=== PATIENT | male | born 1945 | race Caucasian/White ===

== ENCOUNTER → 2018-11-10 08:26 | Outpatient (CLI) | payer MEDICARE, OTHER, SELFPAY ==
--- NOTE | 2018-11-10 08:35 | XR_ITS ---
PROCEDURE: XR KNEE LT 4V CLINICAL INDICATION: left knee pain COMPARISON: No exams were available for comparison FINDINGS: Moderate osteoarthritic changes are present at the medial compartment and patellofemoral joint. There is a suprapatellar effusion. Prominent osteophytes are present at the patellofemoral joint. Mild osteoarthritic changes are present at the lateral compartment. No fracture or dislocation. No lytic or blastic change. IMPRESSION: Moderate osteoarthritic changes with knee joint effusion Dictated by: Adam Winchester MD 11/10/2018 15:27 Signed by: <Electronically signed by Adam Winchester MD in [place]> 11/10/2018 15:27
== END ==
PROVIDERS: PCP Internal Medicine; Visit Provider Orthopaedic Surgery
DX: M25.562 Pain in left knee (principal)
CPT/HCPCS: 73564

== ENCOUNTER → 2018-11-30 08:29 | Outpatient (CLI) | payer MEDICARE, OTHER, SELFPAY ==
[2018-11-30 08:36] LABS: Microscopic, Urine URINE MICROSCOPIC (MICROSCOPIC)
--- NOTE | 2018-11-30 08:47 | XR_ITS ---
PROCEDURE: XR CHEST 2V CLINICAL HISTORY: HTN, PRE OP Previous smoker COMPARISON: CXR1 CHEST-PORTABLE from 09/14/2015 FINDINGS: Prior CABG. COPD. The lungs are clear without infiltrates, suspicious nodules, or pleural effusions. No acute bony abnormalities. IMPRESSION: COPD. No acute finding Dictated by: Adam Winchester MD 11/30/2018 10:46 Electronically signed by Adam Winchester MD in [place] 11/30/2018 10:46
[2018-11-30 08:52] LABS: Basophils # 0.1 K/mm3 (0-0.2); Basophils % 1.2 % (0.1-2.0); Eosinophils # 0.3 K/mm3 (0.0-0.4); Eosinophils % 3.6 % (0.1-12.0); Hematocrit 42.9 % (42.0-52.0); Hemoglobin 14.2 g/dL (14.1-18.0); Lymphocytes # 1.9 K/mm3 (0.7-4.5); Lymphocytes % 26.9 % (10-50); Mean Corpuscular HGB Conc 33.1 g/dL (31.8-35.4); Mean Corpuscular Hemoglobin 31.1 pg (27.0-31.2); Mean Corpuscular Volume 93.9 fl (80-94); Mean Platelet Volume 6.6 fl (7.4-10.4); Monocytes # 0.5 K/mm3 (0.1-1.0); Monocytes % 6.3 % (1.7-9.3); Neutrophils # 4.5 K/mm3 (1.8-7.8); Platelet Count 311 K/mm3 (142-424); Red Blood Count 4.57 M/mm3 (4.60-6.20); White Blood Count 7.2 K/mm3 (4.8-10.8)
[2018-11-30 09:25] LABS: Alanine Aminotransferase 18 U/L (12-78); Albumin Level 4.1 gm/dL (3.4-5.0); Albumin/Globulin Ratio 1.4 (1.1-1.8); Alkaline Phosphatase 59 U/L (46-116); Anion Gap 13.2 mEq/L (5-15); Aspartate Amino Transferase 13 U/L (15-37); Bilirubin,Total 0.5 mg/dL (0.2-1.0); Blood Urea Nitrogen 15 mg/dL (7-18); Calcium 9.3 mg/dL (8.5-10.1); Carbon Dioxide 30 mmol/L (21.0-32.0); Chloride 102 mmol/L (98-107); Creatinine,Serum 1.06 mg/dL (0.70-1.30); Estimated Glomerular Filt Rate 68 ml/min (>60); GFR (African American) 82 ML/MIN (>60); Glucose 136 mg/dL (74-106); Potassium 4.2 mmoL/L (3.5-5.1); Sodium 141 mmol/L (136-145); Total Protein,Serum 7.1 gm/dL (6.4-8.2)
[2018-11-30 09:34] LABS: Appearance,Urine CLEAR (Clear); Bilirubin,Urine Negative (Negative); Blood, Urine TRACE-I (Negative); Color,Urine YELLOW (Yellow); Glucose,Urine (UA) Negative (Negative); Ketones,Urine Negative (Negative); Leukocyte Esterase,Urine Negative (Negative); Nitrate,Urine Negative (Negative); Protein,Urine Negative (Negative); Urobilinogen,Urine 0.2 EU/dl (0.2)
[2018-11-30 10:02] LABS: Bacteria,Urine Trace /lpf; RBC,Urine Occasional #/hpf (0-3); Squamous Epithelial Cell,Urine Occasional #/hpf (0-5)
== END ==
PROVIDERS: PCP Internal Medicine; Visit Provider Orthopaedic Surgery
DX: Z01.818 Encounter for other preprocedural examination (principal); M17.12 Unilateral primary osteoarthritis, left knee
CPT/HCPCS: 36415; 71046; 80053; 81001; 85025

== ENCOUNTER → 2018-12-05 12:05 | Outpatient (CLI) | payer MEDICARE, OTHER, SELFPAY | PROVIDERS: Visit Provider Orthopaedic Surgery | DX: Z01.818 Encounter for other preprocedural examination (principal) | CPT/HCPCS: 36415; 86850 ==

== ENCOUNTER 2018-12-07 06:11 | Inpatient (IN) ==
--- NOTE | 2018-12-07 12:07 | Progress Note ---
[facility] Anesthesia Checklist - Structural Data Admitted From: Home Planned Operative Procedure/s: l total knee Consent for Planned Operative Procedure(s) Verified: Yes - Additional verifications Anesthesia Reactions: No Hx Blood Transfusions: No Blood Transfusion Reaction: No - Airway Assessment C-Spine Mobility Assessed: Yes TMJ Mobility Assessed: Yes Dentition: Poor Dentition - Neurological Assessment Level of Consciousness: Awake, Alert, Appropriate - Anesthesia Plan Anesthesia Risk discussed: Yes Anesthesia Plan: Verified ASA Class: III Anesthesia Type: General [facility] History I have reviewed the patient's past medical history: Yes Medical History: Reports:: Coronary Artery Disease, Diabetes Mellitus Type 2, Hyperlipidemia, Hypertension Denies:: Cancer, Diabetes Mellitus Type 1, Internal Pacemaker, MRSA, Seizures *Have you ever received a pneumonia vaccine?: Yes *Have you received a flu vaccine this season?: No Other Medical History: Reports: Arthritis. Denies: Blood Transfusion Reaction Anesthesia experience/problems:: none Laterality Cases: Other Surgeries: Yes: Cardiac Catheterization, Colonoscopy, Hernia Repair. No: Pacemaker Amputation: No Fractures: No - *Social History Smoking Status: Never smoker Alcohol Intake: never Substance Use Type: denies use *Occupational Status:: retired Housing: house Household Members: spouse *Travel in the last 8 weeks: Inside the [facility] Family Hx:: No significant family history
--- NOTE | 2018-12-07 12:08 | Progress Note ---
[facility] Anesthesia Record Part I Intake, IV Amount: 200 Estimated blood loss (mL): 50 Urine output (mL): 1,100 Blood Pressure: 154/78 SaO2: 98 Pulse Rate: 89 Respiratory Rate: 12 Temperature: 97.5 F Patient is:: Awake, Stable Stable to PACU at:: 12:05
--- NOTE | 2018-12-07 12:09 | Progress Note ---
[place] Anesthesia Record Part II Discharge Time: 12:45 Destination: floor PACU nurse assessment reviewed?: Yes Patient Condition:: Good Anesthesia Complications:: None Swallowing reflex intact?: Yes Cyanosis?: No
--- NOTE | 2018-12-07 12:30 | Operative Note ---
Date of procedure: 12/07/18 Pre-op Diagnosis:: Advanced degenerative arthritis, left knee Post-op Diagnosis:: Same Procedure performed:: Cemented total knee arthroplasty, left Surgeon:: Deion Sherman MD Casino Floor Runner(s):: Carlyn Dejesus WEB CONTENT COORDINATOR:: Cesar Danielle Anesthesia: GETA, regional (Femoral and sciatic nerve blocks) Estimated blood loss (mL): 50 Clinical Note:: Patient is a 73-year-old male with end-stage [id number] tricompartmental osteoarthritis of the left knee with a progressive varus deformity and flexion contracture presented with unremitting severe pain not relieved by conservative management. The pain is advanced to the point that it is becoming a hazard for him with risk of falling and injuring himself. A Total Knee Arthroplasty is indicated to relieve the pain, improve function, reduce the risk of falls and improve quality of life. Please refer to my office note for full details. Operative findings:: As noted on the preoperative evaluation, the knee joint had 15 degrees of fixed flexion and 10 degrees fixed varus deformity. Preoperative knee range of flexion under anesthesia was 15-100 of flexion only. As seen on the x-rays, there are advanced degenerative changes over all 3 compartments with [id number] appearance; the medial and patellofemoral compartments are the most severely involved of the 3 compartments. The menisci and cruciate ligaments are significantly degenerated. There is extensive osteophyte formation over all 3 compartments. The intercondylar notch was almost obliterated and filled with osteophytes. There were also significant osteophytes over the posterior aspect of the femoral condyles. Overall bone quality is good. Operative note:: On the day of the surgery the patient and his family were seen in the preoperative area. I have reviewed the clinical and x-ray findings with the patient. I again discussed the diagnosis, natural history and management options in detail including both nonsurgical and surgical. He has end-stage degenerative arthritis of his left knee and has failed to respond satisfactorily to conservative management so far and has opted for a left total knee arthroplasty. His left knee joint is stiff and painful, and is limiting his mobility, ADLs and quality of life. Also his left knee gives out and he is at risk of falls resulting in fractures. He mobilizes with a cane as needed. We again discussed the details of the procedure, risks and benefits and alternatives in detail. The complications discussed include but are not limited to infection, injury to nerves and blood vessels including injury to popliteal artery, injury to tendons and ligaments, DVT and PE, fat embolism, intraoperative fracture, limb length inequality, patella fracture, patellofemoral instability, patellar clunk syndrome, quadriceps and patellar tendon rupture, implant failure, component loosening, periprosthetic femur and tibia fractures, stiffness(arthrofibrosis), limp, incomplete relief of pain, incomplete functional recovery, likely need for further surgery in future including revision and anesthetic complications including heart attack, stroke and even . We discussed how any of these events can be devastating. We have discussed nonsurgical alternatives as well. Patient understands and wishes to proceed with a left total knee arthroplasty and I believe that patient is fully informed as to the risks, benefits, and alternatives including nonsurgical alternatives. We also discussed the postoperative course including the rehab and physical therapy required. A physical examination was performed and documented. Patient understood the risks, agreed to proceed with surgery, signed the consent form and no guarantees or assurances were given or implied. The limb was appropriately marked and initialed by me. The patient was then brought to the operating room and a general anesthesia was administered by the awning erector. Prior to that he had femoral and sciatic nerve blocks in the pre-anesthetic area. The patient was then positioned supine on the operating table. All the bony prominences were appropriately padded. A well-padded tourniquet cuff was placed high over the upper thigh. The left knee was then prepped with isopropyl alcohol followed by chlorhexidine and draped in the usual sterile fashion. Prior to this, patient had used Hibiclens for a total of 5 days prior to the surgery and also used topical intranasal Bactroban. The entire operative team wore isolation suits and the Operating Room traffic was controlled. The skin incision was marked for a medial parapatellar approach to the knee joint. The entire operative site was sealed off with Ioban drape. A preprocedure timeout was performed as per hospital protocol. At the start of the procedure administration of prophylactic antibiotics (Ancef and vancomycin) was confirmed with the awning erector. Another dose of 1 g of Ancef was given at about 2 hours surgical time. Also patient received 1 g of IV tranexamic acid before starting the procedure and 1 g at the time of wound closure to reduce the postoperative blood loss. A preprocedure timeout was performed as per hospital protocol. The limb was exsanguinated with Esmarch bandage, the knee joint flexed beyond 90 and the tourniquet cuff was inflated to 325 mm Hg. Please see the nursing records for a total tourniquet time. I then made a midline incision utilizing a #10 scalpel blade. Electrocautery was used to seal off subcutaneous vessels. The extensor mechanism was exposed, marked and a curvilinear incision made for a medial parapatellar approach using the scalpel blade. The patella was everted carefully and the fat pad resected to allow sufficient visualization of the proximal tibia. Extensive osteophyte formation was noted over all 3 compartments. The osteophytes were removed with rongeurs. The intercondylar notch was filled with osteophytes and the anterior cruciate ligament noted to be degenerate. The menisci were also degenerate and the anterior aspects of both menisci were resected. An appropriate medial release was performed with the knife and Rickey elevator. A step drill was used to open the intramedullary canal and the distal cutting guide was placed. The jig was pinned into position and the intramedullary guide vernon removed. The distal cut was made at 5 degrees of valgus and then the posterior referencing sizing jig was placed. The femur sized best at a size 10 femur for the Hansa persona system. Drill holes were made for the 4-in-1 cutting block in 3 degrees of external rotation. We then placed the 4-in-1 cutting block in position and the cross pins were added stabilizing the block. The jarvis wing was utilized to ensure notching of the anterior cortex would not occur. The anterior cut was made followed by the posterior cut then the posterior chamfer and finally the anterior chamfer cuts in that order. Soft tissue was protected throughout with careful retraction using the Z retractors. We checked for trueness of the cuts and then moved on to the tibia. The extra medullary guide was placed and aligned from the medial one third of the tibial tubercle down to the second metatarsal base. We pinned cutting block in position for minimal resection of the tibia from the medial side which was mo re severely involved with arthritis, checked the alignment, protected the soft tissues with appropriate retractors and resected with the Faustina saw. The resected tibial plateau articular surface was removed and sized it at a size H. We ensured correctness of the cut and correct posterior slope (5 degrees) and carefully preserved the posterior cruciate ligament. Using the laminar military communications specialist to distract the bones, we carefully resected the remaining portions of the medial and lateral menisci, removed the osteophytes from the posterior femoral condyles and the medial tibial plateau. We then checked the flexion and extension gaps and found them to be equal and well balanced. We trialed the femur and the tibia with a polyethylene insert and ranged the knee to ensure full flexion and extension and checked for ligamentous stability. We then everted the patella and measured the thickness with calipers. The patella was sized at 38 mm and measured 29 mm thick. A minimal resection (9.5mm) of the patella was carried out using the appropriate cutting guide. I then made the holes for a 3 pegged patellar button using the patella peg drill guide. We had lateralized the femur and medialized the patella intentionally for a better patellar tracking. We placed trial components and noted that a 11 mm thick polyethylene to fit best. This gave us appropriate range of motion with proper ligamentous stability. We allowed this to be free-floating and then checked it and made sure it was in appropriate position in relation to the tibial tubercle. We also used tibial alignment vernon to check for satisfactory position of the base plate and markings were made with electrocautery on the proximal tibia. We then completed the femoral preparation by making lug holes for the femoral component and removed the trial components leaving the tibial base plate in position. I then pinned the tibial base plate to the top of the tibia in correct alignment and completed the drilling and broaching of the proximal tibia. I then placed an appropriately prepared bone plug into the hole in the distal femur. I then copiously irrigated the knee with pulse lavage and then dried the cut surfaces. We then cemented the tibial tray, the femoral component, and placed a 11 mm trial polyethylene insert and brought the knee into full extension. We then cemented the 3 pegged patellar button and held it with a clamp. We allowed the cement to set and then inspected the knee joint and removed excess cement with an osteotome. We then placed the 11 mm definitive polyethylene tibial insert ensuring that the dovetails fit appropriately and that the polyethylene was down and seated into the tibial tray properly. The knee joint was put through range of motion and noted to be stable in both AP and ML direction; the patella was noted to be tracking appropriately with no thumb technique. The knee joint was then soaked with dilute Betadine (0.35 percent) solution for 3 minutes followed by suctioning of the solution and pulsatile lavage with the 1 L of normal saline. The tourniquet was deflated and hemostasis obtained with diathermy cautery. Another gram of tranexamic acid was given intravenously by the awning erector at the time of wound closure. The knee joint was again thoroughly irrigated with the pulse lavage and good hemostasis was confirmed before proceeding with wound closure. The capsule/extensor mechanism was closed with #1 Vicryl [id number] sutures ensuring a watertight closure. Next the subcutaneous tissue was closed with 2-0 Vicryl interrupted sutures. The skin was closed with subcuticular 4-0 Monocryl sutures, Dermabond and Steri-Strips. Sterile dressings were applied consisting of Xeroform, 4 x 4, ABDs, soft roll and secured in place with Parviz wrap. No drains were placed. The patient was then transferred from the operating table onto the bed. The tibialis posterior and dorsalis pedis pulses were noted 2+ with good capillary refill in the foot. The patient was then reversed from the anesthetic and transported to the postoperative recovery area in a stable condition. Patient tolerated the procedure well and there were no immediate complications. The swab, needle and instrument counts were correct, according to the scrub team, at the end of the procedure. Portable x-rays of the left knee were obtained in the recovery area which showed the components were well fixed in a satisfactory position without any complications. The knee was placed in a knee immobilizer which should be continued when standing and walking, until he regains full quadriceps control. Postoperatively, institute and continue standard precautions and physical therapy for a standard total knee arthroplasty starting on postoperative day 1. Patient can be mobilized full weightbearing as tolerated. Implants: Hansa Persona, 5 degrees stemmed left tibial base plate- size H Hansa Persona all poly-patellar component-38 mm/9.5 mm Hansa Persona cruciate-retaining standard femoral component, size 10, left Hansa Persona Vivacit-E highly cross-linked polyethylene medial Congruent articular surface, left size G-H/CR x 11 mm Biomet Refobacin bone cement R x2. Industry call center support representative: Ubaldo Danielson ([employer]) Condition: stable Disposition: PACU Specimens:: None Complications:: None
--- NOTE | 2018-12-07 15:55 | Pharmacy Consult Notes ---
[facility] Pharmacy VTE Monitoring - Patient Demographics Admission date: 12/07/18 Report Date: 12/07/18 Time: 15:55 Allergies/Adverse Reactions: Patient Allergies latex [LATEX] Allergy (Intermediate, Verified 12/07/18 06:41) Height: 1.85 m Weight: 95.765 kg - VTE Risk VTE Score: 6 VTE Risk Level: Moderate Risk - Prophylaxis Pharmacologic Type: Other (XARELTO ORDERED)
--- NOTE | 2018-12-07 17:31 | Consult Report ---
*Admission Date: 12/07/18 *Reason for consult:: Medical management postoperatively *History of present illness: 73-year-old white male with severe osteoarthritis, admitted for total knee replacement. Surgery was accomplished today without incident. Patient has pertinent history of coronary disease, status post CABG in the remote past, follows with Dr. Gilmore, staking engineer in [facility]. He denies recent problems with chest pain, shortness of air, and postoperatively he has felt well and denies any symptoms as noted above. [facility] History I have reviewed the patient's past medical history: Yes Medical History: Reports:: Cancer (skin cancer), Coronary Artery Disease, Diabetes Mellitus Type 2, Hyperlipidemia, Hypertension Denies:: Diabetes Mellitus Type 1, Internal Pacemaker, MRSA, Seizures *Have you ever received a pneumonia vaccine?: Yes *Have you received a flu vaccine this season?: No Other Medical History: Reports: Arthritis. Denies: Blood Transfusion Reaction Anesthesia experience/problems:: none Laterality Cases: Left: Arthroscopy Knee, Cataract, Total Knee Replacement Other Surgeries: Yes: CABG, Cardiac Catheterization, Colonoscopy, EGD, Hernia Repair, Open Heart Surgery, Skin Cancer Excision. No: Pacemaker Amputation: No Fractures: No - *Social History Educational Level: Completed High School Smoking Status: Former smoker Tobacco Type: pipe Alcohol Intake: never Substance Use Type: denies use *Occupational Status:: retired Housing: house Household Members: spouse *Travel in the last 8 weeks: None Family Hx:: Cancer, Coronary Artery Disease, Diabetes, Heart Attack, Hyperlipidemia, Hypertension Review of Systems - Review of Systems Review of systems:: pertinent systems reviewed and negative unless documented below Meds Home Medications Medication Instructions Recorded Confirmed Type aspirin 81 mg tablet,delayed 81 mg PO DAILY 11/10/18 12/07/18 History release lisinopril 5 mg tablet 5 mg PO DAILY 11/10/18 12/07/18 History metformin 1,000 mg tablet 1,000 mg PO BID 11/10/18 12/07/18 History pantoprazole 20 mg tablet,delayed 20 mg PO DAILY 11/10/18 12/07/18 History release Atorvastatin Calcium [Atorvastatin 10 mg PO DAILY 12/07/18 12/07/18 History 10mg Tab] Tamsulosin HCl 0.4 mg PO HS 12/07/18 12/07/18 History Tramadol HCl [Tramadol 50mg 50 mg PO Q6HP PRN 12/07/18 12/07/18 History Tab] Allergies Allergy/AdvReac Type Severity Reaction Status Date / Time latex [LATEX] Allergy Intermediate Verified 12/07/18 06:41 Exam Vital signs and Labs for Last 24 Hours: Temp Pulse Resp BP Pulse Ox 97.9 F 92 H 18 139/62 97 12/07/18 16:00 12/07/18 16:00 12/07/18 16:00 12/07/18 16:00 12/07/18 16:00 Laboratory Results - last 24 hr 12/07/18 06:58: POC Glucose 124 H 12/07/18 08:15: Urine Color Yellow, Urine Appearance Clear, Urine pH 6.0, Ur Specific [place] 1.020, Urine Protein Negative, Urine Glucose (UA) Negative, Urine Ketones Negative, Urine Blood Negative, Urine Nitrate Negative, Urine Bilirubin Negative, Urine Urobilinogen 0.2, Ur Leukocyte Esterase Negative, Urine RBC Occasional, Urine WBC 3-5, Ur Squamous Epith Cells None, Urine Bacteria 1+ I & O for Last 24 hours: Intake & Output 12/05/18 12/06/18 12/07/18 12/08/18 11:59 11:59 11:59 11:59 Intake Total 200 / 200 Output Total 300 / 300 Balance -100 / -100 Weight 200 lb 211 lb 2 oz Narrative: Patient is awake, alert, oriented x3, resting comfortably in bed. Bansal catheter in place draining clear yellow urine, splint and dressing appropriately on left knee and lower leg. Distal perfusion however is intact. Heart rate regular without murmurs, lungs are clear in the anterior rivas, oropharynx clear, no JVD. Neurologically patient is intact. Abdomen soft and nontender. Internal Medicine - CN: Reslt - Labs Labs: Urine 12/07/18 Range/Units 08:15 Urine Color Yellow (Yellow) Urine Appearance Clear (Clear) Urine pH 6.0 (5.0-8.5) Ur Specific [place] 1.020 (1.005-1.030) Urine Protein Negative (Negative) Urine Glucose (UA) Negative (Negative) Assessment and Plan (1) Status post left knee replacement Current visit: Yes Status: Acute Category: Surgical Code(s): Z96.652 - Presence of left artificial knee joint Patient seems to be doing well in the immediate postoperative period. On anticoagulation therapy. Respiratory status excellent. We will continue to monitor (2) Diabetes type 2, controlled Current visit: Yes Status: Acute Category: Medical Code(s): E11.9 - Type 2 diabetes mellitus without complications Restart patient's metformin. (3) Coronary atherosclerosis Current visit: Yes Status: Acute Category: Medical Code(s): I25.10 - Atherosclerotic heart disease of [place] coronary artery without angina pectoris Asymptomatic, no changes in plan.
[2018-12-08 07:19] LABS: Basophils % 0.2 % (0.1-2.0); Eosinophils % 0.2 % (0.1-12.0); Hemoglobin 11.1 g/dL (14.1-18.0); Lymphocytes # 1.6 K/mm3 (0.7-4.5); Lymphocytes % 14.8 % (10-50); Mean Corpuscular HGB Conc 32.6 g/dL (31.8-35.4); Mean Corpuscular Volume 91.9 fl (80-94); Mean Platelet Volume 6.7 fl (7.4-10.4); Monocytes % 9.4 % (1.7-9.3); Neutrophils # 8.3 K/mm3 (1.8-7.8); Neutrophils % 75.3 % (37.0-80.0); Platelet Count 249 K/mm3 (142-424); Red Cell Distribution Width 13.2 % (11.5-17.5)
[2018-12-08 07:22] LABS: Anion Gap 12.8 mEq/L (5-15); Calcium 8.3 mg/dL (8.5-10.1)
--- NOTE | 2018-12-08 09:00 | Progress Note ---
Internal Medicine - PN: Subj *Date: 12/08/18 *Time: 08:57 Interval history: Did well overnight. No bowel movement since yesterday. Bansal still in place. Pleasant on interview this morning. No acute complaints. States he has improved feeling in his left foot. Getting up to bedside chair with nursing on interview. No shortness of breath, chest pain, confusion, nausea or vomiting Exam Vital signs and Labs for Last 24 Hours: Temp Pulse Resp BP Pulse Ox 98.8 F 99 H 18 135/52 L 92 L 12/08/18 08:00 12/08/18 08:00 12/08/18 08:00 12/08/18 08:00 12/08/18 08:00 Laboratory Results - last 24 hr 12/07/18 08:15: Urine Color Yellow, Urine Appearance Clear, Urine pH 6.0, Ur Specific [place] 1.020, Urine Protein Negative, Urine Glucose (UA) Negative, Urine Ketones Negative, Urine Blood Negative, Urine Nitrate Negative, Urine Bilirubin Negative, Urine Urobilinogen 0.2, Ur Leukocyte Esterase Negative, Urine RBC Occasional, Urine WBC 3-5, Ur Squamous Epith Cells None, Urine Bacteria 1+ 12/08/18 06:27: WBC 11.0 H, RBC 3.70 L, Hgb 11.1 L, Hct 34.0 L, MCV 91.9, MCH 29.9, MCHC 32.6, RDW 13.2, Plt Count 249, MPV 6.7 L, Neut % (Auto) 75.3, Lymph % (Auto) 14.8, Heard % (Auto) 9.4 H, Eos % (Auto) 0.2, Baso % (Auto) 0.2, Neut # (Auto) 8.3 H, Lymph # (Auto) 1.6, Heard # (Auto) 1.0, Eos # (Auto) 0.0, Baso # (Auto) 0.0 12/08/18 06:27: Sodium 141, Potassium 3.8, Chloride 106, Carbon Dioxide 26, Anion Gap 12.8, BUN 16, Creatinine 1.13, Estimated Creat Clear 77, Estimated GFR 63, Est GFR ( Amer) 77, Glucose 147 H, Calcium 8.3 L I & O for Last 24 hours: Intake & Output 12/05/18 12/06/18 12/07/18 12/08/18 23:59 23:59 23:59 23:59 Intake Total 440 / 440 1461 / 1461 Output Total 300 / 300 1950 / 1950 Balance 140 / 140 -489 / -489 Weight 95.765 kg 95.765 kg Narrative: Patient is awake, alert, oriented x3, resting comfortably in bed. Bansal catheter in place draining clear yellow urine, splint and dressing appropriately on left knee and lower leg. Neurovascularly intact in left distal extremity. Wiggles toes on command. Sensation normal bilaterally in feet Heart rate regular without murmurs, lungs are clear in the anterior rivas, oropharynx clear, no JVD. Neurologically patient is intact. Abdomen soft and nontender. Assessment and Plan (1) Status post left knee replacement Current visit: Yes Status: Acute Category: Surgical Code(s): Z96.652 - Presence of left artificial knee joint (2) Diabetes type 2, controlled Current visit: Yes Status: Acute Category: Medical Code(s): E11.9 - Type 2 diabetes mellitus without complications (3) Coronary atherosclerosis Current visit: Yes Status: Acute Category: Medical Code(s): I25.10 - Atherosclerotic heart disease of [place] coronary artery without angina pectoris - Assessment and plan all Dx Assessment and Plan for all problems:: Stable today. No change to medical management. Continue anticoagulation with Xarelto. Will need 6 weeks of anticoagulation therapy for DVT prophylaxis. Awaiting physical therapy assessment for further disposition recommendations.
--- NOTE | 2018-12-08 13:24 | Progress Note ---
Subjective Date: 12/08/18 Time: 12:30 Principal diagnosis: Status post left total knee arthroplasty Interval history: Patient is status post left total knee arthroplasty, postoperative day 1. Patient is lying down on the bed. Patient says he is doing well and his pain is well controlled with medication. He says the nerve blocks for off this morning and he is having some pain in the knee. No history of any nausea or vomiting. No history of any cough, chest pain, shortness of breath or palpitations. Patient says he is eating and drinking well. He has been up this morning with the physical therapy and says it went well. PN: Obj Ex Vital signs: Temp Pulse Resp BP Pulse Ox 98.3 F 84 20 158/69 H 95 12/08/18 12:17 12/08/18 12:17 12/08/18 12:17 12/08/18 12:12/08/18 12:17 Narrative: Laboratory Results - last 24 hr 12/08/18 06:27: WBC 11.0 H, RBC 3.70 L, Hgb 11.1 L, Hct 34.0 L, MCV 91.9, MCH 29.9, MCHC 32.6, RDW 13.2, Plt Count 249, MPV 6.7 L, Neut % (Auto) 75.3, Lymph % (Auto) 14.8, Placer % (Auto) 9.4 H, Eos % (Auto) 0.2, Baso % (Auto) 0.2, Neut # (Auto) 8.3 H, Lymph # (Auto) 1.6, Placer # (Auto) 1.0, Eos # (Auto) 0.0, Baso # (Auto) 0.0 12/08/18 06:27: Sodium 141, Potassium 3.8, Chloride 106, Carbon Dioxide 26, Anion Gap 12.8, BUN 16, Creatinine 1.13, Estimated Creat Clear 77, Estimated GFR 63, Est GFR ( Amer) 77, Glucose 147 H, Calcium 8.3 L Intake & Output 12/06/18 12/07/18 12/08/18 12/09/18 11:59 11:59 11:59 11:59 Intake Total 2141 / 2141 Output Total 2400 / 2400 Balance -259 / -259 Weight 211 lb 2.011 oz Exam: General appearance: alert, active, awake Cardiovascular: regular rate & rhythm, normal peripheral pulses Respiratory: No respiratory distress noted, speaks in full sentences ABD: soft and non tender Neuro: alert, awake, oriented x 3 On examination of the lower extremities the limb lengths are equal. On examination of the left knee the dressings are clean, dry and intact. Calf is soft and nontender. Distal pulses are 2+. Capillary refill is brisk. Sensation is intact to light touch throughout. He is actively moving the ankle, foot and the toes. Diagnostic imaging: Postoperative check x-rays satisfactory with good alignment and fixation of the implants. No complications noted on the x-rays. - Urinary Catheter Management Coude Cath placed during this visit: yes Urethral indwelling: Yes Reason for continuing: Surgical procedure Insertion date: 12/07/18 Insertion time: 08:15 Progress Note: A&P (1) Status post left knee replacement Status: Acute Current Visit: Yes (2) Diabetes type 2, controlled Status: Acute Current Visit: Yes (3) Coronary atherosclerosis Status: Acute Current Visit: Yes Assessment and Plan for All Diagnoses:: I have reviewed the operative findings and procedure performed with the patient. On first postoperative day after surgery, he is doing well without any major problems. He does have some pain as to be expected and it is well controlled with medication. Advised him to avoid placing pillow behind the knee; use knee immobilizer when weightbearing and walking until he regains full quadriceps control and is able to actively straight leg raise. Patient was seen by PT today and started physical therapy and mobilization; continue standard protocol for a primary knee replacement. Discontinue IV fluids as patient is eating and drinking well. Continue DVT prophylaxis and as needed pain medication. The catheter was removed this morning and he passed urine since. Care management consult regarding discharge planning. Continue medical management as per Dr. Hardwick.
--- NOTE | 2018-12-09 08:04 | Progress Note ---
Internal Medicine - PN: Subj *Date: 12/09/18 *Time: 08:03 Interval history: Medicine consult follow-up: Patient feels well except for "this leg." No chest pain, shortness of air or GI distress. Exam Vital signs and Labs for Last 24 Hours: Temp Pulse Resp BP Pulse Ox 97.9 F 105 H 18 139/69 93 L 12/09/18 04:00 12/09/18 04:00 12/09/18 04:00 12/09/18 04:00 12/09/18 04:00 I & O for Last 24 hours: Intake & Output 12/06/18 12/07/18 12/08/18 12/09/18 11:59 11:59 11:59 11:59 Intake Total 2141 / 2141 970 / 970 Output Total 2400 / 2400 1050 / 1050 Balance -259 / -259 -80 / -80 Weight 211 lb 2.011 oz 206 lb 7 oz Narrative: Patient is alert. Somewhat grumpy about his leg pain. Lungs are clear, heart rate regular. Abdomen soft. No peripheral edema. Assessment and Plan (1) Status post left knee replacement Current visit: Yes Status: Acute Category: Surgical Code(s): Z96.652 - Presence of left artificial knee joint (2) Diabetes type 2, controlled Current visit: Yes Status: Acute Category: Medical Code(s): E11.9 - Type 2 diabetes mellitus without complications (3) Coronary atherosclerosis Current visit: Yes Status: Acute Category: Medical Code(s): I25.10 - Atherosclerotic heart disease of [place] coronary artery without angina pectoris - Assessment and plan all Dx Assessment and Plan for all problems:: Overall patient improving, stable from a medicine perspective. Stable for discharge from my perspective. He takes Eliquis at home for anticoagulation therapy and this should be adequate for postoperative prophylaxis for DVT issues.
--- NOTE | 2018-12-09 13:18 | Progress Note ---
Subjective Date: 12/09/18 Time: 11:45 Principal diagnosis: Status post left total knee arthroplasty Interval history: Patient is status post right left knee arthroplasty, postoperative day 2. Patient is lying down on the bed. Patient says he is doing fairly well and pain is well controlled with medication. He says he is mobilizing well with the physical therapy and walked up and down the hallway today. No history of any nausea or vomiting. No history of any cough, chest pain, shortness of breath or palpitations. Patient says he is eating and drinking well. PN: Obj Ex Vital signs: Temp Pulse Resp BP Pulse Ox 98.1 F 99 H 17 137/71 95 12/09/18 11:28 12/09/18 11:28 12/09/18 11:28 12/09/18 11:28 12/09/18 11:28 Narrative: Intake & Output 12/07/18 12/08/18 12/09/18 12/10/18 11:59 11:59 11:59 11:59 Intake Total 2141 / 2141 1330 / 1330 360 / 360 Output Total 2400 / 2400 1300 / 1300 150 / 150 Balance -259 / -259 30 / 30 210 / 210 Weight 211 lb 2.011 oz 206 lb 7 oz Exam: General appearance: alert, active, awake Cardiovascular: regular rate & rhythm, normal peripheral pulses Respiratory: No respiratory distress noted, speaks in full sentences ABD: soft and non tender Neuro: alert, awake, oriented x 3 On examination of the lower extremities the limb lengths are equal. On examination of the left knee the dressings are clean, dry and intact. I have changed the dressings today. The incision looks clean, dry and healthy. No discharge, bleeding or soakage of the dressings noted. He has a small blister over the medial aspect of the incision at the level of the patella. Calf is soft and nontender. Distal pulses are 2+. Capillary refill is brisk. Sensation is intact to light touch throughout. He is actively moving the ankle, foot and the toes. He is just about able to actively straight leg raise. - Urinary Catheter Management Coude Cath placed during this visit: yes Urethral indwelling: Yes Reason for continuing: Surgical procedure Insertion date: 12/07/18 Insertion time: 08:15 Progress Note: A&P (1) Status post left knee replacement Status: Acute Current Visit: Yes (2) Diabetes type 2, controlled Status: Acute Current Visit: Yes (3) Coronary atherosclerosis Status: Acute Current Visit: Yes Assessment and Plan for All Diagnoses:: I have reviewed the findings and progress with the patient. He is doing fairly well and reports better pain control today. I have again advised him to avoid placing pillow behind the knee; use knee immobilizer when weightbearing and walking until he regains full quadriceps control and is able to actively straight leg raise. Advised him to continue PT, OT and mobilization; continue standard protocol for a primary total knee replacement. Continue DVT prophylaxis and as needed pain medication. Care management looking into discharge planning. Continue medical management as per Dr. Hardwick.
--- NOTE | 2018-12-10 10:45 | Discharge Summary ---
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 He has not responded well to conservative management including NSAID, Tylenol, and intra-articular injections in the past. He is using assistive walking devices. A total knee arthroplasty is indicated to reduce the risk of falls, decrease the pain and improve the mobility and quality of life. The surgical and nonsurgical alternatives were discussed in detail with the patient as well as the risks and benefits of the surgery. He has a history of hypertension, diabetes and osteoarthritis. Hospital Course Hospital Course: Patient underwent an uncomplicated straightforward primary left total knee arthroplasty on 12/07/2018. Following surgery patient progressed well without any complications. His postoperative check x-ray was satisfactory with good alignment and fixation of the components. He progressed rapidly with physical therapy and was able to mobilize using a walker. At the time of discharge he still has not regained good quadriceps control and was advised to mobilize with the knee immobilizer until he fully regains quadriceps control and is able to actively straight leg raise. His pain is well controlled with as needed oral hydrocodone/Tylenol. The dressings were reduced on the second postoperative day and the wound is healthy and healing well. No signs of any erythema, induration or discharge. He has developed couple of blisters possibly from allergy to the Steri-Strips; therefore I have removed the Steri-Strips on the day of discharge and applied sterile nonadhesive dressing. Patient was started on Xarelto 10 mg daily for DVT prophylaxis after surgery. His neurovascular status in both lower extremities is intact. Pedal pulses 2+ bilaterally and fully sensate distally. No clinical evidence of DVT noted. Patient was cleared for discharge by physical therapy. On the day of discharge, the patient has been stable. Patient's vital signs have been stable throughout and he is afebrile at the time of discharge. He is being discharged home with home health. During his admission to the hospital he was also seen by Dr. Hardwick for management of medical problems. Dr. Hardwick also cleared him for discharge from a medical standpoint. Condition at discharge: improved and stable. Treatments and Procedures: Total knee arthroplasty, LEFT knee; date of surgery 12/07/2018. Objective Vital signs: Temp Pulse Resp BP Pulse Ox 98.5 F 94 H 18 137/72 93 L 12/10/18 08:00 12/10/18 08:00 12/10/18 08:00 12/10/18 08:00 12/10/18 08:00 no acute distress, cooperative - *Routine HEENT Exam Head: Present: normocephalic, atraumatic Eye: Present: EOMI ENT: Present: mucous membranes moist - *Routine Neck Exam Present: supple, full ROM, trachea midline - *Routine Respiratory Exam Present: CTA bilaterally - *Routine Cardiovascular Exam Present: RRR, Normal S1, Normal S2 - *Routine Abdominal Exam Present: soft, normoactive bowel sounds. Absent: tenderness - *Routine Extremities Exam Comments: On examination of the [left]knee, the dressing is in place and is clean, dry and intact. There is no erythema or discharge. There is diffuse swelling and some tenderness over the knee joint as to be expected at this stage. He has developed a couple of blisters possibly from allergy to the Steri-Strips /Mastisol. Therefore I have removed the Steri-Strips and applied a sterile nonadhesive dressing. Knee range of motion is [5-70] of flexion. Distal pulses are 2+. Capillary refill is brisk. Sensation is intact to light touch throughout. Thigh and calf are soft and there is mild tenderness over the distal thigh. There is also 1+ edema of the [left] leg, ankle and foot. Patient demonstrates good range of foot and ankle movements. The quadriceps muscle is actively abi. Patient is barely able to actively straight leg raise. - Routine Back/Spine/Pelvis Exam Back/Spine: Absent: paraspinal tenderness, vertebral tenderness - *Routine Skin Exam Present: intact, warm, normal turgor - *Routine Neurological Exam Present: alert, oriented X3, moving all extremities - Routine Psychiatric Exam Present: normal affect, cooperative DS: Diagnosis - Discharge Diagnosis (1) Status post left knee replacement Start date: 12/07/18 Status: Acute (2) Diabetes type 2, controlled Status: Acute (3) Coronary atherosclerosis Status: Acute Discharge Plan - Patient Discharge Instructions ACTIVITY: Continue current activity, Ambulate as tolerated DIET: advance to your usual diet Patient Instructions: Knee Replacement, DI for Knee Replacement, DI for Surgical Site Infection, Surgical Site Infection - Follow up Plan Follow up with: Deion Sherman MD [Staff Physician] - 12/23/18 10:00 am Disposition: Home Health Service Home Medications: Home Medications Medication Instructions Recorded Confirmed Type aspirin 81 mg tablet,delayed 81 mg PO DAILY 11/10/18 12/07/18 History release lisinopril 5 mg tablet 5 mg PO DAILY 11/10/18 12/07/18 History metformin 1,000 mg tablet 1,000 mg PO BID 11/10/18 12/07/18 History pantoprazole 20 mg tablet,delayed 20 mg PO DAILY 11/10/18 12/07/18 History release Atorvastatin Calcium [Atorvastatin 10 mg PO DAILY 12/07/18 12/07/18 History 10mg Tab] Tamsulosin HCl 0.4 mg PO HS 12/07/18 12/07/18 History Docusate Sodium [Docusate Sodium 100 mg PO BIDP PRN #30 cap 12/10/18 Rx 100mg Cap] Ferrous Sulfate [Ferrous Sulfate 325 mg PO BID #120 tab 12/10/18 Rx 325mg Tablet] Hydrocod/Acet 5/325 mg [[place] 1 - 2 tab PO Q4HP PRN #60 tab 12/10/18 Rx 5/325mg tablet] Rivaroxaban [Xarelto 10mg tablet] 10 mg PO QPMWM 14 Days #14 tab 12/10/18 Rx Prescriptions/Medication Reconciliation: New Ferrous Sulfate [Ferrous Sulfate 325mg Tablet] 325 mg PO BID #120 tab Rivaroxaban [Xarelto 10mg tablet] 10 mg PO QPMWM 14 Days #14 tab Hydrocod/Acet 5/325 mg [[place] 5/325mg tablet] 1 - 2 tab PO Q4HP PRN #60 tab PRN Reason: Moderate To Severe Pain Docusate Sodium [Docusate Sodium 100mg Cap] 100 mg PO BIDP PRN #30 cap PRN Reason: Constipation Continued metformin 1,000 mg tablet 1,000 mg PO BID pantoprazole 20 mg tablet,delayed release 20 mg PO DAILY lisinopril 5 mg tablet 5 mg PO DAILY Atorvastatin Calcium [Atorvastatin 10mg Tab] 10 mg PO DAILY Tamsulosin HCl 0.4 mg PO HS Held aspirin 81 mg tablet,delayed release 81 mg PO DAILY Discontinued Tramadol HCl [Tramadol 50mg Tab] 50 mg PO Q6HP PRN PRN Reason: Moderate Pain - Problem Reconciliation Problems Reviewed?: Yes - Additional Information Additional Information: Our recommendations on discharge include physical therapy with weightbearing as tolerated and range of motion exercises of the left knee with emphasis on full extension and regaining flexion gradually. Patient will have home health and physical therapy at home. Note is made that the patient easily extends the knee to 0 degrees and flexes to 120 degrees while he was under anesthesia for the total knee arthroplasty with the wound closed. I have strongly advised him not to place any pillow behind the knee. But he can place a pillow under the ankle thus allowing gravity/weight of the leg help the knee into full extension. Patient was also advised to keep the leg elevated and ice the knee/use Polar pack on a regular basis. At this stage it is permissible to take a shower and allow the incision to get wet with shower water. After padding the area dry, the wound can be left open. If needed the dressings can be changed as clinically indicated. Patient will follow up with me in the office in approximately 12-14 days for wound check and to cut the suture ends. Recommend 10 mg of Xarelto p.o. daily for 10 days for DVT prophylaxis. Please feel free to call our office at [phone] or via the hospital blanket cutting machine operator [phone] for any orthopaedic questions or concerns.
== END 2018-12-10 12:00 | disposition home health service (06) | DRG 470 ==
LOC: OR 06:11 → 2ND 06:11 → OBSVTOIN 06:23 → 2ND 13:30
PROVIDERS: ADMIT Orthopaedic Surgery; ATTEND Orthopaedic Surgery
CPT/HCPCS: 36415; 73560; 80048; 81001; 82962; 85025; 86850; 96374; 97110; 97116; 97161; 97165; C1713; C1776; J2405; J3370

== ENCOUNTER → 2019-01-20 11:22 | Outpatient (CLI) | payer MEDICARE, OTHER, SELFPAY ==
--- NOTE | 2019-01-20 11:29 | XR_ITS ---
PROCEDURE: XR KNEE LT 2V CLINICAL INDICATION: sp lt knee total arthroplasty Follow-up knee arthroplasty. COMPARISON: XR KNEE LT 4V from 11/10/2018 XR KNEE LT 2V from 12/07/2018 FINDINGS: Status post total knee replacement with good alignment. No fracture or dislocation. No evidence of orthopedic complication. No lytic or blastic change. Other findings:None. IMPRESSION: No acute findings. Status post total knee replacement with good alignment and no acute finding Dictated by: Adam Winchester MD 01/20/2019 12:54 Electronically signed by Adam Winchester MD in [facility] 01/20/2019 12:54
== END ==
PROVIDERS: PCP Internal Medicine; Visit Provider Orthopaedic Surgery
DX: Z96.652 Presence of left artificial knee joint (principal); M25.562 Pain in left knee
CPT/HCPCS: 73560

== ENCOUNTER → 2019-06-02 09:30 | Outpatient (CLI) | payer MEDICARE, OTHER, SELFPAY ==
--- NOTE | 2019-06-02 09:37 | XR_ITS ---
PROCEDURE: XR KNEE LT 2V CLINICAL INDICATION: sp LT TKA, dos 12/07/2018 Follow-up surgery, follow-up knee replacement COMPARISON: XR KNEE LT 4V from 11/10/2018 XR KNEE LT 2V from 12/07/2018 XR KNEE LT 2V from 01/20/2019 FINDINGS: Status post total knee replacement with good alignment. No complications apparent. IMPRESSION: Good alignment status post total knee replacement Dictated by: Adam Winchester MD 06/02/2019 10:19 Electronically signed by Adam Winchester MD in [facility] 06/02/2019 10:19
== END ==
PROVIDERS: PCP Internal Medicine; Visit Provider Orthopaedic Surgery
DX: Z96.652 Presence of left artificial knee joint (principal); M25.562 Pain in left knee
CPT/HCPCS: 73560

== ENCOUNTER → 2019-12-14 09:54 | Outpatient (CLI) | payer MEDICARE, OTHER, SELFPAY ==
--- NOTE | 2019-12-14 10:05 | XR_ITS ---
PROCEDURE: XR KNEE LT 2V CLINICAL INDICATION: sp LT TKA, dos 12/07/2018 COMPARISON: CR XR KNEE LT 4V from 11/10/2018 CR XR KNEE LT 2V from 12/07/2018 CR XR KNEE LT 2V from 01/20/2019 CR XR KNEE LT 2V from 06/02/2019 FINDINGS: Status post total knee replacement with good alignment. No fracture or dislocation. No evidence of orthopedic complication. No lytic or blastic change. Other findings:None. IMPRESSION: No acute findings. Status post total knee replacement with good alignment and no acute finding Dictated by: Adam Winchester MD 12/14/2019 18:56 Adam Winchester MD in [facility] 12/14/2019 18:56
== END ==
PROVIDERS: PCP Internal Medicine; Visit Provider Orthopaedic Surgery
DX: Z96.652 Presence of left artificial knee joint (principal); M25.562 Pain in left knee
CPT/HCPCS: 73560

== ENCOUNTER → 2020-08-04 14:07 | Outpatient (CLI) | payer MEDICARE, OTHER, SELFPAY ==
--- NOTE | 2020-08-04 14:11 | MR_ITS ---
PROCEDURE: MR LUMBAR SPINE WO CON CLINICAL INDICATION: LEFT LEG SCIATICA COMPARISON: No exams were available for comparison TECHNIQUE: Standard multiplanar multiecho sequences are performed without contrast. 3-D MIP and myelographic images are also rendered and reviewed FINDINGS: There is normal lumbar lordosis. Vertebral body heights and alignment are maintained. Multilevel disc desiccation with disc bulges are noted. Bone marrow signal intensity is within normal limits without evidence of marrow infiltrative process. The conus terminates at L1 level. There is focal T2 hyperintensity noted in the prevertebral soft tissues posterior to the aorta measuring 1.4 times 2.1 centimeters, demonstrates T1 hypointensity. This more likely represents prominent lymphatics. T2 hyperintense focal lesions noted in the left kidney measuring 1.7 centimeters, likely represent cysts. Further details as described below T12-L1: No canal or foraminal narrowing L1-2: Broad-based disc bulge causes minor thecal sac indentation. No significant canal or foraminal narrowing. L2-3: Broad-based disc bulge, bilateral facet joint and ligamentum flavum hypertrophy causes mild to moderate canal narrowing. There is mild bilateral foraminal narrowing. L3-4: Broad-based disc bulge, bilateral facet joint and ligamentum flavum hypertrophy causes mild to moderate canal and moderate bilateral foraminal narrowing. L4-5: Broad-based disc bulge, bilateral facet joint and ligamentum flavum hypertrophy, worse on the left causes moderate to severe left foraminal narrowing. Moderate canal and right foraminal narrowing is noted. L5-S1: Broad-based disc bulge, worse in the left paracentral location, bilateral facet joint and ligamentum flavum hypertrophy noted. There is effacement of the left lateral recess with the possible impingement on the traversing nerve roots. There is moderate to severe left and mild right foraminal narrowing. IMPRESSION: Multilevel degenerative changes, worse at L4-5 and L5-S1 with moderate to severe foraminal narrowing as described above. There is effacement of the lateral recess at L5-S1 with possible impingement on the traversing nerve roots. Other findings as described above. Dictated by: Shelby Sherman 08/04/2020 15:27 Shelby Sherman in [facility] 08/04/2020 15:27
== END ==
PROVIDERS: PCP Internal Medicine; Visit Provider Internal Medicine
DX: M54.42 Lumbago with sciatica, left side (principal)
CPT/HCPCS: 72148; 76376

== ENCOUNTER → 2020-08-10 08:49 | Outpatient (POV) | payer MEDICARE, OTHER, SELFPAY ==
[2020-08-10 08:57] VITALS: BP 151/63; PULSE 74; RESP 18; O2SAT 98; BMI 25.4
--- NOTE | 2020-08-10 15:34 | HMH.PMCON ---
Assessment and Plan (1) Degenerative joint disease (DJD) of lumbar spine Status: Acute Category: Medical Code(s): M47.816 - Spondylosis without myelopathy or radiculopathy, lumbar region (2) Lumbar radiculopathy Status: Acute Category: Medical Code(s): M54.16 - Radiculopathy, lumbar region - Assessment and plan all Dx Assessment and Plan for all problems:: We will plan L4-L5 lumbar epidural steroid injection for the patient. Patient's been instructed to call the office if he has any issues prior to his next appointment. He is not on any anticoagulation therapy. We will follow up with him after his injection reassess his symptoms at that time. Dr. White has reviewed this note and agrees with this plan of care. This note was dictated using voice recognition software and may contain errors or omissions HPI - Data of Consult Requesting Physician: Oxana Gutierrez APRN Primary Care Provider: Stefan Luu - Consult Narrative Reason for consult: Back pain, left leg pain History of present illness: Mr. Jauregui is a 74 year old male who presents today for consultation in regard to his left leg pain and back pain. Patient rates his pain a 4 out of 10. He has difficulty with standing or walking. Patient has numbness and tingling in his left lower extremity. Increased activity increases pain while rest and pain medication decreases pain. Patient tries to stay as active as possible however it is difficult due to the pain. Patient has had a hip injection with minimal relief. He is on Olin. This does help him. Patient is interested in injective therapy. CC: Oxana Gutierrez APRN [facility] History I have reviewed the patient's past medical history: Yes Medical History: Reports:: Coronary Artery Disease, Hyperlipidemia, Hypertension Denies:: Cancer, Diabetes Mellitus Type 1, Diabetes Mellitus Type 2, Internal Pacemaker, MRSA, Seizures *Have you ever received a pneumonia vaccine?: No *Have you received a flu vaccine this season?: No Other Medical History: Reports: Arthritis. Denies: Blood Transfusion Reaction Laterality Cases: Left: Arthroscopy Knee Other Surgeries: Yes: CABG, Cardiac Catheterization, Colonoscopy, EGD, Hernia Repair, Open Heart Surgery, Skin Cancer Excision. No: Pacemaker Amputation: No Fractures: No - *Social History Smoking Status: Never smoker Tobacco Type: pipe Alcohol Intake: never Substance Use Type: denies use *Occupational Status:: retired Housing: house Household Members: spouse, other *Travel in the last 8 weeks: None Family Hx:: Unable to obtain Review of Systems - Review of Systems ROS General: no recent weight change, no fever, no sleep disturbances Respiratory: no cough, no shortness of air, no recurring pulmonary infections Cardiovascular/Peripheral Vascular: No chest pain, No palpitations, no edema, no shortness of breath. Gastrointestinal: no new onset incontinence, normal bowel movements reported Genitourinary: no new onset incontinence Musculoskeletal: Back pain, leg pain Psychiatric: normal mood/ affect Neurological: [denies new onset weakness in extremities], [denies new onset balance issues] Meds Home Medications Medication Instructions Recorded Confirmed Type aspirin 81 mg tablet,delayed 81 mg PO DAILY 11/10/18 12/14/19 History release metformin 1,000 mg tablet 1,000 mg PO BID 11/10/18 12/14/19 History pantoprazole 20 mg tablet,delayed 20 mg PO DAILY 11/10/18 12/14/19 History release Atorvastatin Calcium [Lipitor 10mg 10 mg PO DAILY 12/07/18 12/14/19 History Tab] Docusate Sodium [Docusate Sodium 100 mg PO BIDP PRN #30 cap 12/10/18 12/14/19 Rx 100mg Cap] Allergies Allergy/AdvReac Type Severity Reaction Status Date / Time latex [LATEX] Allergy Intermediate Verified 12/14/19 10:42 Objective Vital signs: Pulse Resp BP Pulse Ox 74 18 151/63 H 98 08/10/20 08:57 08/10/20 08:57 08/10/20 08:57
== END ==
PROVIDERS: PCP Internal Medicine; Visit Provider Clinical Nurse Specialist Family Health
DX: M47.896 Other spondylosis, lumbar region (principal); M54.16 Radiculopathy, lumbar region
CPT/HCPCS: 99202; G0463

== ENCOUNTER 2020-08-25 09:27 | Day surgery (SDC) | payer MEDICARE, OTHER, SELFPAY ==
[2020-08-25 09:38] VITALS: BP 154/73; PULSE 95; RESP 20; TEMP 36.7; O2SAT 97; BMI 25.4
[2020-08-25 10:06] VITALS: BP 131/86; PULSE 86; RESP 18; O2SAT 95
[2020-08-25 10:07] VITALS: BP 131/86; PULSE 88; RESP 18; O2SAT 96
--- NOTE | 2020-08-25 10:19 | HMH.PMPROC ---
- Procedure Date: 08/25/20 Time: 10:19 Anesthesiologist:: Tom White MD Complications:: None Pre-procedure Diagnosis:: Degenerative disc disease of lumbar spine with lumbar radiculopathy symptoms Post-procedure Diagnosis:: Same Indications for Procedure:: Patient is a pleasant 75-year-old white male who we are treating for low back pain with lumbar radiculopathy symptoms. He has increasing pain in his back radiating down his left leg. He has difficulty standing and walking. He also has numbness and tingling in his left lower extremity. We will do a lumbar pleural steroid injection today to see if this helps with his pain symptoms. Procedure Details:: Informed consent was obtained and the risk and benefits of the procedure was explained to the patient. The patient was taken to the procedure room. The patient was placed prone on the procedure table. The patient was prepped and draped in sterile fashion. C-arm fluoroscopy was used to view the lumbar spine. Skin and subcutaneous tissues were anesthetized using lidocaine. I placed an 18-gauge epidural needle and advanced into the L4-L5 interspace using fluoroscopic guidance and [id number] to air. After confirmation of needle placement in the epidural space with dye I injected 2 mL of lidocaine 1.5% with Depo-Medrol 80 mg. Patient tolerated the procedure well with no complications. Plan and Disposition:: We will follow-up with him in 2 weeks. Will reevaluate symptoms at that time.
[2020-08-25 10:20] VITALS: BP 148/71; PULSE 95; RESP 20; O2SAT 97
== END 2020-08-25 10:20 | disposition home or self-care (01) ==
LOC: SC.PAINP 09:29
PROVIDERS: PCP Internal Medicine; Visit Provider Anesthesiology
DX: M51.16 Intervertebral disc disorders with radiculopathy, lumbar region (principal); I10 Essential (primary) hypertension; E78.5 Hyperlipidemia, unspecified; Z95.1 Presence of aortocoronary bypass graft; Z82.49 Family history of ischemic heart disease and other diseases of the circulatory system; Z83.438 Family history of other disorder of lipoprotein metabolism and other lipidemia; Z91.040 Latex allergy status
CPT/HCPCS: 62323; J1040; Q9966

== ENCOUNTER → 2020-09-18 09:22 | Outpatient (POV) | payer MEDICARE, OTHER, SELFPAY ==
[2020-09-18 09:32] VITALS: BP 131/53; PULSE 105; RESP 18; O2SAT 95; BMI 25.4
--- NOTE | 2020-09-18 10:41 | P.CONS_ITS ---
[facility] Pain Management SOAP Note Subjective:: Patient is a 75-year-old white male who presents today for follow-up after lumbar epidural steroid injection. This is the patient's first lumbar epidural steroid injection. He has been treated for degenerative disc disease lumbar spine with lumbar radiculopathy symptoms. Patient was having difficulty with standing and walking and numbness and tingling in his lower extremity on the left side. He says his pain is a 0 out of 10 today. He has gotten 100% relief with the injection and is continuing to have relief. He says he is much more functional since his injection. Review of Systems General: No recent weight changes, no fever, no sleep disturbances Respiratory: No cough, no shortness of air, no recurring pulmonary infections Cardiovascular/peripheral vascular: No chest pain, no palpitations, no edema, no shortness of breath Gastrointestinal: No new onset incontinence, normal bowel movements reported Genitourinary: No new onset incontinence Musculoskeletal: Denies pain Psychiatric: Normal mood/affect Neurological: [Denies weakness in extremities], [denies balance issues] Objective:: Physical exam General: Alert and oriented x3, no acute distress, pleasant and cooperative, [on room air] Lungs: Respirations even and unlabored, symmetrical chest expansion Eyes: PERRL Musculoskeletal: Flexion and extension of [] spine somewhat nonguarded, deep tendon reflexes normal, strength in upper and lower extremities [5/5], normal gait noted Neurological: Speech clear, physical geographer equal, no gross sensory deficit Assessment:: Degenerative disc disease lumbar spine with lumbar radiculopathy symptoms Plan:: Patient is doing well since his injection. He is not having any pain today. We will plan to follow-up with him in 3 months for reevaluation of symptoms. Patient has been instructed to contact clinic if he has any concerns for his next appointment. Patient has been instructed to contact the clinic with any concerns before the next appointment. Dr. White has reviewed this note and agrees with this plan of care. This note was dictated using voice recognition software and make contain errors or omissions. [facility] History I have reviewed the patient's past medical history: Yes Medical History: Reports:: Coronary Artery Disease, Diabetes Mellitus Type 2, Hyperlipidemia, Hypertension Denies:: Cancer, Diabetes Mellitus Type 1, Internal Pacemaker, MRSA, Seizures *Have you ever received a pneumonia vaccine?: Yes *Have you received a flu vaccine this season?: Yes Other Medical History: Reports: Arthritis. Denies: Blood Transfusion Reaction Laterality Cases: Left: Arthroscopy Knee Other Surgeries: Yes: CABG, Cardiac Catheterization, Colonoscopy, EGD, Hernia Repair, Open Heart Surgery, Skin Cancer Excision. No: Pacemaker Amputation: No Fractures: No - *Social History Smoking Status: Never smoker Tobacco Type: cigarettes Alcohol Intake: never Substance Use Type: denies use *Occupational Status:: retired Housing: house Household Members: spouse *Travel in the last 8 weeks: None Family Hx:: Unable to obtain
== END ==
PROVIDERS: PCP Internal Medicine; Visit Provider Clinical Nurse Specialist Family Health
DX: M51.16 Intervertebral disc disorders with radiculopathy, lumbar region (principal)
CPT/HCPCS: 99212; G0463

== ENCOUNTER → 2020-10-23 11:22 | Outpatient (POV) | payer MEDICARE, OTHER, SELFPAY ==
[2020-10-23 11:28] VITALS: BP 134/62; PULSE 78; RESP 18; O2SAT 97; BMI 25.4
--- NOTE | 2020-10-23 11:35 | P.CONS_ITS ---
[facility] Pain Management SOAP Note Subjective:: Patient is a pleasant 75-year-old white male who presents today for follow-up. He is presenting today with increasing low back pain. He rates his pain today a 5 out of 10. He is also having radiating pains in the left leg. The patient has had lumbar epidural steroid injection in the past that provided significant relief in his symptoms. He reports 100% relief following his injection, this lasted for approximately 4 to 5 months. He is interested in a repeat lumbar epidural steroid injection today. He has tried conservative therapies in the past such as physical therapy, chiropractic adjustments, at home stretches and exercises for greater than 6 weeks and oral medications without any lasting relief in his symptoms. He is not currently prescribed controlled substances from our office. Review of Systems General: No recent weight changes, no fever, no sleep disturbances Respiratory: No cough, no shortness of air, no recurring pulmonary infections Cardiovascular/peripheral vascular: No chest pain, no palpitations, no edema, no shortness of breath Gastrointestinal: No new onset incontinence, normal bowel movements reported Genitourinary: No new onset incontinence Musculoskeletal: Low back pain Psychiatric: [Normal mood/affect] Neurological: [Denies weakness in extremities], [denies balance issues] Objective:: Physical exam General: Alert and oriented x3 no acute distress, pleasant and cooperative, [on room air] Lungs: Respirations even and unlabored, symmetrical chest expansion Eyes: PERRL Musculoskeletal: Flexion and extension of the lumbar spine nonguarded, deep tendon reflexes normal, strength in upper and lower extremities 5 out of 5 normal gait noted Neurological: Speech clear, media production support manager equal, no gross sensory deficit Assessment:: Degenerative disc disease of the lumbar spine, lumbar radiculopathy Plan:: Patient has gotten adequate relief with lumbar pleural steroid injections in the past. He reports 90 to 100% relief in symptoms. We will schedule him for re peat lumbar epidural steroid injection at L4-L5 with discomfort. Prior to his injection he has any questions or concerns. He is not currently on any anticoagulation therapy at this time. Dr. White has reviewed this note and agrees with this plan of care. This note was dictated using voice recognition software and make contain errors or omissions. [facility] History Medical History: Reports:: Coronary Artery Disease, Diabetes Mellitus Type 2, Hyperlipidemia, Hypertension Denies:: Cancer, Diabetes Mellitus Type 1, Internal Pacemaker, MRSA, Seizures *Have you ever received a pneumonia vaccine?: Yes *Have you received a flu vaccine this season?: Yes Other Medical History: Reports: Arthritis. Denies: Blood Transfusion Reaction Laterality Cases: Left: Arthroscopy Knee Other Surgeries: Yes: CABG, Cardiac Catheterization, Colonoscopy, EGD, Hernia Repair, Open Heart Surgery, Skin Cancer Excision. No: Pacemaker Amputation: No Fractures: No - *Social History Smoking Status: Never smoker Tobacco Type: cigarettes Alcohol Intake: never Substance Use Type: denies use *Occupational Status:: employed Housing: house Household Members: spouse *Travel in the last 8 weeks: None Family Hx:: Unable to obtain
== END ==
PROVIDERS: PCP Internal Medicine; Visit Provider Family Medicine
DX: M51.16 Intervertebral disc disorders with radiculopathy, lumbar region (principal)
CPT/HCPCS: 99212; G0463

== ENCOUNTER → 2020-11-03 14:19 | Day surgery (SDC) | payer MEDICARE, OTHER, SELFPAY ==
[2020-11-03 14:29] VITALS: BP 149/58; PULSE 84; RESP 18; TEMP 36.6; O2SAT 98; BMI 25.4
[2020-11-03 15:11] VITALS: BP 152/67; PULSE 87; RESP 18; O2SAT 97
[2020-11-03 15:14] VITALS: PULSE 80; RESP 18; O2SAT 97
--- NOTE | 2020-11-03 15:23 | HMH.PMPROC ---
- Procedure Date: 11/03/20 Time: 15:23 Anesthesiologist:: Tom White MD Complications:: None Pre-procedure Diagnosis:: Degenerative disc disease of lumbar spine with lumbar radiculopathy symptoms Post-procedure Diagnosis:: Same Indications for Procedure:: Patient is a pleasant 75-year-old white male who we are treating for low back pain with lumbar radiculopathy symptoms. He did very well last year his last injection he was 100% pain-free for several months. His pain is now starting to return. We will do a repeat lumbar epidural steroid injection to help him with his pain symptoms. Procedure Details:: Informed consent was obtained and the risk and benefits of the procedure was explained to the patient. The patient was taken to the procedure room. The patient was placed prone on the procedure table. The patient was prepped and draped in sterile fashion. C-arm fluoroscopy was used to view the lumbar spine. Skin and subcutaneous tissues were anesthetized using lidocaine. I placed an 18-gauge epidural needle and advanced into the L4-L5 interspace using fluoroscopic guidance and [id number] to air. After confirmation of needle placement in the epidural space with dye I injected 2 mL of lidocaine 1.5% with Depo-Medrol 80 mg. Patient tolerated the procedure well with no complications. Plan and Disposition:: We will follow-up with him in 2 weeks. Will reevaluate symptoms at that time.
== END ==
PROVIDERS: PCP Internal Medicine; Visit Provider Anesthesiology
DX: M51.16 Intervertebral disc disorders with radiculopathy, lumbar region (principal); E78.5 Hyperlipidemia, unspecified; I10 Essential (primary) hypertension; M19.90 Unspecified osteoarthritis, unspecified site; E11.9 Type 2 diabetes mellitus without complications; I25.10 Atherosclerotic heart disease of native coronary artery without angina pectoris; K21.9 Gastro-esophageal reflux disease without esophagitis; Z95.1 Presence of aortocoronary bypass graft; Z91.040 Latex allergy status
CPT/HCPCS: 62323; J1040; Q9966

== ENCOUNTER → 2020-11-09 08:24 | Outpatient (POV) | payer MEDICARE, OTHER, SELFPAY ==
[2020-11-09 08:40] VITALS: BP 122/78; PULSE 86; RESP 18; TEMP 36.5; O2SAT 98; BMI 25.4
--- NOTE | 2020-11-09 08:57 | HMH.PAINSOAP ---
[facility] Pain Management SOAP Note Subjective:: Patient is a 75-year-old white male who presents today for follow-up. The patient did undergo a lumbar epidural steroid injection on 11/03/2020. He is being treated for degenerative disc disease lumbar spine with lumbar radiculopathy symptoms. Patient says that he got 100% relief initially with the injection. He says he is doing well at this time since the injection. It was his number 2 injection. He does have pain to his posterior thigh area. He says that it is just below his left buttock. This is the only area that he is currently having pain. He does say that the injection did help with the pain in that area, however. The patient's did contact the clinic this week and did report to the nurse that we are not treating the patient properly and that he continues to have excruciating pain at home and that it is unacceptable, the care that he is receiving in the clinic. Today, the patient does not have any concerns or complaints. He says he is doing well overall and will like to follow-up in 1 month for possible repeat injection. I did discuss with the patient that he if he does get relief with oral medications he can continue with oral pain management through his primary care provider who has given him medication in the past. We also discussed injective therapy and spinal cord stimulation. He says that he is doing well at this time. His pain is a 4 out of 10. Patient and I did discuss the phone call by his . The patient did not have any complaints, once again. Review of Systems General: No recent weight changes, no fever, no sleep disturbances Respiratory: No cough, no shortness of air, no recurring pulmonary infections Cardiovascular/peripheral vascular: No chest pain, no palpitations, no edema, no shortness of breath Gastrointestinal: No new onset incontinence, normal bowel movements reported Genitourinary: No new onset incontinence Musculoskeletal: Left posterior thigh pain Psychiatric: [Normal mood/affect] Neurological: [Denies weakness in extremities], [denies balance issues] Objective:: Physical exam General: Alert and oriented x3, no acute distress, pleasant and cooperative, [on room air] Lungs: Respirations even and unlabored, symmetrical chest expansion Eyes: PERRL Musculoskeletal: Flexion and extension of left lower extremity somewhat guarded secondary to pain, strength in upper and lower extremities [5/5], slightly antalgic gait noted Neurological: Speech clear, [casting associate equal], no gross sensory deficit Assessment:: Degenerative disc disease lumbar spine with lumbar radiculopathy symptoms Plan:: Patient is doing well overall. We will plan to follow-up with him in 1 month for reevaluation of symptoms. He has been instructed to contact clinic if he has any concerns before his next appointment. Patient has been instructed to contact the clinic with any concerns before the next appointment. Dr. White has reviewed this note and agrees with this plan of care. This note was dictated using voice recognition software and make contain errors or omissions. [facility] History I have reviewed the patient's past medical history: Yes Medical History: Reports:: Coronary Artery Disease, Diabetes Mellitus Type 2, Hyperlipidemia, Hypertension Denies:: Cancer, Diabetes Mellitus Type 1, Internal Pacemaker, MRSA, Seizures *Have you ever received a pneumonia vaccine?: Yes *Have you received a flu vaccine this season?: No Other Medical History: Reports: Arthritis. Denies: Blood Transfusion Reaction Laterality Cases: Left: Arthroscopy Knee Other Surgeries: Yes: CABG, Cardiac Catheterization, Colonoscopy, EGD, Hernia Repair, Open Heart Surgery, Skin Cancer Excision. No: Pacemaker Amputation: No Fractures: No - *Social History Smoking Status: Never smoker Tobacco Type: cigarettes Alcohol Intake: never Substance Use Type: denies use *Occupational Status:: retired Housing: house
== END ==
PROVIDERS: PCP Internal Medicine; Visit Provider Clinical Nurse Specialist Family Health
DX: M51.16 Intervertebral disc disorders with radiculopathy, lumbar region (principal)
CPT/HCPCS: 99212; G0463

== ENCOUNTER → 2020-12-12 10:01 | Outpatient (CLI) | payer MEDICARE, OTHER, SELFPAY ==
--- NOTE | 2020-12-12 10:06 | XR_ITS ---
PROCEDURE: XR KNEE LT 2V CLINICAL INDICATION: sp LT TKA, sx 12/07/18 COMPARISON: CR XR KNEE LT 2V from 12/07/2018 CR XR KNEE LT 2V from 01/20/2019 CR XR KNEE LT 2V from 06/02/2019 CR XR KNEE LT 2V from 12/14/2019 FINDINGS: No fracture or dislocation. No lytic or blastic change. There is normal mineralization. Good alignment status post total knee replacement. No evidence of orthopedic complication. No acute fracture or dislocation. No lytic or blastic change. The Other findings:Vascular calcifications. IMPRESSION: Good alignment status post total knee replacement Dictated by: Adam Winchester MD 12/12/2020 15:04 Adam Winchester MD in [place] 12/12/2020 15:04
== END ==
PROVIDERS: PCP Internal Medicine; Visit Provider Orthopaedic Surgery
DX: Z96.652 Presence of left artificial knee joint (principal); M25.562 Pain in left knee
CPT/HCPCS: 73560

== ENCOUNTER 2022-02-22 09:00 | Inpatient (IN) | payer MEDICARE, SELFPAY ==
[2022-02-22] VITALS (14 sets, daily range): BP systolic 130–170; BP diastolic 55–106; PULSE 51–121; RESP 16–22; TEMP 36.8–38.1; O2SAT 94–99; BMI 23.1; BMI 23.8
--- NOTE | 2022-02-22 09:17 | HMH.EDGENADL ---
Discharge Plan Disposition Patient Disposition: Admitted as Observation Condition: Fair Chief Complaint: Altered Mental Status Prescriptions Prescriptions: No Action metformin 1,000 mg tablet 1,000 mg PO BID pantoprazole 20 mg tablet,delayed release (DR/EC) 40 mg PO DAILY aspirin [Adult Low Dose Aspirin] 81 mg tablet,delayed release (DR/EC) 81 mg PO DAILY Hold Instructions: Resume on 12/24/18. Hold for a couple of weeks while taking Xarelto lisinopril 5 mg tablet 5 mg PO DAILY atorvastatin 10 MG tablet 20 mg PO DAILY Clinical Impressions Clinical Impression: Delirium, Fever Instructions Patient Instructions: DI for Altered Mental Status Discharge ED Provider: Boy Shields General Adult HPI General Chief complaint: Altered Mental Status Stated complaint: confusion Time Seen by Provider: 02/22/22 09:10 Mode of Arrival: Ambulatory Source of Information: Patient Limitations: No Limitations Description of Symptoms (Recalled from ER Triage Doc. by RN): pt to ed c/o ams. states he woke up in the midde of the night confused and urinated in the floor thinking he was in the restroom. pt not oriented on arrival to ed and unable to answer any questions. ems denies recent falls. History of Present Illness HPI narrative: Patient is brought in by ambulance. He is not able to give any information as he arrives confused. EMS reportedly called out for confusion and possible diabetic emergency. Patient tells me that he does not feel good, but he cannot voice any specific complaints. He endorses pain, but cannot tell me where he hurts. Blood sugar was checked by EMS and was normal. Related Data Home Medications Medication Instructions Recorded Confirmed aspirin 81 mg tablet,delayed 81 mg PO DAILY HEART HEALTH 11/10/18 02/22/22 release (Adult Low Dose Aspirin) metformin 1,000 mg tablet 1,000 mg PO BID Diabetes 11/10/18 02/22/22 pantoprazole 20 mg tablet,delayed 40 mg PO DAILY GERD 11/10/18 02/22/22 release atorvastatin 10 mg tablet 20 mg PO DAILY Cholesterol 12/07/18 02/22/22 lisinopril 5 mg tablet 5 mg PO DAILY High blood pressure 02/22/22 02/22/22 Allergies Allergy/AdvReac Type Severity Reaction Status Date / Time latex [LATEX] Allergy Intermediate Verified 11/03/20 14:48 [facility] Disclaimer: The information contained in this section may have been updated after the patient was seen, as this information can be updated by other users. Medical History (Updated 02/22/22 @ 15:55 by Boy Shields MD) Diabetes GERD (gastroesophageal reflux disease) Hyperlipemia Hypertension Social History Smoking Status: Never smoker alcohol intake: never substance use type: denies use current occupational status: retired Travel in the last 8 weeks: None household members: spouse housing: house current occupational exposures/hazards: No caffeine: Yes ROS Obtained: Yes unobtainable due to mental status Physical Exam General General appearance: other (Appears to be sleeping when I arrived. When stimulated he awakens but appears drowsy and has slurred speech. He is not able to tell me his name, states I do not know . He does follow commands.) Head Head exam: atraumatic and normocephalic Eye Eye exam: Present PERRL and EOMI; Absent jaundice ENT ENT exam: Present mucous membranes dry Neck Neck exam: Present normal inspection and full ROM; Absent meningismus or lymphadenopathy Chest Chest inspection: Present normal inspection and symmetric chest wall rise Respiratory Respiratory exam: Present normal lung sounds bilaterally; Absent respiratory distress Cardiovascular Cardiovascular exam: Present regular rate, normal rhythm and normal heart sounds Abdominal Exam Abdominal exam: Present soft and normal bowel sounds; Absent distention, tenderness, guarding, rebound or rigidity Extremities Exam Extremities exam: Present normal inspection; Absent ed
--- NOTE | 2022-02-22 09:22 | XR_ITS ---
FINAL REPORT CLINICAL HISTORY: Fever, AMS, confusion. COMPARISON: November 2018 FINDINGS: There is mild cardiomegaly. There are multiple sternotomy wires. There are surgical clips projecting over the left superior mediastinum. The mediastinum is normal. There are chronic changes in both lungs. There is no focal infiltrate or edema. There are no pleural effusions. There is no pneumothorax. There is no osseous abnormality. IMPRESSION: No acute cardiopulmonary process Reviewed, Interpreted and Dictated by Maxime Chapa MD Transcribed by Dusty Woods Authenticated and [facility]
--- NOTE | 2022-02-22 09:22 | CT_ITS ---
FINAL REPORT TECHNIQUE: Axial CT images were performed through the head. Coronal reformatted images were submitted. This study was performed with techniques to keep radiation doses as low as reasonably achievable (ALARA). Individualized dose reduction techniques using automated exposure control or adjustment of mA and/or kV according to the patient's size were employed. CLINICAL HISTORY: Fever with AMS FINDINGS: The head is asymmetrically positioned in the gantry. There is moderate age-appropriate atrophy and proportional ventriculomegaly. There is no evidence of hemorrhage. There is no mass or edema identified. There is no abnormal extra-axial fluid seen. There is mild mucoperiosteal thickening in the frontal sinuses and ethmoid air cells. IMPRESSION: Atrophy without acute intracranial abnormality. Reviewed, Interpreted and Dictated by Mxaime Chapa MD Transcribed by Lucia Leonard Authenticated and [facility]
[2022-02-22 09:49] LABS: Microscopic, Urine URINE MICROSCOPIC (MICROSCOPIC)
[2022-02-22 09:49] LABS: Coronavirus 19, PCR Not Detected (NotDetected); Influenza A, PCR Not Detected (NotDetected); Influenza B, PCR Not Detected (NotDetected)
[2022-02-22 09:53] LABS: Appearance,Urine CLEAR (Clear); Bilirubin,Urine Negative (Negative); Blood, Urine 1+ (Negative); Color,Urine YELLOW (Yellow); Glucose,Urine (UA) TRACE (Negative); Ketones,Urine 2+ (Negative); Leukocyte Esterase,Urine Negative (Negative); Nitrate,Urine Negative (Negative); PH,Urine 6.5 (5.0-8.5); Protein,Urine 1+ (Negative); Specific Gravity, Urine 1.025 (1.005-1.030); Urobilinogen,Urine 0.2 EU/dl (0.2)
[2022-02-22 09:56] LABS: Chloride 97 mmol/L (98-107)
[2022-02-22 09:57] LABS: Sodium 135 mmol/L (136-145)
[2022-02-22 09:59] LABS: Alanine Aminotransferase 19 U/L (12-78); Alkaline Phosphatase 67 U/L (38-126); Aspartate Amino Transferase 26 U/L (17-59); Bilirubin,Total 0.7 mg/dl (0.2-1.3); Blood Urea Nitrogen 18 mg/dl (9-20); Creatinine Clearance Estimated 70 mL/min (50-200); Estimated Glomerular Filt Rate 82 ml/min (>60); GFR (African American) 99 ML/MIN (>60)
--- NOTE | 2022-02-22 09:59 | ECG_ITS ---
APPROVED REPORT Exam: Resting ECG HR:78 bpm ECG Measurements Heart Rate 78 AXES KS 108 P 53 QRSd 96 QRS -7 QT 368 T 50 QTc 401 Conclusion SINUS RHYTHM WITH SHORT KS INTERVAL WITH OCCASIONAL SUPRAVENTRICULAR PREMATURE COMPLEXES BORDERLINE ECG UNCONFIRMED REPORT Electronically signed by : Mino Hardwick MD 02/23/2022 12:14:36
[2022-02-22 10:00] LABS: Albumin Level 4.3 g/dl (3.5-5.0); Albumin/Globulin Ratio 1.5 (1.1-1.8); Calcium 9.5 mg/dl (8.4-10.2); Carbon Dioxide 29 mmol/L (22.0-30.0); Globulin 2.8 g/dL (1.3-3.2); Glucose 188 mg/dl (74-100); Lactic Acid 1.1 mmol/L (0.7-2.1); Total Protein,Serum 7.1 g/dl (6.3-8.2)
--- NOTE | 2022-02-22 10:02 | PC.NURSE ---
pt unable to swallow tylenol. verbal order for rectal tylenol given by
[2022-02-22 10:17] LABS: Troponin I < 0.01 ng/ml (0.00-0.034)
--- NOTE | 2022-02-22 10:23 | PC.NURSE ---
family to the bedside
[2022-02-22 10:25] LABS: Basophils # 0.1 K/mm3 (0-0.2); Basophils % 0.6 % (0.1-2.0); Eosinophils % 0.2 % (0.1-12.0); Hemoglobin 13.3 g/dL (14.1-18.0); Lymphocytes # 1.2 K/mm3 (0.7-4.5); Lymphocytes % 13.3 % (10-50); Mean Corpuscular HGB Conc 33.3 g/dL (31.8-35.4); Mean Corpuscular Hemoglobin 31.3 pg (27.0-31.2); Mean Platelet Volume 8.5 fl (7.4-10.4); Monocytes # 0.6 K/mm3 (0.1-1.0); Monocytes % 6.4 % (1.7-9.3); Neutrophils # 7.2 K/mm3 (1.8-7.8); Neutrophils % 79.7 % (37.0-80.0); Platelet Count 279 K/mm3 (142-424); Red Blood Count 4.25 M/mm3 (4.60-6.20); Red Cell Distribution Width 13.6 % (11.5-17.5)
--- NOTE | 2022-02-22 10:29 | PC.NURSE ---
rounded on pt and updated family on POC. no needs voiced
[2022-02-22 10:35] LABS: Bacteria,Urine Trace /lpf; RBC,Urine Occasional #/hpf (0-3); Squamous Epithelial Cell,Urine Occasional #/hpf (0-5); WBC,Urine Occasional #/hpf (0-3)
--- NOTE | 2022-02-22 10:35 | PC.NURSE ---
rounded on pt, family at bs, pt sleeping
[2022-02-22 11:13] LABS: Adenovirus,PCR Not Detected (NotDetected); Bordetella Pertussis Not Detected (NotDetected); Chlamydophila Pneumoniae, PCR Not Detected (NotDetected); Coronavirus 19, PCR Not Detected (NotDetected); Coronavirus 229E Not Detected (NotDetected); Coronavirus NL63 Not Detected (NotDetected); Coronavirus OC43 Not Detected (NotDetected); Coronovirus HKU1,PCR Not Detected (NotDetected); Human Metapneumovirus Not Detected (NotDetected); Influenza A, PCR Not Detected (NotDetected); Influenza AH1, 2009 Not Detected (NotDetected); Influenza AH1, PCR Not Detected (NotDetected); Influenza AH3,PCR Not Detected (NotDetected); Influenza B, PCR Not Detected (NotDetected); Mycoplasma Pneumoniae, PCR Not Detected (NotDetected); Parainfluenza 1, PCR Not Detected (NotDetected); Parainfluenza 2, PCR Not Detected (NotDetected); Parainfluenza 3, PCR Not Detected (NotDetected); Parainfluenza 4, PCR Not Detected (NotDetected); Respiratory Syncytial Virus Not Detected (NotDetected); Rhinovirus/Enterovirus Not Detected (NotDetected)
--- NOTE | 2022-02-22 11:45 | PC.NURSE ---
Lumbar puncture explained to and daughter by myself and Dr. Shields. signed consent for procedure at this time. and JOSE Ghosh at bedside and /daughter stepped out to the WR. I let them know we would let them back as soon as procedure was completed.
--- NOTE | 2022-02-22 11:59 | PC.NURSE ---
Spinal fluid taken to lab by marilynn Walls
--- NOTE | 2022-02-22 12:05 | CT_ITS ---
FINAL REPORT TECHNIQUE: After the administration of intravenous contrast, axial images were obtained through the abdomen and pelvis by computed tomography. The study was performed with techniques to keep radiation dose as low as reasonably achievable, (ALARA). Individual dose reduction techniques using automated exposure control or adjustment of mA and/or kV according to the patient's size were employed. CLINICAL HISTORY: Fever, vomiting, AMS FINDINGS: Abdomen: Dependent edema. The liver parenchyma is homogeneous. The gallbladder is present. The spleen, pancreas, and adrenal appear unremarkable. There is a 7 mm stone in the lower pole the left kidney. There is a benign-appearing 2 cm cyst in the lower pole the left kidney. The aorta is normal in caliber. There is no free fluid or adenopathy. Pelvis: The appendix is normal. The urinary bladder is decompressed around a Bansal catheter. There is no free fluid or adenopathy. There are surgical clips in the right inguinal region from possible prior hernia repair. There is diverticulosis of the sigmoid colon. IMPRESSION: No acute intra-abdominal process. Nonobstructing left renal stone. Diverticulosis without evidence of diverticulitis. Reviewed, Interpreted and Dictated by Maxime Chapa MD Transcribed by Dusty Woods Authenticated and [facility]
--- NOTE | 2022-02-22 12:11 | PC.NURSE ---
rad called and notified of CT
[2022-02-22 12:20] LABS: Appearance,CSF Clear (Clear)
[2022-02-22 12:21] LABS: Volume,CSF 6.5 mL
[2022-02-22 12:39] LABS: Glucose,CSF 92 mg/dl (40-70)
[2022-02-22 12:40] LABS: Red Blood Cell,CSF 9 cells/uL (0); White Blood Cell,CSF 2 cells/uL (0-5)
--- NOTE | 2022-02-22 13:21 | PC.NURSE ---
pt repositioned in bed. No new needs
[2022-02-22 13:23] LABS: Mononuclear WBCs,CSF 0 %; Polynuclear WBCs,CSF 0 %
--- NOTE | 2022-02-22 13:37 | PC.NURSE ---
pt returned from CT
--- NOTE | 2022-02-22 15:27 | PC.NURSE ---
called care management iwth admission. Updated on POC
--- NOTE | 2022-02-22 16:55 | PC.NURSE ---
Spoke with daughter and updated her on POC. set up password: cori daughter is Moriah and cell number is [phone]
--- NOTE | 2022-02-22 18:10 | PC.NURSE ---
called report to alice fernandez
--- NOTE | 2022-02-22 18:18 | PC.NURSE ---
patient arrived from ED by stretcher
[2022-02-22 19:38] LABS: Ammonia < 9 umol/L (9-30)
[2022-02-22 20:40] LABS: POC Glucose,Bedside 145 (70-110)
--- NOTE | 2022-02-22 22:00 | EXP.HP ---
History of Present Illness *Admission Date: 02/22/22 *Reason for visit:: Confusion, Fevers *History of present illness: Mr. Stacy is a 76-year-old male with a past medical history of DM, HTN, Hyperlipidemia and DDD of the Lumbar Spine. He presents to [facility] due to an acute episode of confusion associated with fevers that occurred prior to presentation. The information from the history and physical is obtained from the patient's chart due to the patient's confusion. Per Chart review, on presentation the was stating that the patient had high fevers and woke up during the night and urinated in the floor. He was brought into the ER. The patient had an extensive work-up in the ER that included: CBC and CMP that was unremarkable, Troponin that was normal. CT of the head, Abdominal and Chest that showed no acute findings. He underwent an LP that showed no acute significant findings. Urinalysis showed trace bacteria and occassional WBC and was negative for nitrates. He is not on any SSRI's, Amonia level was within normal range and there is no prior history of cirrhosis. The patient was admitted with initial impression: Acute Encephalopathy and fevers. He was placed empirically on Rocephin. [facility] Disclaimer: The information contained in this section may have been updated after the patient was seen, as this information can be updated by other users. Medical History (Updated 02/22/22 @ 22:59 by Nissa Davis RN) Diabetes Diabetes mellitus, type 2 GERD (gastroesophageal reflux disease) History of gastroesophageal reflux (GERD) Hyperlipemia Hypertension Surgical History (Updated 02/22/22 @ 22:59 by Nissa Davis RN) History of knee replacement S/P total knee arthroplasty Family History (Updated 02/22/22 @ 22:59 by Nissa Davis RN) No significant family history Social History (Updated 02/22/22 @ 22:59 by Nissa Davis RN) Smoking Status: Never smoker alcohol intake: never substance use type: denies use current occupational status: retired Travel in the last 8 weeks: None household members: spouse housing: house current occupational exposures/hazards: No caffeine: Yes Review of Systems Review of Systems Review of systems:: unable to obtain Review of systems (narrative): Unable to obtain secondary to cognitive status Meds Home Medications and Allergies Home Medications Medication Instructions Recorded Confirmed Type metformin 1,000 mg tablet 1,000 mg PO BID Diabetes 11/10/18 02/22/22 History lisinopril 5 mg tablet 5 mg PO DAILY Hypertension 02/22/22 02/22/22 History aspirin 81 mg tablet,delayed 81 mg PO DAILY HEART HEALTH 02/23/22 02/23/22 History release atorvastatin 20 mg tablet 20 mg PO DAILY Cholesterol 02/23/22 02/23/22 History hydrocodone 5 mg-acetaminophen 325 1 tab PO BIDP PRN Moderate Pain 02/23/22 02/23/22 History mg tablet (Scale Score 5-6) pantoprazole 40 mg tablet,delayed 40 mg PO DAILY GERD 02/23/22 02/23/22 History release New Prescriptions to Start Prescriptions: Allergies Allergy/AdvReac Type Severity Reaction Status Date / Time latex [LATEX] Allergy Intermediate Verified 11/03/20 14:48 Exam Data for Last 24 hours Vital signs and Labs for Last 24 Hours: Temp Pulse Resp BP Pulse Ox 98.7 F 76 16 138/55 L 95 02/22/22 20:00 02/22/22 20:00 02/22/22 20:00 02/22/22 20:00 02/22/22 20:00 Laboratory Results - last 24 hr 02/22/22 09:30: Urine Color Yellow, Urine Appearance Clear, Urine pH 6.5, Ur Specific [place] 1.025, Urine Protein 1+, Urine Glucose (UA) Trace, Urine Ketones 2+, Urine Blood 1+, Urine Nitrate Negative, Urine Bilirubin Negative, Urine Urobilinogen 0.2, Ur Leukocyte Esterase Negative, Urine RBC Occasional, Urine WBC Occasional, Ur Squamous Epith Cells Occasional, Urine Bacteria Trace 02/22/22 09:30: WBC 9.0, RBC 4.25 L, Hgb 13.3 L, Hct 40.0 L, MCV 94.0, MCH 31.3 H, MCHC 33.3, RDW 13.6
[2022-02-22 22:18] LABS: Amphetamine/Metha Screen,Urine Negative ng/ml (<1000)
[2022-02-22 22:19] LABS: Barbiturates Screen,Urine Negative ng/ml (<200); Benzodiazepines Screen,Urine Negative ng/ml (<200)
[2022-02-22 22:20] LABS: Cannabinoid Screen,Urine Negative ng/ml (<50)
[2022-02-22 22:21] LABS: Cocaine Screen,Urine Negative ng/ml (<300); Methadone Screen,Urine Negative ng/ml (<300)
[2022-02-22 22:22] LABS: Opiate Screen,Urine Negative ng/ml (<300)
[2022-02-22 22:23] LABS: Phencyclidine Screen,Urine Negative ng/ml (<25)
--- NOTE | 2022-02-22 22:59 | PC.NURSE ---
PT PAST MEDICAL HISTORY DONE PER MEDICAL RECORD. PT IS CONFUSED AND UNABLE TO ASNER QUESTIONS AND FAMILY IS NOT PRESENT.
[2022-02-22 23:01] LABS: Ethyl Alcohol < 10 mg/dl (0-10)
[2022-02-23] VITALS (16 sets, daily range): BP systolic 122–187; BP diastolic 57–96; PULSE 77–108; RESP 19–24; TEMP 36.1–37.7; O2SAT 93–97
--- NOTE | 2022-02-23 05:24 | PC.NURSE ---
NO ACUTE CHANGES SINCE PREVIOUS ASSESSMENT. PT HAS RESTED INTERMITTENTLY. PT REMAINS CONFUSED THIS SHIFT AND HAS BEEN PULLING AT IV TUBING AND CATHETER TUBING. MITTENS AND BED ALARM IN PLACE FOR PT SAFETY. ATTEMPTED TO GIVE PT PO FLUIDS AND PT COUGHED LIKE HE COULD NOT SWALLOW IT. VSS.
[2022-02-23 06:07] LABS: POC Glucose,Bedside 145 (70-110)
--- NOTE | 2022-02-23 07:32 | EXP.ACUTE.PN ---
Subjective *Date: 02/23/22 *Time: 14:54 Interval history: This morning Mr. Jauregui had an apneic event requiring suction and initiation of nasal cannula oxygen. Promptly improved his oxygenation simply with suction of mucus from oropharynx. Has been made NPO. Blood pressure more elevated today as he has not taken any oral medications. Repeat labs this morning still fairly unremarkable. White cell count marginally increased, otherwise stable CBC. Stable CMP. After morning rounds he proceeded to have a second similar event with apnea and hypoxemia. Given apneic events, will obtain x-ray, ABG, lactate. Extensive discussion with . States that Mr. Jauregui has been more confused the past few days. Went to a recently were more than half the attendants came down with COVID. This preceded his onset of confusion. She also states that he takes hydrocodone 1-2 times a day for back pain and Doans pain medication (salicylate) for his back. She is not sure how much of this he takes. States she was recently admitted to the hospital for gallbladder disease and he was home by himself. She also reports that for the past year or so he has been more forgetful. Misplacing his keys in his wallet. Needing redirecting. She thought it was just old age. She even reports times where he will head to town and forget why he went there. He will have to call and ask what the purpose of his trip was and where he was. Medical Exam Vital signs and Labs for Last 24 Hours: Vital Signs Temp Pulse Pulse Resp BP BP Pulse Ox 02/23/22 04:00 98.1 F 77 19 146/57 H 93 L 02/22/22 20:00 98.7 F 76 16 138/55 L 95 02/22/22 18:19 99.0 F 54 L 18 170/68 H 95 02/22/22 18:17 98.2 F 72 20 168/80 H 02/22/22 16:03 107 H 22 170/83 H 96 02/22/22 15:02 94 H 137/106 H 94 L 02/22/22 14:31 74 163/72 H 95 02/22/22 12:31 83 18 170/84 H 96 02/22/22 12:01 81 18 163/99 H 98 02/22/22 11:30 74 18 138/72 96 02/22/22 11:00 77 18 167/71 H 96 02/22/22 10:30 78 18 162/82 H 99 02/22/22 10:01 121 H 22 157/77 H 97 02/22/22 09:32 82 20 130/106 H 97 02/22/22 09:02 100.5 F H 51 L 20 162/69 H 94 L Intake and Output 02/22/22 02/22/22 02/23/22 15:59 23:59 07:59 Intake Total 533 / 533 Output Total 0 / 0 Balance 0 / 0 533 / 533 Intake: Intake, Total IV Amount 533 / 533 Ringers Solution,Lactated 1,000 533 / 533 ml @ 50 mls/hr IV .Q20H [facility] Rx #:[id number] Output: Output, Urine Amount 0 / 0 Other: Number of Unmeasured Voids 0 Weight 81.647 kg 84.085 kg Laboratory Results - last 24 hr 02/22/22 09:30: Urine Color Yellow, Urine Appearance Clear, Urine pH 6.5, Ur Specific [place] 1.025, Urine Protein 1+, Urine Glucose (UA) Trace, Urine Ketones 2+, Urine Blood 1+, Urine Nitrate Negative, Urine Bilirubin Negative, Urine Urobilinogen 0.2, Ur Leukocyte Esterase Negative, Urine RBC Occasional, Urine WBC Occasional, Ur Squamous Epith Cells Occasional, Urine Bacteria Trace 02/22/22 09:30: WBC 9.0, RBC 4.25 L, Hgb 13.3 L, Hct 40.0 L, MCV 94.0, MCH 31.3 H, MCHC 33.3, RDW 13.6, Plt Count 279, MPV 8.5, Neut % (Auto) 79.7, Lymph % (Auto) 13.3, Terry % (Auto) 6.4, Eos % (Auto) 0.2, Baso % (Auto) 0.6, Neut # (Auto) 7.2, Lymph # (Auto) 1.2, Terry # (Auto) 0.6, Eos # (Auto) 0.0, Baso # (Auto) 0.1 02/22/22 09:30: Sodium 135 L, Potassium 4.0, Chloride 97 L, Carbon Dioxide 29, Anion Gap 13.0, BUN 18, Creatinine 0.90, Estimated Creat Clear 70, Estimated GFR 82, Est GFR ( Amer) 99, Glucose 188 H, Calcium 9.5, Total Bilirubin 0.7, AST 26, ALT 19, Alkaline Phosphatase 67, Troponin I < 0.01, Total Protein 7.1, Albumin 4.3, Globulin 2.8, Albumin/Globulin Ratio 1.5 02/22/22 09:30: Lactate 1.1 02/22/22 09:30: Chlamy pneumoniae PCR Not detected, Adenovirus (PCR) Not detected, B. pertussis DNA (PCR) Not detected, Coronavirus OC43 (PCR) Not detected, Coronavirus HKU1
--- NOTE | 2022-02-23 07:45 | PC.NURSE ---
nursing in room to check on pt this am. pt is struggling to cough and is not alert @ this time. diaphoretic. I instructed tech to set up suction while i turned pt on his side to assist with coughing. pt is unable to clear his throat independently. 0750 I called rapid response due to pt becoming cyanotic and less responsive. suction now set up and i was able to take a yonker and get the majority of the obstruction out of the pts throat. 0800 pt is more alert and able to respond although it is not appropriate to the questions asked. o2 saturation is 94% on RA. Respiratory @ bedside was able to NT suction pt with more relief. pt is hypertensive but stable. Will continue to monitor. pt npo @ this time until speech is able to evaluate him. oral care will be provided at least every hour
[2022-02-23 08:30] LABS: POC Glucose,Bedside 187 (70-110)
[2022-02-23 08:49] LABS: Chloride 96 mmol/L (98-107); Potassium 3.9 mmoL/L (3.5-5.1); Sodium 134 mmol/L (136-145)
[2022-02-23 08:51] LABS: Blood Urea Nitrogen 19 mg/dl (9-20); Creatinine Clearance Estimated 72 mL/min (50-200); Estimated Glomerular Filt Rate 109 ml/min (>60); GFR (African American) 132 ML/MIN (>60)
[2022-02-23 08:52] LABS: Alanine Aminotransferase 26 U/L (12-78); Albumin Level 4.6 g/dl (3.5-5.0); Albumin/Globulin Ratio 1.5 (1.1-1.8); Alkaline Phosphatase 62 U/L (38-126); Anion Gap 14.9 mEq/L (5-15); Aspartate Amino Transferase 47 U/L (17-59); Calcium 9.8 mg/dl (8.4-10.2); Carbon Dioxide 27 mmol/L (22.0-30.0); Glucose 150 mg/dl (74-100); Magnesium 1.6 mg/dl (1.6-2.3); Total Protein,Serum 7.6 g/dl (6.3-8.2)
[2022-02-23 09:28] LABS: Basophils # 0.1 K/mm3 (0-0.2); Basophils % 0.5 % (0.1-2.0); Eosinophils % 0.2 % (0.1-12.0); Hematocrit 39.9 % (42.0-52.0); Hemoglobin 13.4 g/dL (14.1-18.0); Lymphocytes % 17.7 % (10-50); Mean Corpuscular HGB Conc 33.6 g/dL (31.8-35.4); Mean Corpuscular Hemoglobin 31.4 pg (27.0-31.2); Mean Corpuscular Volume 93.3 fl (80-94); Mean Platelet Volume 8.1 fl (7.4-10.4); Monocytes # 0.9 K/mm3 (0.1-1.0); Monocytes % 7.7 % (1.7-9.3); Neutrophils # 8.3 K/mm3 (1.8-7.8); Platelet Count 304 K/mm3 (142-424); Red Blood Count 4.27 M/mm3 (4.60-6.20); Red Cell Distribution Width 13.5 % (11.5-17.5); White Blood Count 11.3 K/mm3 (4.8-10.8)
[2022-02-23 12:47] LABS: POC Glucose,Bedside 162 (70-110)
--- NOTE | 2022-02-23 14:17 | XR_ITS ---
PROCEDURE INFORMATION: Exam: XR Chest Exam date and time: 02/23/2022 2:24 PM Age: 76 years old Clinical indication: Shortness of breath; Additional info: Shortness of breath, new o2 requirement TECHNIQUE: Imaging protocol: Radiologic exam of the chest. Views: 1 view. COMPARISON: CR XR CHEST PORTABLE 02/22/2022 9:59 AM FINDINGS: Lungs: No dense pulmonary consolidation. Bibasilar atelectasis. Pleural spaces: No pleural effusion or pneumothorax. Heart/Mediastinum: Post cardiac surgery changes. Sternotomy wires appear intact. Mild cardiomegaly. Vasculature: Aortic atherosclerosis. Bones/joints: Moderate to severe bilateral glenohumeral and acromioclavicular degenerative joint disease. IMPRESSION: No acute cardiopulmonary abnormality.
--- NOTE | 2022-02-23 14:26 | HMH.PHAINT1 ---
Pharmacy Intervention Comments: MEDICATION RECONCILIATION COMPLETED ON PATIENT USING EXTERNAL FILL HISTORY FROM PHARMACY. -WILFRED HICKS, SAMYD
[2022-02-23 14:46] LABS: ABG Base Excess -2.2 mmol/L (-2.4-2.3); ABG HCO3 22.8 mmhg (22.0-26.0); ABG Oxygen Saturation 95 % (90-100); ABG PH 7.39 mmol/L (7.35-7.45); ABG PO2 82.3 mmhg (80-100)
[2022-02-23 14:47] LABS: Allen's Test Patient Unable; Source Right Radial
[2022-02-23 15:22] LABS: Salicylate < 1.0 mg/dL (2.0-20.0)
[2022-02-23 16:47] LABS: Coronavirus 19, PCR Not Detected (NotDetected); Influenza A, PCR Not Detected (NotDetected); Influenza B, PCR Not Detected (NotDetected)
[2022-02-23 17:29] LABS: POC Glucose,Bedside 140 (70-110)
--- NOTE | 2022-02-23 18:40 | PC.NURSE ---
pt continues to be unable to respond or follow commands. sats are stable on 4lnc. He is unable to effectively cough and has had to be suctioned numerous times. frequent oral care has been done through out the shift.
--- NOTE | 2022-02-23 19:33 | HMH.SLDYSPHA ---
Speech & Language Evaluation Speech/Language Dysphagia Evaluation Start: 02/23/22 19:17 Freq: ONCE Status: Active Protocol: Document 02/23/22 19:17 ADINAM (Rec: 02/23/22 19:33 ADINAM [id number]) Dysphagia Assess/Goals/Plan Assessment Date of Evaluation: 02/23/22 Evaluation Type Initial Certification Assessment/Problems CSE attempted to be completed per MD order. Does Patient Qualify for Service Yes Qualify/Failure Comment Unable to complete CSE 2' cognitive status, [employer] will continue to f/u for full clinical bedside swallow evaluation as pt becomes more appropriate. Recommendations PHYSICIAN CERTIFICATION: The specified therapy services are required, authorized, and reviewed every 30 days. Diet Recommendations NPO SL Swallow Guidelines High aspiration risk Comment Was unable to complete evaluation 2' status, it is recommended that pt stay NPO at this time per difficulty with independently coughing, inability to clear throat, and being unable to follow directions. Plan Pt/Guardian verbally ack understanding Yes of dx/prognosis/goals G -code Required No STG-Other Comment/Non-Specific Pt will complete full swallow evaluation once cognitive status changes. Education Instructions provided Discussed inability to fully complete swallow evaluation with nursing who expressed understanding, pt needs to remain NPO until [employer]ER is able to f/u on Friday. Pt/Caregiver able to recall information Able to recall/restate Reinforcement needed No Speech & Language HPI History Present Illness Description of Patient Problem Per ER report: Mr. Stacy is a 76-year-old male with a past medical history of DM, HTN, Hyperlipidemia and DDD of the Lumbar Spine. He presented to [facility] due to an acute episode of confusion associated with fevers that occurred prior to presentation. The information from the history and physical
[2022-02-23 19:41] LABS: Thyroid Stimulating Hormone 0.23 uIU/mL (0.465-4.68)
[2022-02-23 20:02] LABS: POC Glucose,Bedside 129 (70-110)
[2022-02-23 20:39] LABS: Free T4 (Free Thyroxine) 1.13 ng/dl (0.78-2.19)
[2022-02-24] VITALS (12 sets, daily range): BP systolic 131–166; BP diastolic 62–79; PULSE 67–94; RESP 17–22; TEMP 36.4–37.4; O2SAT 94–97; BMI 23.6
--- NOTE | 2022-02-24 05:24 | PC.NURSE ---
NO ACUTE CHANGES SINCE PREVIOUS ASSESSMENT. PT HAS RESTED INTERMITTENTLY THIS SHIFT. LUNG SOUNDS ARE DIMINISHED. O2 SATURATION HAS MAINTAINED 95-97% ON 4L. BLOOD PRESSURES HAVE MAINTAINED 130-150'S OVER 60-80'S. PT HAS BEEN MORE ALERT THIS SHIFT. PT WAS NOT ABLE TO TELL ME HIS NAME BUT WAS ANSWERING SIMPLE QUESTIONS SUCH IF HE WAS COLD OR IN PAIN. ORAL CARE HAS BEEN PROVIDED Q2HRS AND NEEDED. PT TOLERATED WELL. CALL CALVO IN REACH. BED ALARM AND MITTENS IN PLACE FOR PT SAFETY.
[2022-02-24 05:29] LABS: POC Glucose,Bedside 123 (70-110)
[2022-02-24 09:18] LABS: Basophils # 0.1 K/mm3 (0-0.2); Basophils % 0.6 % (0.1-2.0); Eosinophils # 0.1 K/mm3 (0.0-0.4); Eosinophils % 1.3 % (0.1-12.0); Hematocrit 39.8 % (42.0-52.0); Hemoglobin 13.2 g/dL (14.1-18.0); Lymphocytes # 1.7 K/mm3 (0.7-4.5); Lymphocytes % 18.5 % (10-50); Mean Corpuscular HGB Conc 33.3 g/dL (31.8-35.4); Mean Corpuscular Hemoglobin 30.7 pg (27.0-31.2); Mean Corpuscular Volume 92.3 fl (80-94); Mean Platelet Volume 8.6 fl (7.4-10.4); Monocytes # 0.8 K/mm3 (0.1-1.0); Neutrophils # 6.8 K/mm3 (1.8-7.8); Neutrophils % 71.6 % (37.0-80.0); Platelet Count 293 K/mm3 (142-424); Red Blood Count 4.31 M/mm3 (4.60-6.20); Red Cell Distribution Width 13.3 % (11.5-17.5); White Blood Count 9.4 K/mm3 (4.8-10.8)
[2022-02-24 09:20] LABS: Chloride 97 mmol/L (98-107); Potassium 3.6 mmoL/L (3.5-5.1); Sodium 130 mmol/L (136-145)
[2022-02-24 09:23] LABS: Alanine Aminotransferase 20 U/L (12-78); Albumin/Globulin Ratio 1.5 (1.1-1.8); Alkaline Phosphatase 56 U/L (38-126); Anion Gap 9.6 mEq/L (5-15); Aspartate Amino Transferase 36 U/L (17-59); Blood Urea Nitrogen 22 mg/dl (9-20); Calcium 9.1 mg/dl (8.4-10.2); Carbon Dioxide 27 mmol/L (22.0-30.0); Creatinine Clearance Estimated 72 mL/min (50-200); Estimated Glomerular Filt Rate 93 ml/min (>60); GFR (African American) 113 ML/MIN (>60); Globulin 2.7 g/dL (1.3-3.2); Glucose 132 mg/dl (74-100); Magnesium 1.8 mg/dl (1.6-2.3); Total Protein,Serum 6.7 g/dl (6.3-8.2)
[2022-02-24 12:13] LABS: POC Glucose,Bedside 130 (70-110)
--- NOTE | 2022-02-24 12:57 | CT_ITS ---
PROCEDURE INFORMATION: Exam: CT Chest Without Contrast; Diagnostic Exam date and time: 02/24/2022 1:15 PM Age: 76 years old Clinical indication: Dyspnea; Additional info: New onset o2 requirement, eval mediastinum TECHNIQUE: Imaging protocol: Diagnostic computed tomography of the chest without contrast. Radiation optimization: All CT scans at this facility use at least one of these dose optimization techniques: automated exposure control; mA and/or kV adjustment per patient size (includes targeted exams where dose is matched to clinical indication); or iterative reconstruction. COMPARISON: CR XR CHEST PORTABLE 02/23/2022 2:24 PM FINDINGS: Thyroid: Lobulated, irregular thyroid, with a 2.5 x 2.5 x 2.5 cm mass along the inferior aspect of the thyroid (series 3, image 90; series 601, image 23). Trachea: The central airways are patent. Lungs: Bibasilar atelectasis. Pleural spaces: No pleural effusion or pneumothorax. Heart: Post cardiac surgery changes. Sternotomy wires appear intact. Coronary artery and aortic atherosclerosis. Lymph nodes: Multiple subcentimeter mediastinal lymph nodes, too small to be considered pathologic by CT size criteria, but increased in number. The main pulmonary artery is normal in caliber. Vasculature: Aortic atherosclerosis. No aneurysm. Bones/joints: No acute fracture. Soft tissues: Unremarkable. IMPRESSION: Lobulated, irregular thyroid, with a 2.5 x 2.5 x 2.5 cm mass along the inferior aspect of the thyroid. Dedicated thyroid ultrasound is recommended. COMMENTS: Consistent with the [employer]'s Incidental Findings Committee white paper (J Am Amor Radiol 2015): In patients aged 35 years and older with an incidental thyroid nodule equal to or greater than 1.[address], MRI or extrathyroidal US, further evaluation with dedicated thyroid US is recommended for patients with normal life expectancy and without comorbidities. For smaller nodules without suspicious features, no further evaluation or follow up is recommended.
--- NOTE | 2022-02-24 13:47 | EXP.ACUTE.PN ---
Subjective *Date: 02/24/22 *Time: 17:21 Interval history: Patient had remained stable on oxygen since event yesterday. No further apneic spells or hypoxic events in the past 24 hours. Able to wean to room air this morning. Daughter at bedside this afternoon, extensive discussion about patient's condition, work-up so far, unremarkable findings. 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 Additionally he appears marginally more alert. Answering questions with yes or trying to answer with short words/2-3 word answers. Follows commands with squeezing hands. Moves legs though is globally weak. Denies any pain on exam this morning with a head shake. Still intolerant of p.o. intake. Further discussion with daughter, episode of confusion that led to presentation to the hospital was preceded by patient saying he did not feel well, having vomiting and upset stomach. He appeared to recognize he was not feeling well prior to coming in. Preceding onset of his symptoms at home, his had been in the hospital for several days at [facility]. Patient's is on approximately 15 medications. They both use the same color pill boxes and are not very good about keeping their medications . Potential concern for patient having taken his 's medications. Several of her medications are high-dose and have side effects consistent with his presentation symptoms. These may include sertraline 100 mg daily, ropinirole 4 mg daily, meclizine 25 mg daily. In addition to other differential diagnoses, potential inadvertent medication administration is of concern. Remains afebrile and hemodynamically stable Medical Exam Vital signs and Labs for Last 24 Hours: Vital Signs Temp Pulse Pulse Resp BP Pulse Ox 02/24/22 12:52 94 H 18 139/65 02/24/22 11:58 87 18 150/76 H 02/24/22 11:22 98.6 F 76 18 138/64 94 L 02/24/22 07:41 97.6 F 67 17 131/69 97 02/24/22 05:18 90 141/65 H 02/24/22 04:00 98.6 F 87 20 144/69 H 97 02/24/22 00:00 99.3 F 89 20 151/76 H 94 L 02/23/22 23:15 102 H 155/70 H 02/23/22 20:00 99.3 F 98 H 22 131/61 97 02/23/22 16:00 99.8 F H 100 H 24 149/79 H 95 02/23/22 18:15 96 H 122/80 02/23/22 17:55 99 H 156/87 H 02/23/22 17:50 94 H 187/78 H 02/23/22 15:00 91 H 161/82 H 02/23/22 14:00 93 H 146/79 H 02/23/22 17:45 102 H 177/79 H 02/23/22 16:00 80 Intake and Output 02/23/22 02/24/22 02/24/22 23:59 07:59 15:59 Intake Total 1045 / 1045 Output Total 150 / 1350 500 / 500 0 / 500 Balance -150 / -817 545 / 545 0 / 545 Intake: Intake, Oral Amount 0 / 0 Intake, Total IV Amount 1045 / 1045 Ringers Solution,Lactated 1,000 1045 / 1045 ml @ 50 mls/hr IV .Q20H [facility] Rx #:[id number] Output: Output, Urine Amount 150 / 1050 0 / 0 0 / 0 Output, Urine Amount (Catheter) 500 / 500 Bansal 500 / 500 Other: Number of Unmeasured Voids 0 0 0 Weight 83.546 kg Patient Weight 02/24/22 23:59 Weight 83.546 kg Laboratory Results - last 24 hr 02/23/22 07:51: Free T4 1.13 02/23/22 09:30: Salicylates < 1.0 L 02/23/22 09:30: TSH 0.23 L 02/23/22 14:20: Specimen Source Right radial, O2 % 3.5 lpm nc, ABG pH 7.39, ABG pCO2 39.0, ABG pO2 82.3, ABG HCO3 22.8, ABG Total CO2 24.0, ABG O2 Saturation 95, ABG Base Excess -2.2, Adam Test Patient unable 02/23/22 14:31: ABG Lactate 2.0 02/23/22 16:26: SARS-CoV-2 (PCR) Not detected, Influenza A Untype (PCR) Not detected, Influenza Type B (PCR) Not detected 02/23/22 17:13: POC Glucose 140 H 02/23/22 19:53: POC Glucose 129 H 02/24/22 05:17: POC Glucose 123 H 02/24/22 08:46: WBC 9.4, RBC 4.31 L, Hgb 13.2 L, Hct 39.8 L, MCV 92.3, MCH 30.7, MCHC 33.3, RDW 13.3, Plt Count 293, MPV 8.6, Neut % (Auto) 71.6, Lymph % (Auto) 18.5, Jones % (Auto) 8.0, Eos % (Auto) 1.3, Baso % (Auto) 0.
[2022-02-24 17:20] LABS: POC Glucose,Bedside 98 (70-110)
--- NOTE | 2022-02-24 18:48 | PC.NURSE ---
pt is more alert and able to follow simple commands. he is able to respond minimally verbally but is extremely hard to understand and is having issues finding words. he is moving his lips but no sound is coming out.
[2022-02-24 20:12] LABS: POC Glucose,Bedside 113 (70-110)
[2022-02-25] VITALS: BP 152/73; PULSE 83; RESP 20; TEMP 37; O2SAT 94
[2022-02-25 04:48] VITALS: BP 136/64; PULSE 89; RESP 16; TEMP 37.3; O2SAT 93
[2022-02-25 05:00] VITALS: BMI 23.8
[2022-02-25 05:17] LABS: POC Glucose,Bedside 162 (70-110)
--- NOTE | 2022-02-25 05:27 | PC.NURSE ---
NO ACUTE CHANGES SINCE PREVIOUS ASSESSMENT. REMAINS ON ROOM AIR. TOLERATING WELL. ORAL CARE IS BEING COMPLETED Q1HR AND NEEDED. HE HAS RESTED WELL THIS SHIFT. THIS AM HE GOT AGITATED WITH ORAL CARE BUT RELAXED AFTER. FSBS HAVE BEEN STABLE. CALL CALVO WITHIN REACH. BED ALARM AND MITTENS IN PLACE FOR PT SAFETY.
--- NOTE | 2022-02-25 05:49 | PC.NURSE ---
RENAE ROSE-THONG NOTIFIED OF PT'S FSBS OF 162. AGREED TO HOLD SSI DUE TO PT HAVING NO PO INTAKE.
--- NOTE | 2022-02-25 07:20 | US_ITS ---
FINAL REPORT CLINICAL HISTORY: thyroid mass eval, FINDINGS: THYROID ULTRASOUND Sonographic images of the thyroid was obtained. The right lobe of the thyroid measures 4.6 x 1.7 x 1.1 cm. There is an 11 x 9 x 7 mm solid hypoechoic nodule, TI-RADS 4. There is also a 23 x 23 x 18 mm lower lobe solid isoechoic nodule, TI-RADS 3. The left lobe of the thyroid measures 5.5 x 2.1 x 1.7 cm. There is a 3 x 2 x 1 mm cystic nodule, TI-RADS 1. There is also a 20 x 19 x 17 mm solid isoechoic nodule, TI-RADS 3. The isthmus measures 6 mm. IMPRESSION: Thyroid is somewhat enlarged with heterogeneous echotexture. Bilateral thyroid nodules as above. Recommend follow-up in 6-12 months. Reviewed, Interpreted and Dictated by Bran Castañeda III, MD Transcribed by Azul Nava Authenticated and [facility]
[2022-02-25 07:26] LABS: Hematocrit 37.2 % (42.0-52.0); Hemoglobin 12.2 g/dL (14.1-18.0)
[2022-02-25 07:32] LABS: Chloride 101 mmol/L (98-107); Potassium 3.3 mmoL/L (3.5-5.1); Sodium 131 mmol/L (136-145)
[2022-02-25 07:35] LABS: Anion Gap 6.3 mEq/L (5-15); Blood Urea Nitrogen 21 mg/dl (9-20); Calcium 8.4 mg/dl (8.4-10.2); Carbon Dioxide 27 mmol/L (22.0-30.0); Creatinine Clearance Estimated 73 mL/min (50-200); Estimated Glomerular Filt Rate 109 ml/min (>60); GFR (African American) 132 ML/MIN (>60); Glucose 175 mg/dl (74-100)
[2022-02-25 08:00] VITALS: BP 130/55; PULSE 65; RESP 16; TEMP 37.2; O2SAT 97
--- NOTE | 2022-02-25 08:41 | MR_ITS ---
FINAL REPORT CLINICAL HISTORY: AMS. 18ML PROHANCE GIVEN. COMPARISON: 02/22/2022 FINDINGS: Multiplanar MR imaging of the brain was performed without and with contrast. There is motion artifact on many sequences. There is mild age-appropriate atrophy. Scattered foci of increased T2 signal are seen in the cerebral white matter that have a nonspecific appearance but likely represent moderate chronic ischemic/gliotic changes. There is no evidence of intracranial hemorrhage or mass. Ventricles are normal in size for degree of atrophy. There is no evidence of shift of the midline structures. No abnormal extra-axial fluid collection is seen. No area of abnormal restricted diffusion is identified. The posterior fossa and brainstem have an unremarkable appearance. No abnormal contrast enhancement is seen. Normal major vessel vascular flow voids are seen. IMPRESSION: Mild atrophy and chronic ischemic/gliotic changes. No acute intracranial abnormality. Reviewed, Interpreted and Dictated by Bran Castañeda III, MD Transcribed by Hilary Carver Authenticated and [facility]
--- NOTE | 2022-02-25 08:52 | EXP.PHA.PN ---
Subjective *Date: 02/25/22 *Time: 08:52 Medical Exam Vital signs and Labs for Last 24 Hours: Vital Signs Temp Pulse Resp BP Pulse Ox 02/25/22 04:48 99.2 F 89 16 136/64 93 L 02/25/22 00:00 98.6 F 83 20 152/73 H 94 L 02/24/22 23:08 156/78 H 02/24/22 20:00 98.6 F 85 20 166/79 H 94 L 02/24/22 18:43 80 150/77 H 02/24/22 18:39 97.6 F 77 22 162/62 H 02/24/22 15:12 98.4 F 84 20 133/71 96 02/24/22 12:52 94 H 18 139/65 02/24/22 11:58 87 18 150/76 H 02/24/22 11:22 98.6 F 76 18 138/64 94 L Intake and Output 02/24/22 02/25/22 02/25/22 23:59 07:59 15:59 Intake Total 2191 Output Total 0 / 725 Balance 0 / 320 2191 Intake: Intake, Total IV Amount 2191 Dextrose 5 % and 0.9 % NaCl , 2191 000 ml @ 100 mls/hr IV .Q10H [facility] Rx#:[id number] Output: Output, Urine Amount 0 / 0 Other: Number of Unmeasured Voids 0 1 Number of Urine Attends/Diapers 1 Weight 84.198 kg Patient Weight 02/25/22 23:59 Weight 84.198 kg Laboratory Results - last 24 hr 02/24/22 08:46: WBC 9.4, RBC 4.31 L, Hgb 13.2 L, Hct 39.8 L, MCV 92.3, MCH 30.7, MCHC 33.3, RDW 13.3, Plt Count 293, MPV 8.6, Neut % (Auto) 71.6, Lymph % (Auto) 18.5, Blount % (Auto) 8.0, Eos % (Auto) 1.3, Baso % (Auto) 0.6, Neut # (Auto) 6.8, Lymph # (Auto) 1.7, Blount # (Auto) 0.8, Eos # (Auto) 0.1, Baso # (Auto) 0.1 12/04/22 08:46: Sodium 130 L, Potassium 3.6, Chloride 97 L, Carbon Dioxide 27, Anion Gap 9.6, BUN 22 H, Creatinine 0.80, Estimated Creat Clear 72, Estimated GFR 93, Est GFR ( Amer) 113, Glucose 132 H, Calcium 9.1, Magnesium 1.8 D, Total Bilirubin 1.0, AST 36, ALT 20, Alkaline Phosphatase 56, Total Protein 6.7, Albumin 4.0 D, Globulin 2.7, Albumin/Globulin Ratio 1.5 02/24/22 11:54: POC Glucose 130 H 02/24/22 16:51: POC Glucose 98 02/24/22 20:04: POC Glucose 113 H 02/25/22 05:08: POC Glucose 162 H 02/25/22 06:54: Hgb 12.2 L, Hct 37.2 L 02/25/22 06:54: Sodium 131 L, Potassium 3.3 L, Chloride 101, Carbon Dioxide 27, Anion Gap 6.3, BUN 21 H, Creatinine 0.70, Estimated Creat Clear 73, Estimated GFR 109, Est GFR ( Amer) 132, Glucose 175 H D, Calcium 8.4 I & O for Labs for Last 24 Hours: Intake & Output 02/22/22 02/23/22 02/24/22 02/25/22 23:59 23:59 23:59 23:59 Intake Total 533 / 533 1045 / 1045 2191 / 2191 Output Total 0 / 0 1050 / 1350 725 / 725 Balance 0 / 0 -517 / -817 320 / 320 2191 / 2191 Weight 84.085 kg 83.546 kg 84.198 kg Microbiology Reports for the Last 24 Hours: Microbiology 02/22/22 11:55 Cerebral Spinal Fluid Gram Stain - Final 02/22/22 11:55 Cerebral Spinal Fluid CSF Culture - Preliminary NO GROWTH AFTER 48 HOURS 02/22/22 09:33 Blood Blood Culture - Preliminary NO GROWTH AFTER 48 HOURS 02/22/22 09:33 Blood Blood Culture - Preliminary NO GROWTH AFTER 48 HOURS The patient's infection will respond to the chosen ABx?: Yes Is the patient receiving the right drug, dose, and route?: Yes Could a more targeted ABx be ordered?: No
--- NOTE | 2022-02-25 09:55 | HMH.PTEV ---
Physical Therapy Evaluation Rehab PT IP Evaluation Start: 02/24/22 17:37 Freq: ONCE Status: Active Protocol: Document 02/25/22 09:49 PHORNE (Rec: 02/25/22 09:54 PHORNE [id number]) Subjective/History History History 76 yowm adm to [facility] with AMS and encephalopathy of unknown etiology. He is currently only able to answer yes/no to ~50% of questions. All hx obtained from prior reports, it would seem pt was independent with all mobility prior to adm, but no family present at this time. Subjective Subjective Pt with no current c/o. Mouth remains open throughout treatment session. Rehab PT IP Eval Objective Appearance Patient Behavior Confused Patient Orientation Person Difficulty following instructions moderate Speech Pattern Poor Articulation Ambulation Patient Able to Ambulate No Balance Ability to Arise Unable Sitting Balance Leans or slides in chair Standing Balance Unsteady Dynamic Sitting Balance Ability Fair Dynamic Standing Balance Ability Poor Transfers Bed Transfer Ability Maximum x 1 (75% assist) Chair Transfer Ability Maximum x 1 (75% assist) Sit to Stand Bed Transfer Ability Maximum x 1 (75% assist) Sit to Stand Chair Transfer Ability Maximum x 1 (75% assist) Rehab PT IP prob,goals,plan Problems Date of Evaluation: 02/25/22 PT IP Problems Bed Mobility,Transfers,Gait, Balance,Self care,Safety Rehab Potential Rehab Potential Fair Plan PT Intervention Plan Bed Mobility,Transfers,Gait, Balance,Self care,Safety, Therapeutic Exercise PT Plan Frequency BID Duration LOS Discharge Goals Bed Transfer Ability Moderate x 2 (50% assist) Sit to Stand Chair Transfer Ability Moderate x 2 (50% assist) Ambulation Assistive Device Rolling Walker Ambulation Distance (feet) 3 Discharge Plan PT Discharge Plan Pt is currently most appropriate for rehab placement once medically stable. G -code Required No Eval Complexity Eval Charge Codes 17267 - High Complexity PHYSICIAN CERTIFICATION: I certify the specified therapy services for Hayes Jauregui are required,
--- NOTE | 2022-02-25 10:15 | EXP.ACUTE.PN ---
Subjective *Date: 02/25/22 *Time: 10:15 Interval history: Patient had remained stable on oxygen since event yesterday. No further apneic spells or hypoxic events in the past 24 hours. Able to wean to room air this morning. Daughter at bedside this afternoon, extensive discussion about patient's condition, work-up so far, unremarkable findings. 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 Additionally he appears marginally more alert. Answering questions with yes or trying to answer with short words/2-3 word answers. Follows commands with squeezing hands. Moves legs though is globally weak. Denies any pain on exam this morning with a head shake. Still intolerant of p.o. intake. Further discussion with daughter, episode of confusion that led to presentation to the hospital was preceded by patient saying he did not feel well, having vomiting and upset stomach. He appeared to recognize he was not feeling well prior to coming in. Preceding onset of his symptoms at home, his had been in the hospital for several days at [facility]. Patient's is on approximately 15 medications. They both use the same color pill boxes and are not very good about keeping their medications . Potential concern for patient having taken his 's medications. Several of her medications are high-dose and have side effects consistent with his presentation symptoms. These may include sertraline 100 mg daily, ropinirole 4 mg daily, meclizine 25 mg daily. In addition to other differential diagnoses, potential inadvertent medication administration is of concern. Remains afebrile and hemodynamically stable Medical Exam Vital signs and Labs for Last 24 Hours: Vital Signs Temp Pulse Resp BP Pulse Ox 02/25/22 08:00 99.0 F 65 16 130/55 L 97 02/25/22 04:48 99.2 F 89 16 136/64 93 L 02/25/22 00:00 98.6 F 83 20 152/73 H 94 L 02/24/22 23:08 156/78 H 02/24/22 20:00 98.6 F 85 20 166/79 H 94 L 02/24/22 18:43 80 150/77 H 02/24/22 18:39 97.6 F 77 22 162/62 H 02/24/22 15:12 98.4 F 84 20 133/71 96 12/04/22 12:52 94 H 18 139/65 02/24/22 11:58 87 18 150/76 H 02/24/22 11:22 98.6 F 76 18 138/64 94 L Intake and Output 02/24/22 02/25/22 02/25/22 23:59 07:59 15:59 Intake Total 2191 Output Total 0 / 725 Balance 0 / 320 2191 Intake: Intake, Total IV Amount 2191 Dextrose 5 % and 0.9 % NaCl 1, 2191 000 ml @ 100 mls/hr IV .Q10H [facility] Rx#:[id number] Output: Output, Urine Amount 0 / 0 Other: Number of Unmeasured Voids 0 1 Number of Urine Attends/Diapers 1 Weight 84.198 kg Patient Weight 02/25/22 23:59 Weight 84.198 kg Laboratory Results - last 24 hr 02/24/22 11:54: POC Glucose 130 H 02/24/22 16:51: POC Glucose 98 02/24/22 20:04: POC Glucose 113 H 02/25/22 05:08: POC Glucose 162 H 02/25/22 06:54: Hgb 12.2 L, Hct 37.2 L 02/25/22 06:54: Sodium 131 L, Potassium 3.3 L, Chloride 101, Carbon Dioxide 27, Anion Gap 6.3, BUN 21 H, Creatinine 0.70, Estimated Creat Clear 73, Estimated GFR 109, Est GFR ( Amer) 132, Glucose 175 H D, Calcium 8.4 I & O for Labs for Last 24 Hours: Intake & Output 02/22/22 02/23/22 02/24/22 02/25/22 23:59 23:59 23:59 23:59 Intake Total 533 / 533 1045 / 1045 2191 Output Total 0 / 0 1050 / 1350 725 / 725 Balance 0 / 0 -517 / -817 320 / 320 2191 Weight 84.085 kg 83.546 kg 84.198 kg Microbiology Reports for the Last 24 Hours: Microbiology 02/22/22 11:55 Cerebral Spinal Fluid Gram Stain - Final 02/22/22 11:55 Cerebral Spinal Fluid CSF Culture - Preliminary NO GROWTH AFTER 48 HOURS 02/22/22 09:33 Blood Blood Culture - Preliminary NO GROWTH AFTER 48 HOURS 02/22/22 09:33 Blood Blood Culture - Preliminary
--- NOTE | 2022-02-25 10:23 | HMH.OTEV ---
OT Inpatient Evaluation Rehab OT IP Evaluation Start: 02/24/22 17:37 Freq: ONCE Status: Complete Protocol: Document 02/25/22 10:[facility] (Rec: 02/25/22 10:[address] [facility] [id number]) Rehab OT IP Assessment Subjective History Pt unable to provide any orientation questions. Pt was only able to answer yes or no questions intermittently ~50% of the time. He could not provide any previous level of function and there was no family present. Pt was admitted via ED on 02/22/22 due to AMS, confusion, and fever. According to chart reviews he lived at home with his and was independent with all ADLS and functional transfers. Pt has a past medical history of: Diabetes Diabetes mellitus, type 2 GERD (gastroesophageal reflux disease) History of gastroesophageal reflux (GERD) Hyperlipemia Hypertension Subjective Pt kept mouth open the entire evaluation. Objective Bed Mobility bed mobility-scooting,bed mobility - supine/sit,bed mobility - rolling Assist Level Maximum x 2 (75% assist) Rehab OT IP prob,goals,plan Problems Date of Evaluation: 02/25/22 OT IP Problems Bed Mobility,Transfers,Balance ,Self care,Safety Rehab Potential Rehab Potential Good Equipment Needs Assistive Devices Rolling / Wheeled Walker Plan OT intervention Plan Bed Mobility,Transfers,Balance ,Self care,Safety,Therapeutic Exercise OT Plan Frequency BID Duration LOS Discharge Goals Bed Mobility Ability Assistance x1 Sit to Stand Chair Transfer Ability Moderate x 1 (50% assist) Chair Transfer Ability Moderate x 1 (50% assist) Chair Transfer Technique Sit to/from Ambulatory Chair Transfer Assistive Devices Rolling Walker Feeding Ability Assist with Tray Set Up Lower Body Dressing Ability Assistance X1 Upper Body Dressing Ability Assistance X1 Bathing Yanelis
[2022-02-25 11:41] VITALS: BMI 23.8
[2022-02-25 11:45] LABS: POC Glucose,Bedside 146 (70-110)
--- NOTE | 2022-02-25 11:54 | DIET.NUTRFU ---
Addendum entered by India Yeager RD, LD 02/25/22 14:17: Nursing has made multiple attempts to place NG tube, but have been unsuccessful Original Note: Patient failed swallow study, he is still unable to close mouth all the way and follow directions. This RD consulted to recommend TF, nurse to drop NG tube. Patient has hx of DM, therefore will use diabetic formula. He is receiving dextrose currently. Labs unremarkable, BS elevated 113-175. No insulin given at this time. Start glucerna 1.0 at 20ml/hr and increase as tolerated to 80ml/hr= 1920ml/1920kcal/80gm protein/1637ml formula water. will start with minimal flush until IVF discontinued. flush with 50ml D4F=917ml/day
[2022-02-25 12:00] VITALS: BP 133/64; PULSE 67; RESP 18; TEMP 36.9; O2SAT 97
[2022-02-25 13:51] LABS: Triiodothyronine (T3) Free 2.1 pg/mL (2.0-4.4); Triiodothyronine (T3) Total 75 ng/dL (71-180)
--- NOTE | 2022-02-25 15:29 | XR_ITS ---
FINAL REPORT CLINICAL HISTORY: NG Placement FINDINGS: SINGLE VIEW ABDOMEN A single view of the abdomen was obtained. There is an NG tube coiled in the upper esophagus. There is a nonobstructive bowel gas pattern. There are no abnormally dilated loops of small bowel. No abnormal calcifications are identified. IMPRESSION: Nonobstructive bowel gas pattern. In NG-tube coiled in the upper esophagus. The patient's nurse, Kelly was notified of these findings at 4:35 pm. Reviewed, Interpreted and Dictated by Bran Castañeda III, MD Transcribed by Hilary Carver Authenticated and [facility]
[2022-02-25 16:00] VITALS: BP 159/60; PULSE 91; RESP 18; TEMP 37.2; O2SAT 98
[2022-02-25 16:47] LABS: POC Glucose,Bedside 178 (70-110)
--- NOTE | 2022-02-25 16:51 | PC.NURSE ---
PT IS RESTING IN BED. PT HAS BEEN ALERT T/O THE SHIFT BUT NOT ORIENTED. PT WILL GIVE EYE CONTACT WHEN YOU SAY HIS NAME BUT WILL NOT VERBALLY ANSWER QUESTIONS CORRECTLY. LUNG SOUNDS DIMINISHED. ABDOEMN SOFT/NON TENDER WITH ACTIVE BOWEL SOUNDS. ORAL CARE PROVIDED FREQUENTLY. MULTIPLE ATTEMPTS HAVE BEEN MADE TO INSERT AN NG TUBE FOR FEEDINGS HOWEVER EVERY TIME WE WERE ABLE TO PASS THROUGH THE SEPTUM NG TUBE WOULD CURL UP AT THE ESOPHAGUS. PHYSICIAN AT BEDSIDE AND STATED TO HOLD ON NG TUBE FOR NOW. WILL CONTINUE TO MONITOR.
[2022-02-25 20:00] VITALS: BP 159/63; PULSE 78; RESP 18; TEMP 37.1; O2SAT 98
[2022-02-25 22:23] LABS: POC Glucose,Bedside 120 (70-110)
[2022-02-26] VITALS (7 sets, daily range): BP systolic 114–202; BP diastolic 67–95; PULSE 77–90; RESP 16–20; TEMP 37.1–37.4; O2SAT 90–98
--- NOTE | 2022-02-26 02:08 | PC.NURSE ---
IV fluids restarted at this time
--- NOTE | 2022-02-26 05:25 | PC.NURSE ---
[facility] called at this time and were given an update on pt condition. Still no bed available at this time.
[2022-02-26 06:11] LABS: POC Glucose,Bedside 163 (70-110)
--- NOTE | 2022-02-26 06:29 | PC.NURSE ---
No acute changes since I took over pt care at 0100. Pt remains resistive to care making oral care difficult. Pts IV fluids restarted at 0415.
--- NOTE | 2022-02-26 09:28 | PC.NURSE ---
Pt NT suctioned, specimen walked to lab.
--- NOTE | 2022-02-26 10:35 | XR_ITS ---
FINAL REPORT CLINICAL HISTORY: Confirm PICC line placement COMPARISON: February 23, 2022 FINDINGS: A new left-sided PICC line terminates in the mid SVC. Postoperative changes are seen from sternotomy. The heart size is normal. The mediastinum is within normal limits. Mild bibasilar opacities could represent atelectasis or pneumonia. There is no pleural effusion. There is no pneumothorax. There is degenerative change of the right shoulder. IMPRESSION: Left-sided PICC line terminates in the mid SVC. Mild bibasilar opacity could represent atelectasis or pneumonia. Reviewed, Interpreted and Dictated by Bran Castañeda III, MD Transcribed by Dusty Woods Authenticated and [facility]
--- NOTE | 2022-02-26 10:53 | PC.NURSE ---
[facility] called with update for this pt. Stated there is still on beds available and will let us know when one becomes available.
--- NOTE | 2022-02-26 11:29 | DIET.NUTRFU ---
Patient continues to be unable to close mouth. During rounds patient sounded very wet and had to be suctioned. They took sample to lab. Continues to be unable to place NG tube, dextrose is running. Pharmacy consulted for TPN. Nutritional needs are 1850-2100kcal, 80-90gm protein and 2200ml/day to meet non active needs. He does not appear malnourished was living at home with SIMONA. No new labs today, BS elevated possibly d/t dextrose. Currently planning to use PPN instead of central line which means dextrose has to run at 10%, pharmacy ordered detrose 10%, lipids at 20% to provide 1674kcal, 102gm protein. That 20kcal/kg based bedridden needs, should be able to maintain for short term use. Labs ordered weekly based on policy. Will monitor weights closely. If swallowing becomes a moth exterminator problem, PEG placement is recommended. RD will continue to follow overall condition.
--- NOTE | 2022-02-26 11:29 | PC.NURSE ---
Addendum entered by Chance Mcdermott RN 02/26/22 11:39: DR LOPEZ CALLED BACK AND SAID TO GO AHEAD AND GIVE ENALAPRIL DOSE SINCE PT HAS BEEN HYPERTENSIVE HISTORICALLY Original Note: HELD VLAD ENALAPRIL DOSE R/T PT BP DR Rachid LOPEZ AWARE
--- NOTE | 2022-02-26 11:32 | EXP.ACUTE.PN ---
Subjective *Date: 02/26/22 *Time: 15:55 Interval history: No history able to be obtained due to acute encephalopathy. Patient becomes aggravated with painful stimulation. Medical Exam Vital signs and Labs for Last 24 Hours: Vital Signs Temp Pulse Resp BP Pulse Ox 02/26/22 08:00 99.0 F 86 16 165/67 H 97 02/26/22 04:00 98.8 F 88 18 167/87 H 92 L 02/26/22 00:00 98.7 F 77 20 167/73 H 98 02/25/22 20:00 98.8 F 78 18 159/63 H 98 02/25/22 16:00 98.9 F 91 H 18 159/60 H 98 02/25/22 12:00 98.5 F 67 18 133/64 97 Intake and Output 02/25/22 02/26/22 02/26/22 23:59 07:59 15:59 Intake Total 465 / 465 Output Total 0 / 0 0 / 0 Balance 0 2 465 / 465 Intake: Intake, Total IV Amount 465 / 465 Dextrose 5 % and 0.9 % NaCl 1, 465 / 465 000 ml @ 100 mls/hr IV .Q10H [facility] Rx#:[id number] Output: Output, Urine Amount 0 / 0 0 / 0 Other: Number of Unmeasured Voids 1 1 Laboratory Results - last 24 hr 02/23/22 07:51: Cortisol 26.6 02/23/22 07:51: Free T3 2.1, Total T3 75 02/25/22 11:30: POC Glucose 146 H 02/25/22 16:34: POC Glucose 178 H 02/25/22 22:09: POC Glucose 120 H 02/26/22 05:56: POC Glucose 163 H I & O for Labs for Last 24 Hours: Intake & Output 02/23/22 02/24/22 02/25/22 02/26/22 23:59 23:59 23:59 23:59 Intake Total 533 / 533 1045 / 1045 2192 / 2192 465 / 465 Output Total 1050 / 1350 725 / 725 0 / 0 0 / 0 Balance -517 / -817 320 / 320 2192 / 2192 465 / 465 Weight 83.546 kg 84.19 kg Microbiology Reports for the Last 24 Hours: Microbiology 02/22/22 11:55 Cerebral Spinal Fluid Gram Stain - Final 02/22/22 11:55 Cerebral Spinal Fluid CSF Culture - Preliminary NO GROWTH AFTER 72 HOURS Head: Present normocephalic and normal inspection Respiratory: Present accessory muscle use and CTA bilaterally Cardiac: Present Reg Rate and Rhythm and S1/S2 GI: Present soft; Absent distention Rectal (male): Present deferred (male): Present deferred Extremities: Present normal inspection Skin: Present intact Assessment and Plan *Assessment and plan (1) Acute encephalopathy: Status: Acute Category: Medical Code(s): G93.40 - Encephalopathy, unspecified (2) Dysphagia: Status: Acute Category: Medical Code(s): R13.10 - Dysphagia, unspecified (3) Delirium: Status: Acute Category: Medical Code(s): R41.0 - Disorientation, unspecified (4) Diabetes: Status: Acute Category: Medical Code(s): E11.9 - Type 2 diabetes mellitus without complications (5) Hypertension: Status: Acute Category: Medical Code(s): I10 - Essential (primary) hypertension (6) Hyperlipidemia: Status: Acute Category: Medical Code(s): E78.5 - Hyperlipidemia, unspecified Plan 76-year-old male with a past medical history of DM, HTN, Hyperlipidemia, DDD of the spine presents with acute episode of confusion and fevers.? History from suggests Mr. Jauregui has been developing mild dementia symptoms for well over a year now.? Medications that could impact memory include his hydrocodone and salicylates.? Recent exposure to COVID which has been shown to cause confusion in elderly patients (though currently negative).? Apneic spells could lead to hypercapnia.? Etiology still unclear.?Givin IV nutrition due to poor nutritional status and inability to tolerate PO, if no improvement will need PEG. Problems addressed as follows: Acute Toxic Metabolic Encephalopathy - Extensive work-up performed in the ER that consisted of CT of head, chest, abdomen, LP and labs with no acute findings.? Reviewed results again this morning to verify no subtle abnormalities. -UDS negative for opiates or toxins; serum negative for salicylate -ABG obtained 02/23 essentially normal.? No hypercarbia -Chest x-rays with no acute airspace disease or focal findings. -CT of chest ob
[2022-02-26 11:48] LABS: Basophils # 0.1 K/mm3 (0-0.2); Basophils % 0.9 % (0.1-2.0); Chloride 101 mmol/L (98-107); Eosinophils # 0.2 K/mm3 (0.0-0.4); Eosinophils % 2.6 % (0.1-12.0); Hematocrit 38.6 % (42.0-52.0); Hemoglobin 12.8 g/dL (14.1-18.0); Lymphocytes # 1.4 K/mm3 (0.7-4.5); Lymphocytes % 16.4 % (10-50); Mean Corpuscular HGB Conc 33.2 g/dL (31.8-35.4); Mean Corpuscular Volume 93.3 fl (80-94); Mean Platelet Volume 7.7 fl (7.4-10.4); Monocytes # 0.5 K/mm3 (0.1-1.0); Monocytes % 6.1 % (1.7-9.3); Neutrophils # 6.5 K/mm3 (1.8-7.8); Neutrophils % 74.1 % (37.0-80.0); Platelet Count 296 K/mm3 (142-424); Red Blood Count 4.14 M/mm3 (4.60-6.20); Red Cell Distribution Width 13.1 % (11.5-17.5); Sodium 133 mmol/L (136-145); White Blood Count 8.8 K/mm3 (4.8-10.8)
[2022-02-26 11:49] LABS: Potassium 3.4 mmoL/L (3.5-5.1)
[2022-02-26 11:51] LABS: Alanine Aminotransferase 19 U/L (12-78); Albumin Level 3.6 g/dl (3.5-5.0); Albumin/Globulin Ratio 1.2 (1.1-1.8); Alkaline Phosphatase 61 U/L (38-126); Anion Gap 9.4 mEq/L (5-15); Aspartate Amino Transferase 29 U/L (17-59); Bilirubin,Total 0.9 mg/dl (0.2-1.3); Blood Urea Nitrogen 14 mg/dl (9-20); Calcium 8.7 mg/dl (8.4-10.2); Carbon Dioxide 26 mmol/L (22.0-30.0); Cholesterol 145 mg/dl (140-200); Creatinine Clearance Estimated 72 mL/min (50-200); Estimated Glomerular Filt Rate 130 ml/min (>60); GFR (African American) 158 ML/MIN (>60); Globulin 2.9 g/dL (1.3-3.2); Glucose 151 mg/dl (74-100); Magnesium 1.9 mg/dl (1.6-2.3); Phosphorous 3.4 mg/dl (2.5-4.5); Total Protein,Serum 6.5 g/dl (6.3-8.2); Triglycerides 88 mg/dl (30-150)
[2022-02-26 12:10] LABS: POC Glucose,Bedside 160 (70-110)
--- NOTE | 2022-02-26 16:53 | EXP.EVENT.NO ---
Chest x-ray for PICC line placement suggestive of by the basilar pneumonia. Unasyn started for aspiration pneumonia given high risk of aspiration secondary to encephalopathy.
--- NOTE | 2022-02-26 17:44 | PC.NURSE ---
[facility] called, still no beds available.
[2022-02-26 19:55] LABS: POC Glucose,Bedside 142 (70-110)
[2022-02-27] VITALS (8 sets, daily range): BP systolic 133–231; BP diastolic 64–85; PULSE 54–98; RESP 18–20; TEMP 36.5–37.1; O2SAT 92–99; BMI 23.5
[2022-02-27 03:34] LABS: POC Glucose,Bedside 180 (70-110)
--- NOTE | 2022-02-27 04:36 | PC.NURSE ---
pt has been turned q2hrs this shift, oral care has been done q1hr, pt has been restless and resistive to care this shift. TPN is currently infusing at 75 ml/hr, maintenance fluids are currently infusing at 25 ml/hr. fsbs at 0425 was 187.
[2022-02-27 06:54] LABS: Basophils # 0.1 K/mm3 (0-0.2); Basophils % 1.1 % (0.1-2.0); Eosinophils # 0.4 K/mm3 (0.0-0.4); Eosinophils % 4.4 % (0.1-12.0); Hematocrit 39.3 % (42.0-52.0); Hemoglobin 12.9 g/dL (14.1-18.0); Lymphocytes # 1.6 K/mm3 (0.7-4.5); Lymphocytes % 18.9 % (10-50); Mean Corpuscular HGB Conc 32.9 g/dL (31.8-35.4); Mean Corpuscular Hemoglobin 30.1 pg (27.0-31.2); Mean Corpuscular Volume 91.5 fl (80-94); Mean Platelet Volume 7.6 fl (7.4-10.4); Monocytes # 0.4 K/mm3 (0.1-1.0); Monocytes % 5.1 % (1.7-9.3); Neutrophils # 5.8 K/mm3 (1.8-7.8); Neutrophils % 70.6 % (37.0-80.0); Platelet Count 312 K/mm3 (142-424); Red Blood Count 4.29 M/mm3 (4.60-6.20); Red Cell Distribution Width 13.1 % (11.5-17.5); White Blood Count 8.3 K/mm3 (4.8-10.8)
[2022-02-27 07:13] LABS: Chloride 101 mmol/L (98-107); Potassium 3.6 mmoL/L (3.5-5.1); Sodium 137 mmol/L (136-145)
[2022-02-27 07:15] LABS: Alanine Aminotransferase 21 U/L (12-78); Aspartate Amino Transferase 29 U/L (17-59); Blood Urea Nitrogen 13 mg/dl (9-20); Creatinine Clearance Estimated 72 mL/min (50-200); Estimated Glomerular Filt Rate 130 ml/min (>60); GFR (African American) 158 ML/MIN (>60); Magnesium 1.9 mg/dl (1.6-2.3); Phosphorous 3.3 mg/dl (2.5-4.5)
[2022-02-27 07:16] LABS: Albumin Level 3.7 g/dl (3.5-5.0); Albumin/Globulin Ratio 1.4 (1.1-1.8); Alkaline Phosphatase 72 U/L (38-126); Anion Gap 10.6 mEq/L (5-15); Bilirubin,Total 0.7 mg/dl (0.2-1.3); Calcium 8.9 mg/dl (8.4-10.2); Carbon Dioxide 29 mmol/L (22.0-30.0); Globulin 2.7 g/dL (1.3-3.2); Glucose 213 mg/dl (74-100); Total Protein,Serum 6.4 g/dl (6.3-8.2)
--- NOTE | 2022-02-27 08:26 | CT_ITS ---
FINAL REPORT TECHNIQUE: Axial CT images of the face were obtained without contrast. Coronal reformatted images were also obtained. This study was performed with techniques to keep radiation doses as low as reasonably achievable, (ALARA). Individualized dose reduction techniques using automated exposure control or adjustment of mA and/or kV according to the patient''s size were employed. CLINICAL HISTORY: TMJ FINDINGS: There is anterior dislocation of the bilateral mandibular condyles at the TMJs. There are postoperative changes in the left maxillary sinuses and left nasal cavity. There are areas of moderate mucosal thickening in the sinuses. No fracture is identified. IMPRESSION: Anterior dislocation of the bilateral mandibular condyles at the TMJs. Reviewed, Interpreted and Dictated by Bran Castañeda III, MD Transcribed by Lucia Leonard Authenticated and [facility]
--- NOTE | 2022-02-27 08:45 | XR_ITS ---
FINAL REPORT CLINICAL HISTORY: OG tube placement FINDINGS: A single portable view of the chest was obtained. An OG tube is present with the tip in the fundus of the stomach. There are postoperative changes from median sternotomy. The heart size and pulmonary vascularity are within normal limits. The mediastinum is within normal limits. No acute pulmonary abnormality is identified. There is a nonobstructive bowel gas pattern. The bony thorax is intact. IMPRESSION: OG tube tip in the fundus of the stomach. Reviewed, Interpreted and Dictated by Bran Castañeda III, MD Transcribed by Azul Nava Authenticated and [facility]
--- NOTE | 2022-02-27 09:09 | DIET.NUTRFU ---
Addendum entered by India Yeager RD, MONIK 02/27/22 09:49: Based on improved cognition, [employer] CURATOR to re-eval tomorrow if continues to improve Addendum entered by India Yeager RD, MONIK 02/27/22 09:47: placement verified in stomach, pharmacy aware to discontinue TPN. Will order to start TF Original Note: Rounded with provider, provider was able to place OG tube to provide nutrition. Received TPN yesterday, will need to wean off once placement of OG confirmed. Bansal was also placed to monitor output, yesterday he was noted to have 4 unmeasured voids he was wearing a brief yesterday. Patient was much more alert today, able to say his name and answer some yes and no questions. His mouth was still hard to close, appeared in pain with pushed on. CT of face ordered. When placed the OG he was able to close moth around tube. He is very MILLE LACS. Once placement confirm with start TF to provide nutrition. Labs reviewed, were unremarkable on 02/27. Patient has hx of DM, therefore will use diabetic formula. BS elevated 160-213. Insulin given PRN at this time. Start glucerna 1.0 at 20ml/hr and increase as tolerated to 80ml/hr= 1920ml/1920kcal/80gm protein/1637ml formula water. will start with minimal flush until IVF discontinued. flush with 50ml [id number]/day
[2022-02-27 09:11] LABS: Microscopic, Urine URINE MICROSCOPIC (MICROSCOPIC)
[2022-02-27 09:13] LABS: Appearance,Urine CLEAR (Clear); Bilirubin,Urine Negative (Negative); Blood, Urine 2+ (Negative); Color,Urine YELLOW (Yellow); Glucose,Urine (UA) 1+ (Negative); Ketones,Urine 1+ (Negative); Leukocyte Esterase,Urine Negative (Negative); Nitrate,Urine Negative (Negative); Protein,Urine TRACE (Negative); Specific Gravity, Urine 1.015 (1.005-1.030)
[2022-02-27 09:25] LABS: Bacteria,Urine Trace /lpf; Squamous Epithelial Cell,Urine Occasional #/hpf (0-5)
[2022-02-27 12:24] LABS: POC Glucose,Bedside 221 (70-110)
--- NOTE | 2022-02-27 14:43 | EXP.PN ---
Subjective *Date: 02/27/22 *Time: 14:43 Interval history: Date of service February 27, 2022 I am accompanied by multiple members of the multidisciplinary rounds staff including pharmacy, nursing and case management. The patient is able to identify his name, that he is in the hospital that he is and his 's name. He reports that he is thirsty. He is able to follow commands. 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 She reports that he is normally ambulatory. His daughter Moriah was due to visit. He is tolerating his therapy with no adverse events. We have reviewed and discussed his morning labs. He is currently receiving TPN and we discussed transitioning to OG nutrition. Exam Data for Last 24 hours Vital signs and Labs for Last 24 Hours: Temp Pulse Resp BP Pulse Ox 97.9 F 89 18 177/85 H 99 02/27/22 11:08 02/27/22 11:08 02/27/22 11:08 02/27/22 11:08 02/27/22 11:08 Laboratory Results - last 24 hr 02/26/22 18:03: POC Glucose 142 H 02/26/22 22:22: POC Glucose 180 H 02/27/22 06:36: WBC 8.3, RBC 4.29 L, Hgb 12.9 L, Hct 39.3 L, MCV 91.5, MCH 30.1, MCHC 32.9, RDW 13.1, Plt Count 312, MPV 7.6, Neut % (Auto) 70.6, Lymph % (Auto) 18.9, [place] % (Auto) 5.1, Eos % (Auto) 4.4, Baso % (Auto) 1.1, Neut # (Auto) 5.8, Lymph # (Auto) 1.6, [place] # (Auto) 0.4, Eos # (Auto) 0.4, Baso # (Auto) 0.1 02/27/22 06:36: Sodium 137, Potassium 3.6, Chloride 101, Carbon Dioxide 29, Anion Gap 10.6, BUN 13, Creatinine 0.60 L, Estimated Creat Clear 72, Estimated GFR 130, Est GFR ( Amer) 158, Glucose 213 H D, Calcium 8.9, Total Bilirubin 0.7, AST 29, ALT 21, Alkaline Phosphatase 72, Total Protein 6.4, Albumin 3.7, Globulin 2.7, Albumin/Globulin Ratio 1.4 02/27/22 06:36: Phosphorus 3.3, Magnesium 1.9 02/27/22 08:00: Urine Color Yellow, Urine Appearance Clear, Urine pH 7.0, Ur Specific [place] 1.015, Urine Protein Trace, Urine Glucose (UA) 1+, Urine Ketones 1+, Urine Blood 2+, Urine Nitrate Negative, Urine Bilirubin Negative, Urine Urobilinogen 2.0, Ur Leukocyte Esterase Negative, Urine RBC 3-5, Urine WBC None, Ur Squamous Epith Cells Occasional, Urine Bacteria Trace 02/27/22 12:15: POC Glucose 221 H I & O for Last 24 hours: Intake & Output 02/24/22 02/25/22 02/26/22 02/27/22 23:59 23:59 23:59 23:59 Intake Total 1045 / 1045 2192 / 2192 465 / 465 1571 / 1571 Output Total 725 / 725 0 / 0 0 / 0 0 / 0 Balance 320 / 320 2192 / 2192 465 / 465 1571 / 1571 Weight 83.546 kg 84.19 kg 83.178 kg Microbiology Reports for the Last 24 Hours: Microbiology 02/22/22 11:55 Cerebral Spinal Fluid Gram Stain - Final 02/22/22 11:55 Cerebral Spinal Fluid CSF Culture - Final NO GROWTH AFTER 5 DAYS 02/22/22 09:33 Blood Blood Culture - Final NO GROWTH AFTER 5 DAYS 02/22/22 09:33 Blood Blood Culture - Final NO GROWTH AFTER 5 DAYS 02/26/22 09:20 Sputum - Expectorated Sputum Gram Stain - Final Constitutional Constitutional: no acute distress and chronically ill appearing Comments: Alert and interactive and follows commands *Routine HEENT Exam Head: Present normocephalic Eye: Present EOMI, PERRL and conjunctivae pink ENT: Present mucous membranes dry; Absent dentition normal Comments: Diminished hearing capacity, sclera white, patient unable to close mouth completely, abnormality of TMJ noted *Routine Neck Exam Neck: Present supple and trachea midline; Absent JVD, lymphadenopathy or thyromegaly *Routine Respiratory Exam Respiratory: Present CTA bilaterally; Absent respiratory distress *Routine Cardiovascular Exam Cardiovascular: Present RRR; Absent murmur *Routine Abdominal Exam Abdominal: Present soft and normoactive bowel sounds; Absent tenderness Comments: Bansal catheter noted *Routine Extremities Exam Extremities: Absent cyanosis, clubbing or edema *Routine Skin Ex
--- NOTE | 2022-02-27 16:07 | HMH.SLDYSPHA ---
Speech & Language Evaluation Speech/Language Dysphagia Evaluation Start: 02/23/22 19:17 Freq: ONCE Status: Active Protocol: Document 02/23/22 19:17 ADINAM (Rec: 02/23/22 19:33 ADINAM [id number]) Dysphagia Assess/Goals/Plan Assessment Date of Evaluation: 02/23/22 Evaluation Type Initial Certification Assessment/Problems CSE attempted to be completed per MD order. Does Patient Qualify for Service Yes Qualify/Failure Comment Unable to complete CSE 2' cognitive status, CARD FILER will continue to f/u for full clinical bedside swallow evaluation as pt becomes more appropriate. Recommendations PHYSICIAN CERTIFICATION: The specified therapy services are required, authorized, and reviewed every 30 days. Diet Recommendations NPO SL Swallow Guidelines High aspiration risk Comment Was unable to complete evaluation 2' status, it is recommended that pt stay NPO at this time per difficulty with independently coughing, inability to clear throat, and being unable to follow directions. Plan Pt/Guardian verbally ack understanding Yes of dx/prognosis/goals G -code Required No STG-Other Comment/Non-Specific Pt will complete full swallow evaluation once cognitive status changes. Education Instructions provided Discussed inability to fully complete swallow evaluation with nursing who expressed understanding, pt needs to remain NPO until CARD FILER is able to f/u on Friday. Pt/Caregiver able to recall information Able to recall/restate Reinforcement needed No Speech & Language HPI History Present Illness Description of Patient Problem Per ER report: Mr. Stacy is a 76-year-old male with a past medical history of DM, HTN, Hyperlipidemia and DDD of the Lumbar Spine. He presented to [facility] due to an acute episode of confusion associated with fevers that occurred prior to presentation. The information from the history and physical
[2022-02-27 17:52] LABS: POC Glucose,Bedside 224 (70-110)
--- NOTE | 2022-02-27 21:36 | PC.NURSE ---
Pt this morning was A/Ox3. He was able to tell me his name, [facility], and [facility]. Dr. Ramirez placed OG tube at bedside for patient. He had a de dios placed today. He has been very combative with treatment today. He has been trying to get out of the bed and trying to pull OG out. He has mitts on entire shift. They were taken off and checked skin Q hour. He has Q2 turn, and oral care.
[2022-02-27 21:39] LABS: POC Glucose,Bedside 134 (70-110)
--- NOTE | 2022-02-27 22:37 | PC.NURSE ---
SPOKE WITH BEAN SMITH NP ABOUT PT'S TUBE FEEDING AND CONCERN FOR HIM PULLING OUT HIS OG. SHE STATED SHE WAS OK WITH BOLUSING PT Q2HRS WITH 40ML TO NOT OVERLOAD HIM. STATED THEY WOULD RE EVALUATE IN THE AM.
[2022-02-28] VITALS: BP 155/85; PULSE 101; RESP 20; TEMP 37.2; O2SAT 95
[2022-02-28 04:00] VITALS: BP 152/74; PULSE 86; RESP 20; TEMP 37.4; O2SAT 94
[2022-02-28 04:56] VITALS: BMI 23.6
[2022-02-28 05:14] LABS: POC Glucose,Bedside 180 (70-110)
--- NOTE | 2022-02-28 05:41 | PC.NURSE ---
NO ACUTE CHANGES SINCE PREVIOUS ASSESSMENT. PT REMAINS ALERT TO SELF ONLY. REMAINS ON ROOM AIR AND IS TOLERATING WELL. DOES HAVE PERIODS OF APNEA WHILE ASLEEP. PT WAS AGITATED AND COMBATIVE AT THE BEGINNING OF THE SHIFT BUT HAS SINCE CALMED DOWN AND HAS SLEPT MOST OF SHIFT. FSBS HAVE BEEN STABLE. VSS. TUBE FEEDS HAVE BEEN DONE PER NURSING STAFF BOLUSES Q2HRS PER BEAN SMITH NP FOR THE SHIFT DUE TO HIGH RISK OF PT PULLING OUT HIS OROGASTRIC TUBE. OG REMAINS AT 60 AT THE LIP. PT HAS TOLERATING BOLUS FEEDS WELL WITH NO GASTRIC RESIDUALS AND NO GI UPSET. MITTENS REMAIN IN PLACE FOR PT SAFETY. BED ALARM ALSO IN PLACE. HEAD OF BED REMAINS ELEVATED ABOVE 30 DEGREES.
[2022-02-28 07:06] LABS: POC Glucose,Bedside 187 (70-110)
[2022-02-28 07:06] LABS: POC Glucose,Bedside 206 (70-110)
[2022-02-28 07:38] LABS: Basophils # 0.1 K/mm3 (0-0.2); Eosinophils # 0.4 K/mm3 (0.0-0.4); Eosinophils % 5.1 % (0.1-12.0); Hematocrit 37.6 % (42.0-52.0); Hemoglobin 12.3 g/dL (14.1-18.0); Lymphocytes # 1.4 K/mm3 (0.7-4.5); Lymphocytes % 17.4 % (10-50); Mean Corpuscular HGB Conc 32.7 g/dL (31.8-35.4); Mean Corpuscular Hemoglobin 30.4 pg (27.0-31.2); Mean Corpuscular Volume 92.8 fl (80-94); Monocytes # 0.5 K/mm3 (0.1-1.0); Monocytes % 6.7 % (1.7-9.3); Neutrophils # 5.6 K/mm3 (1.8-7.8); Neutrophils % 69.8 % (37.0-80.0); Platelet Count 302 K/mm3 (142-424); Red Blood Count 4.05 M/mm3 (4.60-6.20); Red Cell Distribution Width 13.3 % (11.5-17.5)
[2022-02-28 07:43] LABS: Chloride 102 mmol/L (98-107); Potassium 3.3 mmoL/L (3.5-5.1); Sodium 137 mmol/L (136-145)
[2022-02-28 07:46] LABS: Alanine Aminotransferase 25 U/L (12-78); Albumin Level 3.3 g/dl (3.5-5.0); Albumin/Globulin Ratio 1.3 (1.1-1.8); Alkaline Phosphatase 67 U/L (38-126); Anion Gap 8.3 mEq/L (5-15); Aspartate Amino Transferase 33 U/L (17-59); Bilirubin,Total 0.6 mg/dl (0.2-1.3); Blood Urea Nitrogen 14 mg/dl (9-20); Calcium 8.5 mg/dl (8.4-10.2); Carbon Dioxide 30 mmol/L (22.0-30.0); Creatinine Clearance Estimated 72 mL/min (50-200); Estimated Glomerular Filt Rate 109 ml/min (>60); GFR (African American) 132 ML/MIN (>60); Globulin 2.6 g/dL (1.3-3.2); Glucose 203 mg/dl (74-100); Total Protein,Serum 5.9 g/dl (6.3-8.2)
[2022-02-28 07:56] LABS: Magnesium 1.9 mg/dl (1.6-2.3); Phosphorous 3.7 mg/dl (2.5-4.5)
[2022-02-28 08:00] VITALS: BP 152/72; PULSE 87; RESP 18; TEMP 37.2; O2SAT 97
--- NOTE | 2022-02-28 09:46 | DIET.NUTRFU ---
Addendum entered by India Yeager RD, 03/01/22 13:50: saw patient today at lunch, ate 50% of chicken and couple bites of mashed potatoes. Glucerna unopened. Told patient he needs to drink to catch up for days missed. He tried and seemed to enjoyed, has it ordered for lunch and dinner daily Addendum entered by India Yeager RD, 02/28/22 15:44: OG tube pulled and mittens were removed. Patient was able to review menu with this RD and decide on dinner meal and breakfast. He was aware he is diabetic and likes splenda for his tea and coffee. Will change diabetic diet. He seemed very happy about having his mittens removed. Will continue to follow with meal intake. Addendum entered by India Yeager RD, 02/28/22 14:18: ORGANIZATIONAL EFFECTIVENESS CONSULTANT saw patient and was able to complete a bedside swallow and was able to tolerate a regular thin liquids, RD spoke to nursing and put TF on hold with plans to discontinue. He did receive a bolus feeding of 40ml around lunch. Will monitor dinner meal intake to determine is additional supplements are needed. Addendum entered by India Yeager RD, 02/28/22 13:35: Spoke to nursing, she was going to provide 40ml bolus now and then try to get continuous feedings started. When this RD was with patient today he seemed calm and was not pulling at anything. He did still have mittens on. He was also more alert, family was in earlier. Requested to ORGANIZATIONAL EFFECTIVENESS CONSULTANT to try swallow eval again. She is available to work with patient later this afternoon. Unless passes swallow eval he will need PEG placement for LT nutrition Original Note: During rounding today, dentist was able to fix the locked jaw. The dentist was familiar with the patient and this happen previously and will continue to happen when he opens his mouth too wide. Daughter was here last night and according to provider she reports he at his cognitive baseline he has episodes of dementia. ORGANIZATIONAL EFFECTIVENESS CONSULTANT re-eval today, patient was trialed with ice chips and would not swallow it. She also tried with straw and he would not demonstrate being able to suck through straw for hydration. ORGANIZATIONAL EFFECTIVENESS CONSULTANT feels he is unsafe for oral intake and next step would be PEG placement to provide/meet nutritional needs. TPN was discontinued yesterday and TF started, but nursing felt patient would be less anxious on a bolus feeding. Therefore he only received 40ml of formula yesterday, already noted for 160ml today, currently scheduled Q2H. This would only provide 480ml/day this would meet needs. Will review with nursing and follow-up with family and surgeon consult. He is also receiving dextrose IVF for hydration and additional calories. Urine output was 900mnl yesterday, LBM 12/. Wt is stable at 83kg. He also continues on ABT tx, protonix and B1.
[2022-02-28 11:42] VITALS: BP 134/63; PULSE 72; RESP 18; TEMP 37.1; O2SAT 93
[2022-02-28 13:36] LABS: POC Glucose,Bedside 193 (70-110)
--- NOTE | 2022-02-28 14:35 | SW/DCPLANNER ---
Addendum entered by Hortensia Astorga 03/01/22 13:22: Val w/ [facility] in [place] stated that she can accept this patient. is agreeable with placement at [facility] in [place]. Val stated that precert will be started today. Addendum entered by Hortensia Astorga 03/01/22 10:34: Patient information has been faxed to [facility] and [facility]. Addendum entered by Hortensia Astorga 03/01/22 09:45: Patient's has called back and expressed an interest in [facility] or [facility] of [place] for SNF level of care. I will follow up with facilities and fax information is beds are available. Original Note: I spoke with this patient's regarding plans once medically stable for discharge. PT/OT evaluated this patient and recommended SNF level of care a time of discharge. I did explain this to and discussed placement at discharge and facilities in network with patient's insurance. stated that she would need to speak with patient's daughter prior to making any decisions. is suppose to call me back this afternoon regarding discharge plans after speaking with daughter.
--- NOTE | 2022-02-28 15:09 | EXP.PN ---
Subjective *Date: 02/28/22 *Time: 15:09 Interval history: Date of service February 28, 2022 I am accompanied by members of the multiple disciplinary rounds team. The patient interacts and is alert. Nursing staff report that he remains afebrile with stable vital signs and saturating appropriately on room air. His personal dentist came in last night and reduced his TMJ dislocation. He is able to masticate without difficulty. Speech is due to see him today. His morning labs identify a stable CBC and a normal BMP with the exception of a potassium 3.3 that is being replaced. He is inquiring about discharge. Exam Data for Last 24 hours Vital signs and Labs for Last 24 Hours: Temp Pulse Resp BP Pulse Ox 98.8 F 72 18 134/63 93 L 02/28/22 11:42 02/28/22 11:42 02/28/22 11:42 02/28/22 11:42 02/28/22 11:42 Laboratory Results - last 24 hr 02/27/22 04:18: POC Glucose 187 H 02/27/22 06:03: POC Glucose 206 H 02/27/22 17:36: POC Glucose 224 H 02/27/22 21:04: POC Glucose 134 H 02/28/22 05:06: POC Glucose 180 H 02/28/22 06:55: WBC 8.0, RBC 4.05 L, Hgb 12.3 L, Hct 37.6 L, MCV 92.8, MCH 30.4, MCHC 32.7, RDW 13.3, Plt Count 302, MPV 8.0, Neut % (Auto) 69.8, Lymph % (Auto) 17.4, [place] % (Auto) 6.7, Eos % (Auto) 5.1, Baso % (Auto) 1.0, Neut # (Auto) 5.6, Lymph # (Auto) 1.4, [place] # (Auto) 0.5, Eos # (Auto) 0.4, Baso # (Auto) 0.1 02/28/22 06:55: Sodium 137, Potassium 3.3 L, Chloride 102, Carbon Dioxide 30, Anion Gap 8.3, BUN 14, Creatinine 0.70, Estimated Creat Clear 72, Estimated GFR 109, Est GFR ( Amer) 132, Glucose 203 H, Calcium 8.5, Total Bilirubin 0.6, AST 33, ALT 25, Alkaline Phosphatase 67, Total Protein 5.9 L, Albumin 3.3 L D, Globulin 2.6, Albumin/Globulin Ratio 1.3 02/28/22 06:55: Phosphorus 3.7, Magnesium 1.9 02/28/22 12:06: POC Glucose 193 H I & O for Last 24 hours: Intake & Output 02/25/22 02/26/22 02/27/22 02/28/22 23:59 23:59 23:59 23:59 Intake Total 2192 / 2192 465 / 465 3867 / 3867 958 / 958 Output Total 0 / 0 0 / 0 1300 / 1600 800 / 800 Balance 2192 / 2192 465 / 465 2567 / 2267 158 / 158 Weight 84.19 kg 83.178 kg 83.546 kg Microbiology Reports for the Last 24 Hours: Microbiology 02/26/22 09:20 Sputum - Expectorated Sputum Gram Stain - Final 02/26/22 09:20 Sputum - Expectorated Sputum Sputum Culture - Preliminary 02/22/22 11:55 Cerebral Spinal Fluid Gram Stain - Final 02/22/22 11:55 Cerebral Spinal Fluid CSF Culture - Final NO GROWTH AFTER 5 DAYS Constitutional Constitutional: no acute distress and chronically ill appearing Comments: Alert and interactive and follows commands *Routine HEENT Exam Head: Present normocephalic Eye: Present EOMI, PERRL and conjunctivae pink ENT: Present mucous membranes dry; Absent dentition normal Comments: Diminished hearing capacity, sclera white, patient able to close mouth, OG in place *Routine Neck Exam Neck: Present supple and trachea midline; Absent JVD, lymphadenopathy or thyromegaly *Routine Respiratory Exam Respiratory: Present CTA bilaterally; Absent respiratory distress *Routine Cardiovascular Exam Cardiovascular: Present RRR; Absent murmur *Routine Abdominal Exam Abdominal: Present soft and normoactive bowel sounds; Absent tenderness Comments: Bansal catheter noted *Routine Extremities Exam Extremities: Absent cyanosis, clubbing or edema *Routine Skin Exam Skin: Present warm; Absent rash *Routine Neurological Exam Neurological: Present alert, oriented X3 and moving all extremities; Absent sensory deficit or motor deficit Comments: Speech impaired by inability to close mouth Routine Psychiatric Exam Psychiatric: Present normal thought process, good insight and anxious Assessment and Plan *Assessment and plan (1) Acute encephalopathy: Status: Acute Category: Medical Code(s): G93.40 - Encephalopathy, unspecified (2) Dysphagia: Status: Acute Category: Medical C
[2022-02-28 15:21] VITALS: BP 119/59; PULSE 95; RESP 17; TEMP 36.3; O2SAT 100
[2022-02-28 16:46] LABS: POC Glucose,Bedside 175 (70-110)
--- NOTE | 2022-02-28 19:22 | PC.NURSE ---
OG pulled at approx 1600. Pt alert to self and place. VSS. CB in reach and bed safety on.
[2022-02-28 20:00] VITALS: BP 162/88; PULSE 84; RESP 18; TEMP 36.4; O2SAT 95
--- NOTE | 2022-02-28 22:56 | PC.NURSE ---
pt had accident in bed, pt tried to use urinal without success bed soiled, SRNA's got pt up to bathroom, cleaned pt up, and changed bed
[2022-03-01] VITALS: BP 161/82; PULSE 76; RESP 18; TEMP 36.7; O2SAT 98
--- NOTE | 2022-03-01 01:43 | PC.NURSE ---
pt had another incontinent episode in the bed, cleaned pt up and placed male purewick on pt
[2022-03-01 04:00] VITALS: BP 148/68; PULSE 70; RESP 16; TEMP 36.9; O2SAT 97
--- NOTE | 2022-03-01 04:53 | PC.NURSE ---
Assumed nursing care at 0100. No acute changes. He is confused and tries to get out of bed. Safety set.
[2022-03-01 05:00] VITALS: BMI 23.8
[2022-03-01 05:52] LABS: Basophils # 0.1 K/mm3 (0-0.2); Basophils % 1.1 % (0.1-2.0); Eosinophils # 0.6 K/mm3 (0.0-0.4); Eosinophils % 6.5 % (0.1-12.0); Hematocrit 35.1 % (42.0-52.0); Hemoglobin 11.6 g/dL (14.1-18.0); Lymphocytes % 23.4 % (10-50); Mean Corpuscular HGB Conc 33.1 g/dL (31.8-35.4); Mean Corpuscular Hemoglobin 31.4 pg (27.0-31.2); Mean Corpuscular Volume 94.7 fl (80-94); Mean Platelet Volume 7.8 fl (7.4-10.4); Monocytes # 0.4 K/mm3 (0.1-1.0); Monocytes % 4.9 % (1.7-9.3); Neutrophils # 5.4 K/mm3 (1.8-7.8); Neutrophils % 64.1 % (37.0-80.0); Platelet Count 220 K/mm3 (142-424); Red Cell Distribution Width 13.2 % (11.5-17.5); White Blood Count 8.4 K/mm3 (4.8-10.8)
[2022-03-01 05:57] LABS: Chloride 105 mmol/L (98-107)
[2022-03-01 05:58] LABS: Potassium 3.7 mmoL/L (3.5-5.1); Sodium 138 mmol/L (136-145)
[2022-03-01 06:00] LABS: Alanine Aminotransferase 30 U/L (12-78); Alkaline Phosphatase 62 U/L (38-126); Aspartate Amino Transferase 31 U/L (17-59); Bilirubin,Total 0.7 mg/dl (0.2-1.3); Blood Urea Nitrogen 16 mg/dl (9-20); Creatinine Clearance Estimated 72 mL/min (50-200); Estimated Glomerular Filt Rate 109 ml/min (>60); GFR (African American) 132 ML/MIN (>60)
[2022-03-01 06:01] LABS: Albumin Level 3.1 g/dl (3.5-5.0); Albumin/Globulin Ratio 1.3 (1.1-1.8); Anion Gap 7.7 mEq/L (5-15); Calcium 8.4 mg/dl (8.4-10.2); Carbon Dioxide 29 mmol/L (22.0-30.0); Globulin 2.4 g/dL (1.3-3.2); Glucose 152 mg/dl (74-100); Total Protein,Serum 5.5 g/dl (6.3-8.2)
[2022-03-01 06:03] LABS: Magnesium 1.8 mg/dl (1.6-2.3); Phosphorous 3.1 mg/dl (2.5-4.5)
[2022-03-01 06:05] LABS: POC Glucose,Bedside 156 (70-110)
[2022-03-01 08:00] VITALS: BP 159/86; PULSE 92; RESP 16; TEMP 36.9; O2SAT 98
--- NOTE | 2022-03-01 10:56 | EXP.PN ---
Subjective *Date: 03/01/22 *Time: 10:56 Interval history: Date of service March 01, 2022 The patient reports no acute events overnight. I am accompanied by several staff from multidisciplinary rounds team including pharmacy, nursing and case management. Speech therapy is in the room evaluating the patient. He is tolerating p.o. intake with no choking or cough. Speech therapy has cleared him for regular textures with thin liquids. Nursing staff report that he remains afebrile with stable vital signs and saturating appropriately on room air. We have discussed and reviewed his morning labs that are normal and stable. PT and OT mannyal's identified to max assist and case management is assisting with transition to snf facility. He is tolerating his antibiotic therapy with no adverse events. Exam Data for Last 24 hours Vital signs and Labs for Last 24 Hours: Temp Pulse Resp BP Pulse Ox 98.4 F 92 H 16 159/86 H 98 03/01/22 08:00 03/01/22 08:00 03/01/22 08:00 03/01/22 08:00 03/01/22 08:00 Laboratory Results - last 24 hr 02/28/22 12:06: POC Glucose 193 H 02/28/22 15:34: POC Glucose 175 H 03/01/22 05:35: POC Glucose 156 H 03/01/22 05:41: WBC 8.4, RBC 3.70 L, Hgb 11.6 L, Hct 35.1 L, MCV 94.7 H, MCH 31.4 H, MCHC 33.1, RDW 13.2, Plt Count 220 D, MPV 7.8, Neut % (Auto) 64.1, Lymph % (Auto) 23.4, [place] % (Auto) 4.9, Eos % (Auto) 6.5, Baso % (Auto) 1.1, Neut # (Auto) 5.4, Lymph # (Auto) 2.0, [place] # (Auto) 0.4, Eos # (Auto) 0.6 H, Baso # (Auto) 0.1 03/01/22 05:41: Sodium 138, Potassium 3.7, Chloride 105, Carbon Dioxide 29, Anion Gap 7.7, BUN 16, Creatinine 0.70, Estimated Creat Clear 72, Estimated GFR 109, Est GFR ( Amer) 132, Glucose 152 H D, Calcium 8.4, Total Bilirubin 0.7, AST 31, ALT 30, Alkaline Phosphatase 62, Total Protein 5.5 L, Albumin 3.1 L, Globulin 2.4, Albumin/Globulin Ratio 1.3 03/01/22 05:41: Phosphorus 3.1, Magnesium 1.8 I & O for Last 24 hours: Intake & Output 02/26/22 02/27/22 02/28/22 03/01/22 23:59 23:59 23:59 23:59 Intake Total 465 / 465 3867 / 3867 2017 1479 / 1479 Output Total 0 / 0 1300 / 1600 1100 / 1100 150 / 150 Balance 465 / 465 2567 / 2267 918 / 918 1329 / 1329 Weight 83.178 kg 83.546 kg 84.3 kg Microbiology Reports for the Last 24 Hours: Microbiology 02/26/22 09:20 Sputum - Expectorated Sputum Gram Stain - Final 02/26/22 09:20 Sputum - Expectorated Sputum Sputum Culture - Final Normal Respiratory [place] Constitutional Constitutional: no acute distress and chronically ill appearing Comments: Alert and interactive and follows commands *Routine HEENT Exam Head: Present normocephalic Eye: Present EOMI, PERRL and conjunctivae pink ENT: Present mucous membranes dry; Absent dentition normal Comments: Diminished hearing capacity, sclera whitee *Routine Neck Exam Neck: Present supple and trachea midline; Absent JVD, lymphadenopathy or thyromegaly *Routine Respiratory Exam Respiratory: Present CTA bilaterally, normal respiratory effort and symmetric chest movement; Absent respiratory distress *Routine Cardiovascular Exam Cardiovascular: Present RRR; Absent murmur *Routine Abdominal Exam Abdominal: Present soft and normoactive bowel sounds; Absent tenderness Comments: Bansal catheter noted *Routine Extremities Exam Extremities: Present full ROM; Absent cyanosis, clubbing or edema *Routine Skin Exam Skin: Present warm; Absent wounds or rash *Routine Neurological Exam Neurological: Present alert, oriented X3, moving all extremities and vision grossly intact; Absent sensory deficit, motor deficit or hearing grossly intact Routine Psychiatric Exam Psychiatric: Present normal thought process, cooperative and anxious Comments: Memory impaired Assessment and Plan *Assessment and plan (1) Acute encephalopathy: Status: Acute Category: Medical Code(s): G93.40 - Encephalopathy, unspecified (2) Dysphagia: Sta
[2022-03-01 12:00] VITALS: BP 130/66; PULSE 80; RESP 18; TEMP 36.7; O2SAT 98
--- NOTE | 2022-03-01 15:34 | PC.NURSE ---
PT IS SITTING UP IN THE CHAIR. ALERT AND ORIENTED X2. PT STILL HAS PERIODS OF CONFUSION. PT HAS A RED RASH NOTED TO THE UPPER BACK. OCCASIONAL PERIODS OF INCONTINENCE OF BOWEL AND BLADDER. LUNG SOUNDS CLEAR. ABDOMEN SOFT/NON TENDER WITH ACTIVE BOWEL SOUNDS. PT IS A 1 ASSIST TO AMBULATE IN THE ROOM. WILL CONTINUE TO MONITOR.
[2022-03-01 16:00] VITALS: BP 138/66; PULSE 62; RESP 20; TEMP 36.7; O2SAT 100
[2022-03-01 20:00] VITALS: BP 141/71; PULSE 85; RESP 18; TEMP 37.1; O2SAT 98
--- NOTE | 2022-03-02 03:59 | PC.NURSE ---
pt alert to person, at times he is alert to person and place. Very confused this shift. He has voided multiple times this shift per urinal. Each time he voids around 150-200 ml. Tolerating RA, O2 sat >90%. bed alarm on and functioning for safety. Red rash noted to back.
[2022-03-02 04:00] VITALS: BP 143/66; PULSE 76; RESP 18; TEMP 36.6; O2SAT 96
[2022-03-02 05:00] VITALS: BMI 23.3
[2022-03-02 06:35] LABS: Chloride 103 mmol/L (98-107); Potassium 3.8 mmoL/L (3.5-5.1); Sodium 138 mmol/L (136-145)
[2022-03-02 06:38] LABS: Anion Gap 7.8 mEq/L (5-15); Blood Urea Nitrogen 11 mg/dl (9-20); Calcium 8.9 mg/dl (8.4-10.2); Carbon Dioxide 31 mmol/L (22.0-30.0); Creatinine Clearance Estimated 71 mL/min (50-200); Estimated Glomerular Filt Rate 109 ml/min (>60); GFR (African American) 132 ML/MIN (>60); Glucose 155 mg/dl (74-100)
[2022-03-02 06:39] LABS: Magnesium 1.8 mg/dl (1.6-2.3)
--- NOTE | 2022-03-02 07:05 | EXP.DC.SUM ---
General Admission date:: 02/22/22 Discharge date: 03/02/22 HPI HPI HPI: Mr. Stacy is a 76-year-old male with a past medical history of DM, HTN, Hyperlipidemia and DDD of the Lumbar Spine. He presents to [facility] due to an acute episode of confusion associated with fevers that occurred prior to presentation. The information from the history and physical is obtained from the patient's chart due to the patient's confusion. Per Chart review, on presentation the was stating that the patient had high fevers and woke up during the night and urinated in the floor. He was brought into the ER. The patient had an extensive work-up in the ER that included: CBC and CMP that was unremarkable, Troponin that was normal. CT of the head, Abdominal and Chest that showed no acute findings. He underwent an LP that showed no acute significant findings. Urinalysis showed trace bacteria and occassional WBC and was negative for nitrates. He is not on any SSRI's, Amonia level was within normal range and there is no prior history of cirrhosis. The patient was admitted with initial impression: Acute Encephalopathy and fevers. He was placed empirically on Rocephin. Hospital Course Hospital Course Hospital Course: The patient was admitted to the medical floor with blood, CSF and sputum cultures. He was maintained on broad IV antibiotic therapy. He was started on TPN and transition to OG tube feedings secondary to his bilateral dislocated TMJs identified on CT scan. His mental status slowly improved. The patient has diminished hearing capacity. His local dentist came to the hospital and reduced his TMJ successfully and speech therapy evaluated the patient. He tolerated regular textures and thin's and his OG tube was discontinued. His laboratory studies and inflammatory markers were trended and remained normal. His respiratory PCR panel was negative. A review and reconciliation of his home medications identified chronic narcotic prescription but the patient identified no evidence of withdrawal. His urine drug screen was negative. He was maintained on vitamin supplementation including thiamine. Nursing staff reported that he remained afebrile throughout his stay with stable vital signs and saturated appropriately on room air for several days prior to discharge. PT and OT evaluated the patient and recommended transition to fpc facility. Case management assisted with transition of care to [facility] [place] [facility] in [facility]. The patient and family understand the importance of follow-up with her PCP and specialist routinely. I spent 35 minutes in [id number] time with the patient and nursing staff concerning the discharge process. We discussed the admitting diagnoses and hospital course. We discussed identified improvement and the patient's desire to be discharged. We reviewed inpatient studies and imaging. The patient voiced understanding on the importance of follow-up with his primary care provider and specialist (CARMELINA). The patient plans to be compliant with the medication regimen prescribed and follow-up appointments. He understands that he can return to the emergency department with any sudden changes or concerns. Exam Data for Last 24 hours Vital signs and Labs for Last 24 Hours: Temp Pulse Resp BP Pulse Ox 97.8 F 76 18 143/66 H 96 03/02/22 04:00 03/02/22 04:00 03/02/22 04:00 03/02/22 04:00 03/02/22 04:00 Laboratory Results - last 24 hr 03/02/22 06:22: Sodium 138, Potassium 3.8, Chloride 103, Carbon Dioxide 31 H, Anion Gap 7.8, BUN 11 D, Creatinine 0.70, Estimated Creat Clear 71, Estimated GFR 109, Est GFR ( Amer) 132, Glucose 155 H, Calcium 8.9, Phosphorus 3.0, Magnesium 1.8 I & O for Last 24 hours: Intake & Output 02/27/22 02/28/22 03/01/22 03/02/22 23:59 23:59 23:59 23:59 Intake Total 7517 / 3867 2017 1839 / 1839 Output Total 1300 / 1600 1100 / 1100 800 / 800 1150 /
[2022-03-02 08:00] VITALS: BP 146/62; PULSE 89; RESP 20; TEMP 36.9; O2SAT 97
--- NOTE | 2022-03-02 09:45 | PC.NURSE ---
REPORT CALLED TO NURSING NOATAK. PT IS ALERT TO SELF ONLY THIS MORNING BUT WILL FOLLOW COMMANDS. TOLERATED BREAKFAST WELL. TOOK ALL MORNING MEDICATIONS. 43 CM OF PICC REMOVED FROM SAM. DRESSING TO THE SAM C/D/I. NOTIFIED PT'S ABOUT DISCHARGE.
[2022-03-02 17:09] LABS: POC Glucose,Bedside 191 (70-110)
[2022-03-02 17:09] LABS: POC Glucose,Bedside 179 (70-110)
[2022-03-02 17:09] LABS: POC Glucose,Bedside 217 (70-110)
[2022-03-02 17:09] LABS: POC Glucose,Bedside 192 (70-110)
[2022-03-02 17:09] LABS: POC Glucose,Bedside 143 (70-110)
--- NOTE | 2022-03-04 14:14 | CARE MANAGER ---
Called and spoke with Benigno at [facility] in [place]. He stated that patient is doing well and had no known needs at this time.
[2022-03-09 22:26] LABS: AChR Binding Abs <0.03
[2022-03-09 22:27] LABS: AChR Blocking Abs 25; AChR Modulating Ab 5; MuSK Antibodies <1.0
== END 2022-03-02 09:49 | DRG 91 ==
LOC: ER 15:55 → 2ND 16:17
PROVIDERS: Nurse Practitioner Family; Student in an Organized Health Care Education/Training Program; Admitting Provider Internal Medicine Adolescent Medicine; Emergency Provider Emergency Medicine; PCP Internal Medicine; Visit Provider Family Medicine
DX: G92.8 Other toxic encephalopathy (principal); J18.9 Pneumonia, unspecified organism; E11.8 Type 2 diabetes mellitus with unspecified complications; I10 Essential (primary) hypertension; M51.36 Other intervertebral disc degeneration, lumbar region; K21.9 Gastro-esophageal reflux disease without esophagitis; E78.5 Hyperlipidemia, unspecified; E07.9 Disorder of thyroid, unspecified; R13.10 Dysphagia, unspecified; S03.03XA Dislocation of jaw, bilateral, initial encounter
CPT/HCPCS: 36569; 36415; 51702; 70450; 70486; 70553; 71045; 71250; 74018; 74177; 76536; 80048; 80053; 80305; 80329; 81001; 82140; 82465; 82533; 82803; 82945; 82962; 83519; 83605; 83735; 84100; 84155; 84439; 84443; 84478; 84480; 84481; 84484; 85014; 85018; 85025; 86255; 87040; 87070; 87205; 87581; 87632; 87798; 89051; 92507; 92526; 92610; 93005; 97110; 97116; 97163; 97166; 97530; 99285; A9576; C1751; C9803; G0378; J0696; Q9967; U0003; U0005

== ENCOUNTER 2022-03-10 17:47 | Observation (INO) | payer MEDICARE, SELFPAY ==
[2022-03-10 17:46] VITALS: BP 140/76; PULSE 91; RESP 18; TEMP 36.6; O2SAT 97; BMI 24.1
--- NOTE | 2022-03-10 17:54 | XR_ITS ---
PROCEDURE INFORMATION: Exam: XR Lumbosacral Spine Exam date and time: 03/10/2022 6:17 PM Age: 76 years old Clinical indication: Injury or trauma; Fall; Blunt trauma (contusions or hematomas) TECHNIQUE: Imaging protocol: Radiologic exam of the lumbosacral spine. Views: 2 or 3 views. COMPARISON: CT ABDOMEN PELVIS W CON 02/22/2022 1:30 PM FINDINGS: Bones/joints: There is a moderate wedge-shaped compression fracture involving T11 partially visualized that has developed from previous examination. There are mild-moderate degenerative changes of the lumbar spine with varying degrees of disc space narrowing, endplate sclerosis and facet arthrosis that is most pronounced at L5-S1. Soft tissues: Unremarkable. IMPRESSION: Acute compression fracture T11 vertebral body.
[2022-03-10 18:00] VITALS: BP 124/66; PULSE 94; O2SAT 95
--- NOTE | 2022-03-10 18:15 | PC.NURSE ---
1815 PT TO XR
--- NOTE | 2022-03-10 18:30 | PC.NURSE ---
PT RETURNED FROM XR
--- NOTE | 2022-03-10 19:02 | PC.NURSE ---
DR. LEGGETT AT BEDSIDE FOR EVALUATION
--- NOTE | 2022-03-10 19:13 | CT_ITS ---
PROCEDURE INFORMATION: Exam: CT Lumbar Spine Without Contrast Exam date and time: 03/10/2022 7:49 PM Age: 76 years old Clinical indication: Injury or trauma; Blunt trauma (contusions or hematomas); Patient HX: Fall. Back pain. ; Additional info: T11 comp FX TECHNIQUE: Imaging protocol: Computed tomography of the lumbar spine without contrast. Radiation optimization: All CT scans at this facility use at least one of these dose optimization techniques: automated exposure control; mA and/or kV adjustment per patient size (includes targeted exams where dose is matched to clinical indication); or iterative reconstruction. COMPARISON: MR LUMBAR SPINE WO CON 08/04/2020 2:40 PM FINDINGS: Bones/joints: There is a new acute compression fracture involving T11 since 02/24/2022. Linear lucencies extend through the entirety of the vertebral body involving the inferior aspect predominantly. There is very mild posterior retropulsion of the posteroinferior vertebral body extending into the intervertebral canal by approximately 6 mm. This results in mild ventral effacement upon the thecal sac. Lucencies consistent with air are present within the vertebral body aswell as the adjacent T11-12 disc space and adjacent soft tissues. There is mild diffuse osteopenia. Moderate to marked stable compressive changes involve T2. Mild stable compressive changes involve the superior aspect of T1. These findings are stable since 02/24/2022. The remainder of the lumbar spine demonstrates moderate discogenic and spondylitic degenerative changes at multiple levels. This is manifest as endplate discogenic degenerative changes and marginal osteophytes. There is also mild intervertebral disc space narrowing at the L1-L2, at L4-L5 and L5-S1 levels. Vacuum disc phenomena involves L1-L2 and L4-L5 intervertebral disc spaces. There are mild degenerative changes of the visualized portions of the sacroiliac joints. Spinal epidural space: There is mild diffuse annular bulge at the L1-L2 level. There is mild to moderate diffuse annular bulge at the L2-L3 level resulting in minor ventral effacement upon the thecal sac and minor inferior bilateral neural foraminal narrowing. There is mild to moderate diffuse annular bulge at the L3-L4 level resulting in mild to moderate ventral effacement upon the thecal sac and mild bilateral inferior neural foraminal narrowing. Moderate diffuse annular bulge at the L4-L5 level is present with moderate ventral effacement upon the thecal sac and moderate to marked bilateral neural foraminal narrowing. A small amount of air is present just above the intervertebral disc space in the left neural foramen consistent with small amount of vacuum disc phenomenon. Marginal osteophytes in the left neural foramen contribute to the neural foraminal narrowing. Mild hypertrophic facet degenerative arthropathy is also present. There is mild posterior bar/disc at the L5-S1 level which results in mild to moderate bilateral inferior neural foraminal narrowing. Kidneys and ureters: Focus of calcification in the inferior left kidney consistent with nephrolith measuring approximately 7 mm is stable. There is mild nonspecific bilateral inflammatory perinephric stranding. Vasculature: The visualized portions of the aorta and iliac arteries demonstrate mild atherosclerotic calcification. Soft tissues: There is a paravertebral hazy fat stranding adjacent to the T11 compression fracture consistent with edema/hematoma. No large focal hematomas. There is a small amount of gas in the adjacent paravertebral soft tissues. Other findings: There is mild diffuse annular bu
--- NOTE | 2022-03-10 19:13 | CT_ITS ---
PROCEDURE INFORMATION: Exam: CT Thoracic Spine Without Contrast Exam date and time: 03/10/2022 7:46 PM Age: 76 years old Clinical indication: Injury or trauma; Blunt trauma (contusions or hematomas); Patient HX: Fall. Back pain. ; Additional info: T11 comp FX TECHNIQUE: Imaging protocol: Computed tomography of the thoracic spine without contrast. Radiation optimization: All CT scans at this facility use at least one of these dose optimization techniques: automated exposure control; mA and/or kV adjustment per patient size (includes targeted exams where dose is matched to clinical indication); or iterative reconstruction. COMPARISON: CT CHEST WO CON 02/24/2022 1:15 PM FINDINGS: Findings within the lumbar spine are described in the associated CT of the lumbar spine report from the same date and time. Please reference that report for additional information. Bones/joints: There is a new acute compression fracture involving T11 since 02/24/2022. Linear lucencies extend through the entirety of the vertebral body involving the inferior aspect predominantly. There is very mild posterior retropulsion of the posteroinferior vertebral body extending into the intervertebral canal by approximately 6 mm. No involvement of the posterior elements. This results in mild ventral effacement upon the thecal sac. Lucencies consistent with air are present within the vertebral body aswell as the adjacent T11-12 disc space and adjacent soft tissues. There is mild diffuse osteopenia. Moderate to marked stable compressive changes involve T2. Mild stable compressive changes involve the superior aspect of T1. These findings are stable since 02/24/2022. The thoracic spine demonstrates moderate discogenic and spondylitic degenerative degenerative changes at multiple levels. The visualized lower cervical spine demonstrates moderate degenerative changes levels. No additional acute fractures are seen. Soft tissues: There is a paravertebral hazy fat stranding adjacent to the T11 compression fracture consistent with edema/hematoma. No large focal hematomas. There is a small amount of gas in the adjacent paravertebral soft tissues. Vasculature: The aorta demonstrates mild atherosclerotic calcification. Lungs: Nonspecific bibasilar opacities are consistent with atelectasis, edema, or pneumonia. No evidence of pneumothorax involving the visualized portions of the lungs. Pleural spaces: There is a trace right pleural fluid collection present. Heart: Post cardiac surgery changes are incompletely visualized. Coronary arteries: There is moderate atherosclerotic calcification of the coronary arteries. Thyroid: Previously described lobulated thyroid lobe, greater on the left, involving the inferior aspect of the left thyroid lobe is stable. Stomach and bowel: Postsurgical changes are seen in the GE junction region. IMPRESSION: 1. New acute compression fracture involving T11 with very mild posterior retropulsion of the posteroinferior vertebral body as described. There is mild hazy paravertebral fat stranding consistent with edema/hematoma. 2. Stable compressive changes involving T1 and T2. 3. Trace right pleural effusion. 4. Nonspecific bibasilar opacities are most consistent with atelectasis, edema, or pneumonia.
--- NOTE | 2022-03-10 19:13 | PC.NURSE ---
took pt a urinal
--- NOTE | 2022-03-10 19:32 | HMH.EDGENADL ---
Discharge Plan Disposition Patient Disposition: Admitted as Observation Condition: Fair Prescriptions Prescriptions: No Action metformin 1,000 mg tablet 1,000 mg PO BID lisinopril 5 mg tablet 5 mg PO DAILY atorvastatin 20 mg tablet 20 mg PO DAILY aspirin 81 mg Tablet,Delayed Release (Dr/Ec) 81 mg PO DAILY pantoprazole 40 mg tablet,delayed release (DR/EC) 40 mg PO DAILY amoxicillin-pot clavulanate 500-125 mg Tablet 1 ea PO TID Qty: 14 0RF thiamine mononitrate (vit B1) 100 mg Tablet 100 mg PO DAILY Qty: 30 0RF Referrals Follow up/Referrals: Stefan Luu MD [Primary Care Provider] - See instructions Clinical Impressions Clinical Impression: Closed compression fracture of thoracic vertebra Discharge ED Provider: Boy Shields General Adult HPI <Boy Shields MD - Last Filed: 03/10/22 20:16> General Chief complaint: Back Pain/Injury Stated complaint: BACK PAIN Time Seen by Provider: 03/10/22 19:05 Mode of Arrival: EMS Source of Information: Patient and EMS Limitations: No Limitations Description of Symptoms (Recalled from ER Triage Doc. by RN): PT BROUGHT IN VIA EMS FOR LOW BACK PAIN. FALL AT [facility] ON FRIDAY, DISCHARGED HOME ON FRIDAY. CONTINUES TO C/O LOW BACK PAIN History of Present Illness HPI narrative: History obtained from patient and daughter. He complains of injury to his back. He was in a assisted in [place] after hospital discharge and fell while trying to go to the bathroom on Friday 4 days ago. His daughter reports that she was told that x-rays were performed but she could not obtain any sort of reading or verification that an x-ray had indeed been performed. The patient has been discharged home and is having trouble getting up out of bed to do anything. Complains of pain in his mid back. Denies any numbness or weakness of the legs. His daughter states that he has been incontinent of urine and stool since before his injury and has had to wear adult diapers since he arrived at the assisted. No reported head injury, denies headache or neck pain. Related Data Home Medications Medication Instructions Recorded Confirmed metformin 1,000 mg tablet 1,000 mg PO BID Diabetes 11/10/18 02/22/22 lisinopril 5 mg tablet 5 mg PO DAILY Hypertension 02/22/22 02/22/22 aspirin 81 mg tablet,delayed 81 mg PO DAILY HEART HEALTH 02/23/22 02/23/22 release atorvastatin 20 mg tablet 20 mg PO DAILY Cholesterol 02/23/22 02/23/22 pantoprazole 40 mg tablet,delayed 40 mg PO DAILY GERD 02/23/22 02/23/22 release Previous Rx's Medication Instructions Recorded amoxicillin 500 mg-potassium 1 ea PO TID #14 tabs 03/02/22 clavulanate 125 mg tablet thiamine mononitrate (vit B1) 100 100 mg PO DAILY #30 tabs 03/02/22 mg tablet Allergies Allergy/AdvReac Type Severity Reaction Status Date / Time latex [LATEX] Allergy Intermediate Verified 11/03/20 14:48 [facility] <Boy Shields MD - Last Filed: 03/10/22 20:16> [facility] Disclaimer: The information contained in this section may have been updated after the patient was seen, as this information can be updated by other users. Medical History (Updated 03/10/22 @ 20:13 by Boy Shields MD) Diabetes Diabetes mellitus, type 2 GERD (gastroesophageal reflux disease) History of gastroesophageal reflux (GERD) Hyperlipemia Hypertension Surgical History (Updated 02/22/22 @ 22:59 by Nissa Davis RN) History of knee replacement S/P total knee arthroplasty Family History (Updated 02/22/22 @ 22:59 by Nissa Davis RN) No significant family history Social History (Updated 02/22/22 @ 22:59 by Nissa Davis RN) Smoking Status: Never smoker alcohol intake: never substance use type: denies use current occupational status: retired Travel in the last 8 weeks: None household members: spouse housing: house current occupational exposures/hazards: No caffeine: Yes <Triston
[2022-03-10 20:41] LABS: Coronavirus 19, PCR Not Detected (NotDetected); Influenza A, PCR Not Detected (NotDetected); Influenza B, PCR Not Detected (NotDetected)
[2022-03-10 20:54] LABS: Chloride 98 mmol/L (98-107); Potassium 4.3 mmoL/L (3.5-5.1)
[2022-03-10 20:57] LABS: Blood Urea Nitrogen 24 mg/dl (9-20); Creatinine Clearance Estimated 73 mL/min (50-200); Estimated Glomerular Filt Rate 82 ml/min (>60); GFR (African American) 99 ML/MIN (>60)
[2022-03-10 20:58] LABS: Calcium 8.9 mg/dl (8.4-10.2); Carbon Dioxide 31 mmol/L (22.0-30.0); Glucose 168 mg/dl (74-100)
[2022-03-10 21:03] LABS: Anion Gap 9.3 mEq/L (5-15); Sodium 134 mmol/L (136-145)
[2022-03-10 21:15] LABS: Basophils # 0.1 K/mm3 (0-0.2); Basophils % 0.7 % (0.1-2.0); Eosinophils # 0.3 K/mm3 (0.0-0.4); Eosinophils % 2.1 % (0.1-12.0); Hematocrit 36.6 % (42.0-52.0); Hemoglobin 12.4 g/dL (14.1-18.0); Lymphocytes # 1.8 K/mm3 (0.7-4.5); Mean Corpuscular Hemoglobin 31.1 pg (27.0-31.2); Mean Corpuscular Volume 91.3 fl (80-94); Mean Platelet Volume 8.2 fl (7.4-10.4); Monocytes # 0.5 K/mm3 (0.1-1.0); Monocytes % 4.7 % (1.7-9.3); Neutrophils % 77.4 % (37.0-80.0); Platelet Count 444 K/mm3 (142-424); Red Blood Count 4.01 M/mm3 (4.60-6.20); Red Cell Distribution Width 12.9 % (11.5-17.5); White Blood Count 11.6 K/mm3 (4.8-10.8)
--- NOTE | 2022-03-10 21:50 | PC.NURSE ---
and Cisco Bautista RN at bedside.
--- NOTE | 2022-03-10 22:39 | PC.NURSE ---
Assisted MD with patient assessment. Patient was able to sit up in bed with assistance and was able to ambulate in the room with assist x 1.
--- NOTE | 2022-03-10 22:58 | PC.NURSE ---
Loni Butler assisted pt with urinal, pt voided without difficulty
--- NOTE | 2022-03-10 22:59 | PC.NURSE ---
s/w [place], [facility] Hospitalist, she will be down to evaluate pt
--- NOTE | 2022-03-10 23:21 | PC.NURSE ---
Patient is being admitted as observation to hospitalist.
--- NOTE | 2022-03-10 23:23 | EXP.HP ---
History of Present Illness *Admission Date: 03/10/22 *Reason for visit:: Back Pain, Fall *History of present illness: Mr. Jauregui is a 76-year-old male with a past medical history that is positive for DM, GERD, HL, HTN. He presents to [facility] due to back pain that has persisted for the last 4 days and worsened resulting in difficulty ambulating and urinating on himself due to not being able to get to the bathroom in time. The patient was seen in the ER on admission, daughter was at bedside and provided the information for the history and physical. The patient was recently seen at this facility and treated for Acute Encephalopathy which resolved, he was transferred to a local [place] to undergo PT. Per Daughter the patient fell at the NH 4 days ago, she is unsure whether imaging was obtained, but he was discharged to home. Since at home, the patient has had difficulty walking and has been having to wear a brief. In the ER he was able to void per urinal and rectal tone was checked by ER physician with no abnormalities noted. The daughter states that he has been wearing the brief because he cannot make it to the restroom in time. In the ER, the patient underwent a CBC and CMP that were unremarkable. CT of the Thoracic and Lumbar Spine showed an acute compression fracture of T11 spine with hazy fat stranding adjacent to the T11 compression fracture consistent with edema/hematoma. The patient will be admitted with initial impression: T11 Compression Fracture. PT will be consulted to see the patient, analgesics will be given, TLSO bracing will be placed. The plan of care was discussed with the patient and daughter at bedside prior to admission. Both verbalized understanding and agreement with the plan of care. [facility] Disclaimer: The information contained in this section may have been updated after the patient was seen, as this information can be updated by other users. Medical History Diabetes Diabetes mellitus, type 2 GERD (gastroesophageal reflux disease) History of gastroesophageal reflux (GERD) Hyperlipemia Hypertension Surgical History History of knee replacement S/P total knee arthroplasty Family History Other No significant family history Social History (Updated 03/11/22 @ 01:21 by Nissa Davis RN) Smoking Status: Never smoker alcohol intake: never substance use type: denies use current occupational status: retired Travel in the last 8 weeks: None household members: spouse housing: house current occupational exposures/hazards: No caffeine: Yes Review of Systems Review of Systems Review of systems:: pertinent systems reviewed and negative unless documented below Constitutional Constitutional: Reports weakness Eyes Eyes: Reports system reviewed and no additional complaints, except as documented ENT Ears, Nose, Mouth, and Throat: Reports system reviewed and no additional complaints, except as documented *Cardiovascular Cardiovascular: Reports system reviewed and no additional complaints, except as documented *Respiratory Respiratory: Reports system reviewed and no additional complaints, except as documented *Gastrointestinal Gastrointestinal: Reports system reviewed and no additional complaints, except as documented *Genitourinary Genitourinary: Reports system reviewed and no additional complaints, except as documented *Musculoskeletal Musculoskeletal: Reports back pain and Reports muscle weakness Integumentary/Breasts Skin/Breast: Reports system reviewed and no additional complaints, except as documented *Neurologic Neurologic: Reports system reviewed and no additional complaints, except as documented and Reports weakness Psychiatric Psychiatric: Reports system reviewed and no additional complaints, except as documented En
[2022-03-11] VITALS: BP 143/68; PULSE 70; RESP 16; TEMP 36.7; O2SAT 95
--- NOTE | 2022-03-11 00:02 | PC.NURSE ---
gave report to Nissa Davis RN
[2022-03-11 00:16] VITALS: BP 125/65; PULSE 91; RESP 18; TEMP 36.6; O2SAT 99
--- NOTE | 2022-03-11 00:25 | PC.NURSE ---
PT ARRIVED TO FLOOR VIA WHEEL CHAIR AT THIS TIME
[2022-03-11 03:44] VITALS: BP 120/59; PULSE 89; RESP 16; TEMP 36.6; O2SAT 93
[2022-03-11 03:45] VITALS: BMI 22.1
--- NOTE | 2022-03-11 04:50 | PC.NURSE ---
NO ACUTE CHANGES SINCE ARRIVING TO THE FLOOR. LUNG SOUNDS CLEAR. VSS. PT HAS RESTED WELL. NO C/O PAIN SINCE ARRIVING TO THE FLOOR. BED ALARM IN PLACE FOR PT SAFETY. PT IS AMBULATING WELL WITH X1 ASSIST. VOIDING PER URINAL. CALL [facility] WITHIN REACH.
[2022-03-11 05:20] LABS: POC Glucose,Bedside 157 (70-110)
[2022-03-11 08:00] VITALS: BP 134/54; PULSE 103; RESP 18; TEMP 36.2; O2SAT 92
[2022-03-11 08:05] LABS: Chloride 97 mmol/L (98-107)
[2022-03-11 08:06] LABS: Potassium 4.2 mmoL/L (3.5-5.1); Sodium 137 mmol/L (136-145)
[2022-03-11 08:08] LABS: Blood Urea Nitrogen 21 mg/dl (9-20); Creatinine Clearance Estimated 67 mL/min (50-200); Estimated Glomerular Filt Rate 72 ml/min (>60); GFR (African American) 87 ML/MIN (>60)
[2022-03-11 08:09] LABS: Anion Gap 11.2 mEq/L (5-15); Calcium 9.7 mg/dl (8.4-10.2); Carbon Dioxide 33 mmol/L (22.0-30.0); Glucose 138 mg/dl (74-100)
[2022-03-11 08:10] LABS: Basophils # 0.1 K/mm3 (0-0.2); Basophils % 1.1 % (0.1-2.0); Eosinophils # 0.4 K/mm3 (0.0-0.4); Eosinophils % 3.9 % (0.1-12.0); Hematocrit 40.8 % (42.0-52.0); Hemoglobin 13.5 g/dL (14.1-18.0); Lymphocytes # 2.3 K/mm3 (0.7-4.5); Lymphocytes % 22.8 % (10-50); Mean Corpuscular Hemoglobin 30.2 pg (27.0-31.2); Mean Corpuscular Volume 91.5 fl (80-94); Mean Platelet Volume 8.5 fl (7.4-10.4); Monocytes # 0.5 K/mm3 (0.1-1.0); Neutrophils # 6.8 K/mm3 (1.8-7.8); Neutrophils % 67.3 % (37.0-80.0); Platelet Count 507 K/mm3 (142-424); Red Blood Count 4.46 M/mm3 (4.60-6.20); Red Cell Distribution Width 12.8 % (11.5-17.5); White Blood Count 10.2 K/mm3 (4.8-10.8)
--- NOTE | 2022-03-11 08:28 | SW/DCPLANNER ---
Addendum entered by Hortensia Astorga 03/12/22 10:11: Nathalie chase/ [facility] stated that patient has been approved and can admit today. I have updated patient and his family. Patient will discharge to [facility] SNF level of care today. COVID swab will be collected prior to discharge. Addendum entered by Hortensia Astorga 03/11/22 13:12: Nathalie chase/ [facility] stated that they will start a precert on this patient today. I will call and update patient's family. Addendum entered by Hortensia Astorga 03/11/22 09:38: Family expressed that they were not happy with the care patient was receiving at [facility] in [facility] and have requested that patient information be faxed to [facility] or [facility]. PT/OT have evaluated this patient this AM and stated that patient will need SNF level of care at time of discharge. I will fax patient information to [facility] today. Amaya chase/ [facility] stated that she does not have any beds available. I will keep family updated. Original Note: Patient recently discharged from [facility] to [facility] for SNF level of care. Chanel has since discharged home with family after completing stay SNF stay. PT/OT has been ordered for this AM: once completed I will follow up with patient and family regarding discharge plans. Discharge date is unknown at this time.
--- NOTE | 2022-03-11 09:10 | HMH.OTEV ---
OT Inpatient Evaluation Rehab OT IP Evaluation Start: 03/11/22 08:13 Freq: ONCE Status: Active Protocol: Document 03/11/22 09:02 MARYURI (Rec: 03/11/22 09:10 MARYURI [id number]) Rehab OT IP Assessment Subjective History Mr. Jauregui is a 76-year-old male with a past medical history that is positive for DM, GERD, HL, HTN. He presents to [facility] due to back pain that has persisted for the last 4 days and worsened resulting in difficulty ambulating and urinating on himself due to not being able to get to the bathroom in time . The patient was seen in the ER on admission, daughter was at bedside and provided the information for the history and physical. The patient was recently seen at this facility and treated for Acute Encephalopathy which resolved , he was transferred to a local CT to undergo PT. Per Daughter the patient fell at the NH 4 days ago, she is unsure whether imaging was obtained, but he was discharged to home. Since at home, the patient has had difficulty walking and has been having to wear a brief. In the ER he was able to void per urinal and rectal tone was checked by ER physician with no abnormalities noted. The daughter states that he has been wearing the brief because he cannot make it to the restroom in time. In the ER, the patient underwent a CBC and CMP that were unremarkable. CT of the Thoracic and Lumbar Spine showed an acute compression fracture of T11 spine with hazy fat stranding adjacent to the T11
--- NOTE | 2022-03-11 09:20 | HMH.PTEV ---
Physical Therapy Evaluation Rehab PT IP Evaluation Start: 03/10/22 23:19 Freq: ONCE Status: Active Protocol: Document 03/11/22 08:00 PHORNE (Rec: 03/11/22 09:20 PHORNE [id number]) Subjective/History History History 76 yowm adm to [facility] with back pain after fall at [facility] [place] [place] home, but was discharged to home and was brought to ED by family. No presents with acute T11 comp fx. He reports he lives with spouse and daughter and uses a walker for all mobility at home. Subjective Subjective Currenly he reports back pain, did not rate when asked, asppears alert, but mildly confused at times. Rehab PT IP Eval Objective Appearance Patient Behavior Appropriate Patient Orientation Person,Place,Time Difficulty following instructions none Speech Pattern Clear Ambulation Patient Able to Ambulate Yes Ambulation Observation IP General Gait Pattern Observation Wide Based Gait Ambulation Distance (feet) 20 Ambulation Assistive Device None Ambulation Ability Minimal x 1 (25% assist) Balance Ability to Arise Able, uses arms to help Sitting Balance Steady, safe Standing Balance Unsteady Dynamic Sitting Balance Ability Good Dynamic Standing Balance Ability Poor Transfers Bed Transfer Ability Minimal x 1 (25% assist) Chair Transfer Ability Minimal x 1 (25% assist) Sit to Stand Bed Transfer Ability Minimal x 1 (25% assist) Sit to Stand Chair Transfer Ability Minimal x 1 (25% assist) ROM All Extremities PT ROM Status WFL MMT All Extremities PT MMT WFL Rehab PT IP prob,goals,plan Problems Date of Evaluation: 03/11/22 PT IP Problems Bed Mobility,Transfers,Gait Rehab Potential Rehab Potential Good Plan PT Intervention Plan Bed Mobility,Transfers,Gait, Balance,Therapeutic Exercise PT Plan Frequency BID Duration LOS Discharge Goals Bed Transfer Ability Contact Guard/Hand Hold Sit to Stand Chair Transfer Ability Contact Guard/Hand Hold Ambulation Assistive Device Rolling Walker Ambulation Distance (feet) 30 Discharge Plan PT Discharge Plan Pt is currently most appropriate for rehab placement once medically stable. G -code Required
[2022-03-11 09:22] VITALS: BMI 22.0
--- NOTE | 2022-03-11 09:51 | EXP.PAIN.SOA ---
[facility] Pain Management SOAP Note Subjective:: Patient is a pleasant 76-year-old male who we are seeing inpatient. We were consulted to see this patient today. Last Friday, patient fell while using the bathroom. He is a prison patient. He continued to have increasing pain since the fall. He presented to the ED yesterday. CT thoracic/Lumbar showed acute compression fracture at T11. He does have chronic stable compression fracture at T1 and T2. Rates his pain today as 8/10. Pain is worse with any movement. He was given [place] in the ED that helped some of his pain. Review of Systems: General: No recent weight changes, no fever, no sleep disturbances Respiratory: No cough, no shortness of air, no recurring pulmonary infections Cardiovascular/peripheral vascular: No chest pain, no palpitations, no edema, no shortness of breath Gastrointestinal: No new onset incontinence, normal bowel movements reported Genitourinary: No new onset incontinence Musculoskeletal: Low back pain Psychiatric: [Normal mood/affect] Neurological: [Denies weakness in extremities], [denies balance issues] Objective:: Physical Exam: General: Alert and oriented x3, no acute distress, pleasant and cooperative Lungs: Respirations even and unlabored, symmetrical chest expansion Eyes: PERRL Musculoskeletal: Flexion and extension of thoracic and lumbar [spine] somewhat guarded secondary to pain, [antalgic gait noted]; midline tenderness around T11-T12 Neurological: Speech clear, no gross sensory deficit Assessment:: Acute back pain 2/2 compression fracture at T11 Plan:: We would like the see the patient in our clinic next week. Patient has a hx of encephalopathy a few months ago. He was AOx3 today. We will ask his family member to accompany him to see if they have any questions. After reviewing the CT Thoracic, I do think the patient is a good candidate for Kyphoplasty. I discussed this procedure in detail with the patient. He is wanting to proceed. We will schedule the patient for a kyphoplasty. For pain control, I recommend starting the patient tramadol 50mg BID until his kyphoplasty appt. Patient has been instructed to contact the clinic with any concerns before the next appointment. Dr. White has reviewed this note and agrees with this plan of care. This note was dictated using voice recognition software and make contain errors or omissions. [facility] Disclaimer: The information contained in this section may have been updated after the patient was seen, as this information can be updated by other users. Medical History Diabetes Diabetes mellitus, type 2 GERD (gastroesophageal reflux disease) History of gastroesophageal reflux (GERD) Hyperlipemia Hypertension Surgical History History of knee replacement S/P total knee arthroplasty Family History Other No significant family history Social History (Updated 03/11/22 @ 01:21 by Nissa Davis RN) Smoking Status: Never smoker alcohol intake: never substance use type: denies use current occupational status: retired Travel in the last 8 weeks: None household members: spouse housing: house current occupational exposures/hazards: No caffeine: Yes
[2022-03-11 11:44] LABS: POC Glucose,Bedside 178 (70-110)
--- NOTE | 2022-03-11 11:47 | CARE MANAGER ---
Patient admitted with compression fracture and needs placement. Will remain in OBS status
--- NOTE | 2022-03-11 14:14 | HMH.PHAINT1 ---
Pharmacy Intervention Comments: MEDICATION RECONCILIATION COMPLETE USING LIST FROM RECENT HOSPITAL DISCHARGE (03/02/22) AND EXTERNAL PHARMACY FILL HISTORY.
[2022-03-11 16:00] VITALS: BP 111/61; PULSE 96; RESP 18; TEMP 37.2; O2SAT 96
[2022-03-11 17:01] LABS: POC Glucose,Bedside 174 (70-110)
--- NOTE | 2022-03-11 18:31 | PC.NURSE ---
Pt a/o, no c/o's at this time. CB in reach and clip alarm in use for safety. VSS. No acute changes.
--- NOTE | 2022-03-11 19:56 | EXP.ACUTE.PN ---
Subjective *Date: 03/11/22 *Time: 19:59 Interval history: Pleasant on interview, no acute distress. Complains of back pain. No other complaints today. Denies shortness of breath, chest pain, nausea or vomiting. Ambulating with assistance to the bathroom. Pain well controlled on current opiate regimen. Medical Exam Vital signs and Labs for Last 24 Hours: Vital Signs Temp Pulse Pulse Resp BP BP Pulse Ox 03/11/22 16:00 98.9 F 96 H 18 111/61 96 03/11/22 08:00 97.2 F L 103 H 18 134/54 L 92 L 03/11/22 03:44 97.8 F 89 16 120/59 L 93 L 03/11/22 00:00 98.0 F 70 16 143/68 H 95 03/11/22 00:16 98 F 91 H 18 125/65 Intake and Output 03/11/22 03/11/22 03/11/22 07:59 15:59 23:59 Intake Total 600 / 840 240 / 840 Output Total 0 / 0 0 / 0 Balance 0 / 840 600 / 840 240 / 840 Intake: Intake, Oral Amount 600 / 840 240 / 840 Output: Output, Urine Amount 0 / 0 0 / 0 Other: Number of Unmeasured Voids 1 1 Weight 78.131 kg 78 kg Patient Weight 03/11/22 23:59 Weight 78 kg Laboratory Results - last 24 hr 03/10/22 20:35: SARS-CoV-2 (PCR) Not detected, Influenza A Untype (PCR) Not detected, Influenza Type B (PCR) Not detected 03/10/22 20:40: WBC 11.6 H, RBC 4.01 L, Hgb 12.4 L, Hct 36.6 L, MCV 91.3, MCH 31.1, MCHC 34.0, RDW 12.9, Plt Count 444 H, MPV 8.2, Neut % (Auto) 77.4, Lymph % (Auto) 15.0, Bracken % (Auto) 4.7, Eos % (Auto) 2.1, Baso % (Auto) 0.7, Neut # (Auto) 9.0 H, Lymph # (Auto) 1.8, Bracken # (Auto) 0.5, Eos # (Auto) 0.3, Baso # (Auto) 0.1 03/10/22 20:40: Sodium 134 L, Potassium 4.3, Chloride 98, Carbon Dioxide 31 H, Anion Gap 9.3, BUN 24 H, Creatinine 0.90, Estimated Creat Clear 73, Estimated GFR 82, Est GFR ( Amer) 99, Glucose 168 H, Calcium 8.9 03/11/22 05:13: POC Glucose 157 H 03/11/22 06:45: WBC 10.2, RBC 4.46 L, Hgb 13.5 L, Hct 40.8 L, MCV 91.5, MCH 30.2, MCHC 33.0, RDW 12.8, Plt Count 507 H, MPV 8.5, Neut % (Auto) 67.3, Lymph % (Auto) 22.8, Bracken % (Auto) 5.0, Eos % (Auto) 3.9, Baso % (Auto) 1.1, Neut # (Auto) 6.8, Lymph # (Auto) 2.3, Bracken # (Auto) 0.5, Eos # (Auto) 0.4, Baso # (Auto) 0.1 03/11/22 06:45: Sodium 137, Potassium 4.2, Chloride 97 L, Carbon Dioxide 33 H, Anion Gap 11.2, BUN 21 H, Creatinine 1.00, Estimated Creat Clear 67, Estimated GFR 72, Est GFR ( Amer) 87, Glucose 138 H, Calcium 9.7 03/11/22 11:36: POC Glucose 178 H 03/11/22 16:50: POC Glucose 174 H I & O for Labs for Last 24 Hours: Intake & Output 03/08/22 03/09/22 03/10/22 03/11/22 23:59 23:59 23:59 23:59 Intake Total 840 / 840 Output Total 0 / 0 Balance 840 / 840 Weight 85.275 kg 78 kg Constitutional: Present no acute distress Head: Present atraumatic and normocephalic Neck: Present normal inspection Respiratory: Present normal respiratory effort Cardiac: Present Reg Rate and Rhythm GI: Present normal bowel sounds; Absent tenderness Extremities: Present normal inspection and full ROM Skin: Present intact; Absent erythema Neuro: Present Grossly Intact, alert, awake and moves all extremities Additional Findings:: mixing machine tender over lower thoracic spine, no focal neurologic deficits, moving lower extremities equally. Assessment and Plan *Assessment and plan (1) Fracture, thoracic vertebra, compression: Status: Acute Category: Medical Code(s): S22.000A - Wedge compression fracture of unspecified thoracic vertebra, initial encounter for closed fracture (2) Diabetes: Status: Acute Category: Medical Code(s): E11.9 - Type 2 diabetes mellitus without complications (3) HTN (hypertension): Status: Acute Category: Medical Code(s): I10 - Essential (primary) hypertension (4) GERD (gastroesophageal reflux disease): Status: Acute Category: Medical Code(s): K21.9 - Gastro-esophageal reflux disease without esophagitis (5) Hyperlipidemia: Status: Acute Category: Medical Code(s): E78.5 - H
[2022-03-11 20:00] VITALS: BP 132/68; PULSE 78; RESP 18; TEMP 36.6; O2SAT 96
[2022-03-11 20:53] LABS: POC Glucose,Bedside 200 (70-110)
[2022-03-12] VITALS: BP 128/64; PULSE 78; RESP 18; TEMP 36.7; O2SAT 96
[2022-03-12 04:00] VITALS: BP 126/64; PULSE 77; RESP 16; TEMP 36.6; O2SAT 95; BMI 23.2
[2022-03-12 05:06] LABS: POC Glucose,Bedside 151 (70-110)
[2022-03-12 07:03] LABS: Chloride 99 mmol/L (98-107)
[2022-03-12 07:04] LABS: Sodium 135 mmol/L (136-145)
[2022-03-12 07:05] LABS: Basophils # 0.1 K/mm3 (0-0.2); Basophils % 1.3 % (0.1-2.0); Eosinophils # 0.3 K/mm3 (0.0-0.4); Eosinophils % 3.5 % (0.1-12.0); Hematocrit 35.5 % (42.0-52.0); Lymphocytes # 1.9 K/mm3 (0.7-4.5); Lymphocytes % 21.9 % (10-50); Mean Corpuscular HGB Conc 33.6 g/dL (31.8-35.4); Mean Corpuscular Hemoglobin 30.1 pg (27.0-31.2); Mean Corpuscular Volume 89.7 fl (80-94); Mean Platelet Volume 8.7 fl (7.4-10.4); Monocytes # 0.5 K/mm3 (0.1-1.0); Monocytes % 5.9 % (1.7-9.3); Neutrophils # 5.8 K/mm3 (1.8-7.8); Neutrophils % 67.5 % (37.0-80.0); Platelet Count 450 K/mm3 (142-424); Red Blood Count 3.96 M/mm3 (4.60-6.20); Red Cell Distribution Width 12.5 % (11.5-17.5); White Blood Count 8.5 K/mm3 (4.8-10.8)
[2022-03-12 07:06] LABS: Alanine Aminotransferase 26 U/L (12-78); Aspartate Amino Transferase 30 U/L (17-59); Blood Urea Nitrogen 20 mg/dl (9-20); Creatinine Clearance Estimated 71 mL/min (50-200); Estimated Glomerular Filt Rate 82 ml/min (>60); GFR (African American) 99 ML/MIN (>60); Hemoglobin 11.9 g/dL (14.1-18.0)
[2022-03-12 07:07] LABS: Albumin Level 3.4 g/dl (3.5-5.0); Albumin/Globulin Ratio 1.1 (1.1-1.8); Alkaline Phosphatase 78 U/L (38-126); Bilirubin,Total 0.7 mg/dl (0.2-1.3); Calcium 9.2 mg/dl (8.4-10.2); Carbon Dioxide 29 mmol/L (22.0-30.0); Glucose 143 mg/dl (74-100); Magnesium 1.9 mg/dl (1.6-2.3); Total Protein,Serum 6.4 g/dl (6.3-8.2)
[2022-03-12 08:00] VITALS: BP 129/71; PULSE 108; RESP 18; TEMP 37.2; O2SAT 94; O2SAT 96
[2022-03-12 09:22] LABS: Coronavirus 19, PCR Not Detected (NotDetected); Influenza A, PCR Not Detected (NotDetected); Influenza B, PCR Not Detected (NotDetected)
--- NOTE | 2022-03-12 10:24 | EXP.DC.SUM ---
General Admission date:: 03/11/22 Discharge date: 03/12/22 HPI HPI HPI: Mr. Jauregui is a 76-year-old male with a past medical history that is positive for DM, GERD, HL, HTN. He presents to [facility] due to back pain that has persisted for the last 4 days and worsened resulting in difficulty ambulating and urinating on himself due to not being able to get to the bathroom in time. The patient was seen in the ER on admission, daughter was at bedside and provided the information for the history and physical. The patient was recently seen at this facility and treated for Acute Encephalopathy which resolved, he was transferred to a local [place] to undergo PT. Per Daughter the patient fell at the NH 4 days ago, she is unsure whether imaging was obtained, but he was discharged to home. Since at home, the patient has had difficulty walking and has been having to wear a brief. In the ER he was able to void per urinal and rectal tone was checked by ER physician with no abnormalities noted. The daughter states that he has been wearing the brief because he cannot make it to the restroom in time. In the ER, the patient underwent a CBC and CMP that were unremarkable. CT of the Thoracic and Lumbar Spine showed an acute compression fracture of T11 spine with hazy fat stranding adjacent to the T11 compression fracture consistent with edema/hematoma. The patient will be admitted with initial impression: T11 Compression Fracture. PT will be consulted to see the patient, analgesics will be given, TLSO bracing will be placed. The plan of care was discussed with the patient and daughter at bedside prior to admission. Both verbalized understanding and agreement with the plan of care. Hospital Course Hospital Course Hospital Course: Pt is a 76 y/o male w/ a PMHx of dementia, DM 2, HLD, and HTN who is was recently admitted here from 02/22 -03/02 for AMS and discharged to a SNF for rehab, and then was re-admitted here on 03/10 for back pain found to be 2/2 acute T11 compression fracture. Pain management was consulted and they recommend to he f/u with them next week in clinic and that he a good candidate for kyphoplasty. Until then he needs to use a TSLO brace, do PT/OT, and pain control with tramadol 50 mg PO BID. Exam Data for Last 24 hours Vital signs and Labs for Last 24 Hours: Temp Pulse Resp BP Pulse Ox 98.9 F 108 H 18 129/71 94 L 03/12/22 08:00 03/12/22 08:00 03/12/22 08:00 03/12/22 08:00 03/12/22 08:00 Laboratory Results - last 24 hr 03/11/22 11:36: POC Glucose 178 H 03/11/22 16:50: POC Glucose 174 H 03/11/22 20:39: POC Glucose 200 H 03/12/22 04:58: POC Glucose 151 H 03/12/22 06:11: WBC 8.5, RBC 3.96 L, Hgb 11.9 L D, Hct 35.5 L, MCV 89.7, MCH 30.1, MCHC 33.6, RDW 12.5, Plt Count 450 H, MPV 8.7, Neut % (Auto) 67.5, Lymph % (Auto) 21.9, [place] % (Auto) 5.9, Eos % (Auto) 3.5, Baso % (Auto) 1.3, Neut # (Auto) 5.8, Lymph # (Auto) 1.9, [place] # (Auto) 0.5, Eos # (Auto) 0.3, Baso # (Auto) 0.1 03/12/22 06:11: Sodium 135 L, Potassium 4.0, Chloride 99, Carbon Dioxide 29, Anion Gap 11.0, BUN 20, Creatinine 0.90, Estimated Creat Clear 71, Estimated GFR 82, Est GFR ( Amer) 99, Glucose 143 H, Calcium 9.2, Magnesium 1.9, Total Bilirubin 0.7, AST 30, ALT 26, Alkaline Phosphatase 78, Total Protein 6.4, Albumin 3.4 L, Globulin 3.0, Albumin/Globulin Ratio 1.1 03/12/22 09:05: SARS-CoV-2 (PCR) Not detected, Influenza A Untype (PCR) Not detected, Influenza Type B (PCR) Not detected I & O for Last 24 hours: Intake & Output 03/09/22 03/10/22 03/11/22 03/12/22 23:59 23:59 23:59 23:59 Intake Total 840 / 840 240 / 240 Output Total 0 / 0 300 / 300 Balance 840 / 840 -60 / -60 Weight 85.275 kg 78 kg 82.191 kg Constitutional Constitutional: no acute distress, chronically ill appearing and cooperative Comments: Alert and interactive and follows commands, lounging diagonally across hospital bed, uncomfortable appearing but he does no
--- NOTE | 2022-03-12 11:35 | PC.NURSE ---
have attempted to call report x3 times to [facility]. have no been able to get ahold of nursing staff.
--- NOTE | 2022-03-13 04:55 | PC.NURSE ---
[facility] called at this time and requested to have prescriptions sent to [facility] that pt was d/c'd with. I contacted the hospitalist Nissa Singletary and informed her and she said she would relay the message to .
--- NOTE | 2022-03-13 13:46 | CARE MANAGER ---
Spoke with patient nurse for post-discharge phone interview, no needs at this time.
== END 2022-03-12 12:58 ==
LOC: ER 23:21 → 2ND 23:32
PROVIDERS: Admitting Provider Internal Medicine Adolescent Medicine; Emergency Provider Emergency Medicine; PCP Internal Medicine; Visit Provider Emergency Medicine
DX: S22.000A Wedge compression fracture of unspecified thoracic vertebra, initial encounter for closed fracture (principal); I10 Essential (primary) hypertension; E11.9 Type 2 diabetes mellitus without complications; K21.9 Gastro-esophageal reflux disease without esophagitis; W19.XXXA Unspecified fall, initial encounter; Y92.129 Unspecified place in nursing home as the place of occurrence of the external cause; Z79.84 Long term (current) use of oral hypoglycemic drugs; E78.5 Hyperlipidemia, unspecified; Z79.899 Other long term (current) drug therapy
CPT/HCPCS: G0463; 36415; 72100; 72128; 72131; 80048; 80053; 82962; 83735; 85025; 97116; 97162; 97165; 97535; 99202; 99285; C9803; G0378; J2405; U0003; U0005

== ENCOUNTER → 2022-03-22 11:33 | Outpatient (POV) | payer MEDICARE, SELFPAY ==
[2022-03-22 11:49] VITALS: BP 118/56; PULSE 48; RESP 20; O2SAT 99; BMI 22.4
--- NOTE | 2022-03-22 12:05 | EXP.PAIN.SOA ---
[facility] Pain Management SOAP Note Subjective:: Patient is a pleasant 76-year-old male who presents today as a follow-up. We are currently treating the patient for an acute compression fracture at T11. Patient does also have chronic stable compression fractures at T1 and T2. Today he rates his pain a 10 out of 10. Patient denies any additional trauma. Patient denies any change to location or type of pain he experiences. Patient states that this all occurred following a fall in the bathroom at [facility]. Patient states he had called for help however no one came so he had proceeded to get up with his walker and tripped over his feet. Patient does describe this as a sharp, achy sensation that just hurts. Patient states it is worse with increased activity or any movement. Patient states he has tried [id number] Tylenol and was prescribed pain medication that does help some. Patient has also used a TENS unit that provided significant improvement however temporary. Patient states this affects his ability to perform activities of daily living and struggles with even walking due to the pain. Patient does present today in wheelchair. General: No recent weight changes, no fever, no sleep disturbances Respiratory: No cough, no shortness of air, no recurring pulmonary infections Cardiovascular/peripheral vascular: No chest pain, no palpitations, no edema, no shortness of breath Gastrointestinal: No new onset incontinence, normal bowel movements reported Genitourinary: No new onset incontinence Musculoskeletal: Mid back pain Psychiatric: Normal mood/affect Neurological: Denies weakness in extremities, denies balance issues Objective:: General: Alert and oriented x3, no acute distress, pleasant and cooperative Lungs: Respiration even unlabored, symmetrical chest expansion Eyes: PERRL Musculoskeletal: Flexion and extension of thoracic spine somewhat guarded secondary to pain, antalgic gait noted Neurological: Speech clear, no gross sensory deficit Ordering Physician: Boy Shields MD Date of Service: 03/10/22 Procedure(s): CT thoracic spine wo con Accession Number(s): [id number] cc: Stefan Luu MD; Boy Shields MD; Sue Lopes MD~ PROCEDURE INFORMATION: Exam: CT Thoracic Spine Without Contrast Exam date and time: 03/10/2022 7:46 PM Age: 76 years old Clinical indication: Injury or trauma; Blunt trauma (contusions or hematomas); Patient HX: Fall. Back pain. ; Additional info: T11 comp FX TECHNIQUE: Imaging protocol: Computed tomography of the thoracic spine without contrast. Radiation optimization: All CT scans at this facility use at least one of these dose optimization techniques: automated exposure control; mA and/or kV adjustment per patient size (includes targeted exams where dose is matched to clinical indication); or iterative reconstruction. COMPARISON: CT CHEST WO CON 02/24/2022 1:15 PM FINDINGS: Findings within the lumbar spine are described in the associated CT of the lumbar spine report from the same date and time.? Please reference that report for additional information. Bones/joints: There is a new acute compression fracture involving T11 since 02/24/2022. Linear lucencies extend through the entirety of the vertebral body involving the inferior aspect predominantly. There is very mild posterior retropulsion of the posteroinferior vertebral body extending into the intervertebral canal by approximately 6 mm.? No involvement of the posterior elements.? This results in mild ventral effacement upon the thecal sac. Lucencies consistent with air are present within the vertebral body aswell as the adjacent T11-12 disc space and adjacent soft tissues. There is mild diffuse osteopenia. Moderate to marked stable compressive changes involve T2. Mild stable compressive changes involve the superior aspect of T1. These findings are stable since 02/24/2022. The thoracic spine demonstrates moderate discoge
== END ==
PROVIDERS: PCP Internal Medicine; Visit Provider Nurse Anesthetist, Certified Registered
DX: M51.14 Intervertebral disc disorders with radiculopathy, thoracic region (principal); M48.54XA Collapsed vertebra, not elsewhere classified, thoracic region, initial encounter for fracture
CPT/HCPCS: 99212; G0463

== ENCOUNTER → 2022-04-11 07:41 | Outpatient (CLI) | payer MEDICARE, SELFPAY ==
[2022-04-11 08:11] LABS: Basophils # 0.1 K/mm3 (0-0.2); Basophils % 1.6 % (0.1-2.0); Eosinophils # 0.4 K/mm3 (0.0-0.4); Eosinophils % 5.6 % (0.1-12.0); Hematocrit 35.5 % (42.0-52.0); Hemoglobin 11.6 g/dL (14.1-18.0); Lymphocytes # 2.4 K/mm3 (0.7-4.5); Lymphocytes % 32.9 % (10-50); Mean Corpuscular HGB Conc 32.7 g/dL (31.8-35.4); Mean Corpuscular Hemoglobin 30.6 pg (27.0-31.2); Mean Corpuscular Volume 93.6 fl (80-94); Mean Platelet Volume 7.5 fl (7.4-10.4); Monocytes # 0.4 K/mm3 (0.1-1.0); Neutrophils # 3.8 K/mm3 (1.8-7.8); Neutrophils % 53.8 % (37.0-80.0); Platelet Count 285 K/mm3 (142-424); Red Cell Distribution Width 13.5 % (11.5-17.5); White Blood Count 7.1 K/mm3 (4.8-10.8)
[2022-04-11 08:42] LABS: Anion Gap 13.1 mEq/L (5-15); Blood Urea Nitrogen 19 mg/dl (9-20); Calcium 8.7 mg/dl (8.4-10.2); Carbon Dioxide 25 mmol/L (22.0-30.0); Chloride 104 mmol/L (98-107); Estimated Glomerular Filt Rate 72 ml/min (>60); GFR (African American) 87 ML/MIN (>60); Glucose 129 mg/dl (74-100); Potassium 4.1 mmoL/L (3.5-5.1); Sodium 138 mmol/L (136-145)
== END ==
PROVIDERS: PCP Internal Medicine; Visit Provider Anesthesiology
DX: Z01.812 Encounter for preprocedural laboratory examination (principal); S22.080A Wedge compression fracture of T11-T12 vertebra, initial encounter for closed fracture
CPT/HCPCS: 36415; 80048; 85025

== ENCOUNTER 2022-04-12 10:28 | Day surgery (SDC) | payer MEDICARE, SELFPAY ==
[2022-04-12 11:01] VITALS: BP 150/63; PULSE 92; RESP 16; TEMP 36.6; O2SAT 99
[2022-04-12 11:22] LABS: POC Glucose,Bedside 105 (70-110)
--- NOTE | 2022-04-12 12:07 | P.PN_ITS ---
[facility] Disclaimer: The information contained in this section may have been updated after the patient was seen, as this information can be updated by other users. Medical History CAD (coronary artery disease) Diabetes Diabetes mellitus, type 2 GERD (gastroesophageal reflux disease) History of gastroesophageal reflux (GERD) Hyperlipemia Hypertension Surgical History History of coronary artery stent placement History of knee replacement S/P total knee arthroplasty Family History Other No significant family history Social History Smoking Status: Never smoker alcohol intake: never substance use type: denies use current occupational status: other Travel in the last 8 weeks: None household members: spouse housing: house current occupational exposures/hazards: No caffeine: Yes [facility] Anesthesia Checklist Patient Identification Patient Identification: Arm Band and Verbal (Name & ) Structural Data Admitted From: Home Planned Operative Procedure/s: Kyphoplasty Verified Documents: Surgical Consent NPO Status Verified Time NPO: 00:00 Additional verifications Anesthesia Reactions: No Hx Blood Transfusions: No Blood Transfusion Reaction: No Airway Assessment C-Spine Mobility Assessed: Yes TMJ Mobility Assessed: Yes Dentition: Good Dentition Neurological Assessment Level of Consciousness: Awake, Alert and Appropriate Anesthesia Plan Anesthesia Risk discussed: Yes ASA Class: III Anesthesia Type: MAC
[2022-04-12 12:55] VITALS: BP 126/72; PULSE 101; RESP 18; TEMP 36.2; O2SAT 100
[2022-04-12 13:05] VITALS: BP 145/69; PULSE 99; RESP 18; O2SAT 95
[2022-04-12 13:20] VITALS: BP 140/62; PULSE 91; RESP 18; O2SAT 97
[2022-04-12 13:30] VITALS: BP 131/65; PULSE 92; RESP 18; O2SAT 96
--- NOTE | 2022-04-12 14:45 | EXP.OP.NOTE ---
Date of procedure: 04/12/22 Pre-op Diagnosis:: T11 compression fracture acute Post-op Diagnosis:: Same Procedure performed:: T11 kyphoplasty Surgeon:: Tom White MD VIDEO GAME CREATOR:: Jake Way Anesthesia: MAC Estimated blood loss (mL): 5 Clinical Note:: This patient is a pleasant 76-year-old white male who we are treating for acute compression fracture of the T11 vertebral body. This is documented on MRI. He has failed all previous conservative measures. He had a fall in the bathroom at [facility]. We will do a T11 kyphoplasty today to help with his increasing back pain. Operative findings:: None Operative note:: Kyphoplasty informed consent was obtained and risks and benefits of the procedure was explained to the patient. Patient was taken to the OR and was placed prone on the procedure table. The patient was prepped and draped in sterile fashion. I used 2 C arms for AP and lateral view of the T11 vertebral body. The skin and subcutaneous tissues were anesthetized using lidocaine. Bone access trochars were placed through the LEFT and RIGHT pedicle and advanced into the vertebral body. After accessing the vertebral body a balloon was inserted first on the LEFT side followed by the RIGHT side with approximately 3 mL of contrast placed in each balloon with good insufflation. After adequate spread of contrast through the balloon, the balloons were deflated and cement was introduced first on the LEFT side with placement of approximately 3-1/2 mL of cement with good spread throughout the vertebral body and then on the RIGHT side was approximately 3 1/2 mL cement with good spread throughout the vertebral body. There was no extrusion of cement through the lateral baca, anterior or posterior baca. Also no extrusion through superior or inferior baca. The bone access trochars were removed and dressing was placed. The patient was taken back to recovery in stable condition. She had good resolution of her back pain 5 minutes after the procedure. She tolerated the procedure well with no complications and was discharged home neurologically intact. Plan and disposition: We will follow-up with this patient in 2 weeks. Will reevaluate symptoms at that time. Condition: stable Disposition: PACU Complications:: None
== END 2022-04-12 13:33 | disposition home or self-care (01) ==
PROVIDERS: PCP Internal Medicine; Visit Provider Anesthesiology
DX: S22.089A Unspecified fracture of T11-T12 vertebra, initial encounter for closed fracture (principal); W19.XXXA Unspecified fall, initial encounter; E11.9 Type 2 diabetes mellitus without complications
CPT/HCPCS: C7507; 82962; 96374; J2405

== ENCOUNTER → 2022-04-15 11:58 | Outpatient (POV) | payer MEDICARE, SELFPAY ==
--- NOTE | 2022-04-15 11:59 | EXP.PAIN.SOA ---
[facility] Pain Management SOAP Note Subjective:: Patient is a pleasant 76-year-old male who presents today for follow-up of kyphoplasty at T11 on 04/12/2022. 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 Today the patient rates his pain a 8 out of 10. Patient states he is experiencing worse pain than before the procedure. Patient denies any additional injuries. Patient states that this pain did start fairly early after getting home following the kyphoplasty procedure. Patient does describe this as a sharp, achy sensation that is constant and worse with increased activity or certain movements. Patient states that the last couple of nights he has gotten little to no sleep. Patient is not wearing his back brace however he states he does still have it at home. Initially patient's pain and compression fracture is related to a fall in the bathroom at a [facility] facility. Patient's prior imaging did show the acute compression fracture at T11 as well as chronic T1 and T2 compression fractures. Patient is currently managed with [place] 7.5 mg 4 times a day from his primary care doctor. Patient does state that this does help some. Patient's daughter also mentions that they were given tramadol however that he has not taken this medicine due to having the [place]. His Dmitry is [id number]. Its been reviewed and appropriate. Review of Systems: General: No recent weight changes, no fever, no sleep disturbances Respiratory: No cough, no shortness of air, no recurring pulmonary infections Cardiovascular/peripheral vascular: No chest pain, no palpitations, no edema, no shortness of breath Gastrointestinal: No new onset incontinence, normal bowel movements reported Genitourinary: No new onset incontinence Musculoskeletal: Mid back pain Psychiatric: [Normal mood/affect] Neurological: [Denies weakness in extremities], [denies balance issues] Objective:: Physical Exam: General: Alert and oriented x3, no acute distress, pleasant and cooperative Lungs: Respirations even and unlabored, symmetrical chest expansion Eyes: PERRL Musculoskeletal: Flexion and extension of thoracic [spine] somewhat guarded secondary to pain, [antalgic gait noted] Neurological: Speech clear, no gross sensory deficit Assessment:: 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 Plan:: Patient is experiencing worsening pain in his mid back following his kyphoplasty of T11. Patient had limited range of motion of his thoracic spine during today's visit. I will order the patient a CT without contrast of his thoracic spine TAMY due to his increased pain. I will also order the patient tizanidine 4 mg 3 times daily with a 14-day supply of this medication. I have counseled him to continue to wear his back brace for additional support and stabilization. Patient will return to clinic following this imaging for reevaluation of symptoms and follow-up. Patient has been instructed to contact the clinic with any concerns before the next appointment. Dr. White has reviewed this note and agrees with this plan of care. This note was dictated using voice recognition software and make contain errors or omissions. [facility] Disclaimer: The information contained in this section may have been updated after the patient was seen, as this information can be updated by other users. Medical History CAD (coronary artery disease) Diabetes Diabetes mellitus, type 2 GERD (gastroesophageal reflux disease) History of gastroesophageal reflux (GERD) Hyperlipemia Hypertension Surgical History History of coronary artery stent
[2022-04-15 12:06] VITALS: BP 108/56; PULSE 97; RESP 19; O2SAT 98; BMI 22.4
== END | disposition home or self-care (01) ==
PROVIDERS: Visit Provider Nurse Practitioner Family
DX: M51.14 Intervertebral disc disorders with radiculopathy, thoracic region (principal); M48.54XA Collapsed vertebra, not elsewhere classified, thoracic region, initial encounter for fracture
CPT/HCPCS: 99212; G0463

== ENCOUNTER → 2022-04-15 12:33 | Outpatient (CLI) | payer MEDICARE, SELFPAY ==
--- NOTE | 2022-04-15 12:40 | CT_ITS ---
FINAL REPORT TECHNIQUE: Thin section axial images were obtained through the thoracic spine without contrast. Sagittal and coronal images were obtained from the axial data. CLINICAL HISTORY: MID BACK PAIN,S/P KYPHO 4 days ago. COMPARISON: 03/10/2022 FINDINGS: There are chronic compression fractures of T1 and T2 which are stable. There has been interval kyphoplasty at T11. There has been slight increase in loss of height at T11 when compared to the prior exam by 3-4 mm. At T11, there has been interval increase in central canal stenosis related to retropulsed fragments. Central canal measures 8-9 mm and previously measured 11-12 mm. There is a new compression deformity involving the superior endplate of T12 with less than 25% loss of vertebral body height and no extension to the posterior cortex. There is multilevel degenerative disc disease which appears stable. Paraspinal abnormal attenuation at T11 is improved. Pleural effusions and lower lobe airspace disease has resolved. IMPRESSION: Interval kyphoplasty at T11 with worsening loss of height and worsening central canal stenosis due to retropulsed fragments when compared to 03/10/2022. New compression fracture of the superior endplate of T12. Chronic T1 and T2 fractures which are stable. Reviewed, Interpreted and Dictated by Unique Garcia MD Transcribed by Francheska Patton Authenticated and . [facility]
== END ==
PROVIDERS: PCP Internal Medicine; Visit Provider Nurse Practitioner Family
DX: M54.6 Pain in thoracic spine (principal)
CPT/HCPCS: 72128; 99212; G0463

== ENCOUNTER → 2022-04-19 10:37 | Outpatient (POV) | payer MEDICARE, SELFPAY ==
--- NOTE | 2022-04-19 10:39 | EXP.PAIN.SOA ---
[facility] Pain Management SOAP Note Subjective:: Patient is a pleasant 76-year-old male who presents today via telehealth exam for follow-up of thoracic CT. this visit is occurring at the patient's home and he is consented for this appointment with his present. 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 Today the patient rates his pain a 7 out of 10.? Patient denies any new trauma or injury. Patient denies any change location or type of pain he experiences. Patient states he continues to experience significant pain following his last kyphoplasty procedure. Patient states that he had not been home anytime following this procedure when he had worsening pain symptoms in his mid back. Patient does describe this as a sharp, achy sensation that is constant and worse with increased activity or certain movements. Patient states this is a debilitating pain that keeps him up at night and that he cannot get comfortable in any positions. Patient did have a back brace that was ordered however he states it is too rigid and causes additional pain. At our last visit we did prescribe the patient a muscle relaxer and oral steroids. Patient states he is continuing to take these medications with minimal improvement. Patient's initial T11 compression fracture was related to a fall in the bathroom at [facility].? He does have chronic T1 and T2 compression fractures.? Patient is currently managed with [place] 7.5 mg 4 times a day from his primary care doctor.? Patient's is present via this visit and states it is giving some help for his pain symptoms. Patient had previously been given tramadol however that he has not taken this medicine due to having the [place].? His Dmitry has been reviewed and is appropriate. Review of Systems: General: No recent weight changes, no fever, no sleep disturbances Respiratory: No cough, no shortness of air, no recurring pulmonary infections Cardiovascular/peripheral vascular: No chest pain, no palpitations,? no edema, no shortness of breath Gastrointestinal: No new onset incontinence, normal bowel movements reported Genitourinary: No new onset incontinence Musculoskeletal: Mid back pain Psychiatric: [Normal mood/affect] Neurological: [Denies weakness in extremities], [denies balance issues] Objective:: General: Alert and oriented x3, pleasant and cooperative Lungs: Patient is able to say complete sentences without dyspnea Neurological: Speech clear FINAL REPORT TECHNIQUE: Thin section axial images were obtained through the thoracic spine without contrast. Sagittal and coronal images were obtained from the axial data. CLINICAL HISTORY: MID BACK PAIN,S/P KYPHO 4 days ago. COMPARISON: 03/10/2022 FINDINGS: There are chronic compression fractures of T1 and T2 which are stable.? There has been interval kyphoplasty at T11.? There has been slight increase in loss of height at T11 when compared to the prior exam by 3-4 mm.? At T11, there has been interval increase in central canal stenosis related to retropulsed fragments.? Central canal measures 8-9 mm and previously measured 11-12 mm.? There is a new compression deformity involving the superior endplate of T12 with less than 25% loss of vertebral body height and no extension to the posterior cortex.? There is multilevel degenerative disc disease which appears stable.? Paraspinal abnormal attenuation at T11 is improved.? ? Pleural effusions and lower lobe airspace disease has resolved. IMPRESSION: Interval kyphoplasty at T11 with worsening loss of height and worsening central canal stenosis due to retropulsed fragments when compared to 03/10/2022.? New compression fracture of the superior endplate of T12.? ? Chronic T1 and T2 fractures which are stable. Reviewed, Interpr
== END | disposition home or self-care (01) ==
PROVIDERS: Visit Provider Nurse Practitioner Family
DX: M51.14 Intervertebral disc disorders with radiculopathy, thoracic region (principal); M48.54XA Collapsed vertebra, not elsewhere classified, thoracic region, initial encounter for fracture
CPT/HCPCS: 99212; G0463

== ENCOUNTER 2022-05-03 10:06 | Day surgery (SDC) | payer MEDICARE, SELFPAY ==
[2022-05-01 09:30] VITALS: BMI 22.4
[2022-05-03] VITALS (10 sets, daily range): BP systolic 102–134; BP diastolic 55–76; PULSE 84–100; RESP 15–19; TEMP 36.2–36.3; O2SAT 94–100
[2022-05-03 11:03] LABS: Basophils # 0.1 K/mm3 (0-0.2); Basophils % 0.7 % (0.1-2.0); Eosinophils # 0.2 K/mm3 (0.0-0.4); Hematocrit 36.9 % (42.0-52.0); Hemoglobin 12.2 g/dL (14.1-18.0); Lymphocytes # 0.9 K/mm3 (0.7-4.5); Lymphocytes % 13.6 % (10-50); Mean Corpuscular Hemoglobin 30.8 pg (27.0-31.2); Mean Corpuscular Volume 93.5 fl (80-94); Mean Platelet Volume 6.9 fl (7.4-10.4); Monocytes # 0.5 K/mm3 (0.1-1.0); Monocytes % 6.9 % (1.7-9.3); Neutrophils # 5.1 K/mm3 (1.8-7.8); Neutrophils % 75.7 % (37.0-80.0); Platelet Count 253 K/mm3 (142-424); Red Blood Count 3.95 M/mm3 (4.60-6.20); Red Cell Distribution Width 14.5 % (11.5-17.5); White Blood Count 6.7 K/mm3 (4.8-10.8)
[2022-05-03 11:05] LABS: POC Glucose,Bedside 210 (70-110)
[2022-05-03 11:13] LABS: Chloride 104 mmol/L (98-107); Sodium 138 mmol/L (136-145)
[2022-05-03 11:14] LABS: Potassium 4.1 mmoL/L (3.5-5.1)
[2022-05-03 11:16] LABS: Blood Urea Nitrogen 29 mg/dl (9-20); Creatinine Clearance Estimated 66 mL/min (50-200); Estimated Glomerular Filt Rate 72 ml/min (>60); GFR (African American) 87 ML/MIN (>60)
[2022-05-03 11:17] LABS: Anion Gap 10.1 mEq/L (5-15); Calcium 8.6 mg/dl (8.4-10.2); Carbon Dioxide 28 mmol/L (22.0-30.0); Glucose 222 mg/dl (74-100)
--- NOTE | 2022-05-03 13:59 | P.OP_ITS ---
Date of procedure: 05/03/22 Pre-op Diagnosis:: T12 compression fracture Post-op Diagnosis:: Same Procedure performed:: T12 kyphoplasty Surgeon:: Tom White MD Anesthesia: MAC Estimated blood loss (mL): 1 Clinical Note:: This patient is a pleasant 76-year-old white male who previously had a T11 kyphoplasty. Subsequent to this surgery he developed increasing low back pain once again. We did get a new MRI which shows a acute T12 compression fracture. There is less than 25% loss of vertebral body height. Patient presents for repeat kyphoplasty today. This will be of the T12 vertebral body. Operative findings:: None Operative note:: Informed consent was obtained and risks and benefits of the procedure was explained to the patient. Patient was taken to the OR and was placed prone on the procedure table. The patient was prepped and draped in sterile fashion. I used 2 C arms for AP and lateral view of the T12 vertebral body. The skin and subcutaneous tissues were anesthetized using lidocaine. Bone access trochars were placed through the LEFT and RIGHT pedicle and advanced into the vertebral body. After accessing the vertebral body a balloon was inserted first on the LEFT side followed by the RIGHT side with approximately 3 mL of contrast placed in each balloon with good insufflation. After adequate spread of contrast through the balloon, the balloons were deflated and cement was introduced first on the LEFT side with placement of approximately 3-1/2 mL of cement with good spread throughout the vertebral body and then on the RIGHT side was approximately 3 1/2 mL cement with good spread throughout the vertebral body. There was no extrusion of cement through the lateral baca, anterior or posterior baca. Also no extrusion through superior or inferior baca. The bone access trochars were removed and dressing was placed. The patient was taken back to recovery in stable condition. He had good resolution of his back pain 5 minutes after the procedure. He tolerated the procedure well with no complications and was discharged home neurologically intact. He was having some increased pain so we did give morphine 4 mg which helped tremendously. We will send him home with [place] 7.5 mg 1 tablet 3 times a day. I have encouraged him to wear his back brace is much as possible. Condition: stable Disposition: PACU Complications:: None
== END 2022-05-03 14:25 | disposition home or self-care (01) ==
PROVIDERS: PCP Internal Medicine; Visit Provider Anesthesiology
DX: S22.089A Unspecified fracture of T11-T12 vertebra, initial encounter for closed fracture (principal); E11.9 Type 2 diabetes mellitus without complications
CPT/HCPCS: 22513; 80048; 82962; 85025; 96374

== ENCOUNTER 2022-05-12 11:08 | Observation (INO) | payer MEDICARE, SELFPAY ==
[2022-05-12] VITALS (27 sets, daily range): BP systolic 118–168; BP diastolic 61–91; PULSE 85–119; RESP 17–20; TEMP 37.3–38.6; O2SAT 90–100; BMI 23.0; BMI 19.6
--- NOTE | 2022-05-12 11:10 | CT_ITS ---
PROCEDURE INFORMATION: Exam: CT Head Without Contrast Exam date and time: 05/12/2022 11:54 AM Age: 76 years old Clinical indication: Injury or trauma; Fall; Blunt trauma (contusions or hematomas); Additional info: AMS, fall--patient has ams-- very combative and had a fall at home TECHNIQUE: Imaging protocol: Computed tomography of the head without contrast. Radiation optimization: All CT scans at this facility use at least one of these dose optimization techniques: automated exposure control; mA and/or kV adjustment per patient size (includes targeted exams where dose is matched to clinical indication); or iterative reconstruction. Other protocol: This patient has received 13 known CTs and 0 known cardiac nuclear medicine studies in the 12 months prior to the current study. COMPARISON: MR HEAD/BRAIN WO/W CON 02/25/2022 9:11 AM FINDINGS: Brain: There is no evidence of acute intracranial hemorrhage, extra-axial collection or locoregional mass effect. There are scattered hypodensities in the periventricular and subcortical white matter. The appearance is nonspecific, but most likely represents chronic small vessel disease in a person of this age Cerebral ventricles: The ventricles, sulci and cisterns are normal in size and configuration for patient's age. No hydrocephalus or midline structure shift Pituitary gland and sella: Sellar/parasellar structures, craniocervical junction and orbits are unremarkable Paranasal sinuses: Scattered mucosal thickening throughout the paranasal sinuses. Hyperattenuating appearance of the right frontal sinus can be seen in the context of inspissated/proteinaceous material. Mastoid air cells: Visualized mastoid air cells are well aerated. Bones/joints: No calvarial fracture Soft tissues: Unremarkable. IMPRESSION: 1. No acute intracranial abnormality. No calvarial fracture. 2. Infectious/inflammatory sinusitis.
--- NOTE | 2022-05-12 11:10 | CT_ITS ---
PROCEDURE INFORMATION: Exam: CT Abdomen And Pelvis With Contrast Exam date and time: 05/12/2022 12:10 PM Age: 76 years old Clinical indication: Injury or trauma; Fall; Blunt; Generalized; Additional info: Fall, AMS TECHNIQUE: Imaging protocol: Computed tomography of the abdomen and pelvis with contrast. Radiation optimization: All CT scans at this facility use at least one of these dose optimization techniques: automated exposure control; mA and/or kV adjustment per patient size (includes targeted exams where dose is matched to clinical indication); or iterative reconstruction. Contrast material: ISOVUE; Contrast volume: 75 ml; Contrast route: IV; Other protocol: This patient has received 13 known CTs and 0 known cardiac nuclear medicine studies in the 12 months prior to the current study. COMPARISON: CT ABDOMEN PELVIS W CON 02/22/2022 1:30 PM FINDINGS: Liver: Normal. No mass. Gallbladder and bile ducts: Normal. No calcified stones. No ductal dilation. Pancreas: Normal. No ductal dilation. Spleen: Normal. No splenomegaly. Adrenal glands: Normal. No mass. Kidneys and ureters: Nonobstructive calculus measuring 0.8 cm in left kidney. 2.2 cm left simple renal cortical cysts. Otherwise grossly unremarkable kidneys. Stomach and bowel: Diffuse sigmoid colonic diverticula without pericolonic fat stranding. Appendix: No evidence of appendicitis. Intraperitoneal space: Unremarkable. No free air. No significant fluid collection. Vasculature: Atherosclerotic calcification of aortoiliac arteries. Lymph nodes: Unremarkable. No enlarged lymph nodes. Urinary bladder: Urinary bladder decompressed and suboptimally visualized secondary to catheterization. Reproductive: Unremarkable as visualized. Bones/joints: Post vertebroplasty changes of T11 and T12. Soft tissues: Unremarkable. IMPRESSION: 1. Post vertebroplasty changes of thoracic spine. 2. Colonic diverticulosis. 3. Nonobstructive left renal calculus. COMMENTS: Consistent with the [employer]'s Incidental Findings Committee white paper (J Am Amor Radiol 2018): Any incidental renal lesion less than 1 cm or classified as too small to characterize, or any incidental cystic renal lesion characterized as simple-appearing, is likely benign. No follow-up imaging is recommended for these lesions per consensus recommendations based on imaging criteria.
--- NOTE | 2022-05-12 11:10 | CT_ITS ---
PROCEDURE INFORMATION: Exam: CT Lumbar Spine Without Contrast Exam date and time: 05/12/2022 12:05 PM Age: 76 years old Clinical indication: Injury or trauma; Fall; Blunt trauma (contusions or hematomas); Additional info: Fall-patient has ams-- very combative and had a fall at home TECHNIQUE: Imaging protocol: Computed tomography of the lumbar spine without contrast. Radiation optimization: All CT scans at this facility use at least one of these dose optimization techniques: automated exposure control; mA and/or kV adjustment per patient size (includes targeted exams where dose is matched to clinical indication); or iterative reconstruction. Other protocol: This patient has received 13 known CTs and 0 known cardiac nuclear medicine studies in the 12 months prior to the current study. COMPARISON: CT LUMBAR SPINE WO CON 03/10/2022 7:49 PM FINDINGS: Bones/joints: No acute fracture. Normal alignment. No significant disc bulge or herniation. No severe spinal canal stenosis. No significant neural foraminal narrowing. Post vertebroplasty changes of T11 and T12. Soft tissues: Unremarkable. IMPRESSION: No acute findings.
--- NOTE | 2022-05-12 11:10 | CT_ITS ---
PROCEDURE INFORMATION: Exam: CT Maxillofacial Without Contrast Exam date and time: 05/12/2022 11:56 AM Age: 76 years old Clinical indication: Injury or trauma; Fall; Blunt trauma (contusions or hematomas); Forehead and nose and orbit/periorbital; Bilateral; Additional info: Fall, face swelling, pain TECHNIQUE: Imaging protocol: Computed tomography of the face without contrast. Radiation optimization: All CT scans at this facility use at least one of these dose optimization techniques: automated exposure control; mA and/or kV adjustment per patient size (includes targeted exams where dose is matched to clinical indication); or iterative reconstruction. Other protocol: This patient has received 13 known CTs and 0 known cardiac nuclear medicine studies in the 12 months prior to the current study. COMPARISON: SINUS CT SINUS (MAX-FACIAL W/O CONT) 09/14/2015 10:49 PM FINDINGS: Limitations: Suboptimal [id number] Orbital cavities: Globes are symmetric. Orbital rims/baca are intact. Intraconal fat appear unremarkable. Lacrimal glands are unremarkable. Bones/joints: No visible acute fracture. Paranasal sinuses: Postoperative changes in the maxillary sinuses. There is moderate mucosal thickening in the right frontal ethmoidal air cells and sphenoid sinus. The right frontal mucosal thickening in hyper dense which can be attributed to hemorrhagic/inspissated material. Soft tissues: Unremarkable. IMPRESSION: 1. Suboptimal field of view. Within these limits, no visible fracture. 2. Infectious/inflammatory sinusitis.
--- NOTE | 2022-05-12 11:10 | CT_ITS ---
PROCEDURE INFORMATION: Exam: CT Thoracic Spine Without Contrast Exam date and time: 05/12/2022 12:03 PM Age: 76 years old Clinical indication: Injury or trauma; Fall; Blunt trauma (contusions or hematomas) TECHNIQUE: Imaging protocol: Computed tomography of the thoracic spine without contrast. Radiation optimization: All CT scans at this facility use at least one of these dose optimization techniques: automated exposure control; mA and/or kV adjustment per patient size (includes targeted exams where dose is matched to clinical indication); or iterative reconstruction. Other protocol: This patient has received 13 known CTs and 0 known cardiac nuclear medicine studies in the 12 months prior to the current study. COMPARISON: CT THORACIC SPINE WO CON 04/15/2022 12:45 PM FINDINGS: Bones/joints: Post vertebroplasty changes of T12 and T11. Stable T11 bony retropulsion. No acute cortical disruption identified. Osteopenia. Soft tissues: Unremarkable. Other findings: Limited visualized intrathoracic cavity grossly unremarkable for acute findings. IMPRESSION: Post vertebroplasty changes of lower thoracic spine. No acute findings identified.
--- NOTE | 2022-05-12 11:10 | CT_ITS ---
PROCEDURE INFORMATION: Exam: CT Cervical Spine Without Contrast Exam date and time: 05/12/2022 12:00 PM Age: 76 years old Clinical indication: Injury or trauma; Fall; Blunt trauma; Additional info: Fall-patient has ams-- very combative and had a fall at home TECHNIQUE: Imaging protocol: Computed tomography of the cervical spine without contrast. Radiation optimization: All CT scans at this facility use at least one of these dose optimization techniques: automated exposure control; mA and/or kV adjustment per patient size (includes targeted exams where dose is matched to clinical indication); or iterative reconstruction. Other protocol: This patient has received 13 known CTs and 0 known cardiac nuclear medicine studies in the 12 months prior to the current study. COMPARISON: CT FACIAL BONES WO CON 05/12/2022 11:56 AM FINDINGS: Bones/joints: No acute fracture. Normal alignment. No significant disc bulge or herniation. No severe spinal canal stenosis. No significant neural foraminal narrowing. Lungs: Lung apices are normal. Soft tissues: Unremarkable. IMPRESSION: No acute findings.
--- NOTE | 2022-05-12 11:10 | CT_ITS ---
PROCEDURE INFORMATION: Exam: CT Chest With Contrast; Diagnostic Exam date and time: 05/12/2022 12:10 PM Age: 76 years old Clinical indication: Injury or trauma; Fall; Blunt trauma (contusions or hematomas); Additional info: Fall, ams-patient has ams-- very combative and had a fall at home TECHNIQUE: Imaging protocol: Diagnostic computed tomography of the chest with contrast. Radiation optimization: All CT scans at this facility use at least one of these dose optimization techniques: automated exposure control; mA and/or kV adjustment per patient size (includes targeted exams where dose is matched to clinical indication); or iterative reconstruction. Contrast material: [place]OVUE; Contrast volume: 75 ml; Contrast route: IV; Other protocol: This patient has received 13 known CTs and 0 known cardiac nuclear medicine studies in the 12 months prior to the current study. COMPARISON: CT CHEST WO CON 02/24/2022 1:15 PM FINDINGS: Trachea: Visualized central airways grossly patent. Lungs: Chronic interstitial lung markings/subsegmental atelectasis of lung bases. Otherwise, clear lungs. Pleural spaces: No pleural effusion. Heart: No pericardial effusion. Lymph nodes: Unremarkable. No enlarged lymph nodes. Vasculature: Incidental underlying atherosclerotic calcification of thoracic aorta, coronary arteries. Bones/joints: Post vertebroplasty changes of T11, T12. Minimally left medial clavicle adjacent to sternoclavicular joint. No dislocation. Soft tissues: Unremarkable. Other findings: Limited visualized abdomen grossly unremarkable. IMPRESSION: Minimally displaced left medial clavicle adjacent to sternoclavicular joint. Post vertebroplasty changes of lower thoracic spine.
--- NOTE | 2022-05-12 11:15 | ECG_ITS ---
APPROVED REPORT Exam: Resting ECG HR:102 bpm ECG Measurements Heart Rate 102 AXES AR 127 P 74 QRSd 85 QRS 41 QT 329 T 83 QTc 388 Conclusion SINUS TACHYCARDIA MODERATE ST DEPRESSION [0.05+ mV ST DEPRESSION] ABNORMAL ECG UNCONFIRMED REPORT Electronically signed by : Mino Hardwick MD 05/13/2022 18:54:14
--- NOTE | 2022-05-12 11:16 | HMH.EDGENADL ---
Discharge Plan Disposition Patient Disposition: Admitted As Inpatient Condition: Fair Chief Complaint: Fall Prescriptions Prescriptions: No Action metformin 1,000 mg tablet 1,000 mg PO BIDWMEAL lisinopril 5 mg tablet 5 mg PO DAILY atorvastatin 20 mg tablet 20 mg PO DAILY aspirin 81 mg Tablet,Delayed Release (Dr/Ec) 81 mg PO DAILY pantoprazole 40 mg tablet,delayed release (DR/EC) 40 mg PO DAILY metoprolol succinate 25 mg tablet extended release 24 hr 25 mg PO DAILY tizanidine [Zanaflex] 4 mg tablet 4 mg PO TID Qty: 90 2RF hydrocodone-acetaminophen 7.5-325 mg tablet 1 tab PO BID Label Comments: TAKE 1 TABLET BY MOUTH EVERY 6 HOURS NEEDED FOR PAIN hydrocodone-acetaminophen 7.5-325 mg tablet 1 tab PO TID Qty: 90 0RF Referrals Follow up/Referrals: Stefan Luu MD [Primary Care Provider] - See instructions Clinical Impressions Clinical Impression: Altered mental status, Acute UTI, Dislocation of jaw, left side, initial encounter Instructions Patient Instructions: DI for Moderate Sedation Discharge ED Provider: Mariusz Valle General Adult HPI General Chief complaint: Fall Stated complaint: confused , fall Time Seen by Provider: 05/12/22 15:47 Mode of Arrival: EMS Source of Information: EMS Limitations: Altered Mental Status History of Present Illness HPI narrative: Patient presents to the emergency department via EMS after he was reportedly found on the ground in his bathroom by his family. Unclear of how long the patient was on the ground. EMS arrived the patient being altered and warm to the touch. He was found to be febrile. He was otherwise found to be hemodynamically stable by EMS. His blood sugar was greater than 100. He comes in and is significantly altered and unable to provide any history at this time. EMS states that the patient was complaining of left-sided facial pain with facial asymmetry noted by their exam. EMS state that the patient's family stated that he was not altered yesterday. Related Data Home Medications Medication Instructions Recorded Confirmed metformin 1,000 mg tablet 1,000 mg PO BIDWMEAL Diabetes 11/10/18 05/01/22 lisinopril 5 mg tablet 5 mg PO DAILY Hypertension 02/22/22 05/01/22 aspirin 81 mg tablet,delayed 81 mg PO DAILY HEART HEALTH 02/23/22 05/01/22 release atorvastatin 20 mg tablet 20 mg PO DAILY Cholesterol 02/23/22 05/01/22 pantoprazole 40 mg tablet,delayed 40 mg PO DAILY GERD 02/23/22 05/01/22 release metoprolol succinate 25 mg 25 mg PO DAILY BP 04/12/22 05/01/22 tablet,extended release 24 hr hydrocodone 7.5 mg-acetaminophen 1 tab PO BID Pain 05/01/22 05/01/22 325 mg tablet Previous Rx's Medication Instructions Recorded tizanidine 4 mg tablet (Zanaflex) 4 mg PO TID muscle spasms #90 tabs 05/02/22 hydrocodone 7.5 mg-acetaminophen 1 tab PO TID #90 tabs 05/03/22 325 mg tablet Allergies Allergy/AdvReac Type Severity Reaction Status Date / Time latex [LATEX] Allergy Intermediate Verified 05/01/22 09:38 [facility] Disclaimer: The information contained in this section may have been updated after the patient was seen, as this information can be updated by other users. Medical History (Updated 05/12/22 @ 15:48 by Mariusz Valle MD) CAD (coronary artery disease) Diabetes Diabetes mellitus, type 2 GERD (gastroesophageal reflux disease) History of gastroesophageal reflux (GERD) Hyperlipemia Hypertension Surgical History History of coronary artery stent placement History of heart bypass surgery History of knee replacement S/P total knee arthroplasty Family History Other Family history of myocardial infarction No significant family history Social History Smoking Status: Former smoker alcohol intake: n
[2022-05-12 11:24] LABS: Basophils # 0.1 K/mm3 (0-0.2); Basophils % 0.6 % (0.1-2.0); Eosinophils # 0.1 K/mm3 (0.0-0.4); Eosinophils % 0.8 % (0.1-12.0); Hematocrit 33.4 % (42.0-52.0); Hemoglobin 11.2 g/dL (14.1-18.0); Lymphocytes # 1.1 K/mm3 (0.7-4.5); Lymphocytes % 12.2 % (10-50); Mean Corpuscular HGB Conc 33.5 g/dL (31.8-35.4); Mean Corpuscular Hemoglobin 30.3 pg (27.0-31.2); Mean Corpuscular Volume 90.4 fl (80-94); Mean Platelet Volume 7.5 fl (7.4-10.4); Monocytes # 0.4 K/mm3 (0.1-1.0); Monocytes % 3.9 % (1.7-9.3); Neutrophils # 7.7 K/mm3 (1.8-7.8); Neutrophils % 82.5 % (37.0-80.0); Platelet Count 484 K/mm3 (142-424); Red Blood Count 3.69 M/mm3 (4.60-6.20); Red Cell Distribution Width 14.3 % (11.5-17.5); White Blood Count 9.3 K/mm3 (4.8-10.8)
[2022-05-12 11:32] LABS: Chloride 105 mmol/L (98-107); Potassium 4.5 mmoL/L (3.5-5.1); Sodium 140 mmol/L (136-145)
[2022-05-12 11:34] LABS: Blood Urea Nitrogen 17 mg/dl (9-20); Creatinine Clearance Estimated 66 mL/min (50-200); Estimated Glomerular Filt Rate 82 ml/min (>60); GFR (African American) 99 ML/MIN (>60)
[2022-05-12 11:35] LABS: Alanine Aminotransferase 19 U/L (12-78); Albumin Level 3.7 g/dl (3.5-5.0); Albumin/Globulin Ratio 1.2 (1.1-1.8); Alkaline Phosphatase 136 U/L (38-126); Anion Gap 12.5 mEq/L (5-15); Aspartate Amino Transferase 23 U/L (17-59); Bilirubin,Total 0.8 mg/dl (0.2-1.3); Calcium 8.4 mg/dl (8.4-10.2); Carbon Dioxide 27 mmol/L (22.0-30.0); Globulin 3.2 g/dL (1.3-3.2); Glucose 160 mg/dl (74-100); Total Protein,Serum 6.9 g/dl (6.3-8.2)
[2022-05-12 11:36] LABS: Ammonia < 9 umol/L (9-30)
[2022-05-12 11:38] LABS: Microscopic, Urine URINE MICROSCOPIC (MICROSCOPIC)
[2022-05-12 11:40] LABS: Appearance,Urine CLOUDY (Clear); Bilirubin,Urine Negative (Negative); Blood, Urine 1+ (Negative); Color,Urine YELLOW (Yellow); Glucose,Urine (UA) Negative (Negative); Ketones,Urine 1+ (Negative); Leukocyte Esterase,Urine 2+ (Negative); Nitrate,Urine POSITIVE (Negative); Protein,Urine 1+ (Negative); Specific Gravity, Urine >= 1.030 (1.005-1.030)
[2022-05-12 11:42] LABS: Lactic Acid 2.1 mmol/L (0.7-2.1)
--- NOTE | 2022-05-12 11:45 | PC.NURSE ---
PT ARRIVED TO ED VIA STRETCHER FOR AMBULANCE, PT HAD A LARGE LOOSE BM ER STAFF CLEANED PT UP,BRIEF AND BED ALARM PLACED
--- NOTE | 2022-05-12 11:47 | PC.NURSE ---
PT IS GOING TO CT VIA STRETCHER BORIS IS ACCOMPANY TO HELP ASSIST PULLING PT OVER
[2022-05-12 11:48] LABS: Coronavirus 19, PCR Not Detected (NotDetected); Influenza A, PCR Not Detected (NotDetected); Influenza B, PCR Not Detected (NotDetected)
[2022-05-12 11:55] LABS: Bacteria,Urine 2+ /lpf; Squamous Epithelial Cell,Urine Occasional #/hpf (0-5)
[2022-05-12 12:00] LABS: Creatine Kinase 29 U/L (55-170)
--- NOTE | 2022-05-12 12:18 | PC.NURSE ---
PT ARRIVED BACK TO ROOM FROM CT
--- NOTE | 2022-05-12 13:22 | PC.NURSE ---
Dr Rhodes spoke with JULIA
--- NOTE | 2022-05-12 13:35 | PC.NURSE ---
PT IS SLEEPING ,FAMILY MEMBER AT BEDSIDE, CALL LIGHT AND BED ALARM ON PT
--- NOTE | 2022-05-12 13:39 | PC.NURSE ---
ER AT BEDSIDE
--- NOTE | 2022-05-12 14:15 | PC.NURSE ---
PT WAS SEDATED MORE TO HELP PUT JAW BACK IN PLACE
--- NOTE | 2022-05-12 15:10 | PC.NURSE ---
ER AT BEDSIDE
[2022-05-12 15:18] LABS: Reflex Lactic Add Lactic Reflex
--- NOTE | 2022-05-12 15:18 | PC.NURSE ---
CALLING XRAY TO COME DO A POST REDUCTION FILM NO ANSWER WILL RETRY IN FEW MIN
--- NOTE | 2022-05-12 15:22 | PC.NURSE ---
SPOKE TO XRAY THEY ARE COMING TO DO POST REDUCTION XRAY
--- NOTE | 2022-05-12 15:30 | XR_ITS ---
PROCEDURE INFORMATION: Exam: XR Left Mandible Exam date and time: 05/12/2022 3:47 PM Age: 76 years old Clinical indication: Injury or trauma; Fall; Blunt trauma (contusions or hematomas); Jaw; Left; Additional info: Jaw reduction-- post reduction films taken with portable - PT under sedation TECHNIQUE: Imaging protocol: XR of the Left mandible. Views: 4 or more views COMPARISON: CT FACIAL BONES WO CON 05/12/2022 11:56 AM FINDINGS: Sinuses: Well aerated. No opacification. Bones/joints: No fracture. Soft tissues: Unremarkable. IMPRESSION: Unremarkable.
--- NOTE | 2022-05-12 15:30 | PC.NURSE ---
Dr Valle speaking with Dr Mcgee
--- NOTE | 2022-05-12 15:43 | EXP.HP ---
History of Present Illness *Admission Date: 05/12/22 *Reason for visit:: UTI, found down *History of present illness: Mr. Jauregui is a 76-year-old gentleman with a recent kyphoplasty for T11 and T12 vertebral compression fractures. He presented to the ER today via EMS after being found on the ground at home in his bathroom. No family at bedside at time of evaluation, history and review of systems obtained from chart and ER documentation. Per ER documentation Unclear of how long the patient was on the ground.? EMS arrived and found the patient altered and warm to touch. Afebrile at that time. Brought to the ER for evaluation. No sign of hypoglycemia on work-up. Hemodynamically stable in the ER. Work-up in the ER with extensive imaging, identified mandibular dislocation, UTI, no other significant abnormalities on labs. No image abnormalities. Medicine consulted for admission and further management of altered state and UTI. After arriving to the floor, patient is febrile. In light of fever, tachycardia, source with UTI, patient meets criteria for sepsis. Ceftriaxone started in the ER. No indication for fluid bolus at this time. Patient is nonresponsive to questioning and appears confused after sedation in the ER for resetting mandibular fracture. Stable on room air. [facility] Disclaimer: The information contained in this section may have been updated after the patient was seen, as this information can be updated by other users. Medical History CAD (coronary artery disease) Diabetes mellitus, type 2 GERD (gastroesophageal reflux disease) Hyperlipemia Hypertension Surgical History History of coronary artery stent placement History of heart bypass surgery S/P total knee arthroplasty Family History Family history of myocardial infarction Social History Smoking Status: Former smoker alcohol intake: never substance use type: denies use current occupational status: retired Travel in the last 8 weeks: None household members: spouse housing: house current occupational exposures/hazards: No caffeine: Yes Review of Systems Review of Systems Review of systems:: unable to obtain (patient still somnolent after sedation in ER.) Meds Home Medications and Allergies Home Medications Medication Instructions Recorded Confirmed Type metformin 1,000 mg tablet 1,000 mg PO BIDWMEAL Diabetes 11/10/18 05/12/22 History lisinopril 5 mg tablet 5 mg PO DAILY Hypertension 02/22/22 05/12/22 History aspirin 81 mg tablet,delayed 81 mg PO DAILY HEART HEALTH 02/23/22 05/12/22 History release atorvastatin 20 mg tablet 20 mg PO DAILY Cholesterol 02/23/22 05/12/22 History pantoprazole 40 mg tablet,delayed 40 mg PO DAILY GERD 02/23/22 05/12/22 History release tizanidine 4 mg tablet (Zanaflex) 4 mg PO TID muscle spasms #90 tabs 05/02/22 05/12/22 Rx hydrocodone 7.5 mg-acetaminophen 1 tab PO TID Pain 05/12/22 05/12/22 History 325 mg tablet New Prescriptions to Start Prescriptions: Allergies Allergy/AdvReac Type Severity Reaction Status Date / Time latex [LATEX] Allergy Intermediate Verified 05/01/22 09:38 Exam Data for Last 24 hours Vital signs and Labs for Last 24 Hours: Temp Pulse Resp BP Pulse Ox 99.1 F 110 H 18 130/63 98 05/12/22 11:13 05/12/22 15:18 05/12/22 15:18 05/12/22 15:18 05/12/22 15:18 Laboratory Results - last 24 hr 05/12/22 11:11: WBC 9.3, RBC 3.69 L, Hgb 11.2 L, Hct 33.4 L, MCV 90.4, MCH 30.3, MCHC 33.5, RDW 14.3, Plt Count 484 H, MPV 7.5, Neut % (Auto) 82.5 H, Lymph % (Auto) 12.2, [place] % (Auto) 3.9, Eos % (Auto) 0.8, Baso % (Auto) 0.6, Neut # (Auto) 7.7, Lymph # (Auto) 1.1, [place] # (Auto) 0.4, Eos # (Auto) 0.1, Baso # (Auto) 0.1 05/12/22 11:11: Sodium 140, Potassium 4.
--- NOTE | 2022-05-12 16:02 | PC.NURSE ---
report called to guicho valadez rn on second floor, awaiting for room to be clean and pt will be transported.
--- NOTE | 2022-05-12 16:05 | PC.NURSE ---
PT IS SLEEPING CALL LIGHT AT BEDSIDE BED ALARM ACTIVE
--- NOTE | 2022-05-12 16:48 | PC.NURSE ---
arrived by stretcher from ED
[2022-05-12 17:17] LABS: POC Glucose,Bedside 131 (70-110)
[2022-05-12 17:37] LABS: Lactic Acid Follow Up (RFLX 1) 1.7 mmol/L (0.7-2.1)
--- NOTE | 2022-05-12 18:46 | PC.NURSE ---
pt alert to self and able to identify president, nothing else. pt has been combative at times. 2 scabs on middle of back from previous procedure, applied small foam dsgs. pain c/o pain to jaw, treated per may. per teresa order tylenol po. pt takes meds crushed in applesauce. pt currently resting in bed. meds brought from home locked in diesel engine pipe fitter room. bed alarm on for pt safety, cb within reach.
[2022-05-12 21:20] LABS: POC Glucose,Bedside 150 (70-110)
[2022-05-13 04:00] VITALS: BP 112/91; PULSE 96; RESP 18; TEMP 37.1; O2SAT 97; BMI 20.5
[2022-05-13 06:15] LABS: POC Glucose,Bedside 109 (70-110)
--- NOTE | 2022-05-13 06:23 | PC.NURSE ---
NO ACUTE CHANGES SINCE PREVIOUS ASSESSMENT. PT HAS RESTED WELL THIS SHIFT. WHILE PT HAS BEEN AWAKE HE HAS BEEN REMINDED THAT HE WAS AT [facility] AND [facility] HE WAS A PT. HE HAS STATED THAT HE IS READY TO GO HOME. HE IS MORE ALERT AND ORIENTED THIS MORNING. HE KNOWS WHERE HE IS AND HIS NAME. NO LONGER FEBRILE.
[2022-05-13 07:06] LABS: Basophils # 0.1 K/mm3 (0-0.2); Basophils % 0.9 % (0.1-2.0); Eosinophils # 0.1 K/mm3 (0.0-0.4); Eosinophils % 1.3 % (0.1-12.0); Hematocrit 31.7 % (42.0-52.0); Hemoglobin 10.2 g/dL (14.1-18.0); Lymphocytes # 1.6 K/mm3 (0.7-4.5); Lymphocytes % 23.8 % (10-50); Mean Corpuscular HGB Conc 32.3 g/dL (31.8-35.4); Mean Corpuscular Hemoglobin 30.1 pg (27.0-31.2); Mean Corpuscular Volume 93.1 fl (80-94); Mean Platelet Volume 7.5 fl (7.4-10.4); Monocytes # 0.5 K/mm3 (0.1-1.0); Neutrophils # 4.5 K/mm3 (1.8-7.8); Neutrophils % 67.1 % (37.0-80.0); Platelet Count 421 K/mm3 (142-424); Red Cell Distribution Width 14.7 % (11.5-17.5); White Blood Count 6.7 K/mm3 (4.8-10.8)
[2022-05-13 07:14] LABS: Chloride 107 mmol/L (98-107); Potassium 3.5 mmoL/L (3.5-5.1); Sodium 138 mmol/L (136-145)
[2022-05-13 07:17] LABS: Alanine Aminotransferase 13 U/L (12-78); Albumin Level 3.2 g/dl (3.5-5.0); Albumin/Globulin Ratio 1.1 (1.1-1.8); Alkaline Phosphatase 107 U/L (38-126); Anion Gap 6.5 mEq/L (5-15); Aspartate Amino Transferase 22 U/L (17-59); Bilirubin,Total 0.7 mg/dl (0.2-1.3); Blood Urea Nitrogen 10 mg/dl (9-20); Carbon Dioxide 28 mmol/L (22.0-30.0); Creatinine Clearance Estimated 62 mL/min (50-200); Estimated Glomerular Filt Rate 109 ml/min (>60); GFR (African American) 132 ML/MIN (>60); Globulin 2.9 g/dL (1.3-3.2); Glucose 96 mg/dl (74-100); Magnesium 1.1 mg/dl (1.6-2.3); Total Protein,Serum 6.1 g/dl (6.3-8.2)
--- NOTE | 2022-05-13 07:22 | HMH.PHAINT1 ---
Pharmacy Intervention Comments: Home medication reconciliation completed using external fill history.
[2022-05-13 08:00] VITALS: BP 135/66; PULSE 88; RESP 16; TEMP 37; O2SAT 97
--- NOTE | 2022-05-13 09:59 | SW/DCPLANNER ---
Addendum entered by Hortensia Astorga 05/14/22 12:11: Liz chase/ [facility] stated that services will begin this week. Addendum entered by Hortensia Astorga 05/14/22 10:58: Patient will discharge home today: information/order will be faxed to [facility]. Original Note: I spoke with patient and his daughter this AM regarding discharge plans. PT/OT recommended placement at time of discharge. Daughter stated that patient has been to two different SNF level of care in the past and was not pleased with services at either facility. Daughter prefer that patient return home and resume home health services. I did provide daughter with a private sitters list and no DME is needed at this time per daughter.
--- NOTE | 2022-05-13 10:44 | HMH.OTEV ---
OT Inpatient Evaluation Rehab OT IP Evaluation Start: 05/12/22 15:35 Freq: ONCE Status: Active Protocol: Document 05/13/22 10:33 MARYURI (Rec: 05/13/22 10:44 MARYURI [id number]) Rehab OT IP Assessment Subjective History Mr. Jauregui is a 76-year-old gentleman with a recent kyphoplasty for T11 and T12 vertebral compression fractures. He presented to the ER today via EMS after being found on the ground at home in his bathroom. No family at bedside at time of evaluation, history and review of systems obtained from chart and ER documentation. Per ER documentation Unclear of how long the patient was on the ground.? EMS arrived and found the patient altered and warm to touch. Afebrile at that time. Brought to the ER for evaluation. No sign of hypoglycemia on work-up. Hemodynamically stable in the ER. Work-up in the ER with extensive imaging, identified mandibular dislocation, UTI, no other significant abnormalities on labs. No image abnormalities. Medicine consulted for admission and further management of altered state and UTI. After arriving to the floor, patient is febrile. In light of fever, tachycardia, source with UTI, patient meets criteria for sepsis. Ceftriaxone started in the ER. No indication for fluid bolus at this time. Patient is nonresponsive to questioning and appears confused after sedation in the ER for resetting mandibular fracture. Stable on room air. Patient lives with in 1 story home. is on 02. Dtr checks on them in the morning
--- NOTE | 2022-05-13 10:48 | HMH.PTEV ---
Physical Therapy Evaluation Rehab PT IP Evaluation Start: 05/12/22 15:35 Freq: ONCE Status: Active Protocol: Document 05/13/22 10:41 PHORNE (Rec: 05/13/22 10:48 PHORNE [id number]) Subjective/History History History 76 yo wm adm to [facility] with AMS, UTI, madible dislocation after found down at home with significant weakness. Recent hx of T11-T12 kyphoplasty. He reports he lives with , 1 step to enter the home, uses a walker for ambulation at baseline (assisted by his daughter for hx as he remains confused). Subjective Subjective Pt reports no c/o this am, feels much better. Rehab PT IP Eval Objective Appearance Patient Behavior Appropriate,Confused Patient Orientation Person,Place Difficulty following instructions mild Speech Pattern Clear Ambulation Patient Able to Ambulate Yes Ambulation Observation IP General Gait Pattern Observation Wide Based Gait Ambulation Distance (feet) 20 Ambulation Assistive Device Rolling Walker Ambulation Ability Contact Guard/Hand Hold Balance Ability to Arise Able, uses arms to help Sitting Balance Steady, safe Standing Balance Steady, wide stance Dynamic Sitting Balance Ability Good Dynamic Standing Balance Ability Fair Transfers Bed Transfer Ability Contact Guard/Hand Hold Chair Transfer Ability Contact Guard/Hand Hold Sit to Stand Bed Transfer Ability Contact Guard/Hand Hold Sit to Stand Chair Transfer Ability Contact Guard/Hand Hold ROM All Extremities PT ROM Status WFL MMT All Extremities PT MMT WFL Rehab PT IP prob,goals,plan Problems Date of Evaluation: 05/13/22 PT IP Problems Bed Mobility,Transfers,Gait Rehab Potential Rehab Potential Good Plan PT Intervention Plan Bed Mobility,Transfers,Gait, Therapeutic Exercise PT Plan Frequency BID Duration LOS Discharge Goals Bed Transfer Ability Supervision/Stand by Sit to Stand Chair Transfer Ability Supervision/Stand by Ambulation Assistive Device Rolling Walker Ambulation Distance (feet) 30 Discharge Plan PT Discharge Plan Pt is most appropriate for rehab placement at this time, but could return home once medically st
[2022-05-13 11:25] LABS: POC Glucose,Bedside 122 (70-110)
--- NOTE | 2022-05-13 11:44 | DIET.NUTRFU ---
Spoke to patient about chewing, he has lock law and his teeth are not alined. Provider to trying to get dentist to see him, this has happened in the past. He did not want his diet changed but was agreeable to order something soft for lunch. Notified kitchen of order
--- NOTE | 2022-05-13 11:51 | XR_ITS ---
FINAL REPORT CLINICAL HISTORY: jaw dislocation COMPARISON: May 12, 2022 FINDINGS: There is no acute fracture visualized. The right mandibular condyle is located. There is anterior dislocation of the left mandibular condyle anterior to the articular eminence. IMPRESSION: Anterior dislocation of the left mandibular condyle as seen on the recent CT. Reviewed, Interpreted and Dictated by Bran Castañeda III, MD Transcribed by Dusty Woods Authenticated and [facility]
--- NOTE | 2022-05-13 14:27 | EXP.ACUTE.PN ---
Subjective *Date: 05/13/22 *Time: 14:27 Interval history: Jaw appears dislocated this morning, deviation to the right. Complaining of left-sided pain. Stable on room air. Back to baseline mentation. Interactive on exam. Answering questions appropriately. Trying to eat but having difficulty chewing doing to misalignment of jaw. Afebrile. No chest pain, nausea, vomiting, diarrhea. No shortness of breath Medical Exam Vital signs and Labs for Last 24 Hours: Vital Signs Temp Pulse Pulse Resp BP BP Pulse Ox 05/13/22 08:00 98.6 F 88 16 135/66 97 05/13/22 04:00 98.8 F 96 H 18 112/91 H 97 05/12/22 20:00 100.6 F H 111 H 20 142/61 H 95 05/12/22 17:06 101.4 F H 119 H 20 159/62 H 98 05/12/22 16:00 96 H 146/67 H 100 05/12/22 15:30 98 H 135/62 100 05/12/22 15:24 102 H 138/62 100 05/12/22 16:02 102 H 17 134/78 100 05/12/22 15:25 103 H 138/62 100 05/12/22 15:20 115 H 130/63 98 05/12/22 15:41 110 H 20 156/69 H 99 05/12/22 15:18 110 H 18 130/63 98 05/12/22 15:11 116 H 156/69 H 98 05/12/22 15:07 114 H 156/75 H 98 05/12/22 14:50 104 H 156/74 H 99 05/12/22 14:40 103 H 154/80 H 99 05/12/22 15:03 112 H 160/71 H 98 05/12/22 15:03 114 H 148/79 H 98 05/12/22 14:59 108 H 155/82 H 95 05/12/22 14:45 103 H 164/70 H 98 05/12/22 14:30 112 H 168/72 H 99 05/12/22 15:00 102 H 162/67 H 95 Intake and Output 05/12/22 05/13/22 05/13/22 23:59 07:59 15:59 Intake Total 840 / 1440 600 / 1440 Output Total 600 / 800 1200 / 2200 1000 / 2200 Balance -600 / -800 -360 / -760 -400 / -760 Intake: Intake, Oral Amount 600 / 600 Intake, Total IV Amount 840 / 840 Ringers Solution,Lactated 1,000 840 / 840 ml @ 100 mls/hr IV .Q10H [facility] Rx#:[id number] Output: Output, Urine Amount 600 / 800 1200 / 2200 1000 / 2200 Other: Number of Unmeasured Voids 1 1 1 Weight 69.513 kg 72.484 kg Patient Weight 05/13/22 23:59 Weight 72.484 kg Laboratory Results - last 24 hr 05/12/22 11:11: Hemoglobin A1c 8.0 H 05/12/22 11:25: Urine Color Yellow, Urine Appearance Cloudy, Urine pH 6.0, Ur Specific [place] >= 1.030, Urine Protein 1+, Urine Glucose (UA) Negative, Urine Ketones 1+, Urine Blood 1+, Urine Nitrate Positive, Urine Bilirubin Negative, Urine Urobilinogen 1.0, Ur Leukocyte Esterase 2+ A, Urine RBC 3-5, Urine WBC 5-10, Ur Squamous Epith Cells Occasional, Urine Bacteria 2+ 05/12/22 17:02: POC Glucose 131 H 05/12/22 17:10: Lactate 1.7 05/12/22 21:11: POC Glucose 150 H 05/13/22 06:08: POC Glucose 109 05/13/22 06:35: WBC 6.7 D, RBC 3.40 L, Hgb 10.2 L, Hct 31.7 L, MCV 93.1, MCH 30.1, MCHC 32.3, RDW 14.7, Plt Count 421, MPV 7.5, Neut % (Auto) 67.1, Lymph % (Auto) 23.8, [place] % (Auto) 7.0, Eos % (Auto) 1.3, Baso % (Auto) 0.9, Neut # (Auto) 4.5, Lymph # (Auto) 1.6, [place] # (Auto) 0.5, Eos # (Auto) 0.1, Baso # (Auto) 0.1 05/13/22 06:35: Sodium 138, Potassium 3.5 D, Chloride 107, Carbon Dioxide 28, Anion Gap 6.5, BUN 10 D, Creatinine 0.70 D, Estimated Creat Clear 62, Estimated GFR 109, Est GFR ( Amer) 132 D, Glucose 96 D, Calcium 8.0 L, Magnesium 1.1 L, Total Bilirubin 0.7, AST 22, ALT 13 D, Alkaline Phosphatase 107, Total Protein 6.1 L, Albumin 3.2 L D, Globulin 2.9, Albumin/Globulin Ratio 1.1 05/13/22 11:12: POC Glucose 122 H I & O for Labs for Last 24 Hours: Intake & Output 05/10/22 05/11/22 05/12/22 05/13/22 23:59 23:59 23:59 23:59 Intake Total 1440 / 1440 Output Total 600 / 800 2200 / 2200 Balance -600 / -800 -760 / -760 Weight 69.513 kg 72.484 kg Microbiology Reports for the Last 24 Hours: Microbiology 05/12/22 11:25 Urine,Catheterized Urine Culture - Preliminary Gram Negative Rods Constitutional: Present no acute distress Head: Present atraumatic and normocephalic Comment:: Jaw deviates to the righ
[2022-05-13 14:58] VITALS: BMI 20.5
[2022-05-13 16:00] VITALS: BP 119/67; PULSE 85; RESP 20; TEMP 36.7; O2SAT 98
[2022-05-13 16:45] LABS: POC Glucose,Bedside 124 (70-110)
[2022-05-13 20:00] VITALS: BP 151/67; PULSE 95; RESP 16; TEMP 36.6; O2SAT 96
[2022-05-13 20:10] LABS: POC Glucose,Bedside 178 (70-110)
[2022-05-14 04:00] VITALS: BP 125/65; PULSE 80; RESP 16; TEMP 36.9; O2SAT 96; BMI 20.2
[2022-05-14 05:55] LABS: POC Glucose,Bedside 104 (70-110)
--- NOTE | 2022-05-14 05:57 | PC.NURSE ---
NO ACUTE CHANGES SINCE PREVIOUS ASSESSMENT. PT HAS RESTED INTERMITTENTLY. PT HAS BE CRANKY AT TIMES AND HAS STATED TO STAFF THAT HE IS, GOING HOME AND IF THEY DON'T LIKE IT THERE'S THE DOOR. PT HAS HAD ONE EPISODE OF INCONTINENCE THIS SHIFT. BED ALARM REMAINS IN PLACE.
--- NOTE | 2022-05-14 07:35 | EXP.DC.SUM ---
General Admission date:: 05/12/22 Discharge date: 05/14/22 HPI HPI HPI: Mr. Jauregui is a 76-year-old gentleman with a recent kyphoplasty for T11 and T12 vertebral compression fractures. He presented to the ER today via EMS after being found on the ground at home in his bathroom. No family at bedside at time of evaluation, history and review of systems obtained from chart and ER documentation. Per ER documentation Unclear of how long the patient was on the ground.? EMS arrived and found the patient altered and warm to touch. Afebrile at that time. Brought to the ER for evaluation. No sign of hypoglycemia on work-up. Hemodynamically stable in the ER. Work-up in the ER with extensive imaging, identified mandibular dislocation, UTI, no other significant abnormalities on labs. No image abnormalities. Medicine consulted for admission and further management of altered state and UTI. After arriving to the floor, patient is febrile. In light of fever, tachycardia, source with UTI, patient meets criteria for sepsis. Ceftriaxone started in the ER. No indication for fluid bolus at this time. Patient is nonresponsive to questioning and appears confused after sedation in the ER for resetting mandibular fracture. Stable on room air. Hospital Course Hospital Course Hospital Course: 76-year-old male with history of fall the end of last year where he sustained a compression fracture in his thoracic vertebrae.? Recent kyphoplasty earlier this month.? Presented to the ER today after being found down.? Noted to have altered mental status and UTI on work-up in the ER.? Given fever, tachycardia, and source, meeting criteria for sepsis.? ER consulted hospitalist for admission, decision made to admit patient to [facility] for further management and IV antibiotics.? Problems addressed as follows: Sepsis, resolved UTI Encephalopathy, resolved -Admitted for confusion. Sepsis on presentation resolved after first night of hospitalization. Urine culture positive for Klebsiella, sensitive to fluoroquinolones. Transition to levofloxacin 500 mg daily to complete 7-day course of antibiotics. Patient back to baseline mentation however daughter has concern for dementia. Patient does have some sundowning and confusion during hospitalization. Agree that he would benefit from further evaluation and assessment for Alzheimer's/dementia. Daughter requested referral to neurology for further evaluation. Patient referred to Dr. Mcgowan with neurology at [facility]. Patient tolerating oral intake. Back to baseline mentation. Stable for discharge home Dislocation of TMJ -Left-sided dislocation of TMJ.? Dislocated multiple times during admission. General surgery was consulted and graciously assisted in resetting jaw. Reset 3 times on 05/13/2022. Dislocated again overnight prior to discharge. Patient able to eat and talk. In minimal distress. Discharged with plan to follow-up with dentistry as an outpatient on day of discharge to have jaw reset. Plan to have jaw intermittently reset as an outpatient if it dislocates. Referred to oral maxillofacial surgery at for further evaluation and management given recurrent dislocation. Diabetes -A1c obtained, 8.0.? At upper end of goal range per recent ADA guidelines. Continue metformin 1000 mg twice a day.? Sliding scale insulin while admitted.? Fingersticks before meals and at bedtime Hypertension -continue home lisinopril 5mg daily History of kyphoplasty and T11 and T12 compression fracture -Recent kyphoplasty.? Images reviewed showing stable vertebrae.? No new fractures apparent on CT of chest abdomen pelvis. No signs of infection incisions. Minimal pain med requirement during hospitalization. Recommend weaning off opiates. Follow-up with pain management as an outpatient as scheduled. Stable for discharge home with family. Exam Data for Last 24 hours Vital signs and Labs for Last 24 Hours:
[2022-05-14 07:49] VITALS: BP 152/62; PULSE 86; RESP 18; TEMP 36.8; O2SAT 95
--- NOTE | 2022-05-14 08:27 | CARE MANAGER ---
Contacted [facility] at [phone] and faxed referral [phone]. I asked if they would contact family with an appointment and they stated they would, but they would recommend the family contact them as well. Message given to computer forwarding system markup clerk to give to family at discharge.
--- NOTE | 2022-05-16 11:33 | CARE MANAGER ---
Spoke with patient's family. They state he is still somewhat confused, but is doing well. They deny any questions or concerns and are aware of follow up appointments. JOSE Lepe
== END 2022-05-14 11:30 | disposition home health service (06) ==
LOC: ER 15:48 → 2ND 16:00
PROVIDERS: Admitting Provider Internal Medicine Adolescent Medicine; Emergency Provider Emergency Medicine; PCP Internal Medicine; Visit Provider Internal Medicine Adolescent Medicine
DX: N39.0 Urinary tract infection, site not specified (principal); S03.02XA Dislocation of jaw, left side, initial encounter; I25.10 Atherosclerotic heart disease of native coronary artery without angina pectoris; E11.9 Type 2 diabetes mellitus without complications; I10 Essential (primary) hypertension; E78.5 Hyperlipidemia, unspecified; Z95.5 Presence of coronary angioplasty implant and graft; Z95.1 Presence of aortocoronary bypass graft; Z79.84 Long term (current) use of oral hypoglycemic drugs; Z79.899 Other long term (current) drug therapy; W01.0XXA Fall on same level from slipping, tripping and stumbling without subsequent striking against object, initial encounter; Z91.81 History of falling; Y92.019 Unspecified place in single-family (private) house as the place of occurrence of the external cause; Z20.822 Contact with and (suspected) exposure to COVID-19; A41.9 Sepsis, unspecified organism
CPT/HCPCS: 21480; G0378; 36415; 70110; 70450; 70486; 71260; 72125; 72128; 72131; 74177; 80053; 81001; 82140; 82550; 82962; 83036; 83605; 83735; 85025; 87040; 87045; 87086; 87088; 87186; 93005; 97110; 97116; 97162; 97165; 99291; C9803; J0696; J3475; Q9967; U0003; U0005

== ENCOUNTER → 2022-05-16 13:57 | Outpatient (POV) | payer MEDICARE, SELFPAY ==
[2022-05-16 14:16] VITALS: BP 145/78; PULSE 118; RESP 20; O2SAT 98; BMI 22.4
--- NOTE | 2022-05-16 14:26 | EXP.PAIN.SOA ---
[facility] Pain Management SOAP Note Subjective:: Patient is a pleasant 76-year-old male who presents today for follow-up of kyphoplasty at T12 on 05/03/2022. 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 Today he rates his pain a 2 out of 10. Patient did recently have a fall last Friday at his home. Patient was admitted and released with a dislocated jaw and clavicle. Patient's daughter is present during today's visit and states that they were able to fix these issues without surgical intervention. Patient's daughter states that he had an undiagnosed UTI which cause confusion and led to his fall. Patient does state that he has some soreness at his mid back however the sharp achy sensation is no longer present. Patient is continuing to use his back brace and a walker for ambulation. Patient was prescribed [place] 7.5 mg 3 times a day for his fracture. Patient denies any side effects from this medication. Patient is still currently taking tizanidine 4 mg 3 times daily as needed and is requesting a refill at today's visit. His Dmitry is [id number]. Its been reviewed and appropriate. Review of Systems: General: No recent weight changes, no fever, no sleep disturbances Respiratory: No cough, no shortness of air, no recurring pulmonary infections Cardiovascular/peripheral vascular: No chest pain, no palpitations, no edema, no shortness of breath Gastrointestinal: No new onset incontinence, normal bowel movements reported Genitourinary: No new onset incontinence Musculoskeletal: Mid back pain Psychiatric: [Normal mood/affect] Neurological: [Denies weakness in extremities], [denies balance issues] Objective:: Physical Exam: General: Alert and oriented x3, no acute distress, pleasant and cooperative Lungs: Respirations even and unlabored, symmetrical chest expansion Eyes: PERRL Musculoskeletal: Flexion and extension of thoracic [spine] somewhat guarded secondary to pain, [antalgic gait noted] Neurological: Speech clear, no gross sensory deficit Assessment:: 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 We will refill the patient's tizanidine 4 mg 3 times daily and provide a 1 month supply of this medication. I have counseled the patient and his daughter that it would be beneficial for him to be on a daily vitamin such as calcium/vitamin D to promote bone health. I have discussed with the patient that it may be beneficial to order a DEXA scan however at this time the patient would like to wait. Patient will return to clinic in 1 month for reevaluation of symptoms, Medication refill and follow-up. Patient has been instructed to contact the clinic with any concerns before the next appointment. Dr. White has reviewed this note and agrees with this plan of care. This note was dictated using voice recognition software and make contain errors or omissions. [facility] Disclaimer: The information contained in this section may have been updated after the patient was seen, as this information can be updated by other users. Medical History CAD (coronary artery disease) Diabetes mellitus, type 2 GERD (gastroesophageal reflux disease) Hyperlipemia Hypertension Surgical History History of coronary artery stent placement History of heart bypass surgery S/P total knee arthroplasty Family History Family history of myocardial infarction Social History (Reviewed 05/12/22 @ 17:01 by Sukh
== END ==
PROVIDERS: PCP Internal Medicine; Visit Provider Nurse Practitioner Family
DX: M51.14 Intervertebral disc disorders with radiculopathy, thoracic region (principal); M48.54XG Collapsed vertebra, not elsewhere classified, thoracic region, subsequent encounter for fracture with delayed healing; Z79.899 Other long term (current) drug therapy
CPT/HCPCS: 99212; G0463

== ENCOUNTER → 2022-06-13 09:13 | Outpatient (POV) | payer MEDICARE, SELFPAY ==
--- NOTE | 2022-06-13 09:50 | A.OFFVIS_ITS ---
[facility] Pain Management SOAP Note Subjective:: Patient is a pleasant 76-year-old male who presents today for follow-up. 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 Today he rates his pain a 0 out of 10. Patient states he is continue to have significant improvement following his kyphoplasty on 05/03/2022. Patient is prescribed tizanidine 4 mg 3 times daily however he states he has not even had to take these over the last week. Patient was also previously prescribed [place] 7.5 mg 3 times a day however this is no longer being used. Patient states that his last primary care doctor's visit they did talk to Dr. Luu about ordering a DEXA scan however they have not heard anything further. His Dmitry is [id number]. Its been reviewed and appropriate. Review of Systems: General: No recent weight changes, no fever, no sleep disturbances Respiratory: No cough, no shortness of air, no recurring pulmonary infections Cardiovascular/peripheral vascular: No chest pain, no palpitations, no edema, no shortness of breath Gastrointestinal: No new onset incontinence, normal bowel movements reported Genitourinary: No new onset incontinence Musculoskeletal: Mid back pain Psychiatric: [Normal mood/affect] Neurological: [Denies weakness in extremities], [denies balance issues] Objective:: Physical Exam: General: Alert and oriented x3, no acute distress, pleasant and cooperative Lungs: Respirations even and unlabored, symmetrical chest expansion Eyes: PERRL Musculoskeletal: Flexion and extension of thoracic [spine] somewhat guarded secondary to pain, [antalgic gait noted] Neurological: Speech clear, no gross sensory deficit Assessment:: Degenerative disc disease of thoracic spine with thoracic radiculopathy symptoms, status post kyphoplasty at T11 and T12, chronic T1 and T2 compression fractures, mid back pain Plan:: Patient is continuing to do well following his kyphoplasty and does not require any additional injective therapy or procedure intervention. I will order the patient a DEXA scan during today's visit and have him follow-up in 1 month for reevaluation of symptoms, plan of care. Patient has been instructed to contact the clinic with any concerns before the next appointment. Dr. White has reviewed this note and agrees with this plan of care. This note was dictated using voice recognition software and make contain errors or omissions. [facility] Disclaimer: The information contained in this section may have been updated after the patient was seen, as this information can be updated by other users. Medical History CAD (coronary artery disease) Diabetes mellitus, type 2 GERD (gastroesophageal reflux disease) Hyperlipemia Hypertension Surgical History (Reviewed 05/12/22 @ 17: by Chidi Mcgee MD) History of coronary artery stent placement History of heart bypass surgery S/P total knee arthroplasty Family History Family history of myocardial infarction Social History (Reviewed 05/12/22 @ 17: by Chidi Mcgee MD) Smoking Status: Former smoker alcohol intake: never substance use type: denies use current occupational status: retired Travel in the last 8 weeks: None household members: spouse housing: house current occupational exposures/hazards: No caffeine: Yes
[2022-06-13 09:59] VITALS: BP 155/67; PULSE 93; RESP 18; O2SAT 97; BMI 21.8
== END ==
PROVIDERS: PCP Internal Medicine; Visit Provider Nurse Practitioner Family
DX: M51.14 Intervertebral disc disorders with radiculopathy, thoracic region (principal); M48.54XA Collapsed vertebra, not elsewhere classified, thoracic region, initial encounter for fracture; Z79.899 Other long term (current) drug therapy
CPT/HCPCS: 99212; G0463

== ENCOUNTER → 2022-07-10 08:53 | Outpatient (CLI) | payer MEDICARE, SELFPAY ==
--- NOTE | 2022-07-10 09:07 | XR_ITS ---
FINAL REPORT TECHNIQUE: Bone densitometry calculations of the lumbar spine and right hip were obtained. CLINICAL HISTORY: .COMPRESSION FX, OSEOPOROSIS FINDINGS: DEXA BONE DENSITY AXIAL SKELETON Using L1-4, the bone mineral density of the spine is 1.065 g/cm2, corresponding to T-score of -0.2. Note these values may be falsely elevated secondary to hypertrophic change. Using the right hip, the bone mineral density of the femoral neck is 0.697 g/cm2, corresponding to a T-score of -1.7. NOTE: T-score: Standard deviation compared with peak bone mass of young adult mean. *Following the recommendations of the International Society of Bone densitometry, classification of hip BMD is based on the lower of two T-scores; total hip or femoral neck. IMPRESSION: Normal bone mineral density of the lumbar spine. This value may be falsely elevated secondary to hypertrophic change. Low bone mineral density of the right hip. FRAX 10 year fracture risk is 15% for a hip fracture and 22% for a major osteoporotic fracture. Reviewed, Interpreted and Dictated by Bran Castañeda III, MD Transcribed by Azul Nava Authenticated and [facility]
== END ==
PROVIDERS: PCP Internal Medicine; Visit Provider Nurse Practitioner Family
DX: M81.0 Age-related osteoporosis without current pathological fracture
CPT/HCPCS: 77080

== ENCOUNTER → 2022-07-18 09:10 | Outpatient (POV) | payer MEDICARE, SELFPAY ==
[2022-07-18 09:22] VITALS: BP 132/69; PULSE 99; RESP 18; O2SAT 97; BMI 21.5
--- NOTE | 2022-07-18 09:43 | EXP.PAIN.SOA ---
[facility] Pain Management SOAP Note Subjective:: Patient is a pleasant 76-year-old male who presents today for follow-up of DEXA scan and medication refill. We are currently treating the patient for degenerative disc disease of thoracic spine with thoracic radiculopathy symptoms, status post kyphoplasty at T11 and T12, chronic T1 and T2 compression fractures, mid back pain, low back pain. Today he rates his pain a 0 out of 10 while sitting. He does state when he gets up and moves around he will have random back pain that he rates around a 7 out of 10. He does state this pain has no rhyme or reason and varies on a day-to-day basis. Patient states he has had no additional issues following his kyphoplasty from [facility] in April. He is currently prescribed [place] 7.5mg 4 times a day from Dr. Luu's office and tizanidine 4 mg 3 times a day from our office. Patient denies any side effects from these medications. His Dmitry is [phone] with a morphine equivalent of 30. It has been reviewed and appropriate. Review of Systems: General: No recent weight changes, no fever, no sleep disturbances Respiratory: No cough, no shortness of air, no recurring pulmonary infections Cardiovascular/peripheral vascular: No chest pain, no palpitations, no edema, no shortness of breath Gastrointestinal: No new onset incontinence, normal bowel movements reported Genitourinary: No new onset incontinence Musculoskeletal: Low back pain Psychiatric: [Normal mood/affect] Neurological: [Denies weakness in extremities], [denies balance issues] Objective:: Physical Exam: General: Alert and oriented x3, no acute distress, pleasant and cooperative Lungs: Respirations even and unlabored, symmetrical chest expansion Eyes: PERRL Musculoskeletal: Flexion and extension of lumbar [spine] somewhat guarded secondary to pain, [antalgic gait noted] Neurological: Speech clear, no gross sensory deficit Assessment:: Degenerative disc disease of thoracic spine with thoracic radiculopathy symptoms, status post kyphoplasty at T11 and T12, chronic T1 and T2 compression fractures, mid back pain, low back pain Plan:: Patient does experience some low back pain with limited range of motion. I have discussed with the patient that he may benefit from a lumbar epidural steroid injection in the future. Risk and benefits were discussed with the patient and he would like to hold off at this time. I have counseled the patient that he can call and schedule this injection over the phone at a later date if he decides. The injection would be for a LESI L4-L5. Patient's DEXA scan showed normal bone density of the lumbar spine however did state low density in his right hip and gave a 10-year fracture risk of 15%. Patient's daughter does state that his primary care doctor is planning on putting him on a weekly medication for his bone growth. I will refill the patient's tizanidine 4 mg 3 times a day and provide a 3-month supply of this medication. Patient will return to clinic in 3 months for reevaluation of symptoms and plan of care. Patient has been instructed to contact the clinic with any concerns before the next appointment. Dr. White has reviewed this note and agrees with this plan of care. This note was dictated using voice recognition software and make contain errors or omissions. [facility] Disclaimer: The information contained in this section may have been updated after the patient was seen, as this information can be updated by other users. Medical History CAD (coronary artery disease) Diabetes mellitus, type 2 GERD (gastroesophageal reflux disease) Hyperlipemia Hypertension Surgical History History of coronary artery stent placement History of heart bypass surgery S/P total knee arthroplasty Family History Family history of myocardial infarction Social
== END | disposition home or self-care (01) ==
PROVIDERS: PCP Internal Medicine; Visit Provider Nurse Practitioner Family
DX: M51.14 Intervertebral disc disorders with radiculopathy, thoracic region (principal); M48.54XG Collapsed vertebra, not elsewhere classified, thoracic region, subsequent encounter for fracture with delayed healing
CPT/HCPCS: 99212; G0463

== ENCOUNTER → 2022-09-04 15:07 | Outpatient (POV) | payer MEDICARE, SELFPAY ==
--- NOTE | 2022-09-04 15:31 | EXP.PAIN.SOA ---
[facility] Pain Management SOAP Note Subjective:: Patient is a pleasant 77-year-old male who presents today for follow-up. We are currently treating the patient for degenerative disc disease of thoracic and lumbar spine with thoracic and lumbar radiculopathy symptoms, status post kyphoplasty at T11 and T12, chronic T1 and T2 compression fracture, mid back pain, low back pain, chronic pain syndrome. Today he rates his pain a 10 out of 10. Patient denies any new trauma or injury. Patient denies any change location or type of pain he experiences. Patient states he is having worsening pain in his low back and describes it as an aching, throbbing sensation that is worse with increased activity. He does state it makes walking difficult and he has trouble doing activities of daily living such as cooking and cleaning. He does use a cane for additional help with ambulation. Patient is currently managed with [place] 7.5 mg 4 times a day from Dr. Luu's office and tizanidine 4 mg 3 times a day from our office. Patient denies any side effects from these medications. His Dmitry has been reviewed and is appropriate. Review of Systems: General: No recent weight changes, no fever, no sleep disturbances Respiratory: No cough, no shortness of air, no recurring pulmonary infections Cardiovascular/peripheral vascular: No chest pain, no palpitations, no edema, no shortness of breath Gastrointestinal: No new onset incontinence, normal bowel movements reported Genitourinary: No new onset incontinence Musculoskeletal: Low back pain Psychiatric: [Normal mood/affect] Neurological: [Denies weakness in extremities], [denies balance issues] Objective:: Physical Exam: General: Alert and oriented x3, no acute distress, pleasant and cooperative Lungs: Respirations even and unlabored, symmetrical chest expansion Eyes: PERRL Musculoskeletal: Flexion and extension of lumbar [spine] somewhat guarded secondary to pain, [antalgic gait noted] Neurological: Speech clear, no gross sensory deficit Assessment:: Degenerative disc disease of thoracic and lumbar spine with thoracic and lumbar radiculopathy symptoms, status post kyphoplasty at T11 and T12, chronic T1 and T2 compression fractures, mid back pain, low back pain, chronic pain syndrome Plan:: Patient is experiencing significant pain in his low back with limited range of motion. He does have radiating symptoms into his lower extremities with numbness and tingling. I have discussed with the patient that he may benefit from lumbar epidural steroid injection. Risk and benefits were discussed with patient and he would like to proceed forward with this plan of care. Patient is not on any blood thinners. We will schedule the patient for an LESI L4-L5. Patient has been instructed to contact the clinic with any concerns before the next appointment. Dr. White has reviewed this note and agrees with this plan of care. This note was dictated using voice recognition software and make contain errors or omissions. [facility] Disclaimer: The information contained in this section may have been updated after the patient was seen, as this information can be updated by other users. Medical History CAD (coronary artery disease) Diabetes mellitus, type 2 GERD (gastroesophageal reflux disease) Hyperlipemia Hypertension Surgical History History of coronary artery stent placement History of heart bypass surgery S/P total knee arthroplasty Family History Family history of myocardial infarction Social History Smoking Status: Former smoker alcohol intake: never substance use type: denies use current occupational status: retired Travel in the last 8 weeks: None household members: spouse housing: house current occupational exposures/hazards:
[2022-09-04 15:56] VITALS: BP 160/73; PULSE 96; RESP 19; TEMP 36.9; O2SAT 98; BMI 21.5
== END ==
PROVIDERS: PCP Internal Medicine; Visit Provider Nurse Practitioner Family
DX: M51.16 Intervertebral disc disorders with radiculopathy, lumbar region (principal); M51.14 Intervertebral disc disorders with radiculopathy, thoracic region; M48.54XG Collapsed vertebra, not elsewhere classified, thoracic region, subsequent encounter for fracture with delayed healing; G89.4 Chronic pain syndrome
CPT/HCPCS: 99212; G0463

== ENCOUNTER 2022-09-10 12:44 | Day surgery (SDC) | payer MEDICARE, SELFPAY ==
[2022-09-10 12:54] VITALS: BP 132/69; PULSE 85; RESP 18; TEMP 36.6; O2SAT 98; BMI 21.5
[2022-09-10 13:05] VITALS: BP 146/57; PULSE 85; RESP 18; O2SAT 98
--- NOTE | 2022-09-10 13:12 | EXP.PAIN.PRO ---
Procedure Date: 09/10/22 Time: 13:00 Anesthesiologist:: Mynor Wang CRNA Complications:: None Pre-procedure Diagnosis:: Degenerative disc disease lumbar spine multilevels. Lumbar radiculopathy. Lumbar spondylosis. Multilevel lumbar facet arthropathy Post-procedure Diagnosis:: Same Indications for Procedure:: Patient is a very pleasant 77-year-old male that comes our clinic today for lumbar epidural steroid injection. Patient has had this injection in the past with significant improvement terms of his overall low back pain and bilateral hip and leg radicular symptoms. Patient reports pain is low lumbar with bilateral hip and leg radicular symptoms. He rates his pain 7/10 Procedure Details:: Procedure: Lumbar epidural steroid injection under fluoroscopy Informed consent was obtained and the risks and benefits of the procedure were explained to the patient. The patient was taken to the procedure room and noninvasive monitors placed, including noninvasive blood pressure cuff and pulse oximeter. The back was viewed using C-arm Fluoroscopy and prepped using Chloraprep as a cleansing solution and the L4-L5 interspace was palpated. Skin and subcutaneous tissues were anesthetized using lidocaine 1.5% and a 25-gauge needle. After this, an 18-gauge Touhy epidural needle was placed into the L4-L5 interspace and advanced using fluoroscopic guidance and loss of resistance to air until the epidural space was encountered. After confirmation of needle placement in the epidural space, with dye, a solution containing normal saline, 3 mL and Depo-Medrol 80 mg were incrementally injected into the lumbar epidural space. The patient tolerated the procedure well with no complications. The patient was observed in the Pain Clinic and then discharged home neurologically intact. Plan and Disposition:: Patient was discharged without incident.
== END 2022-09-10 13:05 | disposition home or self-care (01) ==
PROVIDERS: PCP Internal Medicine; Visit Provider Nurse Anesthetist, Certified Registered
DX: M51.16 Intervertebral disc disorders with radiculopathy, lumbar region (principal); M47.26 Other spondylosis with radiculopathy, lumbar region
CPT/HCPCS: 62323; J1040

== ENCOUNTER → 2022-10-07 09:50 | Outpatient (POV) | payer MEDICARE, SELFPAY ==
[2022-10-07 10:01] VITALS: BP 148/72; PULSE 91; RESP 18; O2SAT 95; BMI 21.4
--- NOTE | 2022-10-07 10:04 | EXP.PAIN.SOA ---
[facility] Pain Management SOAP Note Subjective:: Patient is a pleasant 77-year-old male who presents today for follow-up of lumbar epidural steroid injection L4-L5 on 09/10/2022. We are currently treating the patient for degenerative disc disease of thoracic and lumbar spine with thoracic and lumbar radiculopathy symptoms, status post kyphoplasty at T11 and T12, chronic T1 and T2 compression fractures, mid back pain, low back pain, chronic pain syndrome. Today he rates his pain a 6 out of 10. Patient states that he has had at least 80 to 90% improvement in his low back symptoms and feels like it is still continuing to provide additional relief. He does state that his pain today is in his mid back and describes it as an aching, throbbing sensation that is worse with increased activity. Patient denies any new injury or trauma. Patient does state the pain interferes with his ability to perform activities of daily living such as cooking and cleaning. Patient does have a previous kyphoplasty at the location of pain around T11/T12. Patient is currently managed with [place] 5 mg twice a day from Dr. Luu's office and tizanidine 4 mg 3 times a day from our office. Patient denies any side effects from these medications. He does state that he has not had to use his muscle relaxer as frequently and does not need refills at this time. His Dmitry is [phone]. Its been reviewed and appropriate. Review of Systems: General: No recent weight changes, no fever, no sleep disturbances Respiratory: No cough, no shortness of air, no recurring pulmonary infections Cardiovascular/peripheral vascular: No chest pain, no palpitations, no edema, no shortness of breath Gastrointestinal: No new onset incontinence, normal bowel movements reported Genitourinary: No new onset incontinence Musculoskeletal: Mid back pain Psychiatric: [Normal mood/affect] Neurological: [Denies weakness in extremities], [denies balance issues] Objective:: Physical Exam: General: Alert and oriented x3, no acute distress, pleasant and cooperative Lungs: Respirations even and unlabored, symmetrical chest expansion Eyes: PERRL Musculoskeletal: Flexion and extension of thoracic [spine] somewhat guarded secondary to pain, [antalgic gait noted] Neurological: Speech clear, no gross sensory deficit Assessment:: degenerative disc disease of thoracic and lumbar spine with thoracic and lumbar radiculopathy symptoms, status post kyphoplasty at T11 and T12, chronic T1 and T2 compression fractures, mid back pain, low back pain, chronic pain syndrome Plan:: Patient is experiencing significant pain in his mid back with limited range of motion. I have discussed with the patient that he may benefit from a thoracic epidural steroid injection. Risk and benefits were discussed with the patient however at this time he would like to hold off. I have told the patient that he can call and schedule this injection over the phone if his pain does start to worsen. We will plan for a T11-T12 thoracic epidural if he does proceed forward with this injection. Patient will return to clinic in 1 month for reevaluation of symptoms and plan of care. Patient has been instructed to contact the clinic with any concerns before the next appointment. Dr. White has reviewed this note and agrees with this plan of care. This note was dictated using voice recognition software and make contain errors or omissions. [facility] Disclaimer: The information contained in this section may have been updated after the patient was seen, as this information can be updated by other users. Medical History CAD (coronary artery disease) Diabetes mellitus, type 2 GERD (gastroesophageal reflux disease) Hyperlipemia Hypertension Surgical History History of coronary artery stent placement History of heart bypass surgery S/P total knee arthroplasty Family History
== END ==
PROVIDERS: Visit Provider Nurse Practitioner Family
DX: M51.14 Intervertebral disc disorders with radiculopathy, thoracic region (principal); M51.16 Intervertebral disc disorders with radiculopathy, lumbar region; Z98.1 Arthrodesis status; G89.4 Chronic pain syndrome; S22.010S Wedge compression fracture of first thoracic vertebra, sequela; S22.020S Wedge compression fracture of second thoracic vertebra, sequela
CPT/HCPCS: 99212; G0463

== ENCOUNTER 2022-11-05 13:03 | Day surgery (SDC) | payer MEDICARE, SELFPAY ==
[2022-11-05 13:22] VITALS: BP 129/86; PULSE 82; RESP 16; TEMP 36.7; O2SAT 99; BMI 21.5
--- NOTE | 2022-11-05 13:29 | EXP.PAIN.PRO ---
Procedure Date: 11/05/22 Time: 13:35 Anesthesiologist:: Mynor Wang CRNA Complications:: None Pre-procedure Diagnosis:: Degenerative disc thoracic spine. Thoracic radiculopathy. Thoracic spondylosis. Multilevel thoracic facet arthropathy. Post-procedure Diagnosis:: Same. Indications for Procedure:: Patient is a pleasant 77-year-old male that comes our clinic today for T11-12 thoracic epidural steroid injection. Patient complains of thoracic back pain as well as some thoracic radicular symptoms. He rates his pain 7/10. Patient is status post kyphoplasty at T11, T12. Procedure Details:: Procedure:Thoracic epidural steroid injection under fluoroscopy Informed consent was obtained and the risks and benefits of the procedure were explained to the patient. The patient was taken to the procedure room and noninvasive monitors placed, including noninvasive blood pressure cuff and pulse oximeter. The back was viewed using C-Arm fluoroscopy and prepped using Betadine as a cleansing solution and the T11-12 interspace was palpated. Skin and subcutaneous tissues were anesthetized using lidocaine 1.5% and a 25-gauge needle. After this, an 18-gauge Touhy epidural needle was placed into the T11-12 interspace and advanced using fluoroscopic guidance and loss of resistance to air until the epidural space was encountered. After confirmation of needle placement in the epidural space, with dye, a solution containing lidocaine 1.5%, 4 mL and Depo-Medrol 80 mg were incrementally injected into the thoracic epidural space. The patient tolerated the procedure well with no complications. The patient was observed in the Pain Clinic and then discharged home neurologically intact. Plan and Disposition:: Patient was discharged without incident.
[2022-11-05 13:32] VITALS: BP 167/68; PULSE 91; RESP 18; O2SAT 97
[2022-11-05 13:33] VITALS: BP 167/68; PULSE 91; RESP 18; O2SAT 97
[2022-11-05 13:37] VITALS: BP 156/65; PULSE 81; RESP 16; O2SAT 99
== END 2022-11-05 13:37 | disposition home or self-care (01) ==
PROVIDERS: PCP Internal Medicine; Visit Provider Nurse Anesthetist, Certified Registered
DX: M51.14 Intervertebral disc disorders with radiculopathy, thoracic region (principal); M47.24 Other spondylosis with radiculopathy, thoracic region
CPT/HCPCS: 62321; J1040; Q9966

== ENCOUNTER 2023-07-12 11:20 | Emergency (ER) | payer MEDICARE, SELFPAY ==
[2023-07-12] VITALS (12 sets, daily range): BP systolic 140–216; BP diastolic 77–101; PULSE 71–89; RESP 16–20; TEMP 36.9; O2SAT 96–700; BMI 24.4
--- NOTE | 2023-07-12 11:33 | XR_ITS ---
PROCEDURE INFORMATION: Exam: XR Facial Bones, Less Than 3 Views Exam date and time: 07/12/2023 11:35 AM Age: 77 years old Clinical indication: Other: Jaw dislocation TECHNIQUE: Imaging protocol: XR of the facial bones, less than 3 views. Total images: 3 COMPARISON: CT FACIAL BONES WO CON 05/12/2022 11:56 AM FINDINGS: Sinuses: Well aerated. No opacification. Bones/joints: No evidence of acute fracture or dislocation as imaged. Further evaluation with CT scan of the facial bones recommended if symptoms persist. Soft tissues: No soft tissue swelling. IMPRESSION: No evidence of acute fracture or dislocation as imaged. Further evaluation with CT scan of the facial bones recommended if symptoms persist.
--- NOTE | 2023-07-12 11:45 | PC.NURSE ---
PT TO XR
--- NOTE | 2023-07-12 12:49 | CT_ITS ---
PROCEDURE INFORMATION: Exam: CT Maxillofacial Without Contrast Exam date and time: 07/12/2023 1:05 PM Age: 77 years old Clinical indication: Jaw pain; Patient HX: PT unable to close mouth during scan; Additional info: Jaw pain/malocclusion TECHNIQUE: Imaging protocol: Computed tomography of the face without contrast. Total images: 279 Radiation optimization: All CT scans at this facility use at least one of these dose optimization techniques: automated exposure control; mA and/or kV adjustment per patient size (includes targeted exams where dose is matched to clinical indication); or iterative reconstruction. COMPARISON: CT FACIAL BONES WO CON 05/12/2022 11:56 AM FINDINGS: Orbital cavities: Orbits are normal. Globes are unremarkable. Bones/joints: There is anterior dislocation of both temporomandibular joints. No evidence of acute fracture. Paranasal sinuses: Postoperative changes of the maxillary sinuses. Opacification of the right frontal sinus. Mild right sphenoid sinusitis. Soft tissues: Left lateral soft tissue swelling. Nasal cavity: Slight wdvp-oh-laxwv nasal septal deviation. IMPRESSION: 1. There is anterior dislocation of both temporomandibular joints. 2. Left lateral soft tissue swelling. 3. No evidence of acute fracture. 4. Opacification of the right frontal sinus. 5. Slight wzex-ow-qfpwo nasal septal deviation. 6. Mild right sphenoid sinusitis.
--- NOTE | 2023-07-12 12:56 | HMH.EDGENADL ---
Discharge Plan Disposition Patient Disposition: Home, Self-Care Condition: Good Prescriptions Prescriptions: No Action metformin 1,000 mg tablet 1,000 mg PO BIDWMEAL meclizine 25 mg tablet 25 mg PO DAILY PRN (Reason: Dizziness) [employer] 1.5 billion cell capsule See Rx Instructions PO .COMPLEX Rx Instructions: orally DAILY; lisinopril 5 mg tablet 5 mg PO DAILY atorvastatin 20 mg tablet 20 mg PO DAILY aspirin 81 mg Tablet,Delayed Release (Dr/Ec) 81 mg PO DAILY pantoprazole 40 mg tablet,delayed release (DR/EC) 40 mg PO DAILY tizanidine [Zanaflex] 4 mg tablet 4 mg PO TID PRN (Reason: Muscle Spasm) Qty: 90 2RF hydrocodone-acetaminophen 7.5-325 mg tablet 1 tab PO TID Qty: 90 0RF Referrals Follow up/Referrals: Stefan Luu MD [Primary Care Provider] - See instructions Activity Restrictions/Add. Instructions Additional Instructions/Restrictions: You were evaluated in the emergency department today. Please avoid eating and chewing for the next 4 hours. Keep your mouth closed as much as possible. After this, I encourage a liquid diet. Take Tylenol and ibuprofen at home as needed for pain. Follow-up closely with your dentist as well as your primary care provider. Clinical Impressions Clinical Impression: Closed dislocation of temporomandibular joint Instructions Patient Instructions: DI for Jaw Dislocation, DI for Moderate Sedation, Moderate Sedation Discharge ED Provider: Nathalie Kunz General Adult HPI General Chief complaint: Dental/Oral Stated complaint: suspected lock jaw Time Seen by Provider: 07/12/23 11:32 Mode of Arrival: Ambulatory Source of Information: Patient and Relative Limitations: No Limitations Description of Symptoms (Recalled from ER Triage Doc. by RN): lock jaw History of Present Illness HPI narrative: This patient is a 77-year-old male with a history of type 2 diabetes, CAD, TMJ ED, degenerative disc disease, hypertension, hyperlipidemia, and GERD presenting to the emergency department for evaluation with concern for jaw dislocation. Patient reports that is dislocated twice before in the past, and this is the third time. He notes that he woke up this morning around 11 AM, yawned, and then he felt his jaw pop out of place. He has not been able to close it since. No other concerns noted. He notes last time this happened, he was given a shot to put him to sleep and his jaw had to be snapped back in place. Related Data Home Medications Medication Instructions Recorded Confirmed metformin 1,000 mg tablet 1,000 mg PO BIDWMEAL Diabetes 11/10/18 11/05/22 lisinopril 5 mg tablet 5 mg PO DAILY Hypertension 02/22/22 11/05/22 aspirin 81 mg tablet,delayed 81 mg PO DAILY HEART HEALTH 02/23/22 11/05/22 release atorvastatin 20 mg tablet 20 mg PO DAILY Cholesterol 02/23/22 11/05/22 pantoprazole 40 mg tablet,delayed 40 mg PO DAILY Acid reflux 02/23/22 11/05/22 release Lactobacills gasseri-Bifidobac See Rx Instructions PO .COMPLEX 05/30/22 11/05/22 bifidum,longum 1.5 billion cell SUPPLIMENT capsule ([employer]) meclizine 25 mg tablet 25 mg PO DAILY PRN Dizziness 05/30/22 11/05/22 Previous Rx's Medication Instructions Recorded tizanidine 4 mg tablet (Zanaflex) 4 mg PO TID PRN Muscle Spasm #90 07/18/22 tabs hydrocodone 7.5 mg-acetaminophen 1 tab PO TID [facility], 10/21/22 325 mg tablet Severe #90 tabs Allergies Allergy/AdvReac Type Severity Reaction Status Date / Time latex [LATEX] Allergy Intermediate Verified 11/05/22 13:23 [facility] Disclaimer: The information contained in this section may have been updated after the patient was seen, as this information can be updated by other users. Medical History CAD (coronary artery disease) Diabetes mellitus, type 2 Hyperlipemia Hypertension GERD (gastroesophageal reflux disease) Surgical History History of heart bypass surgery History of coronary artery stent placement S/P total knee arthroplasty Family History Other Family history of myocardial infarction Social History Smoking Status: Never smoker alcohol intake: never substance use type: denies use current occupational status: retired Travel in the last 8 weeks: None household members: spouse housing: house current occupational exposures/hazards: No caffeine: Yes ROS Obtained: Yes All systems reviewed & no additional complaints except as documented Physical Exam General General appearance: alert and in no apparent distress Head Head exam: atraumatic and normocephalic Eye Eye exam: Present normal appearance, PERRL and EOMI ENT ENT exam: Present mucous membranes moist and normal external ear exam Expanded ENT Exam Comment: Mandibular deviation to the left with palpable deformity, unable to close mouth Neck Neck exam: Present normal inspection, full ROM and trachea midline; Absent tenderness Chest Chest inspection: Present normal inspection and symmetric chest wall rise; Absent tenderness Respiratory Respiratory exam: Present normal lung sounds bilaterally; Absent respiratory distress, wheezes, stridor or accessory muscle use Cardiovascular Cardiovascular exam: Present regular rate and normal rhythm Abdominal Exam Abdominal exam: Present soft; Absent distention, tenderness or guarding Extremities Exam Extremities exam: Present normal inspection, full ROM and normal capillary refill; Absent tenderness or edema Back Exam Back exam: Present normal inspection and full ROM; Absent tenderness Neurological Exam Neurological exam: Present alert, oriented X3, CN II-XII intact and normal gait; Absent motor sensory deficit Psychiatric Psychiatric exam: Present normal affect and normal mood Skin Skin exam: Present warm and dry Medical Decision Making Medical Records Medical records reviewed: Yes I reviewed the patient's medical records. Dmitry Inquiry Pt receiving controlled substance: No Vital Signs: 07/12/23 11:27 07/12/23 11:54 07/12/23 12:00 Temperature 98.5 F Temperature Source Oral Pulse Rate 81 79 Pulse Rate [Left] 86 Respiratory Rate 18 18 16 Blood Pressure 153/77 H 163/78 H Blood Pressure [Left Arm] 140/80 Blood Pressure Mean 118 106 Blood Pressure Mean [Left Arm] 100 02 Sat by Pulse Oximetry 96 97 99 Oxygen Delivery Method Room Air 07/12/23 12:28 07/12/23 12:31 07/12/23 12:36 Temperature Temperature Source Pulse Rate 76 89 Pulse Rate [Left] Respiratory Rate 16 16 Blood Pressure 167/81 H 200/92 H 216/101 H Blood Pressure [Left Arm] Blood Pressure Mean 99 121 126 Blood Pressure Mean [Left Arm] 02 Sat by Pulse Oximetry 99 98 Oxygen Delivery Method 07/12/23 12:40 07/12/23 13:00 07/12/23 13:30 Temperature Temperature Source Pulse Rate 86 76 76 Pulse Rate [Left] Respiratory Rate 16 16 Blood Pressure 208/101 H 168/85 H 156/80 H Blood Pressure [Left Arm] Blood Pressure Mean 127 105 105 Blood Pressure Mean [Left Arm] 02 Sat by Pulse Oximetry 99 99 700 H Oxygen Delivery Method 07/12/23 13:46 07/12/23 14:00 07/12/23 15:01 Temperature 98.5 F Temperature Source Oral Pulse Rate 72 71 Pulse Rate [Left] Respiratory Rate 18 20 Blood Pressure 147/79 H 165/83 H 169/77 H Blood Pressure [Left Arm] Blood Pressure Mean 101 93 Blood Pressure Mean [Left Arm] 02 Sat by Pulse Oximetry 100 Oxygen Delivery Method Room Air Lab Data Lab results reviewed: Yes I reviewed the patient's lab results. Orders (Tests/Meds): ED MEDICATIONS Discontinued Medications Generic Name Dose Route Start Last Admin Trade Name Freq PRN Reason Stop Dose Admin Ketamine HCl 80 mg 07/12/23 12:27 07/12/23 13:20 Ketamine 50mg/1ml Syringe IV 07/12/23 12:28 80 mg ONCE ONE Administration Midazolam HCl 0.5 mg 07/12/23 12:46 07/12/23 13:15 Midazolam 2mg/2ml Vial IV 07/12/23 12:47 0.5 mg ONCE ONE Administration ORDERS Category Date Time Status CT facial bones wo con Stat Cat Scan 07/12/23 12:49 Completed XR facial bones 2V Stat Exams 07/12/23 11:33 Completed Medical Decision Narrative: In summary, this patient is a 77-year-old male presenting to the Emergency Department for evaluation of jaw dislocation after yawning. Differential diagnoses considered include but are not limited to jaw dislocation, fracture, strain. Ruling out the most morbid conditions drove assessment. On exam, the patient has an obviously dislocated jaw. Patient and family consented to procedural sedation for jaw reduction after risks versus benefit were explained. Patient underwent procedural sedation but I was unable to successfully reduce his jaw. I obtained a CT scan of his face without IV contrast which demonstrated continued dislocation of the jaw. They noted that last time, his dentist Dr. Lundy reduced it. I called him and had an interactive discussion with him, and he does have privileges here at our hospital, so he came in and manually reduced the patient's jaw. Patient had a few subsequent dislocations, 1 of which was caused by him chewing gum, and we advised that he not do that after a subsequent reduction by Dr. Lundy. Patient then maintained appropriate alignment. Given this, family and patient feel comfortable with discharge. I gave them instructions for supportive management, strict return precautions, and the patient was ultimately discharged in stable condition after all questions were answered. Procedures Risk/Benefits of Procedure(s) Were Explained: Yes Procedural Sedation Presedation Evaluation: Patient denies any history of difficult sedation, intubation, or other concerns. He denies any chronic respiratory issues, such as COPD. He also denies JILLIAN. A heart and lung assessment was performed on this patient at: 11:40 Mallampati Score:: Class II Indication: fracture/dislocation reduction ASA Class: II Preparation: emergency communications dispatcher applied, pulse oximeter, capnometry used, supplemental O2 applied, reversal agents at bedside, suction/airway equipment at bedside and IV secured Ketamine: IV Ketamine dose (mg): 80 Complications: hypoventilation Interventions: oxygen applied, airway repositioned, use of reversal agent and assist by BVM Additional Comments: Patient required brief BVM ventilation, which he tolerated well with no signficant desaturation. Returned to pre-procedure baseline. Jaw Reduction Time Out Performed: Yes Pre-Treatment Medications Used: other (ketamine sedation) Technique used: downward anterior traction Reduction successful: No Patient Tolerated Procedure: other (unsuccessful) Critical Care Critical Care Time Critical Care Time: No
[2023-07-12] MEDS: MIDAZOLAM 2MG/2ML VIAL 0.5 MG IV (13:15)
[2023-07-12] MEDS: KETAMINE 50MG/1ML SYRINGE 80 MG IV (13:20)
--- NOTE | 2023-07-12 13:33 | PC.NURSE ---
helped patient with urinal, pt states he had a hard time going so nurse stepped out into wagner to allow for privacy and patient given call daly to ring out when he was done
--- NOTE | 2023-07-12 14:24 | PC.NURSE ---
Dr Schroeder to the bedside at this time
== END 2023-07-12 15:02 | disposition home or self-care (01) ==
PROVIDERS: Emergency Provider Emergency Medicine; PCP Internal Medicine
DX: S03.03XA Dislocation of jaw, bilateral, initial encounter (principal); E11.9 Type 2 diabetes mellitus without complications; K21.9 Gastro-esophageal reflux disease without esophagitis; E78.5 Hyperlipidemia, unspecified; I11.9 Hypertensive heart disease without heart failure; I25.10 Atherosclerotic heart disease of native coronary artery without angina pectoris; Z79.84 Long term (current) use of oral hypoglycemic drugs; X58.XXXA Exposure to other specified factors, initial encounter
CPT/HCPCS: 99152; 70140; 70486; 96374; 96375; 99284

== ENCOUNTER 2023-09-08 14:58 | Outpatient (CLI) | payer MEDICARE, SELFPAY ==
[2023-09-08 14:40] LABS: Basophils # 0.1 K/mm3 (0-0.2); Basophils % 0.7 % (0.1-2.0); Eosinophils # 0.2 K/mm3 (0.0-0.4); Eosinophils % 2.2 % (0.1-12.0); Hematocrit 37.6 % (42.0-52.0); Hemoglobin 12.2 g/dL (14.1-18.0); Lymphocytes # 1.6 K/mm3 (0.7-4.5); Lymphocytes % 23.8 % (10-50); Mean Corpuscular HGB Conc 32.5 g/dL (31.8-35.4); Mean Corpuscular Volume 98.6 fl (80-94); Monocytes # 0.4 K/mm3 (0.1-1.0); Neutrophils # 4.5 K/mm3 (1.8-7.8); Neutrophils % 67.4 % (37.0-80.0); Platelet Count 392 K/mm3 (142-424); Red Blood Count 3.81 M/mm3 (4.60-6.20); Red Cell Distribution Width 14.1 % (11.5-17.5); White Blood Count 6.7 K/mm3 (4.8-10.8)
[2023-09-08 15:02] LABS: Alanine Aminotransferase 19 U/L (12-78); Albumin Level 4.4 g/dl (3.5-5.0); Albumin/Globulin Ratio 1.9 (1.1-1.8); Alkaline Phosphatase 75 U/L (38-126); Anion Gap 14.6 mEq/L (5-15); Aspartate Amino Transferase 26 U/L (17-59); Bilirubin,Total 0.7 mg/dl (0.2-1.3); Blood Urea Nitrogen 17 mg/dl (9-20); Calcium 9.4 mg/dl (8.4-10.2); Carbon Dioxide 27 mmol/L (22.0-30.0); Chloride 102 mmol/L (98-107); Chol/HDL Ratio 3.6 (1-3.5); Cholesterol 151 mg/dl (140-200); Estimated Glomerular Filt Rate 81 ml/min (>60); GFR (African American) 98 ML/MIN (>60); Globulin 2.3 g/dL (1.3-3.2); Glucose 100 mg/dl (74-100); HDL Cholesterol 42 mg/dl (40-60); Potassium 4.6 mmoL/L (3.5-5.1); Sodium 139 mmol/L (136-145); Total Protein,Serum 6.7 g/dl (6.3-8.2); Triglycerides 121 mg/dl (30-150); VLDL Cholesterol 24 mg/dL (0-40)
[2023-09-08 15:10] LABS: Hemoglobin A1C 5.6 % (4.0-6.0)
[2023-09-08 15:13] LABS: Direct LDL Cholesterol 84.54 mg/dL (100-129)
== END 2023-09-08 23:59 | disposition home or self-care (01) ==
LOC: LAB.DROPOF 14:58
PROVIDERS: PCP Internal Medicine; Visit Provider Internal Medicine
DX: E11.59 Type 2 diabetes mellitus with other circulatory complications (principal); I10 Essential (primary) hypertension; E78.5 Hyperlipidemia, unspecified; Z79.84 Long term (current) use of oral hypoglycemic drugs
CPT/HCPCS: 80053; 80061; 83036; 85025

== ENCOUNTER 2024-10-28 08:36 | Emergency (ER) | payer MEDICARE, SELFPAY ==
[2024-10-28] VITALS (11 sets, daily range): BP systolic 143–160; BP diastolic 68–82; PULSE 59–96; RESP 15–16; TEMP 36.4–36.6; O2SAT 92–99; BMI 21.5
--- NOTE | 2024-10-28 08:40 | ECG_ITS ---
APPROVED REPORT Exam: Resting ECG HR:90 bpm ECG Measurements Heart Rate 90 AXES DE 151 P 70 QRSd 98 QRS -36 QT 364 T 53 QTc 412 Conclusion Sinus rhythm with sinus arrhythmia Left axis Normal intervals NO STEMI Electronically signed by : Brett Hemphill, 10/28/2024 17:31:36
--- NOTE | 2024-10-28 08:41 | CT_ITS ---
FINAL REPORT TECHNIQUE: Axial images were obtained of the cervical spine by computed tomography. Coronal and sagittal reconstruction process performed. This study was performed with techniques to keep radiation doses as low as reasonably achievable (ALARA). Individualized dose reduction techniques using automated exposure control or adjustment of mA and/or kV according to the patient''s size were employed. CLINICAL HISTORY: Fall, unknown mechanims, back pain COMPARISON: 05/12/2022 FINDINGS: The patient is obliquely positioned relative to the gantry. The vertebral body heights are normal. The disc spaces are fairly well-preserved. There is moderate disc space narrowing at C6-7 with endplate hypertrophy and moderate bilateral neuroforaminal narrowing. No fractures identified. There is moderate bilateral facet hypertrophy, left greater than right. IMPRESSION: Degenerative changes without acute fracture. Reviewed, Interpreted and Dictated by Maxime Chapa MD Transcribed by Lucia Leonard Authenticated and [facility]
--- NOTE | 2024-10-28 08:41 | CT_ITS ---
FINAL REPORT TECHNIQUE: Axial CT images were performed through the head. Coronal reformatted images were submitted. This study was performed with techniques to keep radiation doses as low as reasonably achievable (ALARA). Individualized dose reduction techniques using automated exposure control or adjustment of mA and/or kV according to the patient's size were employed. CLINICAL HISTORY: Fall, unknown mechanism COMPARISON: 05/12/2022 FINDINGS: There is moderate atrophy with a partial ventriculomegaly. There is no evidence of hemorrhage. There is no mass or edema identified. There is no abnormal extra-axial fluid seen. There is complete opacification of the right cell of the frontal sinus, similar to the prior exam. IMPRESSION: No acute intracranial process. Stable frontal atrophy. Chronic stable right frontal sinusitis. Reviewed, Interpreted and Dictated by Maxime Chapa MD Transcribed by Noemí Mcgregor Authenticated and [facility]
--- NOTE | 2024-10-28 08:41 | CT_ITS ---
FINAL REPORT TECHNIQUE: Axial images were obtained of the thoracic spine by computed tomography. Coronal and sagittal reconstruction process performed. This study was performed with techniques to keep radiation doses as low as reasonably achievable (ALARA). Individualized dose reduction techniques using automated exposure control or adjustment of mA and/or kV according to the patient's size were employed. CLINICAL HISTORY: Fall, unknown mechanims, back pain COMPARISON: 05/12/2022 FINDINGS: There are compression deformities of T11 and T12 measuring approximately 70%. There are postoperative changes from prior kyphoplasties at these levels. There is significant retropulsion involving the superior endplate of T11 with moderate spinal canal compromise. Finding is best seen on image 27 of series 5. There is moderate bilateral neuroforaminal narrowing at T11-12. There is minimal amount of methylmethacrylate extending into the right T12-L1 neuroforamen. Mild compression deformities of T1 and T2 are noted. T2 compression deformity measures 40%. There are associated hypertrophic changes at T1-2 and T 2-3. These are all favored to be chronic. IMPRESSION: Chronic compression deformities of T1, T2, T11, and T12 with kyphoplasty changes at T11 and T12. Significant retropulsion at the inferior endplate of T11 with moderate spinal canal compromise. No acute fracture. Reviewed, Interpreted and Dictated by Maxime Chapa MD Transcribed by Lucia Leonard Authenticated and [facility]
--- NOTE | 2024-10-28 08:41 | CT_ITS ---
FINAL REPORT TECHNIQUE: Axial images were obtained of the lumbar spine by computed tomography. Coronal and sagittal reconstruction process performed. This study was performed with techniques to keep radiation doses as low as reasonably achievable (ALARA). Individualized dose reduction techniques using automated exposure control or adjustment of mA and/or kV according to the patient''s size were employed. CLINICAL HISTORY: Fall, unknown mechanims, back pain COMPARISON: 05/12/2022 FINDINGS: There is moderate anterior osteophyte formation at L1-2, L2-3, and L4-5. The vertebral body heights are normal. There is no malalignment. L1-2: There is no significant canal stenosis or neuroforaminal narrowing. L2-3: There is no significant canal stenosis or neuroforaminal narrowing. L3-4: Mild diffuse disc bulge with mild to moderate bilateral neuroforaminal narrowing. L4-5: Moderate diffuse disc bulge with moderate bilateral neuroforaminal narrowing. L5-S1: Mild to moderate diffuse disc bulge with mild to moderate bilateral neuroforaminal narrowing. IMPRESSION: Multilevel changes of degenerative disc disease without acute bony abnormality. Reviewed, Interpreted and Dictated by Maxime Chapa MD Transcribed by Lucia Leonard Authenticated and [facility]
--- OUTSIDE RECORDS SUMMARY | 2024-10-28 08:41 | XMS_ITS ---
Author Organization [facility] Care Team Providers Care Paving Foreman Name Role Phone Chase Villalobos Unavailable Unavailable Allergies and adverse reactions Code CodeSystem Substance Reaction Severity StartDate Concern Status Latex Moderate 03/12/2022 active Care Team Name Role Address Phone Organization Dates Chase Villalobos PCP [address] [place] [address], [facility], [facility] (Office): : [facility] 03/12/2022 - 03/30/2022 Goals Section Goals Description Status Target Date Maintain stable weight through next review Activ e 04/01/2022 Optimal cognition will be ma intained with no avoidable decline through next review Active 04/01/2022 Pressure ulcer to spine will decrease in size by next review. Active 04/01/2022 Resident will have decreased risk for falls through nursing interventions through next review Active 04/01/2022 Resident will have no compli cations r/t diabetes through next review Active 04/01/2022 Resident will voice minimal level of pain throug h next review Active 04/01/2022 Will achieve/maintain maximu m functional mobility through next review Active 04/01/2022 Immunizations Immunization Status Vaccine Details Vaccine Code CodeSystem Date Notes Influenza completed Influenza, high-dose, split virus, quadrivalent, injectable, preservative free lotNumber: [id number] expiry: 09/20/2022 Mfg: flucelvax Given 0.5 ml Left Deltoid intramuscularly 197 CVX created date: 2 consent date: 2 administe red date: 2 Educated by JOSE Lemus on 03/21/2022 TB 2 Step Mantoux Skin Test completed tuberculin skin test; unspecified formulation lotNumber: [id number] expiry: 02/27/2023 Mfg: PAR Given 0.1 ml Left Forearm intradermally Step 2 of Multi-step with next step required 98 CVX created date: 2 consent date: 2 administe red date: 2 Educated by JOSE Lemus on 03/20/2022 TB 2 Step Mantoux Skin Test completed tuberculin skin test; unspecified formulation lotNumber: [id number] expiry: 02/27/2023 Mfg: [employer] Given 0.5 mg Right Forearm subcutaneously Step 1 of Multi-step with next step required 98 CVX created date: 2 consent date: 2 administe red date: 2 Educated by This nurse on 03/12/2022 Pneumococcal PCV13 cancelled pneumococcal conjugate vaccine, 13 valent 133 CVX created date: 2 consent date: 2 Educated by JOSE Lemus on 03/21/2022 Educated resident on risks versus benefits of receiving pneumonoccal vaccine. Resident refuses at this time. SARS-COV-2 (COVID-19) completed SARS-COV-2 (COVID-19) vaccine, mRNA, spike protein, LNP, preservative free, 100 mcg/0.5mL dose or 50 mcg/0.25mL dose Step 1 of Multi-step 207 CVX created date: 2 administe red date: 1 Moderna booster SARS-COV-2 (COVID-19) completed SARS-COV-2 (COVID-19) vaccine, mRNA, spike protein, LNP, preservative free, 100 mcg/0.5mL dose or 50 mcg/0.25mL dose Step 2 of Multi-step with next step required 207 CVX created date: 2 administe red date: 1 SARS-COV-2 (COVID-19) completed SARS-COV-2 (COVID-19) vaccine, mRNA, spike protein, LNP, preservative free, 100 mcg/0.5mL dose or 50 mcg/0.25mL dose Step 1 of Multi-step with next step required 207 CVX created date: 2 administe red date: 1 Mental Status Section Date Assessment Total Score Description 03/30/2022 BIMS 12 moderate cognit pia impairment CAM 0 No delirium ind icated PHQ-9 00 03/14/2022 BIMS 10 moderate cognit pia impairment CAM 0 No delirium ind icated PHQ-9 10 moderate depres vahe Problems Problem # Description Date of onset Resolved Date Code CodeSystem Concern Status 1 ATHEROSCLEROTIC HEART DISEASE OF [place] CORONARY ARTERY WITHOUT ANGINA PECTORIS 03/12/[address] active 2 DISORDER OF BRAIN, UNSPECIFIED 03/12/[address] active 3 DYSPHAGIA, UNSPECIFIED 03/12/[address] active 4 ESSENTIAL (PRIMARY) HYPERTENSION 03/12/[address] active 5 GASTRO-ESOPHAGEAL REFLUX DISEASE WITHOUT ESOPHAGITIS 03/12/[address] active 6 HYPERLIPIDEMIA, UNSPECIFIED 03/12/[address] active 7 MUSCLE WASTING AND ATROPHY, NOT ELSEWHERE CLASSIFIED, UNSPECIFIED SITE 03/12/[address] active 8 OTHER INTERVERTEBRAL DISC DEGENERATION, LUMBAR REGION 03/12/[address] active 9 RADICULOPATHY, LUMBAR REGION 03/12/[address] active 10 TYPE 2 DIABETES MELLITUS WITHOUT COMPLICATIONS 03/12/[address] active 11 UNSPECIFIED DEMENTIA, UNSPECIFIED SEVERITY, WITHOUT BEHAVIORAL DISTURBANCE, PSYCHOTIC DISTURBANCE, MOOD DISTURBANCE, AND ANXIETY 03/12/[address] active 12 UNSTEADINESS ON FEET 03/12/[address] active 13 WEAKNESS 03/12/[address] active 14 WEDGE COMPRESSION FRACTURE OF T11-T12 VERTEBRA, SUBSEQUENT ENCOUNTER FOR FRACTURE WITH ROUTINE HEALING 03/12/[address] active Reason for Referral No Reasons for Referral Entered Social History Social History Observation Description Start Date End Date Code Code System Current Smoking Status Tobacco smoking consumption unknown 133595350 SNOMED CT Sex Assigned At Male 1945 46019-6 [facility] Gender Identity Vital Signs Code Code System Vitals Name Values and Units Timing Information 61660-9 [facility] Pain Level Value=2.0 03/30/2022 2339-0 [facility] Blood Sugar Ykvcl=502.0 Units=mg/dL 03/30/2022 8462-4 [facility] Blood Pressure-Diastolic Value=64 Un its=mmHg 03/29/2022 8480-6 [facility] Blood Pressure-Systolic Zjomy=963 Un its=mmHg 03/29/2022 58956-7 [facility] O2 % BldC Oximetry Value=95.0 Units= % 03/29/2022 8310-5 [facility] Body Temperature Value=97.7 Units= F 03/29/2022 8867-4 [facility] Heart rate Value=72.0 Units=/min 08/2022 9279-1 [facility] Respiratory Rate Value=20.0 Units=/m in 03/29/2022 00590-8 [facility] Weight Yabow=956.8 Units=Lbs 03/2022 8302-2 [facility] Height Value=70.0 Units=Inches 03/13/2022
--- OUTSIDE RECORDS SUMMARY | 2024-10-28 08:41 | XMS_ITS | Clinical Summary ---
Author Organization [facility] ([place], [place], [place], [place]) Address [address] [place] [address] Care Team Providers Care Undergraduate Advisor Name Role Phone Stefan Luu MD Primary Care Provider [phone] Social History Tobacco Use Types Packs/Day Years Used Date Smoking Tobacco: Never Assessed Sex and Gender Information Value Date Recorded Sex Assigned at Not on file Legal Sex Male 12:21 PM [employer] Gender Identity Not on file Sexual Orientation Not on file Plan of Treatment Not on file Insurance MEDICARE PART A B Care Teams Undergraduate Advisor Relationship Specialty Start Date End Date Stefan Luu MD [address] [place] [address] [place] [address] PCP - General General Internal Medicine 02/25/22
--- OUTSIDE RECORDS SUMMARY | 2024-10-28 08:41 | XMS_ITS | Referral Summary ---
Author Organization [employer] ([place], [place], [place], [place]) Address [address] [place] [address] Care Team Providers Care Infrastructure Engineer Name Role Phone Stefan Luu MD Primary Care Provider [phone] Social History Tobacco Use Types Packs/Day Years Used Date Smoking Tobacco: Never Assessed Sex and Gender Information Value Date Recorded Sex Assigned at Not on file Legal Sex Male 12:21 PM HY[employer]OELECT[employer] Gender Identity Not on file Sexual Orientation Not on file Plan of Treatment Not on file Insurance MEDICARE PART A B Care Teams Infrastructure Engineer Relationship Specialty Start Date End Date Stefan Luu MD [address] [place] [address] [place] [address] PCP - General General Internal Medicine 02/25/22
--- NOTE | 2024-10-28 08:45 | ED_ITS ---
Discharge Plan Disposition Patient Disposition: Home, Self-Care Condition: Good Prescriptions Prescriptions: No Action meclizine 25 mg tablet 25 mg PO DAILY PRN (Reason: Dizziness) alendronate 70 mg tablet PO aspirin [Stanley Aspirin] 325 mg tablet 325 mg PO DAILY Qty: 90 1RF atorvastatin 20 mg tablet 20 mg PO HS Qty: 90 1RF lisinopril 5 mg tablet 5 mg PO DAILY Qty: 90 1RF metformin 1,000 mg tablet 1,000 mg PO BIDWMEAL Qty: 180 1RF pantoprazole 40 mg tablet,delayed release (DR/EC) See Rx Instructions .ROUTE .COMPLEX Qty: 90 1RF Dose Instruction: TAKE 1 TABLET EVERY DAY Rx Instructions: TAKE 1 TABLET EVERY DAY tizanidine [Zanaflex] 4 mg tablet 4 mg PO TID PRN (Reason: Muscle Spasm) Qty: 90 2RF acetaminophen-codeine 300-30 mg tablet 1 tab PO Q4-6H PRN (Reason: pain) Qty: 120 0RF Referrals Follow up/Referrals: Provider,Referral, MD [Referring, Medical] - See instructions Activity Restrictions/Add. Instructions Additional Instructions/Restrictions: His CT scans did show some worsening degeneration of his prior back fractures. If he develops difficulty urinating, numbness in his legs, or weakness in his legs please return to the ER. Please follow up with his primary care physician so they are aware he was seen here today for a fall at home. Clinical Impressions Clinical Impression: Fall Qualifiers: Encounter type: initial encounter Qualified Code(s): W19.XXXA - Unspecified fall, initial encounter Back pain Qualifiers: Back pain location: thoracic back pain Chronicity: acute Back pain laterality: bilateral Qualified Code(s): M54.6 - Pain in thoracic spine Print Language Print Language: Irish Discharge ED Provider: Brett Hemphill General Adult HPI General Chief complaint: Fall Stated complaint: Fall Time Seen by Provider: 10/28/24 08:41 History of Present Illness HPI narrative: This is an 79-year-old male patient with past medical history of type 2 diabetes, dementia, hypertension, hyperlipidemia, T11 and T12 fracture status post kyphoplasty, and coronary artery disease status post CABG, who is presenting to the emergency department today for evaluation of a fall. The patient currently lives with his daughter at home. She states that this morning she checked on him around 3 AM and he was in the bed. When she checked on him again at 6 AM this morning he was lying in the floor. She estimates that he was in the floor for around 3 hours. When she found him he seemed to be mentating appropriately. Since the fall he has been complaining of back pain chiefly. He denies chest pain and shortness of breath. He has been able to move his legs and denies motor weakness and sensory deficits in the legs. Related Data Home Medications ?Medication ?Instructions ?Recorded ?Confirmed meclizine 25 mg tablet 25 mg PO DAILY PRN Dizziness 05/30/22 12/08/23 alendronate 70 mg tablet mg PO 09/08/23 12/08/23 Previous Rx's ?Medication ?Instructions ?Recorded aspirin 325 mg tablet (Stanley 325 mg PO DAILY #90 tabs 12/08/23 Aspirin) atorvastatin 20 mg tablet 20 mg PO HS #90 tabs 4 lisinopril 5 mg tablet 5 mg PO DAILY Hypertension # 90 tabs 12/08/23 metformin 1,000 mg tablet 1,000 mg PO BIDWMEAL Diabete s #180 12/08/23 tabs pantoprazole 40 mg tablet,delayed See Rx Instructions .Route 12/08/23 release .COMPLEX #90 tabs tizanidine 4 mg tablet (Zanaflex) 4 mg PO TID PRN Musc le Spasm #90 12/08/23 tabs acetaminophen 300 mg-codeine 30 mg 1 tab PO Q4-6H PRN pain #120 tabs 02/24/24 tablet Allergies Allergy/AdvReac Type Severity Reaction Status Date / Time latex (LATEX) Allergy Intermediate Verified 12/08/23 09:39 [facility] Disclaimer: The information contained in this section may have been updated after the patient was seen, as this information can be updated by other users. Medical History CAD (coronary artery disease) Diabetes mellitus, type 2 Hyperlipemia Hypertension GERD (gastroesophageal reflux disease) Surgical History History of heart bypass surgery History of coronary artery stent placement S/P total knee arthroplasty Family History Other Family history of myocardial infarction Social History Smoking Status: Never smoker alcohol intake: never substance use type: denies use current occupational status: retired Travel in the last 8 weeks?: None household members: spouse housing: house current occupational exposures/hazards: No caffeine: Yes Have you lived/traveled outside US in past 30 days?: No Contact w/someone who lives/traveled outside US past 30 days?: No Exposure to someone with infectious disease in past 14 days?: No Do you have a fever (greater than 100.4 F or 38 C)?: No Have you tested positive for COVID-19?: No Exposed to someone with COVID-19 in past 14 days?: No Do you have a sore throat?: No Do you have a cough?: No Do you have any weakness?: No Do you have any diarrhea?: No Are you experiencing any unusual bleeding?: No Do you have any muscle aches/pain?: No Do you have any abdominal pain?: No Are you experiencing loss of taste or smell?: No Other Medical History Have you received the Flu Vaccine for this season: No Have you received the Pneumonia Vaccine: Yes ROS Obtained: Yes Systems reviewed as appropriate & no additional complaints except as documented Physical Exam General General appearance: other (See MDM) Respiratory Respiratory exam: Present other (See MDM) Cardiovascular Cardiovascular exam: Present other (See MDM) Neurological Exam Neurological exam: Present other (See MDM) Medical Decision Making Medical Records Screening: Per USPSTF and CDC recommendations, given the prevalence of disease in our region, it is our hospital?s policy to screen for HIV and viral Hepatitis for all patients aged 18 and over and those with ongoing risk factors. Dmitry Inquiry Pt receiving controlled substance: No Dmitry was queried for this patient: No Vital Signs: 10/28/24 08:35 10/28/24 08:42 10/28/24 08:50 Temperature 97.6 F 97.6 F Temperature Source Oral Oral Pulse Rate 92 H 96 H Pulse Rate [Right] 96 H Respiratory Rate 16 16 Blood Pressure 160/82 H 160/82 H Blood Pressure [Right Arm] 160/82 H Blood Pressure Mean Blood Pressure Mean [Right Arm] 108 Blood Pressure Source Automatic Cuff Blood Pressure Source [Right Arm] Automatic Cuff Blood Pressure Position Supine Blood Pressure Position [Right Arm] Supine 02 Sat by Pulse Oximetry 92 L 96 96 Oxygen Delivery Method Room Air Room Air 10/28/24 08:54 10/28/24 09:00 10/28/24 10:01 Temperature Temperature Source Pulse Rate 85 76 Pulse Rate [Right] Respiratory Rate Blood Pressure 146/72 H 150/73 H Blood Pressure [Right Arm] Blood Pressure Mean 96 Blood Pressure Mean [Right Arm] Blood Pressure Source Blood Pressure Source [Right Arm] Blood Pressure Position Blood Pressure Position [Right Arm] 02 Sat by Pulse Oximetry 96 96 96 Oxygen Delivery Method Room Air 10/28/24 10:30 10/28/24 11:00 10/28/24 12:00 Temperature Temperature Source Pulse Rate 74 74 59 L Pulse Rate [Right] Respiratory Rate Blood Pressure 155/71 H 157/69 H 149/80 H Blood Pressure [Right Arm] Blood Pressure Mean 85 95 102 Blood Pressure Mean [Right Arm] Blood Pressure Source Blood Pressure Source [Right Arm] Blood Pressure Position Blood Pressure Position [Right Arm] 02 Sat by Pulse Oximetry 98 97 99 Oxygen Delivery Method Lab Data Lab Results 10/28/24 10:20: Urine Color Yellow, Urine Appearance Clear, Urine pH 6.0, Ur Specific [place] 1.025, Urine Protein Trace, Urine Glucose (UA) Negative, Urine Ketones 1+, Urine Blood 1+ A, Urine Nitrate Negative, Urine Bilirubin Negative, Urine Urobilinogen 0.2, Ur Leukocyte Esterase Negative, Urine RBC None, Urine WBC None, Ur Squamous Epith Cells None, Urine Bacteria Trace 10/28/24 11:37: Troponin I 0.03 10/28/24 : WBC 11.7 H, RBC 4.01 L, Hgb 12.7 L, Hct 37.9 L, MCV 94.5 H, MCH 31.7 H, MCHC 33.5, RDW 12.5, Plt Count 245, MPV 9.2, Neut % (Auto) 85.3 H, Lymph % (Auto) 7.0 L, Hardin % (Auto) 6.8, Eos % (Auto) 0.0 L, Baso % (Auto) 0.6, Neut # (Auto) 10.0 H, Lymph # (Auto) 0.8, Hardin # (Auto) 0.8, Eos # (Auto) 0.0, Baso # (Auto) 0.1, Sodium 133 L, Potassium 4.4, Chloride 100, Carbon Dioxide 24, Anion Gap 13.4, BUN 20, Creatinine 1.10, Estimated Creat Clear 57, Estimated GFR 64, Est GFR ( Amer) 78, Glucose 154 H, Calcium 9.1, Total Bilirubin 1.1, AST 35, ALT 18, Alkaline Phosphatase 65, Total Creatine Kinase 449 H, Troponin I 0.02, Total Protein 7.3, Albumin 4.5, Globulin 2.8, Albumin/Globulin Ratio 1.6, HCV Ab RONALD w/Rflx PCR Qn Negative, HIV Ag/Ab Combo Qual Negative 10/28/24 Unknown 10/28/24 Unknown Orders (Tests/Meds): ED MEDICATIONS Discontinued Medications Generic Name Dose Route Start Last Admin Trade Name Freq PRN Reason Stop Dose Admin Acetaminophen 1,000 mg 10/28/24 08:41 10/28/24 09:02 Acetaminophen 500mg Tab PO 10/28/24 08:42 1,000 mg ONCE ONE Administration Lactated Ringer's 1,000 mls @ 999 mls/hr 10/28/24 09:24 10/28/24 09:32 Lactated Ringer's 1000 Ml Bag IV 10/28/24 10:24 999 mls/hr .Q1H1M ONE Administration Methocarbamol 1,500 mg 10/28/24 08:41 10/28/24 09:02 Methocarbamol 500mg Tablet PO 10/28/24 08:42 1,500 mg ONCE ONE Administration Morphine Sulfate 4 mg 10/28/24 08:41 10/28/24 09:03 Morphine 4mg/Ml Syringe IV 10/28/24 08:42 4 mg ONCE ONE Administration Ondansetron HCl 4 mg 10/28/24 08:41 10/28/24 09:02 Ondansetron 4mg/2ml Vial IV 10/28/24 08:42 4 mg ONCE ONE Administration ORDERS Category Date Time Status CT cervical spine wo con Stat Cat Scan 10/28/24 08:[address] head/brain wo con Stat Cat Scan 10/28/24 08:[address] lumbar spine wo con Stat Cat Scan 10/28/24 08:[address] thoracic spine wo con Stat Cat Scan 10/28/24 08:41 Completed CBC w/Auto Diff [Complete Blood Count Auto Diff] Stat Lab 10/28/24 Completed CK [Creatine Kinase] Stat Lab 10/28/24 Completed CMP [Comprehensive Metabolic Panel] Stat Lab 10/28/24 Completed HIV Combo Stat Lab 10/28/24 Completed Hepatitis C Ab Qual. W/ RFX Stat Lab 10/28/24 Completed Trop I [Troponin I] Stat Lab 10/28/24 Completed Troponin I Q3H Lab 10/28/24 11:37 Completed Troponin I Q3H Lab 10/28/24 14:45 Ordered Urinalysis and Microscopic Stat Lab 10/28/24 10:20 Completed ECG Data Tracing #1: I reviewed this ECG and interpreted as documented below: EKG personally interpreted by me demonstrates normal sinus rhythm with a rate of 90 bpm, left axis, no TX prolongation, narrow QRS, no QTc prolongation. No ST elevation or depression. No overt signs of ischemia. There is baseline artifact which does make this EKG difficult to interpret. Medical Decision Narrative: In summary, this is an 79-year-old male who is presenting to the emergency department today for evaluation of a fall at home from which the mechanism is unknown and he was down in the floor for approximately 3 hours. His comorbidities include hypertension, hyperlipidemia, CAD status post CABG, GERD, and dementia. The patient does take a daily aspirin but is not currently anticoagulated. On initial evaluation of the patient he was sitting upright in no acute distress and was nontoxic in appearance. He is hemodynamically stable, saturating well on room air, and is neurologically intact. On physical examination of the patient he is alert and oriented x 3. He does display some signs of dementia as he repeatedly asks when his will be arriving to the hospital, however his is currently . On secondary survey of the patient he has no scalp lacerations, hematomas, or abrasions. No midface instability or jaw malocclusion. No intraoral lacerations or lesions. No tenderness along the basilar skull. No evidence of hemotympanum or nasal septal hematoma. His trachea is midline. He has no tenderness along his anterior chest wall or anterior abdominal wall. Pelvis is stable and has no tenderness to palpation. He has full range of motion of his lower extremities and his upper extremities. There is no tenderness to palpation of his extremities. He has 5 out of 5 strength and normal sensation in all 4 extremities. He does have C, T, and L-spine tenderness in the midline. C- collar is currently in place. Differential diagnosis includes intracranial hemorrhage, skull fracture, cervical spine fracture, thoracic spine fracture, lumbar spine fracture, among others. We will also assess for associated medical conditions such as ACS/UT, cardiogenic causes of syncope, and associated rhabdomyolysis given that he was down in the floor for several hours. Workup was initiated with hematologic labs as well as CT scans of the head, C, T, and L-spine. Initial interventions have included 1500 mg Robaxin, 1 g of Tylenol, 4 mg of morphine, and 4 mg of Zofran. We will reassess. Please see my interpretation of the patient's EKG above. The labs were personally interpreted by me and are only remarkable for a mild elevation of his creatine kinase level of approximately 400. There is no concomitant increase in creatinine to suggest renal dysfunction. His AST/ALT are also within normal limits. Given this finding we did administer 1 L of lactated Ringer's, however this will not need ongoing treatment. Otherwise the patient does not have any evidence of urinary tract infection. His troponins are nonischemic. We did obtain a CT scan of his head, C, T, and L-spine. These were personally interpreted by me and I do not appreciate any large intracranial hemorrhages or obvious fractures of the spine. I do appreciate that there is chronic appearing compression deformities of T11 and T12 which are characterized in prior notes. Official radiology read is in agreement and states that there is no acute abnormality. They do note that at the level of T11 and T12 there is retroavulsion with central canal stenosis. The patient is not experiencing any motor deficits in his lower extremities and he is not experiencing any sensory deficits. He declines saddle anesthesia and is not experiencing urinary retention or urinary incontinence. I did review the CT images with both him and his daughter and they state that he would not be willing to undergo surgery even if he needed it at his current age. I have advised that they follow-up with her primary care doctor and see a digital campaign specialist for his spine to see if there is any other conservative measures that they can provide for them. They acknowledge understanding of this plan. I have also advised him to return to the emergency department if he experiences any of the symptoms mentioned above. At this time the patient remains at his baseline mental status and his pain has significantly improved from arrival. All questions have been answered and all parties are agreeable with the decision to discharge home. Critical Care Critical Care Time Critical Care Time: No
[2024-10-28 08:54] LABS: Hematocrit 37.9 % (42.0-52.0); Hemoglobin 12.7 g/dL (14.1-18.0); Immature Granulocytes % 0.3 %; Mean Corpuscular HGB Conc 33.5 g/dL (31.8-35.4); Mean Corpuscular Hemoglobin 31.7 pg (27.0-31.2); Mean Corpuscular Volume 94.5 fl (80-94); Nucleated Red Blood Cells % 0 %; Platelet Count 245 K/mm3 (142-424); Red Blood Count 4.01 M/mm3 (4.60-6.20); Red Cell Distribution Width-SD 43.8 fL; White Blood Count 11.7 K/mm3 (4.8-10.8)
[2024-10-28] MEDS: ONDANSETRON 4MG/2ML VIAL 4 MG IV (09:02)
[2024-10-28] MEDS: METHOCARBAMOL 500MG TABLET 1500 MG PO (09:02)
[2024-10-28] MEDS: ACETAMINOPHEN 500MG TAB 1000 MG PO (09:02)
[2024-10-28] MEDS: MORPHINE 4MG/ML SYRINGE 4 MG IV (09:03)
[2024-10-28 09:05] LABS: Albumin Level 4.5 g/dl (3.5-5.0); Chloride 100 mmol/L (98-107); Potassium 4.4 mmoL/L (3.5-5.1); Sodium 133 mmol/L (136-145)
[2024-10-28 09:07] LABS: Alanine Aminotransferase 18 U/L (12-78); Anion Gap 13.4 mEq/L (5-15); Aspartate Amino Transferase 35 U/L (17-59); Blood Urea Nitrogen 20 mg/dl (9-20); Carbon Dioxide 24 mmol/L (22.0-30.0); Creatinine Clearance Estimated 57 mL/min (50-200); Creatinine,Serum 1.10 mg/dl (0.66-1.25); Estimated Glomerular Filt Rate 64 ml/min (>60); GFR (African American) 78 ML/MIN (>60)
[2024-10-28 09:08] LABS: Albumin/Globulin Ratio 1.6 (1.1-1.8); Alkaline Phosphatase 65 U/L (38-126); Bilirubin,Total 1.1 mg/dl (0.2-1.3); Calcium 9.1 mg/dl (8.4-10.2); Creatine Kinase 449 U/L (55-170); Globulin 2.8 g/dL (1.3-3.2); Glucose 154 mg/dl (74-100); Total Protein,Serum 7.3 g/dl (6.3-8.2)
[2024-10-28 09:20] LABS: Troponin I 0.02 ng/ml (0.00-0.034)
[2024-10-28] MEDS: LACTATED RINGERS 1000ML 1,000 ML 999 ML IV (09:32)
[2024-10-28 10:21] LABS: Hepatitis C Ab Qual. W/ RFX NEGATIVE (Negative)
[2024-10-28 10:24] LABS: Bilirubin,Urine Negative (Negative); Color,Urine YELLOW (Yellow); Glucose,Urine (UA) Negative (Negative); Ketones,Urine 1+ (Negative); Leukocyte Esterase,Urine Negative (Negative); Microscopic, Urine URINE MICROSCOPIC (MICROSCOPIC); PH,Urine 6.0 (5.0-8.5); Protein,Urine TRACE (Negative); Specific Gravity, Urine 1.025 (1.005-1.030); Urobilinogen,Urine 0.2 EU/dl (0.2)
[2024-10-28 10:54] LABS: Bacteria,Urine Trace /lpf
[2024-10-28 12:07] LABS: Troponin I 0.03 ng/ml (0.00-0.034)
== END 2024-10-28 12:51 | disposition home or self-care (01) ==
PROVIDERS: Emergency Provider Student in an Organized Health Care Education/Training Program; PCP Internal Medicine
DX: M54.6 Pain in thoracic spine (principal); E87.1 Hypo-osmolality and hyponatremia; I10 Essential (primary) hypertension; E11.9 Type 2 diabetes mellitus without complications; E78.5 Hyperlipidemia, unspecified; Z86.79 Personal history of other diseases of the circulatory system; W19.XXXA Unspecified fall, initial encounter
CPT/HCPCS: 70450; 72125; 72128; 72131; 80053; 81001; 82550; 84484; 85025; 86803; 87389; 93005; 96361; 96374; 96375; 99285; J2270; J2405; J7120

== ENCOUNTER 2025-01-11 13:29 | Inpatient (IN) | payer MEDICARE, SELFPAY ==
[2025-01-11] VITALS (8 sets, daily range): BP systolic 157–187; BP diastolic 74–94; PULSE 84–94; RESP 18–22; TEMP 37.3–37.6; O2SAT 95–97; BMI 24.4; BMI 24.3
--- NOTE | 2025-01-11 13:26 | CT_ITS ---
FINAL REPORT TECHNIQUE: Noncontrast exam This study was performed with techniques to keep radiation doses as low as reasonably achievable, (ALARA). Individualized dose reduction techniques using automated exposure control or adjustment of mA and/or kV according to the patient''s size were employed. CLINICAL HISTORY: AMS, found down COMPARISON: 10/28/2024 FINDINGS: Severe atrophy and chronic ischemic white matter changes are noted. No cortical edema is present. There is no mass or hemorrhage. Ventricles are normal. There is chronic right frontal sinusitis. Bone windows show no skull fracture or obvious obstructive lesion. IMPRESSION: 1. No acute intracranial abnormality or obvious mass. 2. Atrophy and chronic ischemic white matter changes as above. Reviewed, Interpreted and Dictated by John Bello MD Transcribed by Noemí Mcgregor Authenticated and [facility]
--- NOTE | 2025-01-11 13:26 | CT_ITS ---
FINAL REPORT CLINICAL HISTORY: AMS, found down COMPARISON: none FINDINGS: CTA HEAD TECHNIQUE: Thin section axial CT with contrast with 3D MIP reconstruction This study was performed with techniques to keep radiation doses as low as reasonably achievable, (ALARA). Individualized dose reduction techniques using automated exposure control or adjustment of mA and/or kV according to the patient''s size were employed. FINDINGS: No aneurysm is seen. Major intracranial vessels are patent without significant stenosis. . There is persistent origin of the right DEMENTIA PROGRAM DIRECTOR as a normal variant. IMPRESSION: Unremarkable This study was performed using automated techniques to achieve radiation exposure as low as reasonably achievable Reviewed, Interpreted and Dictated by John Bello MD Transcribed by Noemí Mcgregor Authenticated and [facility]
--- NOTE | 2025-01-11 13:26 | XR_ITS ---
FINAL REPORT CLINICAL HISTORY: AMS,, found down FINDINGS: CHEST, 1 view COMPARISON: None FINDINGS: No acute pulmonary opacity is present. There is no evidence of effusion or pneumothorax. There is evidence of prior median sternotomy, presumably from CABG. Otherwise, mediastinum is unremarkable. Heart size is normal. IMPRESSION: Unremarkable chest, status post CABG. Reviewed, Interpreted and Dictated by John Bello MD Transcribed by Noemí Mcgregor Authenticated and . [facility]
--- NOTE | 2025-01-11 13:26 | CT_ITS ---
FINAL REPORT CLINICAL HISTORY: AMS, found down COMPARISON: none FINDINGS: CT NECK ANGIO, WITHOUT AND WITH CONTRAST TECHNIQUE: Thin section axial CT with contrast with multiplanar 3D MIP reconstruction. This study was performed with techniques to keep radiation doses as low as reasonably achievable, (ALARA). Individualized dose reduction techniques using automated exposure control or adjustment of mA and/or kV according to the patient''s size were employed. NASCET criteria and technique was utilized during interpretation. FINDINGS: Aortic arch: Arch shows no significant narrowing. Great vessel origins are widely patent. Right carotid: 60% proximal right ICA stenosis located approximately 2 cm beyond the bifurcation. Left carotid: Mild stenosis up to 20%. Vertebrals: Left vertebral artery is dominant. No significant stenosis is present. IMPRESSION: 60% proximal right ICA stenosis and mild left stenosis up to 20%. This study was performed using automated techniques to achieve radiation exposure as low as reasonably Reviewed, Interpreted and Dictated by John Bello MD Transcribed by Noemí Mcgregor Authenticated and . [facility]
--- NOTE | 2025-01-11 13:30 | ECG_ITS ---
APPROVED REPORT Exam: Resting ECG HR:81 bpm ECG Measurements Heart Rate 81 AXES KS 132 P 101 QRSd 100 QRS -48 QT 374 T 56 QTc 411 Conclusion SINUS RHYTHM LEFT AXIS DEVIATION [QRS AXIS < -30] PATTERN CONSISTENT WITH PULMONARY DISEASE ABNORMAL ECG UNCONFIRMED REPORT Electronically signed by : RADHA HAMMER, 01/13/2025 06:48:20
--- NOTE | 2025-01-11 13:34 | ED_ITS ---
Discharge Plan Disposition Patient Disposition: Admitted Condition: Fair Clinical Impressions Clinical Impression: Rhabdomyolysis, Encephalopathy, Acute hyperkalemia, Elevated troponin Discharge ED Provider: Kayden Antonio General Adult HPI <Kayden Antonio MD - Last Filed: 01/11/25 18:25> General Chief complaint: Altered Mental Status Stated complaint: Neuro symptoms, poss stroke Time Seen by Provider: 01/11/25 13:34 Mode of Arrival: EMS Source of Information: EMS Limitations: Altered Mental Status History of Present Illness HPI narrative: Lawanda Jauregui is an 79y male with a past medical history of GERD, hypertension, hyperlipidemia, type 2 diabetes, coronary artery disease status post stent who presents to the emergency department via EMS for altered mental status. Per EMS, patient was last seen normal by daughter at approximately 8 AM this morning. When she checked on him around noon, she said that he was in the floor and altered and drooling. She does state that he has intermittent episodes of confusion and does appear confused at this time. Last time when he was confused like this he had a urinary tract infection. Patient is alert and sitting upright and will follow occasional commands such as wiggling his toes and closing his mouth for thermometer placement, however he is not answering any questions. He does appear to be moving all extremities spontaneously. Patient's daughter arrived at approximately 1350 and I discussed with her when she noticed. She states that he patient lives alone but she visits him every day. She visited on Friday and said that he had a little bit of slurred speech. She thought his sugar might be low so she gave him some to eat. She put him in his chair and then checked on him a few minutes later and he was in the floor. She was able to get him back into bed. She said that patient has been wanting to sleep more over the last few days. She states that today, she has changed multiple wet underwear and diapers and is concerned he may have a urinary tract affection. She states that he has had urinary tract infections in the past. She states that he is normally alert and oriented and drives and mows the lawn and is GCS 15 at baseline, however today he has been more confused and is having difficulty answering questions. She states that he went to bed at 730 this morning and slept until noon and did not want to wake up and she found him on the floor again and that is when she called EMS. Related Data Previous Rx's ?Medication ?Instructions ?Recorded aspirin 325 mg tablet (Stanley 325 mg PO DAILY #90 tabs 12/08/23 Aspirin) Allergies Allergy/AdvReac Type Severity Reaction Status Date / Time latex (LATEX) Allergy Intermediate Verified 12/08/23 09:39 [facility] <Kayden Antonio MD - Last Filed: 01/11/25 18:25> PFS Disclaimer: The information contained in this section may have been updated after the patient was seen, as this information can be updated by other users. Medical History CAD (coronary artery disease) Diabetes mellitus, type 2 Hyperlipemia Hypertension GERD (gastroesophageal reflux disease) Surgical History History of heart bypass surgery History of coronary artery stent placement S/P total knee arthroplasty Family History Other Family history of myocardial infarction Social History (Updated 01/11/25 @ 16:09 by Michelle Gaming RN) Smoking Status: Never smoker alcohol intake: never substance use type: denies use current occupational status: retired Travel in the last 8 weeks?: None household members: spouse housing: house current occupational exposures/hazards: No caffeine: Yes Have you lived/traveled outside [place] in past 30 days?: No Contact w/someone who lives/traveled outside US past 30 days?: No Exposure to someone with infectious disease in past 14 days?: No Do you have a fever (greater than 100.4 F or 38 C)?: No Have you tested positive for COVID-19?: No Exposed to someone with COVID-19 in past 14 days?: No Do you have a sore throat?: No Do you have a cough?: No Do you have any weakness?: No Do you have any diarrhea?: No Are you experiencing any unusual bleeding?: No Do you have any muscle aches/pain?: No Do you have any abdominal pain?: No Are you experiencing loss of taste or smell?: No Other Medical History Have you received the Flu Vaccine for this season: No Have you received the Pneumonia Vaccine: Yes <Kayden Antonio MD - Last Filed: 01/11/25 18:25> ROS Obtained: Yes Systems reviewed as appropriate & no additional complaints except as documented Physical Exam <Kayden Antonio MD - Last Filed: 01/11/25 18:25> General General appearance: alert and in no apparent distress Head Head exam: atraumatic Eye Eye exam: Present normal appearance ENT ENT exam: Present normal external ear exam Neck Neck exam: Present full ROM Chest Chest inspection: Present symmetric chest wall rise Respiratory Respiratory exam: Present normal lung sounds bilaterally; Absent respiratory distress Cardiovascular Cardiovascular exam: Present regular rate and normal rhythm Abdominal Exam Abdominal exam: Present soft; Absent tenderness or guarding exam: Present deferred Extremities Exam Extremities exam: Present normal inspection Back Exam Back exam: Present normal inspection Neurological Exam Neurological exam: Present alert and oriented X3 Psychiatric Psychiatric exam: Present normal affect Skin Skin exam: Present warm and dry Medical Decision Making <Kayden Antonio MD - Last Filed: 01/11/25 18:25> Medical Records Screening: Per USPSTF and CDC recommendations, given the prevalence of disease in our region, it is our hospital?s policy to screen for HIV and viral Hepatitis for all patients aged 18 and over and those with ongoing risk factors. Dmitry Inquiry Pt receiving controlled substance: No Vital Signs: 01/11/25 13:30 01/11/25 13:30 01/11/25 13:31 Temperature 99.1 F 99.1 F Temperature Source Oral Pulse Rate 86 84 Pulse Rate [Right] 86 Respiratory Rate 22 22 Blood Pressure 187/94 H 171/91 H Blood Pressure [Right Arm] 187/94 H Blood Pressure Mean [Right Arm] 125 02 Sat by Pulse Oximetry 95 95 97 Oxygen Delivery Method 01/11/25 14:00 01/11/25 14:30 01/11/25 15:01 Temperature Temperature Source Pulse Rate 94 H 88 91 H Pulse Rate [Right] Respiratory Rate Blood Pressure 166/74 H 163/75 H 160/86 H Blood Pressure [Right Arm] Blood Pressure Mean [Right Arm] 02 Sat by Pulse Oximetry 96 96 95 Oxygen Delivery Method Room Air Room Air 01/11/25 16:00 01/11/25 16:04 Temperature 99.1 F Temperature Source Pulse Rate 91 H Pulse Rate [Right] Respiratory Rate 22 Blood Pressure 165/84 H Blood Pressure [Right Arm] Blood Pressure Mean [Right Arm] 02 Sat by Pulse Oximetry Oxygen Delivery Method Room Air Lab Data Lab Results 01/11/25 13:26: VBG pH 7.37, VBG pCO2 41.3, VBG pO2 26.8 L, VBG HCO3 23.4, VBG Total CO2 24.7, VBG O2 Saturation 50.5, VBG Base Excess -1.9, VBG Lactic Acid 2.3 H 01/11/25 13:30: WBC 10.6, RBC 4.30 L, Hgb 13.4 L, Hct 39.8 L, MCV 92.6, MCH 31.2, MCHC 33.7, RDW 13.6, Plt Count 231, MPV 9.3, Neut % (Auto) 85.0 H, Lymph % (Auto) 7.6 L, [place] % (Auto) 6.5, Eos % (Auto) 0.0 L, Baso % (Auto) 0.4, Neut # (Auto) 9.0 H, Lymph # (Auto) 0.8, [place] # (Auto) 0.7, Eos # (Auto) 0.0, Baso # (Auto) 0.0, PT 12.5, INR 1.14 H, APTT 24.9, Sodium 135 L, Potassium 5.8 H, C hloride 97 L, Carbon Dioxide 25, Anion Gap 18.8 H, BUN 22 H, Creatinine 1.10, Estimated Creat Clear 61, Estimated GFR 64, Est GFR ( Amer) 78, Glucose 167 H, Calcium 9.4, Magnesium 1.8, Total Bilirubin 2.0 H, AST 57, ALT 34, Alkaline Phosphatase 62, Total Creatine Kinase 832 H*, Troponin I 0.04 H, Total Protein 8.0, Albumin 4.7, Globulin 3.3 H, Albumin/Globulin Ratio 1.4, TSH 0.66, Plasma/Serum Alcohol < 10 01/11/25 14:52: Urine Opiates Screen Negative, Urine Methadone Screen Negative, Ur Barbituates Screen Negative, Ur Phencyclidine Scrn Negative, Ur Amphetamines Screen Negative, U Benzodiazepines Scrn Negative, Urine Cocaine Screen Negative, U Marijuana (THC) Screen Negative 01/11/25 14:55: Urine Color Yellow, Urine Appearance Clear, Urine pH 6.0, Ur Specific [place] 1.020, Urine Protein 2+ A, Urine Glucose (UA) Negative, Urine Ketones 2+, Urine Blood 3+ A, Urine Nitrate Negative, Urine Bilirubin Negative, Urine Urobilinogen 0.2, Ur Leukocyte Esterase Negative, Urine RBC 3-5, Urine WBC Occasional, Ur Squamous Epith Cells None, Urine Bacteria Trace, Urine Sperm 1+ 01/11/25 13:30 01/11/25 13:30 Orders (Tests/Meds): ED MEDICATIONS Generic Name Dose Route Start Last Admin Trade Name Di PRN Reason Stop Dose Admin Acetaminophen 650 mg 01/11/25 15:48 Acetaminophen 325mg Tab PO 02/10/25 15:47 Q4HP PRN Fever or Mild Pain (1-3) Enoxaparin Sodium 40 mg 01/12/25 09:00 Enoxaparin 40mg/0.4ml Syringe SUBCUT 02/11/25 08:59 DAILY VLAD Lactated Ringer's 1,000 mls @ 100 mls/hr 01/11/25 16:15 Lactated Ringer's 1000 Ml Bag IV 02/10/25 16:14 .Q10H VLAD Ondansetron HCl 4 mg 01/11/25 15:48 Ondansetron 4mg/2ml Vial IV 02/10/25 15:47 Q8HP PRN Nausea Sodium Chloride 10 ml 01/11/25 16:05 Sodium Chloride 0.9% 10ml Flush Syringe IV 02/10/25 16:04 NEEDED PRN Maintain IV Site Discontinued Medications Generic Name Dose Route Start Last Admin Trade Name Di PRN Reason Stop Dose Admin Lactated Ringer's 1,000 mls @ 999 mls/hr 01/11/25 14:28 01/11/25 16:10 Lactated Ringer's 1000 Ml Bag IV 01/11/25 15:28 Infused .Q1H1M ONE Infusion Iopamidol 80 ml 01/11/25 13:49 01/11/25 13:49 Iopamidol-370 (76%);100ml Bottle IV 01/11/25 13:50 80 ml ONCE ONE Administration Sodium Chloride 10 ml 01/11/25 13:49 01/11/25 13:49 Sodium Chloride 0.9% 10ml Syr (Rad Only) IV 01/11/25 13:50 10 ml ONCE ONE Administration Sodium Chloride 50 ml 01/11/25 13:49 01/11/25 13:49 0.9 % Sodium Chloride 50 Ml Vial IV 01/11/25 13:50 50 ml ONCE ONE Administration ORDERS Category Date Time Status CT angio head Stat Cat Scan 01/11/25 13:[address] angio neck Stat Cat Scan 01/11/25 13:[address] facial bones wo con Stat Cat Scan 01/11/25 13:[address] head/brain wo con Stat Cat Scan 01/11/25 13:26 Completed CXR --portable [XR chest portable] Stat Exams 01/11/25 13:26 Completed Ammonia Routine Lab 01/11/25 16:01 Completed CBC w/Auto Diff [Complete Blood Count Auto Diff] Stat Lab 01/11/25 13:30 Completed CK [Creatine Kinase] Stat Lab 01/11/25 13:30 Completed CMP [Comprehensive Metabolic Panel] Stat Lab 01/11/25 13:30 Completed Complete Blood Count Auto Diff AMLAB Lab 01/12/25 06:00 Ordered Complete Blood Count Auto Diff AMLAB Lab 01/13/25 06:00 Ordered Complete Blood Count Auto Diff AMLAB Lab 01/14/25 06:00 Ordered Comprehensive Metabolic Panel AMLAB Lab 01/12/25 06:00 Ordered Comprehensive Metabolic Panel AMLAB Lab 01/13/25 06:00 Ordered Comprehensive Metabolic Panel AMLAB Lab 01/14/25 06:00 Ordered Ethyl Alcohol Stat Lab 01/11/25 13:30 Completed Hemoglobin A1C Routine Lab 01/11/25 16:01 Completed Magnesium AMLAB Lab 01/12/25 06:00 Ordered Magnesium AMLAB Lab 01/13/25 06:00 Ordered Magnesium AMLAB Lab 01/14/25 06:00 Ordered Magnesium Stat Lab 01/11/25 13:30 Completed PT INR [Prothrombin Time INR] Stat Lab 01/11/25 13:30 Completed PTT [Activated Partial Thrombo Time] Stat Lab 01/11/25 13:30 Completed TSH [Thyroid Stimulating Hormone] Routine Lab 01/11/25 13:30 Completed Troponin I Q3H Lab 01/11/25 16:04 Completed Troponin I Q3H Lab 01/11/25 19:30 Ordered Troponin I Stat Lab 01/11/25 13:30 Completed UA [Urinalysis and Microscopic] Stat Lab 01/11/25 14:55 Completed UDS [Drug Screen,Urine] Stat Lab 01/11/25 14:52 Completed Blood Culture Stat Micro 01/11/25 14:50 Received Urine Culture Stat Micro 01/11/25 14:55 Received VBG [Venous Blood Gas] Stat RT 01/11/25 13:26 Completed ECG Data Tracing #1: I reviewed this ECG and interpreted as documented below: Normal sinus rhythm. No ST elevation or depression. QTc of 411 Medical Decision Narrative: Lawanda Jauregui is an 79y male with a past medical history of GERD, hypertension, hyperlipidemia, type 2 diabetes, coronary artery disease status post stent who presents to the emergency department via EMS for altered mental status. Per EMS, patient was last seen normal by daughter at approximately 8 AM this morning. When she checked on him around noon, she said that he was in the floor and altered and drooling. She does state that he has intermittent episodes of confusion and does appear confused at this time. Last time when he was confused like this he had a urinary tract infection. Patient is alert and sitting upright and will follow occasional commands such as wiggling his toes and closing his mouth for thermometer placement, however he is not answering any questions. He does appear to be moving all extremities spontaneously. Patient's daughter arrived at approximately 1350 and I discussed with her when she noticed. She states that he patient lives alone but she visits him every day. She visited on Friday and said that he had a little bit of slurred speech. She thought his sugar might be low so she gave him some to eat. She put him in his chair and then checked on him a few minutes later and he was in the floor. She was able to get him back into bed. She said that patient has been wanting to sleep more over the last few days. She states that today, she has changed multiple wet underwear and diapers and is concerned he may have a urinary tract affection. She states that he has had urinary tract infections in the past. She states that he is normally alert and oriented and drives and mows the lawn and is GCS 15 at baseline, however today he has been more confused and is having difficulty answering questions. She states that he went to bed at 730 this morning and slept until noon and did not want to wake up and she found him on the floor again and that is when she called EMS. Differential diagnosis includes, but is not limited to: Sepsis, urinary tract infection, metabolic encephalopathy, electrolyte derangement, dehydration, rhabdomyolysis, stroke, ACS, among others. The most morbid conditions were considered and workup was based on these. Workup in the emergency department included: VBG, CTA head and neck, CT head without, CT face, chest x-ray, lactic acid, EKG, PT/INR, PTT, troponin, CBC with differential, CMP, alcohol level, CK, magnesium level, blood culture x 2, UA, UDS. Patient's workup showed no leukocytosis, stable low hemoglobin at 13.4, hematocrit 39.8, there is neutrophilia with total white blood cell count of 10.6. Coagulation studies grossly unremarkable nonactionable. VBG shows mildly elevated lactate of 2.3 with pH normal at 7.37, pCO2 41.3, bicarb 23.4. Electrolytes show mildly low sodium of 135, mild hyperkalemia at 5.8 without EKG changes. Elevated anion gap of 18.8, no BENNETT but mildly elevated BUN of 22 and creatinine of 1.10. Magnesium normal at 1.8. Mildly elevated bilirubin at 2.0 but liver enzymes otherwise within normal limits. CK is markedly elevated at 832 consistent with rhabdomyolysis. Initial troponin mildly elevated at 0.04, likely type II NSTEMI from demand ischemia given patient's poor oral intake over the last several days. Urinalysis with 2+ protein but negative nitrate and leukocyte esterase. There are 3-5 red blood cells and only occasional white blood cells on microscopy. Trace bacteria noted. Based on patient's urinalysis, there is low concern for urinary tract infection and antibiotics were deferred at this time. Patient's UDS is negative. Alcohol level is negative. Patient was started on 1 L lactated ringer for his rhabdomyolysis. Chest x-ray interpreted by me personally shows no evidence of pneumonia. No pulmonary effusion or pneumothorax. Sternotomy wires present. See radiology report for details. CT head interpreted by me personally. No intracranial hemorrhage, mass or midline shift. There is fairly significant atrophy. Chronic ischemic white matter changes. CTA imaging was interpreted by me personally. No large vessel occlusion or critically significant stenosis. No aneurysms. 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 See radiology report for details. 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 She states on his last admission, he had recurrent dislocations and based on previous notes, it dislocated 3 times in 1 day, however he was still able to eat and talk at that time. Patient was noted to be yawning multiple times here in the emergency department and at times appeared to be able to close his jaw completely but at other times was unable to do so and I feel that he is intermittently reducing and re-dislocating his jaw with his frequent yawning. Given the patient's continued encephalopathy in the setting of rhabdomyolysis and mild hyperkalemia, I do feel patient requires admission for continued IV fluids and investigation into his encephalopathy. Bradley Collazo: upon assumption of care at approximately 3 PM patient is hemodynamically stable. Workup has been completed and the case was discussed with hospital medicine prior to my assumption of care. Patient was admitted in stable condition for continued evaluation. <Bradley Collazo MD - Last Filed: 01/11/25 16:32> Vital Signs: 01/11/25 13:30 01/11/25 13:30 01/11/25 13:31 Temperature 99.1 F 99.1 F Temperature Source Oral Pulse Rate 86 84 Pulse Rate [Right] 86 Respiratory Rate 22 22 Blood Pressure 187/94 H 171/91 H Blood Pressure [Right Arm] 187/94 H Blood Pressure Mean [Right Arm] 125 02 Sat by Pulse Oximetry 95 95 97 Oxygen Delivery Method 01/11/25 14:00 01/11/25 14:30 01/11/25 15:01 Temperature Temperature Source Pulse Rate 94 H 88 91 H Pulse Rate [Right] Respiratory Rate Blood Pressure 166/74 H 163/75 H 160/86 H Blood Pressure [Right Arm] Blood Pressure Mean [Right Arm] 02 Sat by Pulse Oximetry 96 96 95 Oxygen Delivery Method Room Air Room Air 01/11/25 16:00 01/11/25 16:04 Temperature 99.1 F Temperature Source Pulse Rate 91 H Pulse Rate [Right] Respiratory Rate 22 Blood Pressure 165/84 H Blood Pressure [Right Arm] Blood Pressure Mean [Right Arm] 02 Sat by Pulse Oximetry Oxygen Delivery Method Room Air Lab Data Lab Results 01/11/25 13:26: VBG pH 7.37, VBG pCO2 41.3, VBG pO2 26.8 L, VBG HCO3 23.4, VBG Total CO2 24.7, VBG O2 Saturation 50.5, VBG Base Excess -1.9, VBG Lactic Acid 2.3 H 01/11/25 13:30: WBC 10.6, RBC 4.30 L, Hgb 13.4 L, Hct 39.8 L, MCV 92.6, MCH 31.2, MCHC 33.7, RDW 13.6, Plt Count 231, MPV 9.3, Neut % (Auto) 85.0 H, Lymph % (Auto) 7.6 L, [place] % (Auto) 6.5, Eos % (Auto) 0.0 L, Baso % (Auto) 0.4, Neut # (Auto) 9.0 H, Lymph # (Auto) 0.8, [place] # (Auto) 0.7, Eos # (Auto) 0.0, Baso # (Auto) 0.0, PT 12.5, INR 1.14 H, APTT 24.9, Sodium 135 L, Potassium 5.8 H, C hloride 97 L, Carbon Dioxide 25, Anion Gap 18.8 H, BUN 22 H, Creatinine 1.10, Estimated Creat Clear 61, Estimated GFR 64, Est GFR ( Amer) 78, Glucose 167 H, Calcium 9.4, Magnesium 1.8, Total Bilirubin 2.0 H, AST 57, ALT 34, Alkaline Phosphatase 62, Total Creatine Kinase 832 H*, Troponin I 0.04 H, Total Protein 8.0, Albumin 4.7, Globulin 3.3 H, Albumin/Globulin Ratio 1.4, TSH 0.66, Plasma/Serum Alcohol < 10 01/11/25 14:52: Urine Opiates Screen Negative, Urine Methadone Screen Negative, Ur Barbituates Screen Negative, Ur Phencyclidine Scrn Negative, Ur Amphetamines Screen Negative, U Benzodiazepines Scrn Negative, Urine Cocaine Screen Negative, U Marijuana (THC) Screen Negative 01/11/25 14:55: Urine Color Yellow, Urine Appearance Clear, Urine pH 6.0, Ur Specific [place] 1.020, Urine Protein 2+ A, Urine Glucose (UA) Negative, Urine Ketones 2+, Urine Blood 3+ A, Urine Nitrate Negative, Urine Bilirubin Negative, Urine Urobilinogen 0.2, Ur Leukocyte Esterase Negative, Urine RBC 3-5, Urine WBC Occasional, Ur Squamous Epith Cells None, Urine Bacteria Trace, Urine Sperm 1+ Orders (Tests/Meds): ED MEDICATIONS Generic Name Dose Route Start Last Admin Trade Name Di PRN Reason Stop Dose Admin Acetaminophen 650 mg 01/11/25 15:48 Acetaminophen 325mg Tab PO 02/10/25 15:47 Q4HP PRN Fever or Mild Pain (1-3) Enoxaparin Sodium 40 mg 01/12/25 09:00 Enoxaparin 40mg/0.4ml Syringe SUBCUT 02/11/25 08:59 DAILY VLAD Lactated Ringer's 1,000 mls @ 100 mls/hr 01/11/25 16:15 Lactated Ringer's 1000 Ml Bag IV 02/10/25 16:14 .Q10H VLAD Ondansetron HCl 4 mg 01/11/25 15:48 Ondansetron 4mg/2ml Vial IV 02/10/25 15:47 Q8HP PRN Nausea Sodium Chloride 10 ml 01/11/25 16:05 Sodium Chloride 0.9% 10ml Flush Syringe IV 02/10/25 16:04 NEEDED PRN Maintain IV Site Discontinued Medications Generic Name Dose Route Start Last Admin Trade Name Fremarsha PRN Reason Stop Dose Admin Lactated Ringer's 1,000 mls @ 999 mls/hr 01/11/25 14:28 01/11/25 16:10 Lactated Ringer's 1000 Ml Bag IV 01/11/25 15:28 Infused .Q1H1M ONE Infusion Iopamidol 80 ml 01/11/25 13:49 01/11/25 13:49 Iopamidol-370 (76%);100ml Bottle IV 01/11/25 13:50 80 ml ONCE ONE Administration Sodium Chloride 10 ml 01/11/25 13:49 01/11/25 13:49 Sodium Chloride 0.9% 10ml Syr (Rad Only) IV 01/11/25 13:50 10 ml ONCE ONE Administration Sodium Chloride 50 ml 01/11/25 13:49 01/11/25 13:49 0.9 % Sodium Chloride 50 Ml Vial IV 01/11/25 13:50 50 ml ONCE ONE Administration ORDERS Category Date Time Status CT angio head Stat Cat Scan 01/11/25 13:[address] angio neck Stat Cat Scan 01/11/25 13:[address] facial bones wo con Stat Cat Scan 01/11/25 13:[address] head/brain wo con Stat Cat Scan 01/11/25 13:26 Completed CXR --portable [XR chest portable] Stat Exams 01/11/25 13:26 Completed Ammonia Routine Lab 01/11/25 16:01 Completed CBC w/Auto Diff [Complete Blood Count Auto Diff] Stat Lab 01/11/25 13:30 Completed CK [Creatine Kinase] Stat Lab 01/11/25 13:30 Completed CMP [Comprehensive Metabolic Panel] Stat Lab 01/11/25 13:30 Completed Complete Blood Count Auto Diff AMLAB Lab 01/12/25 06:00 Ordered Complete Blood Count Auto Diff AMLAB Lab 01/13/25 06:00 Ordered Complete Blood Count Auto Diff AMLAB Lab 01/14/25 06:00 Ordered Comprehensive Metabolic Panel AMLAB Lab 01/12/25 06:00 Ordered Comprehensive Metabolic Panel AMLAB Lab 01/13/25 06:00 Ordered Comprehensive Metabolic Panel AMLAB Lab 01/14/25 06:00 Ordered Ethyl Alcohol Stat Lab 01/11/25 13:30 Completed Hemoglobin A1C Routine Lab 01/11/25 16:01 Completed Magnesium AMLAB Lab 01/12/25 06:00 Ordered Magnesium AMLAB Lab 01/13/25 06:00 Ordered Magnesium AMLAB Lab 01/14/25 06:00 Ordered Magnesium Stat Lab 01/11/25 13:30 Completed PT INR [Prothrombin Time INR] Stat Lab 01/11/25 13:30 Completed PTT [Activated Partial Thrombo Time] Stat Lab 01/11/25 13:30 Completed TSH [Thyroid Stimulating Hormone] Routine Lab 01/11/25 13:30 Completed Troponin I Q3H Lab 01/11/25 16:04 Completed Troponin I Q3H Lab 01/11/25 19:30 Ordered Troponin I Stat Lab 01/11/25 13:30 Completed UA [Urinalysis and Microscopic] Stat Lab 01/11/25 14:55 Completed UDS [Drug Screen,Urine] Stat Lab 01/11/25 14:52 Completed Blood Culture Stat Micro 01/11/25 14:50 Received Urine Culture Stat Micro 01/11/25 14:55 Received VBG [Venous Blood Gas] Stat RT 01/11/25 13:26 Completed Medical Decision Narrative: Lawanda Jauregui is an 79y male with a past medical history of GERD, hypertension, hyperlipidemia, type 2 diabetes, coronary artery disease status post stent who presents to the emergency department via EMS for altered mental status. Per EMS, patient was last seen normal by daughter at approximately 8 AM this morning. When she checked on him around noon, she said that he was in the floor and altered and drooling. She does state that he has intermittent episodes of confusion and does appear confused at this time. Last time when he was confused like this he had a urinary tract infection. Patient is alert and sitting upright and will follow occasional commands such as wiggling his toes and closing his mouth for thermometer placement, however he is not answering any questions. He does appear to be moving all extremities spontaneously. Patient's daughter arrived at approximately 1350 and I discussed with her when she noticed. She states that he patient lives alone but she visits him every day. She visited on Friday and said that he had a little bit of slurred speech. She thought his sugar might be low so she gave him some to eat. She put him in his chair and then checked on him a few minutes later and he was in the floor. She was able to get him back into bed. She said that patient has been wanting to sleep more over the last few days. She states that today, she has changed multiple wet underwear and diapers and is concerned he may have a urinary tract affection. She states that he has had urinary tract infections in the past. She states that he is normally alert and oriented and drives and mows the lawn and is GCS 15 at baseline, however today he has been more confused and is having difficulty answering questions. She states that he went to bed at 730 this morning and slept until noon and did not want to wake up and she found him on the floor again and that is when she called EMS. Bradley Collazo: upon assumption of care at approximately 3 PM patient is hemodynamically stable. Workup has been completed and the case was discussed with hospital medicine prior to my assumption of care. Patient was admitted in stable condition for continued evaluation. Critical Care <Bradley Collazo MD - Last Filed: 01/11/25 16:32> Critical Care Time Critical Care Time: No
[2025-01-11 13:39] LABS: Hematocrit 39.8 % (42.0-52.0); Hemoglobin 13.4 g/dL (14.1-18.0); Immature Granulocytes % 0.5 %; Mean Corpuscular HGB Conc 33.7 g/dL (31.8-35.4); Mean Corpuscular Hemoglobin 31.2 pg (27.0-31.2); Mean Corpuscular Volume 92.6 fl (80-94); Nucleated Red Blood Cells % 0 %; Platelet Count 231 K/mm3 (142-424); Red Blood Count 4.30 M/mm3 (4.60-6.20); Red Cell Distribution Width-SD 46.2 fL; White Blood Count 10.6 K/mm3 (4.8-10.8)
--- NOTE | 2025-01-11 13:42 | CT_ITS ---
FINAL REPORT TECHNIQUE: Thin section axial CT with coronal reconstruction without IV contrast This study was performed with techniques to keep radiation doses as low as reasonably achievable, (ALARA). Individualized dose reduction techniques using automated exposure control or adjustment of mA and/or kV according to the patient''s size were employed. CLINICAL HISTORY: Possible jaw dislocation COMPARISON: 07/12/2023 FINDINGS: No fracture is present. Postoperative changes in the ethmoid air cells and turbinates. Chronic right frontal sinusitis. There is anterior dislocation of the left TMJ and anterior subluxation of the right TMJ. IMPRESSION: No evidence of facial fracture. Dislocation of the TMJs as above. Chronic right frontal sinusitis. Reviewed, Interpreted and Dictated by John Bello MD Transcribed by Noemí Mcgregor Authenticated and [facility]
[2025-01-11 13:48] LABS: VBG HCO3 23.4 mmol/L (23-30); VBG PCO2 41.3 mmol/L (35-51); VBG PH 7.37 mmol/L (7.31-7.41); VBG PO2 26.8 mmol/L (28-40)
[2025-01-11] MEDS: SODIUM CHLORIDE 0.9% 10ML SYR (RAD ONLY) 10 ML IV (13:49)
[2025-01-11] MEDS: IOPAMIDOL-370 (76%);100ML BOTTLE 80 ML IV (13:49)
[2025-01-11] MEDS: 0.9 % SODIUM CHLORIDE 50 ML VIAL IV (13:49)
[2025-01-11 13:50] LABS: Lactate Venous 2.3 mmol/L (0.4-2.0)
--- OUTSIDE RECORDS SUMMARY | 2025-01-11 13:51 | XMS_ITS | Referral Summary ---
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
--- OUTSIDE RECORDS SUMMARY | 2025-01-11 13:51 | XMS_ITS | Clinical Summary ---
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
--- OUTSIDE RECORDS SUMMARY | 2025-01-11 13:51 | XMS_ITS | Clinical Summary ---
Author Organization [facility] Address [address] [place] [address] Phone Care Team Providers Care Chef Concierge Name Role Phone Hiram Gilmore MD Unavailable [phone] Stefan Luu MD Primary Care Provider [phone] Allergies Active Allergy Reactions Criticality Noted Date Comments Latex 12/19/2015 Unsure /had prostate exam and thinks he had reaction from glove Atorvastatin Pravastatin 2011 myalgias Grgvtrc-Syt-Wzn Reductase Inhibitors 08/01/2015 Medications TENS Units (TENS 504) DeviIndications:OA (osteoarthritis),B ack pain 1 Device by [facility].(Non-Drug; Combo Route) route See Admin Instructions. 1 Device 0 07/16/19 14 Active aspirin 81 mg Oral Tablet, Chewable Take 1 Tab by mouth daily. 05/06/19 17 Active docusate sodium (COLACE) 100 mg Oral CapsuleIndications :Constipation, unspecified constipation type Take 1 Cap by mouth 2 times daily. 30 Cap 2 05/24/19 17 Active Additional Information Patient not taking.Reason: Advised by Physician, Reported on 11/25/2019 lisinopril (PRINIVIL;ZESTRIL) 5 mg Oral Tablet Take 1 Tab by mouth daily. 30 Tab 11 01/01/20 17 Active traMADol (ULTRAM) 50 mg Oral TabletIndications: Generalized osteoarthritis of multiple sites Take 1 Tab by mouth every 6 hours as needed. for pain 50 Tab 1 05/14/19 18 Active colesevelam (WELCHOL) 625 mg Oral Tablet Take 3 Tabs by mouth 2 times daily (with meals). 144 Tab 05/14/19 18 Active Additional Information Patient not taking.Reason: Therapy Completed, Reported on 11/12/2018 pantoprazole (PROTONIX) 20 mg Oral Tablet, Delayed Release (E.C.)Indications: ASHD (arteriosclerotic heart disease) Take 1 Tab by mouth daily. 90 Tab 1 05/14/19 18 Active metFORMIN (GLUCOPHAGE) 1,000 mg Oral TabletIndications: Type 2 diabetes mellitus without complication, without long-term current use of insulin (HCC) Take 1 Tab by mouth 2 times daily. 180 Tab 1 05/14/19 18 Active Active Problems Patient Care Coordination No te Formatting of this note migh t be different from the original. Control Drug Agreement 08/09/13 Dmitry as expected 05/13/17 [id number] UDS as expected 02/18/17 Problem Noted Date Diagnosed Date Hyperlipidemia associated with type 2 diabetes m ellitus 10/24/2016 History of coronary artery bypass graft 06/26/19 17 S/P CABG x 3 05/16/2016 BPH without urinary obstruction 07/19/2015 ASHD (arteriosclerotic heart disease) 10/18/2009 Type 2 diabetes mellitus without complication Hypertension associated with diabetes GERD (gastroesophageal reflux disease) Colon polyp 08/24/10 OA (osteoarthritis) Resolved Problems Problem Noted Date Diagnosed Date Resolved Date Hyperlipidemia 06/25/2016 Immunizations Immunization Administration Dates Next Due Influenza High Dose 11/28/2015 Influenza Vaccine, Unspecifi ed Formulation 12/31/2016,01/11/2015,12/22/2013,01/22,01/28/2011,12/31/2009,02/01/20 09 Pneumococcal Conjugate Vacci ne 13 Valent 02/22/2015 Pneumococcal Polysaccharide 23 Valent 01/28/2011 Td, Unspecified Formulation 04/16/2002 Tdap 08/31/2012 08/31/2022 Zoster 10/14/2012 Surgical History Surgery Date Site/Laterality Comments COLONOSCOPY 08/24/10 CORONARY ANGIOPLASTY WITH STENT PLACEMENT HERNIA REPAIR COLONOSCOPY 12/21/2015 CORONARY ARTERY BYPASS GRAFT 05/01/2016 N/A CORONARY ARTERY BYPASS GRAFT X3 USING THE RIGHT SAPHENOUS VEIN X2 AND LEFT INTERNAL MAMMARY ARTERY X1 WITH 3D TRANS ESOPHAGEAL ECHOCARDIOGRAM ; Surgeon: Chidi Brandon MD; Location: [facility]; Service: Open Heart Medical History Medical History Date Comments Type II or unspecified type diabetes mellitus without mention of complication, not stated as uncontrolled Unspecified essential hypertension Other and unspecified hyperlipidemia GERD (gastroesophageal reflux disease) Colon polyp OA (osteoarthritis) 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 i. Diabetes Other sister Diabetes Sister Anesth Problems Neg Hx Relation Name Status Comments Father Maternal Grandfather Maternal Grandmother Maternal Uncle Mother Other sister Alive Paternal Grandfather Paternal Grandmother Sister Alive Social History Tobacco Use Types Packs/Day Years Used Date Smoking Tobacco: Never Smokeless Tobacco: Never Tobacco Cessation:Counseling Given: No Alcohol Use Standard Drinks/Week Comments No 0 (1 standard drink = 0.6 oz pur e alcohol) Sex and Gender Information Value Date Recorded Sex Assigned at Not on file Legal Sex Male 6:38 AM EDT Gender Identity Not on file Sexual Orientation Not on file Last Filed Vital Signs Vital Sign Reading Time Taken Comments Blood Pressure 138/82 11/25/2019 9:20 AM EDT Pulse 88 11/25/2019 9:20 AM EDT Temperature 35.8 C (96.4 F) 05/14/2017 1:59 PM EST Respiratory Rate 20 05/06/2016 10:5 0 AM EST Oxygen Saturation 98% 05/16/2016 12: 42 PM EST Inhaled Oxygen Concentration - - Weight 94.8 kg (208 lb 14.4 oz) 11/25/2019 9:20 AM EDT Height 185.4 cm (6' 1 ) 11/25/2019 9:20 AM EDT Body Mass Index 27.56 11/25/2019 9:20 AM EDT Plan of Treatment Health Maintenance Due Date Last Done Comments Wellness Exam Medicare 08/12/1948 Diabetic Eye Exam 08/12/1961 Zoster (2 of 3) 12/09/2012 10/14/2012 Hemoglobin A1c 11/05/2017 05/08/2017, 09/22, 04/30/2016, Additional history exists Kidney Health: uACR 05/08/2018 05/08/2017, 04/23/2016, 02/13/2015, Additional history exists RSV or 60+ (1 - 1-dose 75+ series) 08/12/2018 Kidney Health: eGFR 05/07/2019 05/07/2018, 05/04/2016, 05/03/2016, Additional history exists Lipids 05/07/2019 05/07/2018, 09/22, 10/14/2016, Additional history exists DTaP/TDaP/Td (2 - Td or Tdap) 08/31/2022 08/31/2012, 04/16/2002 COVID-19 Vaccine ( season) 2024 Influenza Vaccine (#1) 2024 7, 12/31/2016, 11/28/2015, Additional history exists Pneumococcal Vaccine 50+ Completed 02/22/2015, 09/2010 Colonoscopy Discontinued 12/21/2015, 05/2010 (Not Entered) Hepatitis B Vaccine Aged Out No longe r eligible based on patient's age to complete this topic Meningococcal B Vaccine Aged Out No l onger eligible based on patient's age to complete this topic Goals Goal Patient Goal Type Associated Problems Recent Progress Patient-Stated? Author Blood Pressure < 140/90 Blood Pressure 138/82(2019 9:20 AM EDT) No Adrián Gunjan JIL Brantley BMI (Calculated) < 30 General 27.6(11/25/19 9:20 AM EDT) No Adrián Gunjan JIL Brantley Patient will contact the office with any questions or concerns General Yes Gunjan Sampson LPN Maintain a healthy diet, exercise regularly and maintain an ideal body weight General No Rossi Shaffer LPN HEMOGLOBIN A1C < 7.0 Result Component 6.8( 8 8:50 AM EST) No Gunjan Sampson LPN Procedures Procedure Name Priority Date/Time Associated Diagnosis Comments COMPREHENSIVE METABOLIC PANEL Routine 05/07/2018 8:27 AM EST ASHD (arteriosclerotic heart disease) Hypertension associated with diabetes (HCC) S/P CABG x 3 LIPID SCREEN Routine 05/07/2018 8:27 AM EST ASHD (arteriosclerotic heart disease) Hypertension associated with diabetes (HCC) S/P CABG x 3 ALBUMIN/CREATININE RATIO, RANDOM URINE Routine 05/08/2017 8:57 AM EST Type 2 diabetes mellitus without complication, without long-term current use of insulin (HCC) HEMOGLOBIN A1C Routine 05/08/2017 8:50 AM EST Type 2 diabetes mellitus without complication, without long-term current use of insulin (HCC) GMED COLONOSCOPY Routine 12/21/2015 12:0 0 AM EDT from Last 3 Months or Most Recently Relevant to Health Maintenance Results * (ABNORMAL) LIPID SCREEN (05/07/2018 8:27 AM EST) Cholesterol 172 <=200 mg/dL 05/07/2018 2:36 PM EST [facility] Comment: < 200 Desirable 200 - 239 Borderline High >= 240 High Triglyceride 162(H) <=150 mg/dL 05/07/2018 2:36 PM EST [facility] Comment: < 150 Normal 150 - 199 Borderline High 200 - 499 High >= 500 Very High HDL 38(L) >=40 mg/dL 05/07/2018 2:36 PM EST [facility] Comment: > 60 Optimal 40 - 60 Acceptable < 40 Low LDL Calculated 102(H) <=100 mg/dL 05/07/2018 2:36 PM EST [facility] Comment: < 100 Optimal 100 - 129 Near or above optimal 130 - 159 Borderline High 160 - 189 High >= 190 Very High Non-HDL-C Calculated 134(H) <=129 mg/dL 05/07/2018 2:36 PM EST [facility] Comment: <130 Desirable 130-159 Above Desirable 160-189 Borderline High 190-219 High >= 220 Very High Fasting Specimen? Yes None 019 2:36 PM EST [facility] Blood Venipuncture / Unknown 05/07/2018 8:27 AM EST 05/07/2018 8:27 AM EST us Hiram Gilmore MD CHEMISTRY ORDERABLES Final R esult [facility] [address] [facility] , [place] [address] * (ABNORMAL) COMPREHENSIVE METABOLIC PANEL (05/07/2018 8:27 AM EST) Sodium 140 136 - 145 mmol/L 05/07/2018 2:36 PM EST [facility] Potassium 4.7 3.5 - 5.0 mmol/L 05/07/2018 2:36 PM EST [facility] Chloride 102 98 - 107 mmol/L 05/07/2018 2:36 PM EST [facility] Total CO2 28 22 - 29 mmol/L 05/07/2018 2:36 PM EST [facility] Anion Gap 10 7 - 16 mmol/L 05/07/2018 2:36 PM EST [facility] Calcium 10.2 8.8 - 10.2 mg/dL 05/07/2018 2:36 PM EST [facility] Glucose Lvl 142(H) 82 - 100 mg/dL 05/07/2018 2:36 PM EST [facility] BUN 16 8 - 23 mg/dL 05/07/2018 2:36 PM EST [facility] Creatinine 1.17 0.67 - 1.30 mg/dL 05/07/2018 2:36 PM EST [facility] Albumin 4.6 3.2 - 4.6 gm/dL 05/07/2018 2:36 PM EST [facility] Total Protein 7.4 6.4 - 8.3 gm/dL 05/07/2018 2:36 PM EST [facility] Bili Total 0.4 0.1 - 1.4 mg/dL 05/07/2018 2:36 PM EST [facility] ALT 12 <=41 IU/L 05/07/2018 2:36 PM EST [facility] AST 16 <=40 IU/L 05/07/2018 2:36 PM EST [facility] Alk Phos 59 40 - 129 IU/L 05/07/2018 2:36 PM EST [facility] GFR Afr Am 71 >=60 mL/min/1.7 3 m2 05/07/2018 2:36 PM EST [facility] GFR Non Afr Am 61 >=60 mL/min/1.7 3 m2 05/07/2018 2:36 PM EST [facility] Comment: This estimated GFR was calculated using CKD-EPI equation which is modified based on ethnicity for Non Americans and Americans. Both results are reported since it is not always possible to determine the patient's ethnicity. This equation should only be used for individuals 18 and older. It has not been validated for use with the elderly (>70 years), women, or in some racial or ethnic subgroups, such as Hispanics. The equation will be less accurate in people with differences in nutritional status or muscle mass. Blood Venipuncture / Unknown 05/07/2018 8:27 AM EST 05/07/2018 8:27 AM EST Hiram Gilmore MD CHEMISTRY ORDERABLES Final R esult Performing Organization Address [facility] Co de Phone Number [facility] [address] [facility] [address] [address] [facility] [address] [place] [address] * MICROALBUMIN/CREATININE RATIO URINE (05/08/2017 8:57 AM EST) Pathologist [facility] Urine Albumin <12.0 mg/L 05/08/2017 12:02 PM EST [facility] Urine Creatinine 136.4 mg/dL 05/08/2017 12:02 PM EST [facility] Ur Albumin/Creat Ratio 0 - 30 mg/gm 05/08/2017 12:02 PM EST [facility] Comment: Unable to calculate due to value outside linearity Unable to calculate due to value outside linearity Urine 05/08/2017 8:57 AM EST 05/08/2017 8:57 AM EST us Chidi Baker MD URINE ORDERABLES Final Resu lt Performing Organization Address [facility] [place] [address] * HEMOGLOBIN A1C (05/08/2017 8:50 AM EST) Hgb A1C 6.8 <=7.0 % 05/08/2017 11:52 AM EST [facility] Blood VENOUS BLOOD / Unknown Venipuncture / Unknown 05/08/2017 8:50 AM EST 05/08/2017 8:50 AM EST Narrative [facility] - 05/08/2017 11:52 AM EST Reference Interval for Hgb A1c Hgb A1c Interpretation < 6.0 Non-Diabetic Range 6.0 - 7.0 ADA Therapeutic Target > 7.0 Action suggested us Chidi Baker MD CHEMISTRY ORDERABLES Final Result Performing Organization Address [facility] Co de Phone Number [facility] [address] [place] [address] * GMED COLONOSCOPY (12/21/2015 12:00 AM EDT) 12/21/[address] [facility] - 12/21/2015 12:38 PM EDT Moderate diverticulosis of the sigmoid colon and descending colon. Normal mucosa in the whole colon and terminal ileum. Plan: High Fiber Diet. Soluble fiber is recommended for diarrhea and insoluble fiber is recommended for constipation. Resume all usual medications Diagnosis and management options discussed with the patient Colonoscopy in 5 years. This section is an excerpt of the full report. us Luke Norris MD GI PROCEDURE ORDERABLE S Final Result Performing Organization Address [facility] de Phone Number [facility] [address] [place] [address] from Last 3 Months or Most Recently Relevant to Health Maintenance Insurance MEDICARE [place] PART A AND B Member Subscriber Plan / Payer (Ef fective 2008-Present) Name:Hayes Jauregui Member ID:[id number] Relation to Subscriber:Self Name:Shania Hayes Abdiel Subscriber ID:[id number] Payer ID:Not on file Group ID:Not on file Type:Not on file Address[address] [address] MEDICARE [place] PART A AND B Advance Directives For more information, please contact: [phone] * Full Code (Latest Code Status on File) Date Activated Date Inactivated Comments 05/04/2016 7:52 AM 05/06/2016 3:40 PM * Full Code Date Activated Date Inactivated Comments 05/01/2016 12:16 PM 05/03/2016 10:50 AM Care Teams Chef Concierge Relationship Specialty Start Date End Date Stefan Luu MD [address] [place] [address] PCP - General Internal Medicine 11/17/17 Hiram Gilmore MD [address] [place] [address] Internal Medicine-Cardiovascular Disease 05/03/14
[2025-01-11 13:56] LABS: Alanine Aminotransferase 34 U/L (12-78); Albumin Level 4.7 g/dl (3.5-5.0); Albumin/Globulin Ratio 1.4 (1.1-1.8); Alkaline Phosphatase 62 U/L (38-126); Anion Gap 18.8 mEq/L (5-15); Aspartate Amino Transferase 57 U/L (17-59); Bilirubin,Total 2.0 mg/dl (0.2-1.3); Blood Urea Nitrogen 22 mg/dl (9-20); Calcium 9.4 mg/dl (8.4-10.2); Carbon Dioxide 25 mmol/L (22.0-30.0); Chloride 97 mmol/L (98-107); Creatinine Clearance Estimated 61 mL/min (50-200); Creatinine,Serum 1.10 mg/dl (0.66-1.25); Estimated Glomerular Filt Rate 64 ml/min (>60); GFR (African American) 78 ML/MIN (>60); Globulin 3.3 g/dL (1.3-3.2); Glucose 167 mg/dl (74-100); Potassium 5.8 mmoL/L (3.5-5.1); Sodium 135 mmol/L (136-145); Total Protein,Serum 8.0 g/dl (6.3-8.2)
[2025-01-11 13:58] LABS: Activated Partial Thrombo Time 24.9 seconds (22.8-30.6); INR 1.14 (0.9-1.1); Prothrombin Time 12.5 seconds (10.1-12.5)
[2025-01-11 14:02] LABS: Creatine Kinase 832 U/L (55-170)
[2025-01-11 14:03] LABS: Magnesium 1.8 mg/dl (1.6-2.3)
[2025-01-11 14:09] LABS: Troponin I 0.04 ng/ml (0.00-0.034)
[2025-01-11] MEDS: LACTATED RINGERS 1000ML 1,000 ML 999 ML IV (14:54)
[2025-01-11 14:58] LABS: Microscopic, Urine URINE MICROSCOPIC (MICROSCOPIC)
[2025-01-11 15:03] LABS: Bilirubin,Urine Negative (Negative); Color,Urine YELLOW (Yellow); Glucose,Urine (UA) Negative (Negative); Ketones,Urine 2+ (Negative); Leukocyte Esterase,Urine Negative (Negative); PH,Urine 6.0 (5.0-8.5); Protein,Urine 2+ (Negative); Specific Gravity, Urine 1.020 (1.005-1.030); Urobilinogen,Urine 0.2 EU/dl (0.2)
[2025-01-11 15:25] LABS: Barbiturates Screen,Urine Negative ng/ml (<200)
[2025-01-11 15:26] LABS: Benzodiazepines Screen,Urine Negative ng/ml (<200)
[2025-01-11 15:27] LABS: Amphetamine/Metha Screen,Urine Negative ng/ml (<1000)
[2025-01-11 15:28] LABS: Bacteria,Urine Trace /lpf; Sperm,Urine 1+ /lpf; WBC,Urine Occasional #/hpf (0-3)
[2025-01-11 15:28] LABS: Methadone Screen,Urine Negative ng/ml (<300)
[2025-01-11 15:29] LABS: Opiate Screen,Urine Negative ng/ml (<300)
[2025-01-11 15:30] LABS: Phencyclidine Screen,Urine Negative ng/ml (<25)
--- NOTE | 2025-01-11 15:49 | PC.NURSE ---
[facility] NOTIFIED OF ADMISSION
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
--- NOTE | 2025-01-11 16:06 | PC.NURSE ---
report called to Leak RN for room 215
[2025-01-11 16:20] LABS: Hemoglobin A1C 6.3 % (4.0-6.0)
[2025-01-11 16:42] LABS: Ammonia < 9 umol/L (9-30)
[2025-01-11 16:44] LABS: Troponin I 0.04 ng/ml (0.00-0.034)
[2025-01-11 17:15] LABS: Thyroid Stimulating Hormone 0.66 uIU/mL (0.465-4.68)
--- NOTE | 2025-01-11 17:31 | PC.NURSE ---
arrived to floor by stretcher from ED at 16:35
[2025-01-11 17:39] LABS: Adenovirus,PCR Not Detected (NotDetected); Chlamydophila Pneumoniae, PCR Not Detected (NotDetected); Coronavirus 19, PCR Not Detected (NotDetected); Coronovirus HKU1,PCR Not Detected (NotDetected); Influenza A, PCR Not Detected (NotDetected); Influenza AH1, 2009 Not Detected (NotDetected); Influenza AH1, PCR Not Detected (NotDetected); Influenza AH3,PCR Not Detected (NotDetected); Influenza B, PCR Not Detected (NotDetected); Mycoplasma Pneumoniae, PCR Not Detected (NotDetected); Parainfluenza 1, PCR Not Detected (NotDetected); Parainfluenza 2, PCR Not Detected (NotDetected); Parainfluenza 3, PCR Not Detected (NotDetected); Parainfluenza 4, PCR Not Detected (NotDetected)
[2025-01-11 17:51] LABS: Reflex Lactic Add Lactic Reflex
--- NOTE | 2025-01-11 17:52 | PC.NURSE ---
new admit this shift. pt is currently nonverbal. baseline in a&ox4. stroke ruled out in the ER. pt L jaw dislocated. ortho consult in place. tolerating ra with sats >90%. full resp sent to lab. LR bolus from ER infusing through 22g IV in R forearm. purewick in place. DNR/DNI form signed by daughter and placed on chart. no needs at this time. call light within reach. bed alarm on.
[2025-01-11 20:00] LABS: Lactic Acid Follow Up (RFLX 1) 1.3 mmol/L (0.7-2.1)
[2025-01-11 20:37] LABS: Troponin I 0.04 ng/ml (0.00-0.034)
[2025-01-11] MEDS: LACTATED RINGERS 1000ML 1,000 ML 100 ML IV (21:30)
[2025-01-12] VITALS (8 sets, daily range): BP systolic 141–177; BP diastolic 75–83; PULSE 70–100; RESP 16–19; TEMP 36.7–38.4; O2SAT 95–97; BMI 24.3
[2025-01-12] MEDS: ACETAMINOPHEN 1,000MG/100ML VIAL 1000 MG IV ×2 (00:50→08:44)
--- NOTE | 2025-01-12 02:00 | ECG_ITS ---
APPROVED REPORT Exam: Resting ECG HR:98 bpm ECG Measurements Heart Rate 98 AXES WA 136 P 58 QRSd 98 QRS -35 QT 356 T 57 QTc 411 Conclusion SINUS RHYTHM WITH OCCASIONAL ECTOPIC PREMATURE COMPLEXES LEFT AXIS DEVIATION [QRS AXIS < -30] PATTERN CONSISTENT WITH PULMONARY DISEASE MODERATE ST DEPRESSION [0.05+ mV ST DEPRESSION] ABNORMAL ECG UNCONFIRMED REPORT Electronically signed by : Mino Hardwick MD 01/12/2025 08:35:36
--- NOTE | 2025-01-12 02:31 | XR_ITS ---
PROCEDURE INFORMATION: Exam: XR Chest Exam date and time: 01/12/2025 2:35 AM Age: 79 years old Clinical indication: Shortness of breath TECHNIQUE: Imaging protocol: Radiologic exam of the chest. Views: 1 view. COMPARISON: CR XR CHEST PORTABLE 01/11/2025 1:51 PM FINDINGS: Lungs: Hyperinflation. No focal infiltrates.. No consolidation. Pleural spaces: Unremarkable. No pleural effusion. No pneumothorax. Heart/Mediastinum: Unremarkable. No cardiomegaly. Prior median sternotomy. Bones/joints: Unremarkable. IMPRESSION: No acute findings.
--- NOTE | 2025-01-12 03:04 | PC.NURSE ---
pts hr jumped to the 120s, checked on pt and he was diaphoretic and dyspnea. notified sara lending advisor. order vbg, ekg and chest xray. o2 sat 87% in ra. d 90s and hr improved. suction airway with improvement of both hr and o2 sats.
[2025-01-12 03:16] LABS: ABG HCO3 22.4 mmhg (22.0-26.0); ABG PCO2 31.9 mmhg (35.0-45.0); ABG PH 7.47 mmol/L (7.35-7.45); ABG PO2 66.5 mmhg (80-100); ABG TCO2 23.4 mmhg (23-27)
[2025-01-12 03:17] LABS: Source Left Radial
[2025-01-12 06:38] LABS: Albumin Level 3.9 g/dl (3.5-5.0); Chloride 96 mmol/L (98-107)
[2025-01-12 06:39] LABS: Potassium 4.0 mmoL/L (3.5-5.1); Sodium 130 mmol/L (136-145)
[2025-01-12 06:41] LABS: Alanine Aminotransferase 20 U/L (12-78); Anion Gap 14.0 mEq/L (5-15); Aspartate Amino Transferase 44 U/L (17-59); Blood Urea Nitrogen 23 mg/dl (9-20); Carbon Dioxide 24 mmol/L (22.0-30.0); Creatinine Clearance Estimated 67 mL/min (50-200); Creatinine,Serum 1.00 mg/dl (0.66-1.25); Estimated Glomerular Filt Rate 72 ml/min (>60); GFR (African American) 87 ML/MIN (>60)
[2025-01-12 06:42] LABS: Albumin/Globulin Ratio 1.3 (1.1-1.8); Alkaline Phosphatase 64 U/L (38-126); Bilirubin,Total 1.3 mg/dl (0.2-1.3); Calcium 8.7 mg/dl (8.4-10.2); Creatine Kinase 791 U/L (55-170); Globulin 2.9 g/dL (1.3-3.2); Glucose 138 mg/dl (74-100); Magnesium 1.8 mg/dl (1.6-2.3); Total Protein,Serum 6.8 g/dl (6.3-8.2)
[2025-01-12 06:45] LABS: Hematocrit 34.5 % (42.0-52.0); Hemoglobin 12.1 g/dL (14.1-18.0); Immature Granulocytes % 0.4 %; Mean Corpuscular HGB Conc 35.1 g/dL (31.8-35.4); Mean Corpuscular Hemoglobin 31.8 pg (27.0-31.2); Mean Corpuscular Volume 90.6 fl (80-94); Nucleated Red Blood Cells % 0 %; Platelet Count 197 K/mm3 (142-424); Red Blood Count 3.81 M/mm3 (4.60-6.20); Red Cell Distribution Width-SD 45.1 fL; White Blood Count 10.2 K/mm3 (4.8-10.8)
[2025-01-12] MEDS: LACTATED RINGERS 1000ML 1,000 ML 100 ML IV ×2 (08:17→22:25)
--- NOTE | 2025-01-12 08:54 | HMH.PTEV ---
Physical Therapy Evaluation Rehab PT IP Evaluation Start: 01/11/25 17:12 Freq: ONCE Status: Active Protocol: Document 01/12/25 08:51 FAY (Rec: 01/12/25 08:54 FAY [id number]) Subjective/History History History Per H&P: Mr. Jauregui is a 79-year-old male who presented to the emergency department today via EMS due to altered mental status and a fall. He has a primary medical history of GERD, hypertension, hyperlipidemia, CAD, CABG, osteoporosis, type 2 diabetes, dementia, recurrent dislocation of mandible. Patient's daughter at bedside states his last known normal was approximately at 8 AM this morning, she went to check on him around noon and he was confused and lying on the floor. She does state that he has had some periodic episodes of confusion lately. Patient does live alone but daughter checks on him every day. Per patient's daughter he is normally completely alert and oriented x 4, GCS 15 at baseline, she does endorse that he has appeared to be more fatigued lately. Workup in the emergency department elevated CK of 800, hyperkalemia of 5.8. Head and neck CT were obtained and both showed no acute findings. No leukocytosis noted, no anemia. Anion gap elevated at 18.8, BUN 22, creatinine 1.1. Troponin elevated at 0.04, continuing to trend. UA showed no signs of infection, although daughter states he has had episodes of incontinence recently. Toxicology and alcohol screen negative. Patient did have notable dislocation of mandible, appears to be a chronic issue for him. Chest x-ray showed no acute findings. Patient has remained afebrile, and denies chest pain, abdominal pain, nausea , vomiting, diarrhea. Subjective Subjective Pt is non-verbal and unable to follow simple one-step commands at this time. Pt lives alone and has a daughter who normally checks in daily. Pt normally IND with mobility. [facility] How much help from another person do you currently need... Turning from your Total back to your side while in a flat bed without using bedrails? Moving from lying on Total back to sitting on the side of a flat bed without using bedrails? Moving to and from a Total bed to a chair ( including a wheelchair)? Standing up from a Total chair using your arms? (e.g., wheelchair, bedside chair) Walking in hospital Total room? Climbing 3-5 steps Total with a railing? Mobility Score 6 Mobility Level [facility] Mobility 2 Bed activities/dependent transfer Mobility Calculator Rehab PT IP Eval Objective Appearance Speech Pattern No Speech Ambulation Patient Able to No Ambulate Balance Ability to Arise Unable Rehab PT IP prob,goals,plan Problems Date of Evaluation: 01/12/25 PT IP Problems Bed Mobility,Transfers,Gait,Balance,Self care,Safety Rehab Potential Rehab Potential Good Plan PT Intervention Plan Bed Mobility,Transfers,Gait,Balance,Self care,Safety, Therapeutic Exercise Other Intervention 1-2 times Plan PT Plan Frequency Daily Duration LOS Discharge Goals Bed Transfer Ability Maximum x 1 (75% assist) Sit to Stand Chair Maximum x 1 (75% assist) Transfer Ability Discharge Plan PT Discharge Plan Pt is below his baseline in all functional mobility. Pt most appropriate for inpatient rehabilitation facility (IRF) placement at this time to address deficits and maximize safety with mobility. Pt would benefit from skilled PT while at [facility] to prevent further functional decline. Eval Complexity Eval Charge Codes 36021 - Moderate Complexity PHYSICIAN CERTIFICATION: I certify the specified therapy services for Hayes Jauregui are required, authorized, and reviewed every 30 days.
--- NOTE | 2025-01-12 09:04 | MR_ITS ---
FINAL REPORT TECHNIQUE: Multiplanar MR, without and with gadolinium enhancement CLINICAL HISTORY: AMS FINDINGS: Diffusion sequences show no signal abnormality to indicate acute infarct. There is moderate generalized atrophy and moderate chronic microvascular changes. No mass, hemorrhage or edema is seen. Ventricles are normal. Major vascular flow voids are intact. There is chronic right frontal sinusitis. Following contrast administration, no mass or abnormal enhancement is seen. IMPRESSION: No acute findings. Chronic right frontal sinusitis. Reviewed, Interpreted and Dictated by John Bello MD Transcribed by Lucia Leonard Authenticated and [facility]
--- NOTE | 2025-01-12 09:22 | EXP.PHA.CONS ---
Pharmacy Consult Date: 01/12/25 Time: 09:22 Referring provider: JOEL MYLES APRN Reason for Consult:: VANCOMYCIN DOSIN Allergies Allergy/AdvReac Type Severity Reaction Status Date / Time latex (LATEX) Allergy Intermediate Verified 12/08/23 09:39 Home Medications ?Medication ?Instructions ?Recorded ?Confirmed ?Type aspirin 325 mg tablet (Stanley 325 mg PO DAILY #90 tabs 12/08/23 01/11/25 Rx Aspirin) New Prescriptions to Start Prescriptions: Height: 1.83 m Weight: 81.511 kg Laboratory Results:: Laboratory Results - last 24 hr 01/11/25 13:26: VBG pH 7.37, VBG pCO2 41.3, VBG pO2 26.8 L, VBG HCO3 23.4, VBG Total CO2 24.7, VBG O2 Saturation 50.5, VBG Base Excess -1.9, VBG Lactic Acid 2.3 H 01/11/25 13:30: WBC 10.6, RBC 4.30 L, Hgb 13.4 L, Hct 39.8 L, MCV 92.6, MCH 31.2, MCHC 33.7, RDW 13.6, Plt Count 231, MPV 9.3, Neut % (Auto) 85.0 H, Lymph % (Auto) 7.6 L, [place] % (Auto) 6.5, Eos % (Auto) 0.0 L, Baso % (Auto) 0.4, Neut # (Auto) 9.0 H, Lymph # (Auto) 0.8, [place] # (Auto) 0.7, Eos # (Auto) 0.0, Baso # (Auto) 0.0, PT 12.5, INR 1.14 H, APTT 24.9, Sodium 135 L, Potassium 5.8 H, Chloride 97 L, Carbon Dioxide 25, Anion Gap 18.8 H, BUN 22 H, Creatinine 1.10, Estimated Creat Clear 61, Estimated GFR 64, Est GFR ( Amer) 78, Glucose 167 H, Calcium 9.4, Magnesium 1.8, Total Bilirubin 2.0 H, AST 57, ALT 34, Alkaline Phosphatase 62, Total Creatine Kinase 832 H*, Troponin I 0.04 H, Total Protein 8.0, Albumin 4.7, Globulin 3.3 H, Albumin/Globulin Ratio 1.4, TSH 0.66, Plasma/Serum Alcohol < 10 01/11/25 14:52: Urine Opiates Screen Negative, Urine Methadone Screen Negative, Ur Barbituates Screen Negative, Ur Phencyclidine Scrn Negative, Ur Amphetamines Screen Negative, U Benzodiazepines Scrn Negative, Urine Cocaine Screen Negative, U Marijuana (THC) Screen Negative 01/11/25 14:55: Urine Color Yellow, Urine Appearance Clear, Urine pH 6.0, Ur Specific [place] 1.020, Urine Protein 2+ A, Urine Glucose (UA) Negative, Urine Ketones 2+, Urine Blood 3+ A, Urine Nitrate Negative, Urine Bilirubin Negative, Urine Urobilinogen 0.2, Ur Leukocyte Esterase Negative, Urine RBC 3-5, Urine WBC Occasional, Ur Squamous Epith Cells None, Urine Bacteria Trace, Urine Sperm 1+ 01/11/25 16:01: Hemoglobin A1c 6.3 H, Ammonia < 9 L 01/11/25 16:04: Troponin I 0.04 H 01/11/25 17:31: Chlamy pneumoniae PCR Not detected, Adenovirus (PCR) Not detected, B. pertussis DNA (PCR) Not detected, Coronavirus OC43 (PCR) Not detected, Coronavirus HKU1 (PCR) Not detected, Coronavirus 229E (PCR) Not detected, SARS-CoV-2 (PCR) Not detected, Coronavirus NL63 (PCR) Not detected, Human Metapneumovir PCR Not detected, Influenza A (H1) PCR Not detected, Influ A (H1N1/09) PCR Not detected, Influenza A (H3) PCR Not detected, Influenza Type A (PCR) Not detected, Influenza Type B (PCR) Not detected, M. pneumoniae (PCR) Not detected, Parainfluenza 1 (PCR) Not detected, Parainfluenza 2 (PCR) Not detected, Parainfluenza 3 (PCR) Not detected, Parainfluenza 4 (PCR) Not detected, RSV (PCR) Not detected, Entero/Rhino (PCR) Not detected 01/11/25 19:40: Lactate 1.3, Troponin I 0.04 H 01/12/25 02:31: Specimen Source Left radial, O2 % 21, ABG pH 7.47 H, ABG pCO2 31.9 L, ABG pO2 66.5 L, ABG HCO3 22.4, ABG Total CO2 23.4, ABG O2 Saturation 93, ABG Base Excess -1.3, Adam Test Patient unable 01/12/25 05:43: WBC 10.2, RBC 3.81 L, Hgb 12.1 L, Hct 34.5 L, MCV 90.6, MCH 31.8 H, MCHC 35.1, RDW 13.6, Plt Count 197, MPV 9.3, Neut % (Auto) 81.0 H, Lymph % (Auto) 9.0 L, [place] % (Auto) 9.4 H, Eos % (Auto) 0.0 L, Baso % (Auto) 0.2, Neut # (Auto) 8.3 H, Lymph # (Auto) 0.9, [place] # (Auto) 1.0, Eos # (Auto) 0.0, Baso # (Auto) 0.0, Sodium 130 L, Potassium 4.0 D, Chloride 96 L, Carbon Dioxide 24, Anion Gap 14.0, BUN 23 H, Creatinine 1.00, Estimated Creat Clear 67, Estimated GFR 72, Est GFR ( Amer) 87, Glucose 138 H, Calcium 8.7, Magnesium 1.8, Total Bilirubin 1.3, AST 44, ALT 20 D, Alkaline Phosphatase 64, Total Creatine Kinase 791 H*, Total Protein 6.8, Albumin 3.9 D, Globulin 2.9, Albumin/Globulin Ratio 1.3 Medical History: Medical History (Updated 01/11/25 @ 16:32 by Bradley Collazo MD) CAD (coronary artery disease) Diabetes mellitus, type 2 Hyperlipemia Hypertension GERD (gastroesophageal reflux disease) Assessment and Plan Assessment and plan all Dx Assessment and Plan for all problems:: Pharmacokinetic dosing service Objective: Patient: Floor: Age: 79 yo Serum creatinine: 1 mg/dL Height: 72.0 Inches Weight (kg): 81.5 Assessment: IBW (kg): 77.60 Dosing wt(kg): 81.5 Estimated Creatinine clearance (ml/min): 63.6 CRCL method: Cockcroft and Gault using ibw(default). Drug selected: Vancomycin Loading dose (mg): 0 Vd (liters): 65.2 (factor used: 0.8 L/kg) Kev (hr-1): 0.057 Half life (hrs): 12.16 Recommended dose: 1500 mg Interval: 18 hrs Infusion time (hrs): 2.0 Predicted peak (mcg/mL): 33.9 Predicted trough (mcg/mL): 13.62 Total body weight is being used for vancomycin dosing. Recommendations: Give Vancomycin 1500 mg q 18 hrs with an expected Cpeak of 33.9 mcg/ml and an expected Ctrough of 13.62 mcg/ml ----Vanco only - ignore for aminoglycosides----- CLvanco= 3.72 L/hr AUC 0-24 /RUBEN Data: RUBEN 0.5 mcg/mL: AUC/RUBEN: 1075.3 RUBEN 1.0 mcg/mL: AUC/RUBEN: 537.6 --------- RUBEN 1.5 mcg/mL: AUC/RUBEN: 358.4 RUBEN 2.0 mcg/mL: AUC/RUBEN: 268.8
--- NOTE | 2025-01-12 09:53 | HMH.OTEV ---
OT Evaluation Rehab OT IP Evaluation Start: 01/12/25 07:47 Freq: ONCE Status: Active Protocol: [facility]12[facility]25 09[facility]46 [facility] (Rec: 01/12/25 09:53 [facility] [id number]) Rehab OT IP Assessment Subjective History Pt admitted on 01/11/25 due to AMS, encephalopathy, and rhabdo. History and physical: Mr. Jauregui is a 79-year-old male who presented to the emergency department today via EMS due to altered mental status and a fall. He has a primary medical history of GERD, hypertension, hyperlipidemia, CAD, CABG, osteoporosis, type 2 diabetes, dementia, recurrent dislocation of mandible. Patient's daughter at bedside states his last known normal was approximately at 8 AM this morning, she went to check on him around noon and he was confused and lying on the floor. She does state that he has had some periodic episodes of confusion lately. Patient does live alone but daughter checks on him every day. Per patient's daughter he is normally completely alert and oriented x 4, GCS 15 at baseline, she does endorse that he has appeared to be more fatigued lately. Workup in the emergency department elevated CK of 800, hyperkalemia of 5.8. Head and neck CT were obtained and both showed no acute findings. No leukocytosis noted, no anemia. Anion gap elevated at 18.8, BUN 22, creatinine 1.1. Troponin elevated at 0.04, continuing to trend. UA showed no signs of infection, although daughter states he has had episodes of incontinence recently. Toxicology and alcohol screen negative. Patient did have notable dislocation of mandible, appears to be a chronic issue for him. Chest x-ray showed no acute findings. Patient has remained afebrile, and denies chest pain, abdominal pain, nausea , vomiting, diarrhea. Subjective Pt unable to answer any orientation questions or prior level of functioning. Pt was non-verbal and unable to follow simple one-step commands at this time. Pt lives alone and has a daughter who normally checks in daily. He also demonstrated increased difficulty with following directions or sequencing of task. Therapist unaware of prior level of functioning. Objective Right Upper Mod Limitation 50% Extremity Gross ROM Left Upper Extremity Mod Limitation 50% Gross ROM Shoulder ROM Muscle Weakness Limitations Elbow ROM Muscle Weakness Limitations Wrist Limitations of Muscle Weakness Range of Motion Bed Mobility bed mobility-scooting,bed mobility - supine/sit Assist Level Maximum x 2 (75% assist) Rehab OT IP prob,goals,plan Problems Date of Evaluation: 01/12/25 OT IP Problems Bed Mobility,Transfers,Balance,Self care,Safety Rehab Potential Rehab Potential Fair Equipment Needs Assistive Devices Rolling / Wheeled Walker,Wheelchair Plan OT intervention Plan Bed Mobility,Transfers,Balance,Self care,Safety, Therapeutic Exercise Discharge Goals Bed Mobility Ability Assistance x1 Sit to Stand Chair Maximum x 1 (75% assist) Transfer Ability Chair Transfer Maximum x 1 (75% assist) Ability Chair Transfer Stand Pivot Technique Chair Transfer Rolling Walker Assistive Devices Lower Body Dressing Maximum Assistance Ability Upper Body Dressing Minimal Assistance Ability Performing Toilet Maximum Assistance Hygiene Ability Overall Commode/ Maximum Assistance Toilet Transfer Ability Commode/Toilet Stand Pivot Transfer Technique Discharge Plan OT Discharge Plan Pt will continue to be seen for OT services while at [facility]. At this time, pt would benefit most from short term rehab at SNF following discharge from hospital. Continued skilled therapy is important in order for patient to improve strength, safety, endurance, ADL independence, and functional transfers to reach PLOF. Eval Complexity Eval Charge Codes 93003 - Moderate Complexity PHYSICIAN CERTIFICATION: I certify the specified therapy services for Hayes Jauregui are required, authorized, and reviewed every 30 days.
--- NOTE | 2025-01-12 09:57 | SW/DCPLANNER ---
Addendum entered by Hortensia Astorga 01/17/25 09:27: Patient has been approved for [facility] SNF level of care and will discharge today. I will call and update patient's family. Addendum entered by Hortensia Astorga 01/14/25 14:25: Dea w/ [facility] is willing to accept patient SNF level of care and start auth today. Patient's daughter is agreeable w/ this plan. I will update Dr Mcgee. Addendum entered by Hortensia Astorga 01/14/25 14:18: [facility] is not in network w/ patient's insurance. Addendum entered by Hortensia Astorga 01/14/25 13:28: I spoke w/ patient's daughter regarding discharge planning due to patient being confused. Daughter is agreeable to placement at this time. Patient does not have a facility preference other than no to [facility]. I will reach out/fax to the following facilities: [facility] (full), [facility] (faxed), [facility] (no in network w/ insurance), [facility] (faxed), [facility] (faxed) and [facility] (no beds). CM will continue to follow up. Addendum entered by Hortensia Astorga 01/14/25 10:12: I attempted to contact patient's daughter regarding plans once medically stable for discharge. No answer at this time VM left. Discharge date is unknown. CM will continue to follow up. Original Note: I attempted to speak w/ patient regarding plans once medically stable for discharge. PT/OT evaluated patient and recommended placement at time of discharge. Patient is not able to answer questions at this time. I will follow up w/ patient's daughter via phone. Discharge date is unknown. CM will continue to follow up.
[2025-01-12] MEDS: CEFEPIME HCL 2 GM in 0.9 % SODIUM CHLORIDE 100 ML IV ×2 (10:02→16:25)
--- NOTE | 2025-01-12 10:32 | HMH.ITSTN ---
will coordinate to do scan at the same time patient comes down for MRI
[2025-01-12 10:40] LABS: C-Reactive Protein 106.0 mg/L (0-4)
--- NOTE | 2025-01-12 10:45 | CT_ITS ---
FINAL REPORT TECHNIQUE: IV contrast enhanced exam This study was performed with techniques to keep radiation doses as low as reasonably achievable, (ALARA). Individualized dose reduction techniques using automated exposure control or adjustment of mA and/or kV according to the patient''s size were employed. CLINICAL HISTORY: Sepsis workup, AMS FINDINGS: Abdomen: There is a nonobstructing lower pole left renal stone measuring 8 mm. Left renal cyst is identified. There is moderate renal atrophy. The gallbladder is unremarkable. There are remaining solid abdominal organs are unremarkable. No bowel obstruction is present. There is no free air. No fluid collection is seen. There is no adenopathy. Pelvis: The appendix is normal. There is moderate sigmoid diverticulosis without evidence of diverticulitis. The bladder and prostate are unremarkable. There are surgical changes from right inguinal hernia repair. There is no free fluid. No pelvic mass is seen. There are post kyphoplasty changes of T11 and T12. IMPRESSION: No acute findings. Reviewed, Interpreted and Dictated by John Bello MD Transcribed by Lucia Leonard Authenticated and . [facility]
--- NOTE | 2025-01-12 10:46 | CT_ITS ---
FINAL REPORT TECHNIQUE: Axial CT without IV contrast administration. This study was performed with techniques to keep radiation doses as low as reasonably achievable, (ALARA). Individualized dose reduction techniques using automated exposure control or adjustment of mA and/or kV according to the patient's size were employed. This study was performed with techniques to keep radiation doses as low as reasonably achievable, (ALARA). Individualized dose reduction techniques using automated exposure control or adjustment of mA and/or kV according to the patient''s size were employed. CLINICAL HISTORY: sepsis workup COMPARISON: 02/24/2022 FINDINGS: There is moderate bilateral lower lobe atelectasis without definite pneumonia. No lung mass is identified. No pleural or pericardial effusion is seen. No adenopathy or mass lesion is present. IMPRESSION: 1. Significant atelectasis without evidence of pneumonia or empyema. Reviewed, Interpreted and Dictated by John Bello MD Transcribed by Lucia Leonard Authenticated and [facility]
[2025-01-12] MEDS: KETOROLAC 15MG/ML VIAL 15 MG IV (10:56)
[2025-01-12] MEDS: VANCOMYCIN/WATER FOR INJ (PEG) 1.5 GM/300 ML PIGGYBACK IV (10:56)
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
[2025-01-12 11:16] LABS: Procalcitonin 0.131 ng/mL (0.0-2.0)
[2025-01-12] MEDS: IOPAMIDOL-370 (76%);100ML BOTTLE 75 ML IV (11:23)
[2025-01-12] MEDS: SODIUM CHLORIDE 0.9% 10ML SYR (RAD ONLY) 10 ML IV (11:43)
[2025-01-12] MEDS: GADOTERIDOL INJ 20ML SYRINGE 15 ML IV (11:43)
--- NOTE | 2025-01-12 15:27 | PC.NURSE ---
John Santana [facility]'s office notified that pt's mandible returned to previous state.
--- NOTE | 2025-01-12 17:35 | PC.NURSE ---
PT REMAINS PREDOMINATELY NON-VERBAL. UNABLE TO HOLD MEANINGFUL CONVERSATION OR FOLLOW COMMANDS. PRESSURE RELIEVING WAFFLE PLACED UNDER PATIENT BUT HE HAS MOSTLY REFUSED TO BE TURNED TODAY. PUREWICK IN PLACE.
--- NOTE | 2025-01-12 21:00 | PC.NURSE ---
During assessment it is noted that patient is moving left side extremities only, and neglecting his right side extremities. Due to patient encephalopathy pt is unable to follow commands appropriately, and is also unable to state if he is in pain at this time, or if he is experiencing decreased sensation. This information was relayed during shift change report by daysmsft RN, but upon speaking with family who states that this is not patient baseline and they are becoming more concerned since receiving results from brain MRI performed today. Hospitalist contacted and made aware of assessment finding and new orders have been placed, see orders.
[2025-01-13] VITALS (7 sets, daily range): BP systolic 110–178; BP diastolic 64–82; PULSE 68–90; RESP 16–17; TEMP 36.9–37.8; O2SAT 92–96; BMI 23.9
[2025-01-13] MEDS: CEFEPIME HCL 2 GM in 0.9 % SODIUM CHLORIDE 100 ML IV ×3 (01:08→17:04)
[2025-01-13] MEDS: VANCOMYCIN/WATER FOR INJ (PEG) 1.5 GM/300 ML PIGGYBACK IV (05:03)
[2025-01-13 06:12] LABS: Hematocrit 34.5 % (42.0-52.0); Hemoglobin 11.4 g/dL (14.1-18.0); Immature Granulocytes % 0.5 %; Mean Corpuscular HGB Conc 33.0 g/dL (31.8-35.4); Mean Corpuscular Hemoglobin 30.6 pg (27.0-31.2); Mean Corpuscular Volume 92.5 fl (80-94); Nucleated Red Blood Cells % 0 %; Platelet Count 173 K/mm3 (142-424); Red Blood Count 3.73 M/mm3 (4.60-6.20); Red Cell Distribution Width-SD 46.5 fL; White Blood Count 8.9 K/mm3 (4.8-10.8)
[2025-01-13 06:29] LABS: Albumin Level 3.4 g/dl (3.5-5.0); Chloride 98 mmol/L (98-107); Potassium 3.7 mmoL/L (3.5-5.1); Sodium 131 mmol/L (136-145)
[2025-01-13 06:32] LABS: Alanine Aminotransferase 17 U/L (12-78); Albumin/Globulin Ratio 1.1 (1.1-1.8); Alkaline Phosphatase 55 U/L (38-126); Anion Gap 9.7 mEq/L (5-15); Aspartate Amino Transferase 33 U/L (17-59); Bilirubin,Total 1.3 mg/dl (0.2-1.3); Blood Urea Nitrogen 25 mg/dl (9-20); Calcium 8.3 mg/dl (8.4-10.2); Carbon Dioxide 27 mmol/L (22.0-30.0); Creatinine Clearance Estimated 66 mL/min (50-200); Creatinine,Serum 1.00 mg/dl (0.66-1.25); Estimated Glomerular Filt Rate 72 ml/min (>60); GFR (African American) 87 ML/MIN (>60); Globulin 3.0 g/dL (1.3-3.2); Glucose 90 mg/dl (74-100); Total Protein,Serum 6.4 g/dl (6.3-8.2)
[2025-01-13 06:33] LABS: Magnesium 1.8 mg/dl (1.6-2.3)
[2025-01-13] MEDS: LACTATED RINGERS 1000ML 1,000 ML 100 ML IV (07:55)
[2025-01-13] MEDS: AMPICILLIN SODIUM 2 GM in 0.9 % SODIUM CHLORIDE 100 ML IV ×3 (08:57→21:15)
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
[2025-01-13 10:10] LABS: C-Reactive Protein 72.4 mg/L (0-4)
--- NOTE | 2025-01-13 10:40 | DIET.NUTRFU ---
dentist was here twice yesterday to put jaw back in place but d/t his mentation he continues to leave his mouth open and continues to come out of place again. Dentist plans to come back with mentation is better. Continues NPO for now.
--- NOTE | 2025-01-13 10:50 | EXP.ANES.CKL ---
[facility] Disclaimer: The information contained in this section may have been updated after the patient was seen, as this information can be updated by other users. Medical History CAD (coronary artery disease) Diabetes mellitus, type 2 Hyperlipemia Hypertension GERD (gastroesophageal reflux disease) Surgical History History of heart bypass surgery History of coronary artery stent placement S/P total knee arthroplasty Family History Other Family history of myocardial infarction Social History (Updated 01/11/25 @ 16:09 by Michelle Gaming RN) Smoking Status: Never smoker alcohol intake: never substance use type: denies use current occupational status: retired Travel in the last 8 weeks?: None household members: spouse housing: house current occupational exposures/hazards: No caffeine: Yes Have you lived/traveled outside [place] in past 30 days?: No Contact w/someone who lives/traveled outside [place] past 30 days?: No Exposure to someone with infectious disease in past 14 days?: No Do you have a fever (greater than 100.4 F or 38 C)?: No Have you tested positive for COVID-19?: No Exposed to someone with COVID-19 in past 14 days?: No Do you have a sore throat?: No Do you have a cough?: No Do you have any weakness?: No Do you have any diarrhea?: No Are you experiencing any unusual bleeding?: No Do you have any muscle aches/pain?: No Do you have any abdominal pain?: No Are you experiencing loss of taste or smell?: No [facility] Anesthesia Checklist Patient Identification Patient Identification: Arm Band Structural Data Admitted From: Inpatient Planned Operative Procedure/s: Lumbar Puncture Consent for Planned Operative Procedure(s) Verified: Yes Verified Documents: Surgical Consent and History and Physical Additional verifications Anesthesia Reactions: No Hx Blood Transfusions: No Blood Transfusion Reaction: No Neurological Assessment Level of Consciousness: Lethargic and Inappropriate Anesthesia Plan Anesthesia Risk discussed: No Anesthesia Plan: Patient unable to respond/answer ASA Class: III Anesthesia Type: Spinal (Lumbar Puncture) Preoperative Comments Pre-Operative Comments: Pt unable to respond. Consent obtained via phone
--- NOTE | 2025-01-13 10:51 | P.PCN_ITS ---
[facility] Procedure Note Date: 01/13/25 Time: 10:30 Procedure Note:: Consulted by Dr. Clayton for Lumbar Puncture to rule out meningitis. Consent obtained via phone. Patient unable to follow commands. With help of nursing staff, patient was position in right lateral decubitus position. Sterile prep and drape with betadine. 1% Lidocaine skin wheal 2 cc at L3/4. 22 G sprotte inserted, attempts x 3. + CSF. Opening pressure of 7cmH20, 4 vials of CSF collected, 2cc per vial for a total of 8 cc, closing pressure of 5 cmH20. CSF clear in color. Needle then withdrawn and bandaid applied. No immediate complications. Procedure time [id number].
[2025-01-13 11:28] LABS: Creatine Kinase 321 U/L (55-170)
[2025-01-13 11:59] LABS: Glucose,CSF 52 mg/dl (40-70)
[2025-01-13 12:07] LABS: Volume,CSF 8 mL
[2025-01-13 12:08] LABS: Red Blood Cell,CSF 12 cells/uL (0); Tube Number: Tube 1
[2025-01-13 12:09] LABS: White Blood Cell,CSF 4 cells/uL (0-5)
[2025-01-13 12:11] LABS: Red Blood Cell,CSF 2 cells/uL (0); Tube Number: Tube 1; Tube Number: Tube 3; Volume,CSF 8 mL; White Blood Cell,CSF 2 cells/uL (0-5)
--- NOTE | 2025-01-13 12:46 | MR_ITS ---
FINAL REPORT CLINICAL HISTORY: AMS, R sided deficits best imaging possible , pt unable to hold still COMPARISON: None FINDINGS: MRI CERVICAL SPINE, WITHOUT AND WITH CONTRAST TECHNIQUE: Multiplanar MR without and with contrast administration. FINDINGS: Normal cervical vertebral height. There are chronic compression fractures of T1 and T2. No abnormal enhancement or enhancing mass identified. The cervical spinal cord shows normal signal and contour. There is significant motion artifact which limits exam quality resulting in poor visualization of the neural foramen. C2-C3: No significant disc disease is present. There is no canal stenosis. C3-C4: No significant disc disease is present. There is no canal stenosis. C4-C5: Minimal annular disc bulge without central canal stenosis. C5-C6: Minimal annular disc bulge without central canal stenosis. C6-C7: Minimal annular disc bulge without central canal stenosis. C7-T1: Minimal annular disc bulge without central canal stenosis. IMPRESSION: Mild degenerative disc changes. No central canal stenosis. No mass or abnormal enhancement. Chronic T1 and T2 compression fractures. Reviewed, Interpreted and Dictated by John Bello MD Transcribed by Noemí Mcgregor Authenticated and [facility]
[2025-01-13 14:19] LABS: Mononuclear WBCs,CSF 13 %; Polynuclear WBCs,CSF 4 %
[2025-01-13 14:26] LABS: Mononuclear WBCs,CSF 0 %; Polynuclear WBCs,CSF 0 %
[2025-01-13] MEDS: GADOTERIDOL INJ 20ML SYRINGE 17 ML IV (15:17)
[2025-01-13] MEDS: SODIUM CHLORIDE 0.9% 10ML SYR (RAD ONLY) 10 ML IV (15:17)
[2025-01-13] MEDS: LACTATED RINGERS 1000ML 1,000 ML 75 ML IV (21:14)
[2025-01-13] MEDS: VANCOMYCIN HCL 1,500 MG in 0.9 % SODIUM CHLORIDE 250 ML 125 MG IV (22:39)
[2025-01-14] VITALS (7 sets, daily range): BP systolic 154–198; BP diastolic 49–96; PULSE 70–90; RESP 14–18; TEMP 36.8–37.5; O2SAT 95–98; BMI 22.8
[2025-01-14] MEDS: CEFEPIME HCL 2 GM in 0.9 % SODIUM CHLORIDE 100 ML IV ×2 (01:46→08:41)
[2025-01-14] MEDS: AMPICILLIN SODIUM 2 GM in 0.9 % SODIUM CHLORIDE 100 ML IV ×3 (01:46→08:41)
[2025-01-14 06:10] LABS: Hematocrit 36.8 % (42.0-52.0); Hemoglobin 12.2 g/dL (14.1-18.0); Immature Granulocytes % 0.5 %; Mean Corpuscular HGB Conc 33.2 g/dL (31.8-35.4); Mean Corpuscular Hemoglobin 31.3 pg (27.0-31.2); Mean Corpuscular Volume 94.4 fl (80-94); Nucleated Red Blood Cells % 0 %; Platelet Count 182 K/mm3 (142-424); Red Blood Count 3.90 M/mm3 (4.60-6.20); Red Cell Distribution Width-SD 46.6 fL; White Blood Count 7.9 K/mm3 (4.8-10.8)
[2025-01-14 06:17] LABS: Albumin Level 3.4 g/dl (3.5-5.0); Chloride 101 mmol/L (98-107)
[2025-01-14 06:18] LABS: Potassium 3.6 mmoL/L (3.5-5.1); Sodium 131 mmol/L (136-145)
[2025-01-14 06:20] LABS: Alanine Aminotransferase 16 U/L (12-78); Albumin/Globulin Ratio 1.2 (1.1-1.8); Alkaline Phosphatase 56 U/L (38-126); Anion Gap 10.6 mEq/L (5-15); Aspartate Amino Transferase 33 U/L (17-59); Bilirubin,Total 1.4 mg/dl (0.2-1.3); Blood Urea Nitrogen 27 mg/dl (9-20); Carbon Dioxide 23 mmol/L (22.0-30.0); Creatinine Clearance Estimated 63 mL/min (50-200); Creatinine,Serum 0.90 mg/dl (0.66-1.25); Estimated Glomerular Filt Rate 81 ml/min (>60); GFR (African American) 98 ML/MIN (>60); Globulin 2.9 g/dL (1.3-3.2); Total Protein,Serum 6.3 g/dl (6.3-8.2)
[2025-01-14 06:21] LABS: Calcium 7.9 mg/dl (8.4-10.2); Glucose 79 mg/dl (74-100); Magnesium 2.0 mg/dl (1.6-2.3)
[2025-01-14 07:27] LABS: RPR W/RFX Titers Nonreactive (Nonreactive)
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
[2025-01-14 11:18] LABS: C-Reactive Protein 79.0 mg/L (0-4)
[2025-01-14] MEDS: LACTATED RINGERS 1000ML 1,000 ML 75 ML IV ×2 (11:29→23:57)
--- NOTE | 2025-01-14 13:39 | DIET.NUTRFU ---
Patient is more alert today and jaw is in place. Nurse to access swallowing at bedside. Diet advanced to full liquids. Will start supplement secondary to delay in starting oral diet d/t patients confusion and unable to unlock jaw. Will continue to monitor po intake
[2025-01-14] MEDS: POLYETHYLENE GLYCOL 3350 17 GM PACKET PO (14:22)
[2025-01-15] VITALS (7 sets, daily range): BP systolic 139–174; BP diastolic 57–79; PULSE 60–90; RESP 14–18; TEMP 36.8–37.3; O2SAT 93–95; BMI 22.8
--- NOTE | 2025-01-15 05:28 | PC.NURSE ---
Pt. is awake and alert but does not respond to any questions or commands . Pt. also not able to follow commands. When this RN was saying his name Tanner he was looking at me but did not respond. Words incomprehensible. Pt. has movement of both arms. Pt. moaning a lot of this shift. Pt. sleeping off and on , restless at times than rest quietly. Pt. is NPO but unable to PO meds as Pt. refuses to take a sip of water. Pt. pushes cup away from face and did say clearly NO one time. Pt. on room air. IV fluids infusing. Pt. near nursing station and checked on frequently. Pt. turned every 2 hours and changes as needed. pt. voids per brief. Personal items and call daly in reach. but Pt. unable to use call light. Bed in low and locked position. Bed alarm is on. safety measures in place.
[2025-01-15 09:29] LABS: C-Reactive Protein 74.8 mg/L (0-4)
[2025-01-15 09:53] LABS: Albumin 4.7 g/dL (3.7-4.7); Albumin, CSF 32 mg/dL (15-55); IgG, Quant, CSF 3.1 mg/dL (0.0-10.3); IgG, Syn Rate, CSF -2.5 mg/day (-9.9 TO +3.3); IgG/Albumin Ratio, CSF 0.10 (0.00-0.25)
--- NOTE | 2025-01-15 10:01 | CT_ITS ---
PROCEDURE INFORMATION: Exam: CT Abdomen And Pelvis With Contrast Exam date and time: 01/15/2025 2:14 PM Age: 79 years old Clinical indication: Other: Iv contrast only please; Diffuse abd pain TECHNIQUE: Imaging protocol: Computed tomography of the abdomen and pelvis with contrast. Radiation optimization: All CT scans at this facility use at least one of these dose optimization techniques: automated exposure control; mA and/or kV adjustment per patient size (includes targeted exams where dose is matched to clinical indication); or iterative reconstruction. Contrast material: ISOVUE; Contrast volume: 75 ml; Contrast route: IV; COMPARISON: CT ABDOMEN PELVIS W CON 01/12/2025 11:11 AM FINDINGS: Lungs: Mild opacities in the lower lobes may represent atelectasis or pneumonia. Heart: There is calcification of the aortic valve annulus. There is calcification of the mitral valve annulus. Coronary arteries: Coronary artery calcifications may indicate coronary artery disease. Liver: Normal. No mass. Gallbladder and biliary ducts: Normal. No calcified stones. No ductal dilation. Pancreas: Pancreatic atrophy Spleen: Normal. No splenomegaly. Adrenal glands: Normal. No mass. Kidneys and ureters: 2.5 cm simple cyst left kidney . No follow-up imaging recommended . Nonobstructing renal calculi in both kidneys Stomach and bowel: Diverticulosis of the rectosigmoid. No diverticulitis Appendix: Normal appendix Intraperitoneal space: Unremarkable. No free air. No significant fluid collection. Vasculature: Unremarkable. No abdominal aortic aneurysm. Lymph nodes: Unremarkable. No enlarged lymph nodes. Urinary bladder: Unremarkable as visualized. Reproductive: Unremarkable as visualized. Bones/joints: Median sternotomy. Vertebroplasty at T11 and T12 Soft tissues: Unremarkable. IMPRESSION: Mild opacities in the lower lobes may represent atelectasis or pneumonia. COMMENTS: Consistent with the [employer]'s Incidental Findings Committee white paper (J Am Amor Radiol 2018): Any incidental renal lesion less than 1 cm or classified as too small to characterize, or any incidental cystic renal lesion characterized as simple-appearing, is likely benign. No follow-up imaging is recommended for these lesions per consensus recommendations based on imaging criteria.
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
[2025-01-15] MEDS: POLYETHYLENE GLYCOL 3350 17 GM PACKET PO (10:27)
[2025-01-15] MEDS: SODIUM CHLORIDE 0.9% 10ML SYR (RAD ONLY) 10 ML IV ×2 (14:14→14:20)
[2025-01-15] MEDS: IOPAMIDOL-370 (76%);100ML BOTTLE 75 ML IV ×2 (14:14→14:20)
--- NOTE | 2025-01-15 14:20 | HMH.ITSTN ---
contrast injected through IV in the AC however contrast leaked due to IV not being secured, IV still works, no infiltration. Used other IV to rescan pt.
[2025-01-15] MEDS: LACTATED RINGERS 1000ML 1,000 ML 75 ML IV (14:51)
[2025-01-15] MEDS: KETOROLAC 15MG/ML VIAL 15 MG IV (16:26)
[2025-01-15] MEDS: ACETAMINOPHEN 325MG TAB 650 MG PO (20:33)
[2025-01-15] MEDS: PANTOPRAZOLE 40MG TABLET 40 MG PO (20:33)
[2025-01-15] MEDS: SENNOSIDES 8.6MG/DOCUSATE 50MG TABLET 2 TAB PO (20:34)
[2025-01-15] MEDS: KETOROLAC 15MG/ML VIAL 30 MG IV (22:16)
[2025-01-16] VITALS (7 sets, daily range): BP systolic 137–176; BP diastolic 70–78; PULSE 70–95; RESP 14–18; TEMP 36.6–37.2; O2SAT 93–99; BMI 24.0
[2025-01-16] MEDS: LACTATED RINGERS 1000ML 1,000 ML 75 ML IV ×2 (06:21→17:57)
--- NOTE | 2025-01-16 06:45 | PC.NURSE ---
Pt. os alert to name, and knows he is in [place]. Pt. has been awake and restless/agitated all shift. Pt. has not slept. Pt. somethimes would answer a question and sometimes unable to answer questions. . Pt. moving all extremities, Pt. attempted to get out of the bed. He states I need to go home. Pt. also took off gown and brief several times and had 2 bed changes overnight. Pt. moaning a lot. did admit to back pain when asked if he had pain. Pt. medicated per MAY. IV fluids infusing. Personal items and call daly in reach. Bed in low and locked position. bde alarm on.
[2025-01-16 07:43] LABS: Hematocrit 32.5 % (42.0-52.0); Hemoglobin 10.9 g/dL (14.1-18.0); Immature Granulocytes % 0.3 %; Mean Corpuscular HGB Conc 33.5 g/dL (31.8-35.4); Mean Corpuscular Hemoglobin 30.7 pg (27.0-31.2); Mean Corpuscular Volume 91.5 fl (80-94); Nucleated Red Blood Cells % 0 %; Platelet Count 226 K/mm3 (142-424); Red Blood Count 3.55 M/mm3 (4.60-6.20); Red Cell Distribution Width-SD 42.6 fL; White Blood Count 6.5 K/mm3 (4.8-10.8)
[2025-01-16 07:45] LABS: Chloride 97 mmol/L (98-107)
[2025-01-16 07:46] LABS: Albumin Level 3.1 g/dl (3.5-5.0); Sodium 131 mmol/L (136-145)
[2025-01-16 07:48] LABS: Alanine Aminotransferase 20 U/L (12-78); Anion Gap 7.7 mEq/L (5-15); Aspartate Amino Transferase 30 U/L (17-59); Blood Urea Nitrogen 18 mg/dl (9-20); Carbon Dioxide 29 mmol/L (22.0-30.0); Creatinine Clearance Estimated 66 mL/min (50-200); Creatinine,Serum 0.80 mg/dl (0.66-1.25); Estimated Glomerular Filt Rate 93 ml/min (>60); GFR (African American) 112 ML/MIN (>60)
[2025-01-16 07:49] LABS: Albumin/Globulin Ratio 1.1 (1.1-1.8); Alkaline Phosphatase 75 U/L (38-126); Bilirubin,Total 0.9 mg/dl (0.2-1.3); Calcium 7.9 mg/dl (8.4-10.2); Globulin 2.9 g/dL (1.3-3.2); Glucose 202 mg/dl (74-100); Magnesium 1.9 mg/dl (1.6-2.3); Total Protein,Serum 6.0 g/dl (6.3-8.2)
[2025-01-16 08:38] LABS: Potassium 2.7 mmoL/L (3.5-5.1)
[2025-01-16] MEDS: POLYETHYLENE GLYCOL 3350 17 GM PACKET PO (08:51)
[2025-01-16] MEDS: LISINOPRIL 20MG TABLET 20 MG PO (08:58)
[2025-01-16 12:20] LABS: C-Reactive Protein 63.1 mg/L (0-4)
[2025-01-16] MEDS: OXYCODONE 5MG IMMEDIATE RELEASE TABLET 5 MG PO (14:25)
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
[2025-01-16] MEDS: SENNOSIDES 8.6MG/DOCUSATE 50MG TABLET 2 TAB PO (22:11)
[2025-01-16] MEDS: PANTOPRAZOLE 40MG TABLET 40 MG PO (22:11)
[2025-01-16] MEDS: MELATONIN 5MG TABLET 5 MG PO (22:12)
[2025-01-16] MEDS: KETOROLAC 15MG/ML VIAL 30 MG IV (22:18)
[2025-01-16] MEDS: ACETAMINOPHEN 325MG TAB 650 MG PO (22:18)
[2025-01-17] VITALS: BP 173/73; PULSE 75; PULSE 76; RESP 18; TEMP 36.8; O2SAT 95
[2025-01-17 01:20] LABS: Anion Gap 8.4 mEq/L (5-15); Blood Urea Nitrogen 15 mg/dl (9-20); Calcium 8.0 mg/dl (8.4-10.2); Carbon Dioxide 28 mmol/L (22.0-30.0); Chloride 99 mmol/L (98-107); Creatinine Clearance Estimated 66 mL/min (50-200); Creatinine,Serum 0.90 mg/dl (0.66-1.25); Estimated Glomerular Filt Rate 81 ml/min (>60); GFR (African American) 98 ML/MIN (>60); Glucose 135 mg/dl (74-100); Potassium 3.4 mmoL/L (3.5-5.1); Sodium 132 mmol/L (136-145)
[2025-01-17 04:00] VITALS: BP 171/81; PULSE 77; PULSE 80; RESP 18; TEMP 36.6; O2SAT 97; BMI 24.4
[2025-01-17] MEDS: KETOROLAC 15MG/ML VIAL 30 MG IV (04:00)
--- NOTE | 2025-01-17 04:08 | PC.NURSE ---
Patient left floor with staff for ICU at 04:07.
[2025-01-17 06:20] LABS: Hematocrit 31.7 % (42.0-52.0); Hemoglobin 10.7 g/dL (14.1-18.0); Immature Granulocytes % 0.3 %; Mean Corpuscular HGB Conc 33.8 g/dL (31.8-35.4); Mean Corpuscular Hemoglobin 30.7 pg (27.0-31.2); Mean Corpuscular Volume 91.1 fl (80-94); Nucleated Red Blood Cells % 0 %; Platelet Count 246 K/mm3 (142-424); Red Blood Count 3.48 M/mm3 (4.60-6.20); Red Cell Distribution Width-SD 41.9 fL; White Blood Count 6.3 K/mm3 (4.8-10.8)
--- NOTE | 2025-01-17 06:24 | PC.NURSE ---
No changes this shift. Pt has not rested well. Pt has tried to get out of bed, has been moaning, and c/o pain all over/ back pain. Pt medicated PRN per MAY. Hospitalist contacted last night for medication to help pt sleep per family's request. Order received for 5mg Melatonin. Pt still confused. All dressings changed and dressing applied to coccyx. Fall precautions in place. Call light in reach.
[2025-01-17 06:40] LABS: Chloride 98 mmol/L (98-107)
[2025-01-17 06:41] LABS: Albumin Level 2.5 g/dl (3.5-5.0); Potassium 3.2 mmoL/L (3.5-5.1); Sodium 132 mmol/L (136-145)
[2025-01-17 06:43] LABS: Anion Gap 7.2 mEq/L (5-15); Blood Urea Nitrogen 12 mg/dl (9-20); Carbon Dioxide 30 mmol/L (22.0-30.0); Creatinine Clearance Estimated 67 mL/min (50-200); Creatinine,Serum 0.80 mg/dl (0.66-1.25); Estimated Glomerular Filt Rate 93 ml/min (>60); GFR (African American) 112 ML/MIN (>60)
[2025-01-17 06:44] LABS: Alanine Aminotransferase 24 U/L (12-78); Albumin/Globulin Ratio 0.7 (1.1-1.8); Alkaline Phosphatase 72 U/L (38-126); Aspartate Amino Transferase 33 U/L (17-59); Bilirubin,Total 0.6 mg/dl (0.2-1.3); Calcium 7.8 mg/dl (8.4-10.2); Globulin 3.4 g/dL (1.3-3.2); Glucose 134 mg/dl (74-100); Total Protein,Serum 5.9 g/dl (6.3-8.2)
[2025-01-17 07:21] LABS: CSF Lyme (B. burgdorferi) PCR Negative (Negative)
[2025-01-17 07:27] LABS: C-Reactive Protein 46.3 mg/L (0-4)
[2025-01-17 07:34] VITALS: BP 173/75; PULSE 74; RESP 19; TEMP 36.6; O2SAT 98
[2025-01-17 08:00] VITALS: PULSE 70
[2025-01-17 09:17] LABS: Lyme B. burgdorferi PCR Blood Negative (Negative)
[2025-01-17] MEDS: LISINOPRIL 20MG TABLET 20 MG PO (09:37)
[2025-01-17] MEDS: POLYETHYLENE GLYCOL 3350 17 GM PACKET PO (09:37)
--- NOTE | 2025-01-17 10:38 | EXP.PHA.PN ---
Subjective *Date: 01/17/25 *Time: 10:38 Medical Exam Vital signs and Labs for Last 24 Hours: Vital Signs Temp Pulse Pulse Resp BP Pulse Ox O2 Del Method 01/17/25 08:00 70 01/17/25 07:34 97.9 F 74 19 173/75 H 98 Room Air 01/17/25 06:59 Room Air 01/17/25 05:00 Room Air 01/17/25 04:00 80 01/17/25 04:00 97.8 F 77 18 171/81 H 97 Room Air 01/17/25 03:00 Room Air 01/17/25 01:00 Room Air 01/17/25 00:00 98.2 F 76 18 173/73 H 95 Room Air 01/17/25 00:00 75 01/16/25 23:00 Room Air 01/16/25 21:00 Room Air 01/16/25 20:00 Room Air 01/16/25 20:00 95 H 01/16/25 19:57 98.3 F 72 18 176/74 H 99 Room Air 01/16/25 18:16 Room Air 01/16/25 16:00 80 01/16/25 16:00 98.7 F 79 16 171/75 H 94 L Room Air 01/16/25 15:00 Room Air 01/16/25 13:00 Room Air 01/16/25 12:00 80 01/16/25 12:00 98.9 F 77 14 174/78 H 95 Room Air 01/16/25 11:00 Room Air Intake and Output 01/16/25 01/17/25 01/17/25 23:59 07:59 15:59 Intake Total 1680 / 3740 100 / 100 Output Total 300 / 500 200 / 200 Balance 1380 / 3240 -100 / -100 Intake: Intake, Oral Amount 240 / 900 Intake, Total IV Amount 1440 / 2840 100 / 100 Ceftriaxone Sodium 2 gm In 0.9 100 / 100 % Sodium Chloride 100 ml @ 200 mls/hr IV Q24H [facility] Rx#:[id number] KCl 10mEq/100ml 100 ml @ 100 300 / 700 100 / 100 mls/hr IV Q1H [facility] Rx#:[id number] Lactated Ringers 1000ML 1,000 1040 / 2040 0 / 0 ml @ 75 mls/hr IV .[id number] [facility] Rx#:[id number] Output: Output, Urine Amount 300 / 500 200 / 200 Other: Number of Voids 0 Number of Unmeasured Voids 2 1 Weight 81.737 kg Patient Weight 01/17/25 23:59 Weight 81.737 kg Laboratory Results - last 24 hr 01/13/25 05:28: Lyme Disease (PCR) Negative 01/13/25 10:49: CSF Cryptococcus Ag Negative, CSF Cryptoco Ag Clt Rfx Not indicated, B. burgdorferi (PCR) Negative 01/16/25 06:35: Sodium 131 L, Potassium 2.7 L* D, Chloride 97 L, Carbon Dioxide 29, Anion Gap 7.7, BUN 18 D, Creatinine 0.80, Estimated Creat Clear 66, Estimated GFR 93, Est GFR ( Amer) 112, Glucose 202 H, Calcium 7.9 L, Magnesium 1.9, Total Bilirubin 0.9, AST 30, ALT 20, Alkaline Phosphatase 75, C-Reactive Protein 63.1 H, Total Protein 6.0 L, Albumin 3.1 L, Globulin 2.9, Albumin/Globulin Ratio 1.1 01/17/25 01:05: Sodium 132 L, Potassium 3.4 L D, Chloride 99, Carbon Dioxide 28, Anion Gap 8.4, BUN 15, Creatinine 0.90, Estimated Creat Clear 66, Estimated GFR 81, Est GFR ( Amer) 98, Glucose 135 H D, Calcium 8.0 L 01/17/25 05:24: WBC 6.3, RBC 3.48 L, Hgb 10.7 L, Hct 31.7 L, MCV 91.1, MCH 30.7, MCHC 33.8, RDW 12.7, Plt Count 246, MPV 9.1, Neut % (Auto) 64.4, Lymph % (Auto) 18.2, [place] % (Auto) 12.0 H, Eos % (Auto) 3.8, Baso % (Auto) 1.3, Neut # (Auto) 4.0, Lymph # (Auto) 1.1, [place] # (Auto) 0.8, Eos # (Auto) 0.2, Baso # (Auto) 0.1, Sodium 132 L, Potassium 3.2 L, Chloride 98, Carbon Dioxide 30, Anion Gap 7.2, BUN 12, Creatinine 0.80, Estimated Creat Clear 67, Estimated GFR 93, Est GFR ( Amer) 112, Glucose 134 H, Calcium 7.8 L, Total Bilirubin 0.6, AST 33, ALT 24, Alkaline Phosphatase 72, C-Reactive Protein 46.3 H D, Total Protein 5.9 L, Albumin 2.5 L D, Globulin 3.4 H, Albumin/Globulin Ratio 0.7 L I & O for Labs for Last 24 Hours: Intake & Output 01/14/25 01/15/25 01/16/25 01/17/25 23:59 23:59 23:59 23:59 Intake Total 2785 / 2785 1960 / 2260 3740 / 3740 100 / 100 Output Total 100 / 100 475 / 475 500 / 500 200 / 200 Balance 2685 / 2685 1485 / 1785 3240 / 3240 -100 / -100 Weight 76.702 kg 76.723 kg 80.513 kg 81.737 kg Microbiology Reports for the Last 24 Hours: Microbiology 01/13/25 10:49 Cerebral Spinal Fluid - Final 01/13/25 10:49 Cerebral Spinal Fluid Acid Fast Bacilli Smear - Final 01/11/25 14:50 Blood Blood Culture - Final NO GROWTH AFTER 5 DAYS 01/11/25 13:30 Blood Blood Culture - Final NO GROWTH AFTER 5 DAYS The patient's infection will respond to the chosen ABx?: Yes Is the patient receiving the right drug, dose, and route?: Yes Could a more targeted ABx be ordered?: No (WBC WNL, AFEBRILE, NO GROWTH IN CX.)
[2025-01-17] MEDS: POTASSIUM CHLORIDE 20MEQ TAB 40 MEQ PO (10:41)
--- NOTE | 2025-01-17 10:57 | DIET.NUTRFU ---
during rounds upgraded diet to regular- he has been able to tolerate [employer] and [place] over the weekend and was on regular diet [employer]. Jaw is in place. Had ordered boost with meals- he only likes strawberry and currently unavailable to facility at this time. Called kitchen and ordered strawberry milkshake with lunch. Plans to discharge to correction today
[2025-01-17 12:00] VITALS: BP 166/85; PULSE 80; PULSE 86; RESP 19; TEMP 36.8; O2SAT 95
--- NOTE | 2025-01-17 13:19 | P.DS_ITS ---
General Admission date:: 01/11/25 Discharge date: 01/17/25 HPI HPI HPI: Mr. Jauregui is a 79-year-old male who presented to the emergency department today via EMS due to altered mental status and a fall. He has a primary medical history of GERD, hypertension, hyperlipidemia, CAD, CABG, osteoporosis, type 2 diabetes, dementia, recurrent dislocation of mandible. Patient's daughter at bedside states his last known normal was approximately at 8 AM this morning, she went to check on him around noon and he was confused and lying on the floor. She does state that he has had some periodic episodes of confusion lately. Patient does live alone but daughter checks on him every day. Per patient's daughter he is normally completely alert and oriented x 4, GCS 15 at baseline, she does endorse that he has appeared to be more fatigued lately. Workup in the emergency department elevated CK of 800, hyperkalemia of 5.8. Head and neck CT were obtained and both showed no acute findings. No leukocytosis noted, no anemia. Anion gap elevated at 18.8, BUN 22, creatinine 1.1. Troponin elevated at 0.04, continuing to trend. UA showed no signs of infection, although daughter states he has had episodes of incontinence recently. Toxicology and alcohol screen negative. Patient did have notable dislocation of mandible, appears to be a chronic issue for him. Chest x-ray showed no acute findings. Patient has remained afebrile, and denies chest pain, abdominal pain, nausea, vomiting, diarrhea. Hospital Course Hospital Course Hospital Course: The patient was admitted to the [facility] unit with telemetry monitoring. Imaging, labs, cultures and inflammatory markers were assessed and trended. He underwent spinal tap procedure. He underwent neuroimaging with no identified acute stroke. We discussed previous hospital admissions including 2022 where he presented for a fall and confusion. We discussed his previous neurology evaluations (Dr. Mcgowan) for memory impairment, cognitive decline and mood swings. We discussed his advanced age and concerns for posttraumatic brain injury after a fall. He received IV antibiotic therapy and underwent ancillary service evaluations including OT, PT and registered dietitian evaluations. Improvement was identified. Discharge planning occurred with daughter at [facility]. Initially she requested discharge home and later requested transition of care to [facility] facility. Case management assisted with discharge needs including transition of care to [facility] and rehab. On day of discharge I am accompanied by his nurse Chance, case management, pharmacy and social work for discharge planning. The patient is accompanied by his daughter. His care will transition to [facility] and rehab with outpatient follow-up with his PCP in 1 week and ongoing neurology evaluations in the outpatient setting. I spent 35 minutes in [id number] time with the patient, daughter at bedside, case management and nursing staff concerning the discharge process. We discussed the admitting diagnoses and hospital course. We discussed identified improvement and discharged to SNF. We reviewed inpatient studies and imaging. The patient/daughter voiced understanding on the importance of follow-up with his primary care provider and neurologist. Exam Data for Last 24 hours Vital signs and Labs for Last 24 Hours: Temp Pulse Resp BP Pulse Ox O2 Del Method O2 Flow Rate 98.3 F 86 19 166/85 H 95 Room Air 2 01/17/25 12:00 01/17/25 12:00 01/17/25 12:00 01/17/25 12:00 01/17/25 12:00 01/17/25 12:00 01/12/25 05:00 Laboratory Results - last 24 hr 01/13/25 05:28: Lyme Disease (PCR) Negative 01/13/25 10:49: CSF Cryptococcus Ag Negative, CSF Cryptoco Ag Clt Rfx Not indicated, B. burgdorferi (PCR) Negative 01/17/25 01:05: Sodium 132 L, Potassium 3.4 L D, Chloride 99, Carbon Dioxide 28, Anion Gap 8.4, BUN 15, Creatinine 0.90, Estimated Creat Clear 66, Estimated GFR 81, Est GFR ( Amer) 98, Glucose 135 H D, Calcium 8.0 L 01/17/25 05:24: WBC 6.3, RBC 3.48 L, Hgb 10.7 L, Hct 31.7 L, MCV 91.1, MCH 30.7, MCHC 33.8, RDW 12.7, Plt Count 246, MPV 9.1, Neut % (Auto) 64.4, Lymph % (Auto) 18.2, Lassen % (Auto) 12.0 H, Eos % (Auto) 3.8, Baso % (Auto) 1.3, Neut # (Auto) 4.0, Lymph # (Auto) 1.1, Lassen # (Auto) 0.8, Eos # (Auto) 0.2, Baso # (Auto) 0.1, Sodium 132 L, Potassium 3.2 L, Chloride 98, Carbon Dioxide 30, Anion Gap 7.2, BUN 12, Creatinine 0.80, Estimated Creat Clear 67, Estimated GFR 93, Est GFR ( Amer) 112, Glucose 134 H, Calcium 7.8 L, Total Bilirubin 0.6, AST 33, ALT 24, Alkaline Phosphatase 72, C-Reactive Protein 46.3 H D, Total Protein 5.9 L, Albumin 2.5 L D, Globulin 3.4 H, Albumin/Globulin Ratio 0.7 L I & O for Last 24 hours: Intake & Output 01/14/25 01/15/25 01/16/25 01/17/25 23:59 23:59 23:59 23:59 Intake Total 2785 / 2785 1960 / 2260 3740 / 3740 275 / 275 Output Total 100 / 100 475 / 475 500 / 500 200 / 200 Balance 2685 / 2685 1485 / 1785 3240 / 3240 75 / 75 Weight 76.702 kg 76.723 kg 80.513 kg 81.737 kg Microbiology Reports for the Last 24 Hours: Microbiology 01/13/25 10:49 Cerebral Spinal Fluid - Final 01/13/25 10:49 Cerebral Spinal Fluid Acid Fast Bacilli Smear - Final 01/11/25 14:50 Blood Blood Culture - Final NO GROWTH AFTER 5 DAYS 01/11/25 13:30 Blood Blood Culture - Final NO GROWTH AFTER 5 DAYS Constitutional Constitutional: no acute distress, chronically ill appearing and cooperative *Routine HEENT Exam Head: Present normocephalic Comments: Diminished hearing capacity *Routine Respiratory Exam Respiratory: Present rhonchi, normal respiratory effort and symmetric chest movement *Routine Cardiovascular Exam Cardiovascular: Present RRR *Routine Skin Exam Skin: Absent rash Routine Psychiatric Exam Psychiatric: Present cooperative Results Data Completed and Pending Labs on day of discharge: Labs from last 24 hours 01/17/25 01/17/25 01/13/25 05:24 01:05 10:49 WBC 6.3 RBC 3.48 L Hgb 10.7 L Hct 31.7 L MCV 91.1 MCH 30.7 MCHC 33.8 RDW 12.7 Plt Count 246 MPV 9.1 Neut % (Auto) 64.4 Lymph % (Auto) 18.2 Lassen % (Auto) 12.0 H Eos % (Auto) 3.8 Baso % (Auto) 1.3 Neut # (Auto) 4.0 Lymph # (Auto) 1.1 Lassen # (Auto) 0.8 Eos # (Auto) 0.2 Baso # (Auto) 0.1 Sodium 132 L 132 L Potassium 3.2 L 3.4 L D Chloride 98 99 Carbon Dioxide 30 28 Anion Gap 7.2 8.4 BUN 12 15 Creatinine 0.80 0.90 Estimated Creat Clear 67 66 Estimated GFR 93 81 Est GFR ( Amer) 112 98 Glucose 134 H 135 H D Calcium 7.8 L 8.0 L Total Bilirubin 0.6 AST 33 ALT 24 Alkaline Phosphatase 72 C-Reactive Protein 46.3 H D Total Protein 5.9 L Albumin 2.5 L D Globulin 3.4 H Albumin/Globulin Ratio 0.7 L CSF Cryptococcus Ag Negative CSF Cryptoco Ag Clt Rfx Not indicated B. burgdorferi (PCR) Negative Lyme Disease (PCR) 01/13/25 05:28 WBC RBC Hgb Hct MCV MCH MCHC RDW Plt Count MPV Neut % (Auto) Lymph % (Auto) Lassen % (Auto) Eos % (Auto) Baso % (Auto) Neut # (Auto) Lymph # (Auto) Lassen # (Auto) Eos # (Auto) Baso # (Auto) Sodium Potassium Chloride Carbon Dioxide Anion Gap BUN Creatinine Estimated Creat Clear Estimated GFR Est GFR ( Amer) Glucose Calcium Total Bilirubin AST ALT Alkaline Phosphatase C-Reactive Protein Total Protein Albumin Globulin Albumin/Globulin Ratio CSF Cryptococcus Ag CSF Cryptoco Ag Clt Rfx B. burgdorferi (PCR) Lyme Disease (PCR) Negative DS: Diagnosis Discharge Diagnosis (1) Acute hyperkalemia: Status: Acute Code(s): E87.5 - Hyperkalemia (2) Encephalopathy: Status: Acute Code(s): G93.40 - Encephalopathy, unspecified (3) Rhabdomyolysis: Status: Acute Code(s): M62.82 - Rhabdomyolysis (4) Fall: Status: Acute Code(s): W19.XXXA - Unspecified fall, initial encounter Qualifiers: Encounter type: initial encounter Qualified Code(s): W19.XXXA - Unspecified fall, initial encounter (5) Closed dislocation of temporomandibular joint: Status: Acute Code(s): S03.00XA - Dislocation of jaw, unspecified side, initial encounter Meds Home Medications and Allergies Home Medications ?Medication ?Instructions ?Recorded ?Confirmed ?Type aspirin 81 mg tablet 81 mg PO DAILY #30 tabs 12/23 10/15 Rx atorvastatin 20 mg tablet (Lipitor) 20 mg PO DAILY #30 tabs 01/17/25 Rx calcium carbonate (Tums) 500 mg (2.5 x 200 mg calcium (500 01/17/25 Rx mg)) PO QIDP PRN Heartburn #30 tabs doxycycline hyclate 100 mg capsule 100 mg PO BID #20 c aps 01/17/25 Rx duloxetine 30 mg capsule,delayed 30 mg PO DAILY #30 ca ps 01/17/25 Rx release lisinopril 10 mg tablet 20 mg (2 x 10 mg) PO DAILY # 30 tabs 01/17/25 Rx pantoprazole 40 mg tablet,delayed 40 mg PO HS #30 tabs 01/17/25 Rx release polyethylene glycol 3350 17 gram 17 g PO DAILY #15 ea 01/17/25 Rx oral powder packet (HealthyLax) New Prescriptions to Start Prescriptions: aspirin Emeric,Kody atorvastatin [Lipitor] Emeric,Kody calcium carbonate [Tums] Emeric,Kody doxycycline hyclate Emeric,Kody duloxetine Emeric,Kody lisinopril Emeric,Kody pantoprazole Emeric,Kody polyethylene glycol 3350 [HealthyLax] Emeric,Kody Allergies Allergy/AdvReac Type Severity Reaction Status Date / Time latex (LATEX) Allergy Intermediate Verified 12/08/23 09:39 Discharge Plan Disposition Patient Disposition: [facility] Condition: Fair Discharge Order Discharge Orders: Discharge Order (Routine); Ordered 01/17/25 Ordered By: Kody Ramirez Follow up Plan Follow up with: Stefan Luu MD [Primary Care Provider, Medical] - 1 week Vandana Mcgowan MD [Staff Physician, Neurology] - 04/18/25 8:30 am Prescriptions/Medication Reconciliation: New polyethylene glycol 3350 [HealthyLax] 17 gram Powder In Packet 17 g PO DAILY Qty: 15 0RF pantoprazole 40 mg Tablet,Delayed Release (Dr/Ec) 40 mg PO HS Qty: 30 0RF lisinopril 10 mg Tablet 20 mg PO DAILY Qty: 30 0RF calcium carbonate [Tums] 200 mg calcium (500 mg) Tablet,Chewable 500 mg PO QIDP PRN (Reason: Heartburn) Qty: 30 0RF duloxetine 30 mg Capsule,Delayed Release(Dr/Ec) 30 mg PO DAILY Qty: 30 0RF doxycycline hyclate 100 mg capsule 100 mg PO BID Qty: 20 0RF atorvastatin [Lipitor] 20 mg tablet 20 mg PO DAILY Qty: 30 0RF aspirin 81 mg tablet 81 mg PO DAILY Qty: 30 0RF Discontinued aspirin [Stanley Aspirin] 325 mg tablet 325 mg PO DAILY Qty: 90 1RF Problem Reconciliation Problems Reviewed?: Yes Patient Discharge Instructions ACTIVITY: Other DIET: low salt diet and cardiac Patient Instructions: Rhabdomyolysis, DI for Hyperkalemia, Encephalopathy, DI for Encephalopathy, DI for Rhabdomyolysis Print Language: Japanese Providers Primary Care Provider: Stefan Luu Admit Provider: Chance Clayton Attending Provider: Chance Clayton
[2025-01-18 15:46] LABS: VDRL, Cerebrospinal Fluid Non Reactive (Non Rea:<1:1)
[2025-01-18 16:21] LABS: CEA, Fluid <0.6 ng/mL (Not Estab.)
== END 2025-01-17 14:28 | DRG 70 ==
LOC: ER 14:16 → 2ND 15:59
PROVIDERS: Internal Medicine Adolescent Medicine; Nurse Practitioner Acute Care; Nurse Practitioner Family; Admitting Provider Student in an Organized Health Care Education/Training Program; Emergency Provider Student in an Organized Health Care Education/Training Program; PCP Internal Medicine; Visit Provider Student in an Organized Health Care Education/Training Program
DX: G93.41 Metabolic encephalopathy (principal); I21.A1 Myocardial infarction type 2; J69.0 Pneumonitis due to inhalation of food and vomit; M62.82 Rhabdomyolysis; F03.93 Unspecified dementia, unspecified severity, with mood disturbance; G81.91 Hemiplegia, unspecified affecting right dominant side; Z91.81 History of falling; K21.9 Gastro-esophageal reflux disease without esophagitis; I10 Essential (primary) hypertension; E78.5 Hyperlipidemia, unspecified; I25.10 Atherosclerotic heart disease of native coronary artery without angina pectoris; Z95.1 Presence of aortocoronary bypass graft; Z95.5 Presence of coronary angioplasty implant and graft; M81.0 Age-related osteoporosis without current pathological fracture; E11.9 Type 2 diabetes mellitus without complications; E87.5 Hyperkalemia; M24.49 Recurrent dislocation, other specified joint; Z63.4 Disappearance and death of family member; J01.90 Acute sinusitis, unspecified; Z66 Do not resuscitate; R53.81 Other malaise; F07.81 Postconcussional syndrome
CPT/HCPCS: 0223U; 36415; 36600; 70450; 70486; 70496; 70498; 70553; 71045; 71250; 72156; 74177; 80048; 80053; 80307; 80320; 81001; 82040; 82042; 82140; 82378; 82550; 82784; 82803; 82945; 83036; 83605; 83735; 83916; 84145; 84155; 84443; 84484; 85025; 85610; 85730; 86140; 86592; 87040; 87086; 87101; 87116; 87186; 87476; 87529; 87899; 89051; 93005; 97162; 97166; 97530; 99285; A9576; J0131; J0290; J0692; J0696; J1650; J1885; J3373; J3375; J3480; J7050; J7120; Q9967